=== PATIENT | female | born 1940 | race Caucasian/White ===

== ENCOUNTER 2017-02-24 17:28 | Inpatient (IN) | payer MEDICARE ==
[~2017-02-24] VITALS: Ht 157.5 cm; Wt 51.7 kg
[~2017-02-24 17:28] MED LIST: AMLODIPINE BESYL5 MG PO; ASPIRIN81 MG PO; ATENOLOL25 MG PO; AZITHROMYCIN250 MG PO; BUSPIRONE HCL10 MG; BUSPIRONE HCL5 MG PO; CENTRUM SILVER1 EAC4 PO; CINNAMON500 MG PO; FISH OIL500 MG PO; FLECAINIDE ACE100 MG PO; NEURONTIN300 MG PO; NIACOR500 MG PO; NITROFURANTOIN100 MG PO; PENTOXIFYLLINE400 MG PO; PRAVASTATIN SOD40 MG PO; PRILOSEC40 MG PO; PROVENTIL HFA6.7 GM INH; XARELTO20 MG PO
[2017-02-24] MEDS ORDERED: ALBUTEROL/IPRATROPIUM 3 ML NEB NEB ONE (18:00)
--- NOTE | 2017-02-24 18:34 | Diagnostic Imaging Report ---
PROCEDURE: A single AP view of the chest. COMPARISON: 12/15/15 INDICATIONS: SHORTNESS OF BREATH FINDINGS: Lines/tubes: None. Lungs: The lungs are well inflated. Apical scarring. Central peribronchovascular thickening/cuffing. Pleura: There is no pleural effusion or pneumothorax. Heart and mediastinum: The heart and the mediastinum are unremarkable. Bones: No acute bony abnormality. IMPRESSION: Central peribronchovascular thickening/cuffing. No definite focal consolidation. Dictated by: Kristopher Prieto M.D. on 02/24/2017 at 18:43 Electronically approved by: Kristopher Prieto M.D. on 02/24/2017 at 18:43
[2017-02-24 18:57] LABS: BASOPHILS % 0.3 % (0.0-1.0); HEMATOCRIT 39.5 % (34.2-44.1); HEMOGLOBIN 13.5 g/dL (12.0-16.0); LYMPHOCYTES # (AUTO) 1.2 (1.0-3.2); LYMPHOCYTES % 17.1 % (18.0-39.1); MEAN CORPUSCULAR HEMOGLOBIN 31.3 pg (28-32); MEAN CORPUSCULAR HGB CONC 34.2 g/dL (31-35); MEAN CORPUSCULAR VOLUME 91.4 fL (81-99); MONOCYTES % 14.6 % (4.4-11.3); NEUTROPHILS # (AUTO) 4.6 (2.1-6.9); NEUTROPHILS % 67.7 % (38.7-80.0); PLATELET COUNT 315 x10e3/uL (140-360); RED BLOOD COUNT 4.32 x10e6/uL (3.6-5.1); RED CELL DISTRIBUTION WIDTH 14.4 % (11.7-14.4)
[2017-02-24] MEDS ORDERED: METHYLPREDNISOLONE SOD SUCC 125 MG/2ML VIAL IV STA (19:11)
[2017-02-24] MEDS ORDERED: SODIUM CHLORIDE 0.9% 1000ML 1,000 ML IV STA (19:11)
[2017-02-24] MEDS ORDERED: PANTOPRAZOLE 40 MG 10ML VIAL IV STA (19:11)
[2017-02-24 19:14] LABS: INR 1.12
[2017-02-24 19:20] LABS: B-TYPE NATRIURETIC PEPTIDE2 90.3 pg/mL (0-100)
[2017-02-24 19:29] LABS: ALBUMIN 3.8 g/dL (3.5-5.0); CALCIUM 9.6 mg/dL (8.4-10.2); CREATININE, SERUM 1.02 mg/dL (0.57-1.11); MAGNESIUM 1.8 MG/DL (1.3-2.1)
[2017-02-24] MEDS ORDERED: ALBUTEROL SULF 0.083% NEB SOLN 3 ML NEB NEB ONE (19:30)
[2017-02-24] MEDS ORDERED: LEVOFLOXACIN 500MG/D5W 100ML 100 ML IV ONE (19:30)
[2017-02-24 19:38] LABS: CREATINE KINASE MB 4.7 ng/mL (0.00-5.00); TROPONIN I 0.011 ng/mL (0-0.300)
[2017-02-24] MEDS ORDERED: DEXAMETHASONE SOD PHOS 10 MG/1 ML VIAL IV ONE (19:45)
[2017-02-24 19:48] LABS: ABG HCO3 20 mmol/L (23-28); ABG PCO2 36 mmHg (41-51); ABG PH 7.36 (7.31-7.41); ABG PO2 101 mmHg (80-105)
[2017-02-24] MEDS ORDERED: MAGNESIUM SULFATE 2GM/50ML 50 ML IV ONE (20:00)
[2017-02-24] MEDS ORDERED: ONDANSETRON HCL INJ 2 MG/ML VIAL IV STA (20:06)
--- NOTE | 2017-02-24 21:18 | Diagnostic Imaging Report ---
EXAM: CT CHEST W DATE: 02/24/2017 7:22 PM Time stamp on exam: 2055 hours INDICATION: Shortness of breath, cough, congestion COMPARISON: None TECHNIQUE: Multidetector CT scanning of the chest was performed. Coronal and sagittal multiplanar reformations were obtained. PE protocol performed IV Contrast: 100 cc Isovue-370 CTDIvol has been reviewed. It is below the limits set by the Radiation Protocol Committee (RPC). FINDINGS: LUNGS AND AIRWAYS: The trachea and major bronchi are unremarkable. Advanced centrilobular and paraseptal emphysema. No consolidations. Biapical pleural parenchymal scarring. PLEURA: No effusions or pneumothorax. HEART, MEDIASTINUM, VESSELS: The heart is within normal size limits. No thoracic aortic aneurysm. No mediastinal mass or lymphadenopathy. The main pulmonary artery is within normal size limits. No evidence of a pulmonary embolism to the segmental level. UPPER ABDOMEN: No acute findings MUSCULOSKELETAL: No acute findings. IMPRESSION: Advanced emphysema. No consolidations. No pulmonary embolism. Signed by: Dr. Carmenza Friedman M.D. on 02/24/2017 9:15 PM
[2017-02-24] MEDS ORDERED: SODIUM CHLORIDE 0.9% 50ML 50 ML ONE (21:21)
[2017-02-24] MEDS ORDERED: IOPAMIDOL 370 MG/ML 200 ML INFUS..BTL INJ ONE (21:22)
[2017-02-24] MEDS ORDERED: LEVOFLOXACIN 500MG/D5W 100ML 100 ML IV SCH (22:00)
[2017-02-24] MEDS: METHYLPREDNISOLONE SOD SUCC 125 MG/2ML VIAL IV SCH (22:38)
[2017-02-24] MEDS ORDERED: MAGNESIUM SULF 1GRAM/DEXTROSE 100 ML IV ONE (23:15)
[2017-02-24 23:20] VITALS: BP 123/61
[2017-02-25 01:51] VITALS: BP 123/61
[2017-02-25] MEDS: METHYLPREDNISOLONE SOD SUCC 125 MG/2ML VIAL IV SCH ×3 (05:13→20:45)
[2017-02-25 07:13] LABS: HEMATOCRIT 34.6 % (34.2-44.1); LYMPHOCYTES # (AUTO) 0.7 (1.0-3.2); LYMPHOCYTES % 14.5 % (18.0-39.1); MEAN CORPUSCULAR HEMOGLOBIN 31.6 pg (28-32); MEAN CORPUSCULAR HGB CONC 34.7 g/dL (31-35); MEAN CORPUSCULAR VOLUME 91.1 fL (81-99); MONOCYTES # (AUTO) 0.2 (0.2-0.8); MONOCYTES % 3.8 % (4.4-11.3); NEUTROPHILS % 81.3 % (38.7-80.0); PLATELET COUNT 281 x10e3/uL (140-360); RED CELL DISTRIBUTION WIDTH 14.4 % (11.7-14.4)
[2017-02-25] MEDS: LEVALBUTEROL HCL SOLN NEBU 0.63 MG/3 ML NEB INH PRN ×2 (07:15→20:15)
[2017-02-25] MEDS: IPRATROPIUM BROMIDE 0.02% 2.5 ML NEB NEB PRN (07:15)
[2017-02-25 07:48] LABS: ANION GAP 14.4 mmol/L (8-16); BLOOD UREA NITROGEN 19 mg/dL (7-26); BUN/CREATININE RATIO 22 (6-25); CALCIUM 8.6 mg/dL (8.4-10.2); CARBON DIOXIDE 19 mmol/L (22-29); CHLORIDE 102 mmol/L (98-107); CREATININE, SERUM 0.88 mg/dL (0.57-1.11); EST GLOMERULAR FILTRATION RATE > 60 ML/MIN (60-); GLUCOSE 144 mg/dL (74-118); POTASSIUM 4.4 mmol/L (3.5-5.1); SODIUM 131 mmol/L (136-145)
[2017-02-25 08:00] VITALS: BP 121/58
[2017-02-25 08:11] LABS: TROPONIN I 0.014 ng/mL (0-0.300)
[2017-02-25 12:00] VITALS: BP 110/70
[2017-02-25 15:24] LABS: CREATINE KINASE MB 4.7 ng/mL (0.00-5.00); TROPONIN I 0.024 ng/mL (0-0.300)
[2017-02-25 16:00] VITALS: BP 120/59
[2017-02-25 20:00] VITALS: BP 107/58
[2017-02-25] MEDS ORDERED: LEVOFLOXACIN 500MG/D5W 100ML IV SCH (20:00)
[2017-02-25] MEDS ORDERED: SODIUM CHLORIDE 0.9% 250ML 250 ML ONE (20:40)
[2017-02-25] MEDS: LEVOFLOXACIN 500MG/D5W 100ML 100 ML IV SCH (20:45)
[2017-02-26] VITALS: BP 130/67
[2017-02-26] MEDS: LEVALBUTEROL HCL SOLN NEBU 0.63 MG/3 ML NEB INH PRN ×5 (04:00→23:45)
[2017-02-26] MEDS: METHYLPREDNISOLONE SOD SUCC 125 MG/2ML VIAL IV SCH ×2 (05:44→20:47)
[2017-02-26] MEDS: IPRATROPIUM BROMIDE 0.02% 2.5 ML NEB NEB PRN ×3 (07:15→15:25)
[2017-02-26 08:00] VITALS: BP 119/53
[2017-02-26 08:30] LABS: BASOPHILS % 0.1 % (0.0-1.0); HEMATOCRIT 37.8 % (34.2-44.1); HEMOGLOBIN 12.9 g/dL (12.0-16.0); LYMPHOCYTES % 8.5 % (18.0-39.1); MEAN CORPUSCULAR HEMOGLOBIN 31.3 pg (28-32); MEAN CORPUSCULAR HGB CONC 34.1 g/dL (31-35); MEAN CORPUSCULAR VOLUME 91.7 fL (81-99); MONOCYTES # (AUTO) 0.7 (0.2-0.8); MONOCYTES % 5.7 % (4.4-11.3); NEUTROPHILS # (AUTO) 9.8 (2.1-6.9); NEUTROPHILS % 85.1 % (38.7-80.0); PLATELET COUNT 330 x10e3/uL (140-360); RED BLOOD COUNT 4.12 x10e6/uL (3.6-5.1); RED CELL DISTRIBUTION WIDTH 14.5 % (11.7-14.4)
[2017-02-26 09:07] LABS: ANION GAP 12.2 mmol/L (8-16); BLOOD UREA NITROGEN 20 mg/dL (7-26); BUN/CREATININE RATIO 22 (6-25); CALCIUM 9.3 mg/dL (8.4-10.2); CARBON DIOXIDE 23 mmol/L (22-29); CHLORIDE 104 mmol/L (98-107); EST GLOMERULAR FILTRATION RATE > 60 ML/MIN (60-); GLUCOSE 130 mg/dL (74-118); POTASSIUM 4.2 mmol/L (3.5-5.1); SODIUM 135 mmol/L (136-145)
[2017-02-26] MEDS ORDERED: ALBUTEROL SULFATE HFA 8GM INHALATION AEROSOL INH PRN (09:15)
[2017-02-26] MEDS ORDERED: ZOLPIDEM TARTRATE 5 MG TAB PO PRN (09:45)
[2017-02-26 12:00] VITALS: BP 137/60
[2017-02-26] MEDS: BUSPIRONE HCL 5 MG TAB PO SCH ×2 (15:00→21:00)
[2017-02-26 16:00] VITALS: BP 124/58
[2017-02-26] MEDS: FLECAINIDE ACETATE 100 MG TAB PO SCH (17:00)
[2017-02-26] MEDS ORDERED: NITROFURANTOIN MACROCRYSTALS 100 MG CAP PO SCH (17:00)
[2017-02-26] MEDS: PENTOXIFYLLINE 400 MG TAB CR PO SCH (17:00)
[2017-02-26] MEDS: GABAPENTIN 300 MG CAP PO SCH (17:00)
[2017-02-26] MEDS: OSELTAMIVIR PHOSPHATE 75 MG CAP PO SCH (17:31)
[2017-02-26 20:00] VITALS: BP 151/73
[2017-02-26] MEDS: LEVOFLOXACIN 500MG/D5W 100ML 100 ML IV SCH (20:47)
[2017-02-26] MEDS: RIVAROXABAN 20 MG TABLET PO SCH (21:00)
[2017-02-26] MEDS: PRAVASTATIN 20 MG TAB PO SCH (21:00)
[2017-02-27 00:27] VITALS: BP 122/62
[2017-02-27] MEDS: TIOTROPIUM 18 MCG INH POWDER INH SCH (06:00)
[2017-02-27] MEDS: LEVALBUTEROL HCL SOLN NEBU 0.63 MG/3 ML NEB INH PRN (07:00)
[2017-02-27] MEDS: IPRATROPIUM BROMIDE 0.02% 2.5 ML NEB NEB PRN (07:25)
[2017-02-27 07:27] VITALS: BP 123/65
[2017-02-27] MEDS ORDERED: PANTOPRAZOLE SOD 40 MG TABEC PO SCH (07:30)
[2017-02-27] MEDS: AMLODIPINE BESYLATE 5 MG TAB PO SCH (09:00)
[2017-02-27] MEDS: GABAPENTIN 300 MG CAP PO SCH ×2 (09:00→16:25)
[2017-02-27] MEDS: OMEGA 3 POLYUNSAT FATTY ACIDS 1000 MG SOFTGEL PO SCH (09:00)
[2017-02-27] MEDS: BUSPIRONE HCL 5 MG TAB PO SCH ×3 (09:00→21:00)
[2017-02-27] MEDS: FLECAINIDE ACETATE 100 MG TAB PO SCH ×2 (09:00→16:33)
[2017-02-27] MEDS: PENTOXIFYLLINE 400 MG TAB CR PO SCH ×2 (09:00→16:25)
[2017-02-27] MEDS: OSELTAMIVIR PHOSPHATE 75 MG CAP PO SCH ×2 (09:21→17:17)
[2017-02-27] MEDS: METHYLPREDNISOLONE SOD SUCC 125 MG/2ML VIAL IV SCH (09:21)
[2017-02-27 11:37] VITALS: BP 144/81
[2017-02-27] MEDS: AZITHROMYCIN 500MG/NS 250 ML 250 ML IV SCH (12:13)
[2017-02-27 16:31] VITALS: BP 150/70
[2017-02-27 20:33] VITALS: BP 115/52
[2017-02-27] MEDS: PANTOPRAZOLE SOD 40 MG TABEC PO SCH (21:00)
[2017-02-27] MEDS: PRAVASTATIN 20 MG TAB PO SCH (21:00)
[2017-02-27] MEDS: RIVAROXABAN 20 MG TABLET PO SCH (21:00)
--- NOTE | 2017-02-27 21:58 | Consultation ---
DATE OF CONSULTATION: PULMONARY/CRITICAL CARE CONSULTATION REFERRING PHYSICIAN: Dr. Raheem Hauser PCP: Dr. Álvaro Haywood HISTORY OF PRESENT ILLNESS: The patient is a 76-year-old woman. She required hospitalization in December of last year for bronchitis and atrial fibrillation. Over the past several weeks, she has felt more malaise and dyspnea. She notes some cough that is not productive of phlegm. She denies any fever or chest pain. She went to Dr. Haywood's office. She received several different antibiotics with minimal benefit. She came to the emergency department last night. She had a CT scan that showed some emphysematous changes. She was started on Solu-Medrol along with antibiotics with some slight improvement. PAST MEDICAL HISTORY: 1. Atrial fibrillation. 2. Hypertension. PAST SURGICAL HISTORY: Noncontributory. SOCIAL HISTORY: The patient is still smoking. She lives . Dr. Haywood is her regular doctor. She is not a drinker. FAMILY HISTORY: Family history is noncontributory. ALLERGIES: THE PATIENT IS ALLERGIC TO AMOXICILLIN AND CEFUROXIME. REVIEW OF SYSTEMS: The patient does not have any fever. She does not have any headache or congestion. She is not complaining of sore throat. She has no neck pain. She does have dyspnea and some dry cough. She has no wheezing. She has no chest pain. The abdomen is soft and nontender. There is no rebound or guarding. Examination of the extremities showed no leg edema or calf tenderness. There is no cyanosis or clubbing. Skin examination showed no rashes. PHYSICAL EXAMINATION: VITAL SIGNS: The patient is afebrile. The blood pressure is 130/67 and the O2 saturation is 98%, is on 2 liters. HEENT: Showed no facial swelling or erythema. The nasal mucosa is normal. The oropharynx is normal. LYMPHATIC: Showed no submandibular, cervical, or supraclavicular adenopathy. NECK: Showed no JVD or thyromegaly. There is no nuchal rigidity. CARDIAC: Revealed a regular rate and rhythm with a normal S1 and S2. There are no murmurs or rubs. CHEST: Auscultation of lungs revealed clear breath sounds bilaterally. There is no wheezing. ABDOMEN: Soft and nontender. There is no rebound, no guarding. EXTREMITIES: Showed no leg edema or calf tenderness. There is no cyanosis or clubbing. SKIN: Showed no rashes. NEUROLOGICAL: Showed no focal abnormalities. LABORATORY DATA: Blood gas is 7.36, 36, 101, and 20. The BUN to creatinine ratio is 20 to 0.9. The other electrolytes are within normal limits. The white blood cell count is 11.5 with the hemoglobin of 12.9. The platelet count is 330,000. RADIOGRAPHIC DATA: CT scan showed emphysematous changes. IMPRESSIONS: 1. Chronic obstructive pulmonary disease with acute exacerbation. 2. Paroxysmal atrial fibrillation. 3. Hypertension. PLAN: 1. Patient has been started on Solu-Medrol at 1 mg per kg twice a day. She will also have antibiotics and aggressive bronchodilators. 2. She should begin a long-acting anticholinergic agent such as Spiriva once a day as an outpatient in addition to the rescue inhaler that she now has. 3. Nasal swab and evaluation for influenza. 4. Smoking cessation. 5. Once the patient has recovered from the acute exacerbation, she will require pulmonary function test to assess the severity of her illness. 6. Continue current cardiac regimen. Thank you. Job#: [id number]
[2017-02-27] MEDS: METHYLPREDNISOLONE SOD SUCC 40 MG/ML VIAL IV SCH (22:00)
[2017-02-28 01:12] VITALS: BP 114/55
[2017-02-28 06:19] VITALS: BP 137/87
[2017-02-28] MEDS: TIOTROPIUM 18 MCG INH POWDER INH SCH (06:25)
[2017-02-28] MEDS: PANTOPRAZOLE SOD 40 MG TABEC PO SCH ×2 (07:30→15:56)
[2017-02-28 08:00] VITALS: BP 133/71
[2017-02-28] MEDS: OSELTAMIVIR PHOSPHATE 75 MG CAP PO SCH ×2 (08:23→17:16)
[2017-02-28] MEDS: METHYLPREDNISOLONE SOD SUCC 40 MG/ML VIAL IV SCH ×2 (08:23→20:49)
[2017-02-28] MEDS: PENTOXIFYLLINE 400 MG TAB CR PO SCH ×2 (08:24→15:57)
[2017-02-28] MEDS: BUSPIRONE HCL 5 MG TAB PO SCH ×3 (08:24→20:49)
[2017-02-28] MEDS: OMEGA 3 POLYUNSAT FATTY ACIDS 1000 MG SOFTGEL PO SCH (08:24)
[2017-02-28] MEDS: AMLODIPINE BESYLATE 5 MG TAB PO SCH (08:24)
[2017-02-28] MEDS: FLECAINIDE ACETATE 100 MG TAB PO SCH ×2 (08:24→15:56)
[2017-02-28] MEDS: GABAPENTIN 300 MG CAP PO SCH ×2 (08:24→15:56)
[2017-02-28] MEDS: AZITHROMYCIN 500MG/NS 250 ML 250 ML IV SCH (12:25)
[2017-02-28 13:05] VITALS: BP 129/84
[2017-02-28] MEDS ORDERED: MAGNESIUM HYDROXIDE 30 ML UDC PO PRN (15:15)
--- NOTE | 2017-02-28 15:52 | Progress Note ---
DATE: February 28, 2017 PULMONARY MEDICINE PROGRESS NOTE SUBJECTIVE: Mrs. Arzola was seen and examined at the bedside. The patient remains with a lot of weakness. She has had no bowel movement in 3 days. She was on 2 liters per minute by nasal cannula. There is 98% oxygen saturation. She is voiding spontaneously. The patient claims that she is still quite weak and has cough still present. REVIEW OF SYSTEMS: No headaches, no bleeding. OBJECTIVE VITAL SIGNS: Afebrile, vital signs noted per electronic record. GENERAL: No acute distress with intermittent cough still present, slightly pale. HEENT: Normocephalic, atraumatic. NECK: Supple. Throat midline. LUNGS: Bilateral air entry, few rhonchi. CARDIOVASCULAR: S1 and S2 with no murmurs, rubs or gallops. ABDOMEN: Soft, nontender. EXTREMITIES: No clubbing and no cyanosis. There is no edema. INTEGUMENT: No rash, no purpura. LABORATORY DATA: BUN 20, creatinine 0.9, bicarbonate 23, potassium 4.2, white count 12, hematocrit 38, platelets 330,000. IMPRESSION 1. Influenza. 2. Active smoker. 3. Chronic obstructive pulmonary disease. 4. Acute hypoxemia. 5. Constipation. 6. Paroxysmal atrial fibrillation. 7. Hypertension. PLAN: The patient was recommended for smoking cessation if possible. Low-dose chest CT would be due in February 2018. The patient will have decrease of her steroids at this time. The patient will be continued on bronchodilators. She will continue Tamiflu as well as other supportive treatment. She is on antibiotics as well for the COPD. Due to her weakness, she needs to move around more. Will follow along closely. Job#: [id number]
[2017-02-28 16:09] VITALS: BP 125/61
[2017-02-28] MEDS: DOCUSATE SODIUM 100 MG CAP PO SCH (17:00)
[2017-02-28] MEDS: IPRATROPIUM BROMIDE 0.02% 2.5 ML NEB NEB PRN (20:15)
[2017-02-28] MEDS: LEVALBUTEROL HCL SOLN NEBU 0.63 MG/3 ML NEB INH PRN (20:15)
[2017-02-28] MEDS: PRAVASTATIN 20 MG TAB PO SCH (20:49)
[2017-02-28] MEDS: RIVAROXABAN 20 MG TABLET PO SCH (20:49)
[2017-02-28 21:27] VITALS: BP 126/55
[2017-03-01 00:44] VITALS: BP 119/59
[2017-03-01 06:08] VITALS: BP 132/61
[2017-03-01 06:59] LABS: HEMOGLOBIN 13.2 g/dL (12.0-16.0); LYMPHOCYTES # (AUTO) 1.2 (1.0-3.2); LYMPHOCYTES % 21.8 % (18.0-39.1); MEAN CORPUSCULAR HEMOGLOBIN 31.1 pg (28-32); MEAN CORPUSCULAR HGB CONC 33.8 g/dL (31-35); MEAN CORPUSCULAR VOLUME 91.8 fL (81-99); MONOCYTES # (AUTO) 0.5 (0.2-0.8); MONOCYTES % 8.5 % (4.4-11.3); NEUTROPHILS # (AUTO) 3.8 (2.1-6.9); NEUTROPHILS % 69.3 % (38.7-80.0); PLATELET COUNT 318 x10e3/uL (140-360); RED BLOOD COUNT 4.25 x10e6/uL (3.6-5.1); RED CELL DISTRIBUTION WIDTH 14.3 % (11.7-14.4)
--- NOTE | 2017-03-01 07:19 | Diagnostic Imaging Report ---
Two view chest, March 01, 2017 Clinical history: COPD exacerbation Technique: PA and lateral views chest. Comparison: CT chest February 24, 2017 DISCUSSION: Symmetric hyperinflation with a relative possibility of interstitial lung markings predominate in the upper lung zones. Lungs are otherwise clear. No pleural effusions. Cardiac size and mediastinal contour are normal. Pulmonary vasculature is normal. The skeleton is grossly intact. IMPRESSION: Air trapping consistent with emphysema/COPD. No evidence of pneumonia. This report was generated with voice-recognition technology. Errors in perl software engineer can occur. Please interpret accordingly and contact a radiologist if there are any questions regarding the report. Signed by: Dr. Donnell Godfrey M.D. on 03/01/2017 7:15 AM
[2017-03-01 07:29] LABS: ANION GAP 16.4 mmol/L (8-16); CALCIUM 9.5 mg/dL (8.4-10.2); CREATININE, SERUM 1.09 mg/dL (0.57-1.11); POTASSIUM 4.4 mmol/L (3.5-5.1)
[2017-03-01] MEDS: PANTOPRAZOLE SOD 40 MG TABEC PO SCH ×2 (07:30→16:30)
[2017-03-01 08:00] VITALS: BP 132/63
[2017-03-01] MEDS: PENTOXIFYLLINE 400 MG TAB CR PO SCH ×2 (09:00→17:00)
[2017-03-01] MEDS: GABAPENTIN 300 MG CAP PO SCH ×2 (09:00→17:00)
[2017-03-01] MEDS: FLECAINIDE ACETATE 100 MG TAB PO SCH ×2 (09:00→17:00)
[2017-03-01] MEDS: OSELTAMIVIR PHOSPHATE 75 MG CAP PO SCH ×2 (09:00→17:00)
[2017-03-01] MEDS: DOCUSATE SODIUM 100 MG CAP PO SCH ×2 (09:00→17:00)
[2017-03-01] MEDS: BUSPIRONE HCL 5 MG TAB PO SCH ×3 (09:00→21:00)
[2017-03-01] MEDS: METHYLPREDNISOLONE SOD SUCC 40 MG/ML VIAL IV SCH ×2 (09:00→21:02)
[2017-03-01] MEDS: OMEGA 3 POLYUNSAT FATTY ACIDS 1000 MG SOFTGEL PO SCH (09:00)
[2017-03-01] MEDS: AMLODIPINE BESYLATE 5 MG TAB PO SCH (09:00)
[2017-03-01] MEDS: AZITHROMYCIN 500MG/NS 250 ML 250 ML IV SCH (10:17)
[2017-03-01 12:00] VITALS: BP 114/59
[2017-03-01] MEDS: IPRATROPIUM BROMIDE 0.02% 2.5 ML NEB NEB PRN (13:00)
[2017-03-01] MEDS: LEVALBUTEROL HCL SOLN NEBU 0.63 MG/3 ML NEB INH PRN (13:00)
--- NOTE | 2017-03-01 15:01 | Progress Note ---
DATE: March 01, 2017 PULMONARY MEDICINE PROGRESS NOTE SUBJECTIVE: Mrs. Arzola was seen and examined at bedside. She continues to have steady progress. She still has intermittent cough. Intermittent secretions that she has trouble getting out. Patient still low on energy. However, she is eating better. She had multiple bowel movements. Two liters per minute with 98% oxygen saturation. REVIEW OF SYSTEMS: No headaches. No bleed. OBJECTIVE VITALS: Afebrile. Vital signs noted per electronic records. GENERAL: In no acute distress. Alert and calm. HEENT: Normocephalic and atraumatic. NECK: Supple. Throat midline. LUNGS: Bilateral air entry. Few rhonchi. CARDIOVASCULAR: S1 and S2. No murmurs, rubs or gallops. ABDOMEN: Soft and nontender. EXTREMITIES: No clubbing. No cyanosis. There is no edema. INTEGUMENT: No rash. No purpura. LABS: White count 6, hematocrit 39. Creatinine 1.41. IMPRESSION AND PLAN 1. Influenza. 2. Chronic obstructive pulmonary disease with exacerbation. 3. . 4. Weakness. 5. History of atrial fibrillation. Continue current treatment. Continue Tamiflu. Isolation for the patient. Continue antibiotics. Will think about coming down on steroids further. Will follow along closely. Job#: [id number] JOSEPH
[2017-03-01 16:00] VITALS: BP 122/56
[2017-03-01 20:00] VITALS: BP 117/55
[2017-03-01] MEDS ORDERED: SIMVASTATIN 20 MG TAB PO SCH (21:00)
[2017-03-01] MEDS: RIVAROXABAN 20 MG TABLET PO SCH (21:00)
[2017-03-02] VITALS: BP 133/62
[2017-03-02 04:52] VITALS: BP 134/88
[2017-03-02] MEDS: PANTOPRAZOLE SOD 40 MG TABEC PO SCH (07:30)
[2017-03-02 08:00] VITALS: BP 134/64
[2017-03-02] MEDS: OSELTAMIVIR PHOSPHATE 75 MG CAP PO SCH (08:09)
[2017-03-02] MEDS: AMLODIPINE BESYLATE 5 MG TAB PO SCH (08:09)
[2017-03-02] MEDS: METHYLPREDNISOLONE SOD SUCC 40 MG/ML VIAL IV SCH (08:09)
[2017-03-02] MEDS: BUSPIRONE HCL 5 MG TAB PO SCH ×2 (08:09→15:00)
[2017-03-02] MEDS: OMEGA 3 POLYUNSAT FATTY ACIDS 1000 MG SOFTGEL PO SCH (08:09)
[2017-03-02] MEDS: GABAPENTIN 300 MG CAP PO SCH (08:09)
[2017-03-02] MEDS: DOCUSATE SODIUM 100 MG CAP PO SCH (08:09)
[2017-03-02] MEDS: PENTOXIFYLLINE 400 MG TAB CR PO SCH (08:10)
[2017-03-02] MEDS: FLECAINIDE ACETATE 100 MG TAB PO SCH (08:10)
[2017-03-02] MEDS: AZITHROMYCIN 500MG/NS 250 ML 250 ML IV SCH (10:51)
[2017-03-02 12:00] VITALS: BP 150/67
--- NOTE | 2017-03-02 15:30 | Progress Note ---
DATE: March 02, 2017 PULMONARY MEDICINE PROGRESS NOTE SUBJECTIVE: Ms. Arzola was seen and examined at bedside. She continues to have steady progress. There is less dyspnea although she still is not at her baseline. She did qualify for home oxygen. Home oxygen cannister is now delivered at this time. REVIEW OF SYSTEMS: No chest pain, no nosebleeds. OBJECTIVE VITAL SIGNS: Afebrile. Vital signs noted per electronic record. GENERALLY: No acute distress. HEENT: Normocephalic. NECK: Supple. LUNGS: Bilateral air entry. CARDIOVASCULAR: S1 and S2. ABDOMINAL: Soft. EXTREMITIES: No edema. INTEGUMENT: No rash. IMPRESSION AND PLAN 1. Influenza, acute. 2. Chronic obstructive pulmonary disease with exacerbation. 3. Hypoxemia, acute on chronic. 4. Weakness. Patient will be recommended for outpatient pulmonary rehab. Home oxygen is also recommended, and this is ordered for the patient. Patient will continue with antibiotics at this time. Blood thinners. She will be considered for discharge planning if she can walk around well without difficulty. Job#: [id number] EV
== END 2017-03-02 16:38 | disposition home health service (06) | DRG 192 ==
LOC: ER 17:28 → MED/SURG2 23:01
DX: J44.0 Chronic obstructive pulmonary disease with (acute) lower respiratory infection (principal); I48.0 Paroxysmal atrial fibrillation; J44.1 Chronic obstructive pulmonary disease with (acute) exacerbation; J11.1 Influenza due to unidentified influenza virus with other respiratory manifestations; J20.9 Acute bronchitis, unspecified; Z79.01 Long term (current) use of anticoagulants; I10 Essential (primary) hypertension; R09.02 Hypoxemia; R53.1 Weakness; I25.10 Atherosclerotic heart disease of native coronary artery without angina pectoris; F17.210 Nicotine dependence, cigarettes, uncomplicated
CPT/HCPCS: 36415; 36600; 71010; 71020; 71260; 80048; 80053; 82550; 82553; 82805; 82948; 83605; 83735; 83880; 84443; 84484; 85025; 85379; 85610; 85730; 87400; 87491; 93005; 94640; 99284; J0456; J1100; J1956; J2405; J2920; J2930; J7030; J7050; Q9967

== ENCOUNTER → 2017-09-27 | Outpatient (CLI) | payer MEDICARE ==
--- NOTE | 2017-09-27 12:58 | Diagnostic Imaging Report ---
Exam: Head CT without contrast History: Headaches Comparison studies: None Technique: Axial images were obtained from the skull base to the vertex. Coronal and sagittal images reconstructed from the axial data. Intravenous contrast: None Findings: Scalp: No abnormalities. Bones: No fractures, blastic or lytic lesions. Brain sulci: Mildly prominent. Ventricles: Mild compensatory dilatation. No hydrocephalus. Extra-axial spaces: No masses, no fluid collection. Parenchyma: No mass, acute hemorrhage or acute or chronic cortical vascular insults. Sellar/suprasellar region: No abnormalities. Craniocervical junction: Patent foramen magnum. No Chiari one malformation. Incidental findings: Atherosclerotic calcifications in the carotid siphons.. IMPRESSION: 1. No acute abnormalities. 2. Mild generalized volume loss. Signed by: Dr. Mohamud Menon M.D. on 09/27/2017 12:54 PM
== END ==
LOC: CT 12:04
PROVIDERS: ATTEND Internal Medicine Interventional Cardiology
DX: R51 Headache (principal)
CPT/HCPCS: 70450

== ENCOUNTER → 2017-12-20 | Outpatient (CLI) | payer MEDICARE ==
[~2017-12-20] MED LIST changes: +CENTRUM SILVER1 EAC3; +FUROSEMIDE40 MG PO; +LOSARTAN POTASS50 MG PO; +PANTOPRAZOLE SO40 MG PO; +PRAVASTATIN SOD20 MG PO; +PREMARIN VG; +PROBIOTIC & AC1 EACH PO; +THERACRAN650 MG PO
--- NOTE | 2018-01-10 08:52 | Diagnostic Imaging Report ---
#[id number] - MGSCRBIL #BILATERAL DIGITAL SCREENING MAMMOGRAM WITH CAD: 12/20/2017 CLINICAL: Routine screening. Comparison is made to exams dated: 09/08/2015 mammogram and 09/01/2014 mammogram - [facility]. Current study contains 4 films. The tissue of both breasts is heterogeneously dense. This may lower the sensitivity of mammography. Current study was also evaluated with a Computer Aided Detection (CAD) system. There are benign calcifications in both breasts. There is a mole marker on the left breast. No significant masses, calcifications, or other findings are seen in either breast. There has been no significant interval change. IMPRESSION: BENIGN There is no mammographic evidence of malignancy. A 1 year screening mammogram is recommended. The patient will be notified by letter of the results. Ld conner/parish:01/09/2018 08:50:34 Director Of Retail Merchandising: Sahra VASQUEZ(Kip)(M), [facility] letter sent: Compared to Prior B9 Mammogram BI-RADS: 2 Benign
== END ==
LOC: MAMMO 08:51
PROVIDERS: ATTEND Family Medicine
DX: Z12.31 Encounter for screening mammogram for malignant neoplasm of breast (principal)
CPT/HCPCS: 77067

== ENCOUNTER 2018-01-27 08:37 | Emergency (ER) | payer MEDICARE ==
[~2018-01-27] VITALS: Ht 157.5 cm; Wt 53.5 kg
[~2018-01-27 08:37] MED LIST changes: -CENTRUM SILVER1 EAC3; -FUROSEMIDE40 MG PO; -LOSARTAN POTASS50 MG PO; -PANTOPRAZOLE SO40 MG PO; -PRAVASTATIN SOD20 MG PO; -PREMARIN VG; -PROBIOTIC & AC1 EACH PO; -THERACRAN650 MG PO
--- OUTSIDE RECORDS SUMMARY | 2018-01-27 08:41 | XMS REPORT ---
Author Author [facility] Address Unknown Phone Unavailable Care Team Providers Care Hydrological Technical Officer Name Role Phone GENARO HESS Unavailable Unavailable KULDEEP DOCKERY Unavailable Unavailable ZAMUDIOTIFFANY Varela Unavailable Unavailable Problems This patient has no known problems. Allergies, Adverse Reactions, Alerts This patient has no known allergies or adverse reactions. Medications This patient has no known medications. Results Test Description Test Time Test Comments Text Results Atomic Results Result Comments MAMMOGRAPHY DIGITAL SCR BILAT 2017-12-20 09:36:00 [place] [address] Patient Name: EDGAR AGUIRRE MR #: [id number] : 1940 Age/Sex: 77/F Req #: [id number] [facility] Physician: Ordered by: GENARO HESS DO Report #: [id number] Location: MAMMO Room/Bed: Procedure: [id number] MG/MAMMOGRAPHY DIGITAL SCR BILAT Exam Date: 12/20/17 Exam Time: 0900 REPORT STATUS: Signed #[id number] - MGSCRBIL #BILATERAL DIGITAL SCREENING MAMMOGRAM WITH CAD: 12/20/2017 CLINICAL: Routine screening. Comparison is made to exams dated: 09/08/2015 mammogram and 09/01/2014 mammogram - [facility]. Current study contains 4 films. The tissue of both breasts is heterogeneously dense. This may lower the sensitivity of mammography. Current study was also evaluated with a Computer Aided Detection (CAD) system. There are benign calcifications in both breasts. There is a mole marker on the left breast. No significant masses, calcifications, or other findings are seen in either breast. There has been no significant interval change. IMPRESSION: BENIGN There is no mammographic evidence of malignancy. A 1 year screening mammogram is recommended. The patient will be notified by letter of the results. Ld conner/parish:01/09/2018 08:50:34 Production Line Mechanic: Sahra VASQUEZ(R)(M), [facility] jessi sent: Compared to Prior B9 Mammogram BI-RADS: 2 Benign Dictated By: LD GUTIÉRREZ DO 0850 Transcribed By: PARISH on 01/09/18 0850 COPY TO: GENARO HESS DO CT BRAIN WO 2017-09-27 12:51:00 [facility] [address] [place] [address] Patient Name: EDGAR AGUIRRE MR #: [id number] : 1940 Age/Sex: 77/F Req #: [id number] Adm Physician: Ordered by: KULDEEP DOCKERY MD Report #: [id number] Location: CT Room/Bed: Procedure: [id number] CT/CT BRAIN WO Exam Date: 09/27/17 Exam Time: 1220 REPORT STATUS: Signed ADDENDUM #1 Dose modulation, iterative reconstruction, and/or weight based adjustment of the mA/kV was utilized to reduce the radiation dose to as low as reasonably achievable. Signed by: Dr. Osvaldo Menon M.D. on 10/24/2017 4:36 PM ORIGINAL REPORT Exam: Head CT without contrast History: Headaches Comparison studies: None Technique: Axial images were obtained from the skull base to the vertex. Coronal and sagittal images reconstructed from the axial data. Intravenous contrast: None Findings: Scalp: No abnormalities. Bones: No fractures, blastic or lytic lesions. Brain sulci: Mildly prominent. Ventricles: Mild compensatory dilatation. No hydrocephalus. Extra-axial spaces: No masses, no fluid collection. Parenchyma: No mass, acute hemo rrhage or acute or chronic cortical vascular insults. Sellar/suprasellar region: No abnormalities. Craniocervical junction: Patent foramen magnum. No Chiari one malformation. Incidental findings: Atherosclerotic calcifications in the carotid siphons.. IMPRESSION: 1. No acute abnormalities. 2. Mild generalized volume loss. Signed by: Dr. Osvaldo Menon M.D. on 09/27/2017 12:54 PM Dictated By: OSVALDO MENON MD 1636 Transcribed By: DG on 09/27/17 1254 COPY TO: KULDEEP DOCKERY MD CHEST 2 VIEWS [place] [address] Patient Name: EDGAR AGUIRRE MR #: [id number] : 1940 Age/Sex: 76/F Req #: [id number] Adm Physician: TIFFANY ZAMUDIO MD Ordered by: TIFFANY ZAMUDIO MD Report #: [id number] Location: MED[facility] Room/Bed: [facility] Procedure: [id number] DX/CHEST 2 VIEWS Exam Date: 03/01/17 Exam Time: 0640 REPORT STATUS: Signed Two view chest, March 01, 2017 Clinical history: COPD exacerbation Technique: PA and lateral views chest. Comparison: CT chest February 24, 2017 DISCUSSION: Symmetric hyperinflation with a relative possibility of interstitial lung markings predominate in the upper lung zones. Lungs are otherwise clear. No pleural effusions. Cardiac size and mediastinal contour are normal. Pulmonary vas culature is normal. The skeleton is grossly intact. IMPRESSION: Air trapping consistent with emphysema/COPD. No evidence of pneumonia. This report was generated with voice-recognition technology. Errors in grocery carrier can occur. Please interpret accordingly and contact a radiologist if there are any questions regarding the report. Signed by: Dr. Yarelis Godfrey M.D. on 03/01/2017 7:15 AM Dictated By: YARELIS GODFREY MD 4 Transcribed By: DG on 03/01/17714 COPY TO: TIFFANY ZAMUDIO MD CT CHEST W [place] [address] Patient Name: EDGAR AGUIRRE MR #: [id number] : 1940 Age/Sex: 76/F Req #: [id number] Adm Physician: Ordered by: ORION CHIN Report #: [id number] Location: ER Room/Bed: Procedure: [id number] CT/CT CHEST W Exam Date: 02/24/17 Exam Time: 2100 REPORT STATUS: Signed EXAM: CT CHEST W DATE: 02/24/2017 7:22 PM Time stamp on exam: 2055 hours INDICATION: Shortness of breath, cough, congestion COMPARISON: None TECHNIQUE: Multidetector CT scanning of the chest was performed. Coronal and sagittal multiplanar reformations were obtained. PE protocol performed IV Contrast: 100 cc Isovue-370 CTDIvol has been reviewed. It is below the limits set by the Radiation Protocol Committee (RPC). FINDINGS: LUNGS AND AIRWAYS: The trachea and major bronchi are unremarkable. Advanced centrilobular and paraseptal emphysema. No consolidations. Biapical pleural parenchymal scarring. PLEURA: No effusions or pneumothorax. HEART, MEDIASTINUM, VESSELS: The heart is within normal size limits. No thoracic aortic aneurysm. No mediastinal mass or lymphadenopathy. The main pulmonary artery is within normal size limits. No evidence of a pulmonary embolism to the segmental level. UPPER ABDOMEN: No acute findings MUSCULOSKELETAL: No acute findings. IMPRESSION: Advanced emphysema. No consolidations. No pulmonary embolism. Signed by: Dr. Shellie Friedman M.D. on 02/24/2017 9:15 PM Dictated By: SHELLIE FRIEDMAN MD 14 Transcribed By: DG on 02/24/172114 COPY TO: ORION CHIN CHEST SINGLE (PORTABLE) [place] [address] Patient Name: EDGAR AGUIRRE MR #: [id number] : 1940 Age/Sex: 76/F Req #: [id number] Adm Physician: Ordered by: ORION CHIN Report #: [id number] Location: ER Room/Bed: Procedure: [id number] DX/CHEST SINGLE (PORTABLE) Exam Date: 02/24/17 Exam Time: 1820 REPORT STATUS: Signed PROCEDURE: A single AP view of the chest. COMPARISON: 12/15/15 INDICATIONS: SHORTNESS OF BREATH FINDINGS: Lines/tubes: None. Lungs: The lungs are well inflated. Apical scarring. Central peribronchovascular thickening/cuffing. Pleura: There is no pleural effusion or pneumothorax. Heart and mediastinum: The heart and the mediastinum are unremarkable. Bones: No acute bony abnormality. IMPRESSION: Central peribronchovascular thickening/cuffing. No definite focal consolidation. Dictated by: Kristopher Hodgson M.D. on 02/24/2017 at 18:43 Electronically approved by: Kristopher Hodgson M.D. on 02/24/2017 at 18:43 Dictated By: KRISTOPHER HODGSON MD 42 Transcribed By: EDGAR on 02/24/171842 COPY TO: ORION CHIN
[2018-01-27] MEDS ORDERED: SODIUM CHLORIDE 0.9% 500ML 500 ML IV STA (09:03)
[2018-01-27] MEDS ORDERED: FAMOTIDINE 20 MG/2 ML VIAL IV ONE (09:30)
[2018-01-27] MEDS ORDERED: PANTOPRAZOLE SO40 MG PO (09:32)
[2018-01-27 09:34] LABS: BASOPHILS % 0.5 % (0.0-1.0); EOSINOPHILS # (AUTO) 0.1 (0.0-0.4); EOSINOPHILS % 0.9 % (0.0-6.0); HEMATOCRIT 37.1 % (34.2-44.1); HEMOGLOBIN 12.5 g/dL (12.0-16.0); LYMPHOCYTES # (AUTO) 1.8 (1.0-3.2); LYMPHOCYTES % 22.9 % (18.0-39.1); MEAN CORPUSCULAR HEMOGLOBIN 31.2 pg (28-32); MEAN CORPUSCULAR HGB CONC 33.7 g/dL (31-35); MEAN CORPUSCULAR VOLUME 92.5 fL (81-99); MONOCYTES # (AUTO) 0.6 (0.2-0.8); MONOCYTES % 7.3 % (4.4-11.3); NEUTROPHILS # (AUTO) 5.3 (2.1-6.9); PLATELET COUNT 423 x10e3/uL (140-360); RED BLOOD COUNT 4.01 x10e6/uL (3.6-5.1); RED CELL DISTRIBUTION WIDTH 14.6 % (11.7-14.4)
[2018-01-27] MEDS ORDERED: PRAVASTATIN SOD20 MG PO (09:34)
[2018-01-27] MEDS ORDERED: LOSARTAN POTASS50 MG PO (09:36)
[2018-01-27] MEDS ORDERED: PROBIOTIC & AC1 EACH PO (09:38)
[2018-01-27] MEDS ORDERED: THERACRAN650 MG PO (09:38)
[2018-01-27] MEDS ORDERED: PREMARIN VG (09:42)
[2018-01-27 09:50] LABS: ALBUMIN/GLOBULIN RATIO 1.3 (0.8-2.0); ANION GAP 16.7 mmol/L (8-16); CALCIUM 10.3 mg/dL (8.4-10.2); CREATININE, SERUM 1.49 mg/dL (0.57-1.11); MAGNESIUM 2.1 MG/DL (1.3-2.1); POTASSIUM 3.7 mmol/L (3.5-5.1)
[2018-01-27 09:57] LABS: CREATINE KINASE MB 2.2 ng/mL (0-5.0)
[2018-01-27] MEDS ORDERED: ONDANSETRON HCL INJ 2 MG/ML VIAL IV ONE (10:00)
--- NOTE | 2018-01-27 10:16 | Diagnostic Imaging Report ---
EXAMINATION: PA and lateral views of the chest. COMPARISON: Chest PA and lateral 03/01/2017 CLINICAL HISTORY: Nausea, cough, shortness of breath DISCUSSION: Lines/tubes: None. Lungs: Lungs are hyperinflated, with increased lucency in the upper lungs, consistent with COPD changes. Mild bronchial wall thickening in the lower lobes. No consolidation or pulmonary edema. Pleura: There is no pleural effusion or pneumothorax. Heart and mediastinum: Cardiomediastinal silhouette is unremarkable. Pulmonary vasculature is normal. Atherosclerotic calcification of the aortic arch. Bones and soft tissues: No acute bony abnormalities. Degenerative changes in the thoracic spine IMPRESSION: COPD changes, without acute cardiopulmonary abnormalities. Signed by: Dr. Jean Marie Garcia M.D. on 01/27/2018 10:13 AM
[2018-01-27] MEDS ORDERED: DIATRIZOATE MEGL/DIATRIZOA SOD 30 ML BTL PO ONE (10:24)
[2018-01-27 10:54] LABS: BILIRUBIN,URINE NEGATIVE (NEGATIVE); CLARITY,URINE HAZY (CLEAR); COLOR,URINE YELLOW (YELLOW); KETONES,URINE NEGATIVE (NEGATIVE); LEUKOCYTE ESTERASE ,URINE NEGATIVE (NEGATIVE); NITRITE,URINE NEGATIVE (NEGATIVE); PROTEIN,URINE DIPSTICK NEGATIVE (NEGATIVE); URINE UROBILINOGEN 0.2 mg/dL (0.2 - 1)
[2018-01-27 11:00] LABS: BACTERIA,URINE FEW /HPF; EPITHELIAL CELLS,URINE MODERATE /LPF; RBC,URINE 0-5 /HPF (0-5); WBC,URINE (MAN) 0-5 /HPF (0-5)
--- NOTE | 2018-01-27 12:33 | Diagnostic Imaging Report ---
EXAMINATION: CT of the abdomen and pelvis without contrast. TECHNIQUE: Spiral CT images of the abdomen and pelvis were performed from the lung bases to the lesser trochanters. No intravenous contrast was given due to low GFR. Oral dilute Gastrografin was given.. Coronal and sagittal reformatted images were obtained. COMPARISON: None. CLINICAL HISTORY:Nausea for one week, history of diverticulitis DISCUSSION: ABSENCE OF INTRAVENOUS CONTRAST DECREASES SENSITIVITY FOR DETECTION OF FOCAL LESIONS AND VASCULAR PATHOLOGY. ABDOMEN/PELVIS: LOWER THORAX: Bilateral centrilobular emphysematous changes. No consolidation or effusion HEPATOBILIARY: No focal hepatic lesions. No intra or extrahepatic biliary ductal dilation. GALLBLADDER: No radio-opaque stones or sludge. No wall thickening. SPLEEN: No splenomegaly. PANCREAS: No focal masses or ductal dilatation. ADRENALS: No adrenal nodules. KIDNEYS/URETERS: No hydronephrosis, stones, or contour abnormalities. PELVIC ORGANS/BLADDER: Bladder is mostly decompressed but grossly unremarkable. Uterus is atrophic. No adnexal masses. PERITONEUM/RETROPERITONEUM: No free air or fluid. LYMPH NODES: No intra-abdominal,retroperitoneal, pelvic or inguinal lymphadenopathy. VESSELS: Moderate atherosclerotic calcification of the abdominal aorta, aortic branches and iliac vessels. GI TRACT: No bowel dilation or evidence of obstruction. Mild wall thickening in the mid and distal sigmoid, with moderate diverticulosis. No surrounding inflammatory changes to suggest diverticulitis. Moderate retained stool in the colon. Prominent mucosal folds in the fundus, which is greater than expected for underdistention. BONES AND SOFT TISSUES: No aggressive lytic lesions. Degenerative disc changes in the lumbosacral spine. Generalized osteopenia. IMPRESSION: 1. Prominent mucosal fold in the fundus, greater than expected for underdistention. This may reflect gastritis in this patient with history of nausea. Direct visualization with endoscopy is recommended for further evaluation. 2. Sigmoid diverticulosis, without diverticulitis. Mild wall thickening in the mid and distal sigmoid likely reflects muscular hypertrophy, however, recommend direct visualization with endoscopy for evaluation. 3. No bowel dilation or evidence of obstruction. Moderate amount of retained stool in the colon suggesting constipation. Signed by: Dr. Jean Marie Garcia M.D. on 01/27/2018 12:30 PM
[2018-01-27 13:34] VITALS: BP 117/89
== END 2018-01-27 13:43 | disposition home or self-care (01) ==
LOC: ER 08:37
DX: R10.84 Generalized abdominal pain (principal); E86.0 Dehydration; I10 Essential (primary) hypertension; R73.03 Prediabetes; J44.9 Chronic obstructive pulmonary disease, unspecified; F17.210 Nicotine dependence, cigarettes, uncomplicated; N28.9 Disorder of kidney and ureter, unspecified; Z88.1 Allergy status to other antibiotic agents; Z88.0 Allergy status to penicillin; Z88.8 Allergy status to other drugs, medicaments and biological substances
CPT/HCPCS: 36415; 71046; 74176; 80053; 81001; 82150; 82550; 82553; 83735; 83880; 84484; 85025; 87086; 87400; 93005; 99284; J2405; J7040; Q9663

== ENCOUNTER 2018-03-01 09:20 | Inpatient (IN) | payer MEDICARE ==
[2018-03-01] VITALS (10 sets, daily range): BP systolic 84–124; BP diastolic 36–76
[~2018-03-01] VITALS: Ht 157.5 cm; Wt 61.2 kg
[~2018-03-01 09:20] MED LIST changes: +LOSARTAN POTASS50 MG PO; +PANTOPRAZOLE SO40 MG PO; +PRAVASTATIN SOD20 MG PO; +PREMARIN VG; +PROBIOTIC & AC1 EACH PO; +THERACRAN650 MG PO
--- NOTE | 2018-03-01 09:46 | NUR ---
Rt notified of ordered breathing treatment and ABG.
[2018-03-01] MEDS ORDERED: ALBUTEROL SULF 0.083% NEB SOLN 3 ML NEB ONE (09:48)
[2018-03-01] MEDS ORDERED: IPRATROPIUM BROMIDE 0.02% 2.5 ML NEB NEB ONE ×2 (10:00→12:15)
[2018-03-01] MEDS ORDERED: SODIUM CHLORIDE 0.9% 500ML 500 ML IV ONE (10:00)
[2018-03-01 10:04] LABS: BASOPHILS % 0.1 % (0.0-1.0); EOSINOPHILS # (AUTO) 0.1 (0.0-0.4); EOSINOPHILS % 0.3 % (0.0-6.0); HEMATOCRIT 36.6 % (34.2-44.1); HEMOGLOBIN 12.3 g/dL (12.0-16.0); LYMPHOCYTES # (AUTO) 1.1 (1.0-3.2); LYMPHOCYTES % 3.8 % (18.0-39.1); MEAN CORPUSCULAR HEMOGLOBIN 31.5 pg (28-32); MEAN CORPUSCULAR HGB CONC 33.6 g/dL (31-35); MEAN CORPUSCULAR VOLUME 93.6 fL (81-99); MONOCYTES # (AUTO) 0.6 (0.2-0.8); MONOCYTES % 2.1 % (4.4-11.3); NEUTROPHILS # (AUTO) 25.3 (2.1-6.9); NEUTROPHILS % 89.2 % (38.7-80.0); PLATELET COUNT 313 x10e3/uL (140-360); RED BLOOD COUNT 3.91 x10e6/uL (3.6-5.1); RED CELL DISTRIBUTION WIDTH 15.7 % (11.7-14.4)
[2018-03-01 10:16] LABS: ALBUMIN 3.3 g/dL (3.5-5.0); ALBUMIN/GLOBULIN RATIO 0.9 (0.8-2.0); ANION GAP 17.8 mmol/L (8-16); CREATININE, SERUM 2.22 mg/dL (0.57-1.11); MAGNESIUM 1.9 MG/DL (1.3-2.1); POTASSIUM 3.8 mmol/L (3.5-5.1)
[2018-03-01 10:25] LABS: INR 2.63
[2018-03-01 10:26] LABS: PARTIAL THROMBOPLASTIN TIME 60.9 seconds (23.8-35.5)
[2018-03-01 10:30] LABS: B-TYPE NATRIURETIC PEPTIDE2 210.4 pg/mL (0-100)
[2018-03-01 10:34] LABS: ABG HCO3 26 mmol/L (23-28); ABG PCO2 41 mmHg (41-51); ABG PO2 258 mmHg (80-105)
[2018-03-01] MEDS: MEROPENEM 500MG/ NS 50ML 50 ML IV SCH ×2 (11:10→20:38)
[2018-03-01 11:18] LABS: BILIRUBIN,URINE NEGATIVE (NEGATIVE); CLARITY,URINE CLEAR (CLEAR); COLOR,URINE YELLOW (YELLOW); KETONES,URINE NEGATIVE (NEGATIVE); LEUKOCYTE ESTERASE ,URINE NEGATIVE (NEGATIVE); NITRITE,URINE NEGATIVE (NEGATIVE); PROTEIN,URINE DIPSTICK NEGATIVE (NEGATIVE); URINE UROBILINOGEN 0.2 mg/dL (0.2 - 1)
[2018-03-01 11:24] LABS: BACTERIA,URINE FEW /HPF; EPITHELIAL CELLS,URINE FEW /LPF; MUCUS,URINE FEW (RARE); RBC,URINE 0-5 /HPF (0-5); WBC,URINE (MAN) 0-5 /HPF (0-5)
[2018-03-01] MEDS ORDERED: AZTREONAM 2GM/NS 100ML 100 ML IV ONE (11:30)
--- NOTE | 2018-03-01 11:43 | Diagnostic Imaging Report ---
EXAM: XR CHEST 1 VIEW DATE: 03/01/2018 9:46 AM INDICATION: Cough COMPARISON: 01/27/2018 radiograph, no report available FINDINGS: Lines and Tubes: None Heart and Mediastinum: Upper limits of normal. Aortic vascular calcifications. Lungs and Pleura: Perihilar and infrahilar opacities, new. Bones and Soft Tissues: No acute findings. IMPRESSION: 1. Perihilar and hilar opacities suggest pneumonia. Radiographic follow-up recommended. Signed by: Dr. Marcos House MD on 03/01/2018 11:40 AM
[2018-03-01] MEDS ORDERED: ALBUTEROL/IPRATROPIUM 3 ML NEB NEB ONE (12:15)
[2018-03-01] MEDS ORDERED: SODIUM CHLORIDE 0.9% 1000ML 1,000 ML IV SCH (12:36)
[2018-03-01] MEDS: AZITHROMYCIN 500MG/NS 250 ML 250 ML IV SCH (13:08)
[2018-03-01] MEDS ORDERED: FUROSEMIDE40 MG PO (14:05)
[2018-03-01] MEDS ORDERED: CENTRUM SILVER1 EAC3 (14:05)
[2018-03-01] MEDS: IPRATROPIUM BROMIDE 0.02% 2.5 ML NEB NEB SCH ×2 (15:28→19:02)
[2018-03-01] MEDS: ALBUTEROL SULF 0.083% NEB SOLN 3 ML NEB NEB SCH ×3 (15:28→23:04)
[2018-03-01] MEDS: LORAZEPAM INJ 2 MG/ML VIAL IV PRN (15:35)
[2018-03-01] MEDS: FLECAINIDE ACETATE 100 MG TAB PO SCH (17:00)
[2018-03-01] MEDS: ATENOLOL 50 MG TAB PO SCH (17:00)
[2018-03-01] MEDS: NIACIN 500 MG TABSR PO SCH (17:15)
[2018-03-01] MEDS: GABAPENTIN 300 MG CAP PO SCH ×2 (17:34→20:38)
[2018-03-01] MEDS: PENTOXIFYLLINE 400 MG TAB CR PO SCH ×2 (17:34→20:38)
[2018-03-01] MEDS: THERACRAN PO SCH (18:30)
[2018-03-01] MEDS ORDERED: SODIUM CHLORIDE 0.9% 500ML 500 ML ONE (20:30)
[2018-03-01] MEDS: BUSPIRONE HCL 5 MG TAB PO SCH (20:38)
[2018-03-01] MEDS: RIVAROXABAN 15 MG TABLET PO SCH (20:38)
[2018-03-01] MEDS: PRAVASTATIN 20 MG TAB PO SCH (20:38)
[2018-03-01] MEDS: ACETAMINOPHEN 325 MG TAB PO PRN (21:00)
[2018-03-01] MEDS: AZTREONAM 1 GM/NS 50 ML 50 ML IV SCH (22:37)
[2018-03-01] MEDS ORDERED: SODIUM CHLORIDE 0.9% 500ML 400 ML IV PRN ×2 (22:45)
[2018-03-02] VITALS (23 sets, daily range): BP systolic 80–124; BP diastolic 41–67
[2018-03-02] MEDS: IPRATROPIUM BROMIDE 0.02% 2.5 ML NEB NEB SCH ×4 (01:00→19:20)
--- NOTE | 2018-03-02 02:05 | Consultation ---
DATE OF CONSULTATION: March 01, 2018 PULMONARY MEDICINE CONSULT REFERRING PHYSICIAN: Dr. Hauser REASON FOR REFERRAL: Acute respiratory failure. HISTORY: Ms. Arzola is a pleasant 77-year-old female with acute respiratory failure. Patient was recently in a reasonable pulmonary state of function. Patient reportedly on a good day could walk for a good distance, although it is hard for her to describe and she can routinely walk 30 yards distance, although sometimes she will have limitation at that distance. She does not use assist devices for ambulation. She has COPD, on 2 liters per minute of home oxygen. Nebulized treatments of albuterol and ProAir MDI use. She denies asthma and she denies allergies. Patient with a chronic cough and phlegm production as well. Patient reportedly for the last couple of days has been having some airways congestion. She had some nausea and emesis. She had worsening intensity of shortness of breath. Therefore, she came to the emergency room. Chest x-ray shows bilateral moderate-size pneumonitis. She was given BiPAP for rescue given the extensive shortness of breath that she had. 28,000 white count. Flu assay was unremarkable. PAST MEDICAL HISTORY: Atrial fibrillation, hypertension, hyperlipidemia, COPD. MEDICATIONS: Medication list reviewed per electronic record. Includes estrogen, Merrem, azithromycin, aztreonam, furosemide, gabapentin, rivaroxaban, and other medicines. ALLERGIES: RISEDRONATE, LEVOFLOXACIN, AMOXICILLIN, CEFUROXIME, CLAVULANIC ACIDS. SOCIAL HISTORY: No alcohol, no drugs. She smokes one-half pack per day, from age 16 to active. FAMILY HISTORY: Noncontributory. REVIEW OF SYSTEMS: Cannot get reliably as she is on respiratory support device. OBJECTIVE: VITAL SIGNS: Afebrile, vital signs noted per electronic record. GENERAL: No acute distress, but she is exhausted, receiving BiPAP. HEENT: Normocephalic, atraumatic. NECK: Supple. Throat midline. LUNGS: Bilateral air entry is moderate to good, moderate to large amount of rhonchi, rare wheeze. CARDIOVASCULAR: S1, S2. No murmurs, rubs, or gallops. ABDOMEN: Soft, nontender. EXTREMITIES: No clubbing, no cyanosis, there is no edema. INTEGUMENT: No rash, no purpura. LABS: 2.8 potassium, 42 BUN, 2.2 creatinine. 28 white count, 36 hematocrit, 313,000 platelets. 2.6 INR. Chest x-ray as stated bilateral moderate pneumonitis. January [address] showed mild centrilobular emphysematous changes at the bases, but no atelectasis and no nodules and no pneumonia at that time. IMPRESSION AND PLAN: 1. Acute respiratory failure, bilevel positive airway pressure salvage. 2. Bilateral pneumonia, treat for community acquired versus aspiration. 3. Chronic COPD, emphysema plus bronchitis chronically. 4. Wajdc-kb-pzotmop kidney injury. 5. History of atrial fibrillation. 6. Hyperlipidemia. 7. Hypertension. 8. Chronic smoker. 9. Limited functional endurance at baseline. 10. Coagulopathy of anticoagulants most likely. Rule out other. 11. Chronic hypoxemia, on home oxygen, although noncompliance mostly. 12. No history of asthma, no allergies per report. Continue bilevel positive airway pressure and wean as tolerated. Okay for some fluid and will intubate if needed. Continue to encourage expectoration including with Acapella or other chest physiotherapy as deemed optimal per respiratory therapy. Continue steroids, but wean quickly. She has a high infection risk. Bronchodilators should be continued. Once she is fluid loaded, it is reasonable for trial of diuresis. Follow up urine output and I notified nurse that we have to know soon if she is not urinating, we have to consider Arredondo placement. Patient was transferred to intensive care unit and she should remain there for short-term followup at least. Greater than 30 minutes in direct care. Thank you very much, Dr. Álvaro Haywood for allowing me chance to participate in the care of Ms. Arzola. Do not hesitate to contact me if I could help in any way. Job#: [id number]
[2018-03-02] MEDS: ALBUTEROL SULF 0.083% NEB SOLN 3 ML NEB NEB SCH ×6 (02:45→22:30)
[2018-03-02 05:30] LABS: BASOPHILS # (AUTO) 0.1 (0.0-0.1); BASOPHILS % 0.3 % (0.0-1.0); EOSINOPHILS # (AUTO) 0.1 (0.0-0.4); EOSINOPHILS % 0.5 % (0.0-6.0); HEMOGLOBIN 9.4 g/dL (12.0-16.0); LYMPHOCYTES # (AUTO) 0.9 (1.0-3.2); MEAN CORPUSCULAR HEMOGLOBIN 31.1 pg (28-32); MEAN CORPUSCULAR HGB CONC 33.6 g/dL (31-35); MEAN CORPUSCULAR VOLUME 92.7 fL (81-99); MONOCYTES # (AUTO) 0.4 (0.2-0.8); MONOCYTES % 2.2 % (4.4-11.3); NEUTROPHILS # (AUTO) 15.5 (2.1-6.9); NEUTROPHILS % 90.8 % (38.7-80.0); PLATELET COUNT 238 x10e3/uL (140-360); RED BLOOD COUNT 3.02 x10e6/uL (3.6-5.1); RED CELL DISTRIBUTION WIDTH 15.6 % (11.7-14.4)
--- NOTE | 2018-03-02 05:32 | Diagnostic Imaging Report ---
EXAM: CHEST SINGLE (PORTABLE), AP 1 view INDICATION: Pneumonia COMPARISON: AP view of the chest March 01, 2018 FINDINGS: LINES/TUBES: None LUNGS: Persistent bibasilar predominant airspace opacities. PLEURA: No effusions or pneumothorax. HEART AND MEDIASTINUM: Normal size and contour. BONES AND SOFT TISSUES: No acute findings. IMPRESSION: Stable findings of multifocal pneumonia. Signed by: Dr. Carmenza Friedman M.D. on 03/02/2018 5:28 AM
[2018-03-02 05:56] LABS: CREATINE KINASE MB 1.2 ng/mL (0-5.0)
[2018-03-02 06:19] LABS: ALBUMIN 2.3 g/dL (3.5-5.0); ALBUMIN/GLOBULIN RATIO 0.8 (0.8-2.0); ANION GAP 16.1 mmol/L (8-16); CALCIUM 8.4 mg/dL (8.4-10.2); CREATININE, SERUM 1.58 mg/dL (0.57-1.11); POTASSIUM 3.1 mmol/L (3.5-5.1)
[2018-03-02] MEDS: PANTOPRAZOLE SOD 40 MG TABEC PO SCH (07:30)
[2018-03-02 07:32] LABS: BAND NEUTROPHILS % (MANUAL) 6 %; LYMPHOCYTES % (MANUAL) 6 % (19-48); MONOCYTES % (MANUAL) 2 % (3.4-9.0); NEUTROPHILS % (MANUAL) 85 % (40-74)
[2018-03-02 07:33] LABS: PLATELET ESTIMATE ADEQUATE; PLATELET MORPHOLOGY COMMENT FEW LARGE; RBC MORPHOLOGY COMMENT NORMAL
[2018-03-02 07:34] LABS: ANISOCYTOSIS SLIGHT; HYPOCHROMASIA SLIGHT
[2018-03-02] MEDS ORDERED: OMEGA PO SCH (09:00)
[2018-03-02] MEDS ORDERED: FATTY ACIDS PO SCH (09:00)
[2018-03-02] MEDS: CINNAMON BARK 1000 MG PO SCH (09:00)
[2018-03-02] MEDS: ATENOLOL 50 MG TAB PO SCH ×2 (09:00→17:00)
[2018-03-02] MEDS ORDERED: PRAVASTATIN 20 MG TAB PO SCH (09:00)
[2018-03-02] MEDS: AMLODIPINE BESYLATE 5 MG TAB PO SCH (09:00)
[2018-03-02] MEDS: AZITHROMYCIN 500MG/NS 250 ML 250 ML IV SCH (09:00)
[2018-03-02] MEDS: THERACRAN PO SCH (09:00)
[2018-03-02] MEDS: LOSARTAN POTASSIUM 100 MG TAB PO SCH (09:00)
[2018-03-02] MEDS: MEROPENEM 500MG/ NS 50ML 50 ML IV SCH ×2 (09:13→21:00)
[2018-03-02] MEDS: OMEGA 3 POLYUNSAT FATTY ACIDS 1000 MG SOFTGEL PO SCH (09:14)
[2018-03-02] MEDS: FUROSEMIDE 40 MG TAB PO SCH (09:14)
[2018-03-02] MEDS: BUSPIRONE HCL 5 MG TAB PO SCH ×3 (09:14→21:00)
[2018-03-02] MEDS: NIACIN 500 MG TABSR PO SCH ×2 (09:14→17:00)
[2018-03-02] MEDS: GABAPENTIN 300 MG CAP PO SCH ×4 (09:14→21:00)
[2018-03-02] MEDS: PENTOXIFYLLINE 400 MG TAB CR PO SCH ×4 (09:15→21:00)
[2018-03-02] MEDS: FLECAINIDE ACETATE 100 MG TAB PO SCH ×2 (09:15→17:00)
[2018-03-02] MEDS: LACTOBACILLUS ACIDOPHILUS CAPSULE PO SCH (09:15)
[2018-03-02] MEDS: AZTREONAM 1 GM/NS 50 ML 50 ML IV SCH ×2 (10:00→22:00)
[2018-03-02] MEDS ORDERED: POTASSIUM CHLORIDE 20 MEQ TAB CR PO NR ×2 (13:15→15:15)
[2018-03-02 13:58] LABS: CREATINE KINASE MB 1.1 ng/mL (0-5.0)
--- NOTE | 2018-03-02 14:50 | NUR ---
Nutrition Intervention Note RD Recommendation(s) for Physician: -Continue cardiac diet as ordered -Rec Ensure Compact BID to promote PO intake -Encourage PO and hydration Plan of Care: RD following, monitoring for tolerance and adequacy Nutrition reason for involvement: Diagnosis CHF RD Assessment 03/02 - Chart reviewed. 77yo F, who is admitted for acute respiratory failure. Visited pt in the room. Pt is awake, alert and in no acute distress. 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 Pt ate ~50% of breakfast this AM. Encouraged family to bring foods if pt doesnt like what we served. No GI complains noted. LBM 03/02. Pt denies any chewing or swallowing difficulty. No recent weight loss reported. Notified RN to order Ensure compact BID. Will continue to monitor and follow. Principal Problems/Diagnoses: 1. Acute respiratory failure, bilevel positive airway pressure salvage. 2. Bilateral pneumonia, treat for community acquired versus aspiration. 3. Chronic COPD, emphysema plus bronchitis chronically. 4. Abiyp-sb-lmwfdzv kidney injury. PMH: Atrial fibrillation, hypertension, hyperlipidemia, COPD GI: LBM 03/02 Skin: intact Labs: (03/02) Na 135 L, K 3.1 L, BUN 44H, Creatinine 1.58 H Meds: probiotics, fish oil, niacin, lasix, protonix Ht: 62in Wt: 132.12lb BMI: 24.2kg/m2 IBW: 110lb Malnutrition Evaluation (03/02/18) The patient does not meet criteria for a specified degree of malnutrition at this time. Will re-evaluate at follow-up as appropriate. Nutrition Prescription (Diet Order): cardiac diet Diet Adequacy: Not meeting calorie needs, Not meeting protein needs Diet Education Needs Assessment: Diet education not indicated. Nutrition Care Level: low Nutrition Diagnosis: Inadequate oral intake related to current medical status as evidenced by poor appetite x3 days and poor PO intake. Goal: Patient will meet 75-100% of estimated needs by follow up Progress: N/A Interventions: Mineral-modified diet, Commercial beverage Monitoring/Evaluation: Total energy intake, Total protein intake, Modified diet, Liquid supplement, Weight change Signed: Laverne Hassan MS, RD, LD
--- NOTE | 2018-03-02 15:13 | Diagnostic Imaging Report ---
EXAM: Renal Ultrasound INDICATION: Acute kidney injury. COMPARISON: None TECHNIQUE: Transverse and longitudinal images of the kidneys and bladder were obtained. FINDINGS: Right Kidney: Length: Measures 9.5 x 4.5 x 5.4 cm Appearance: Normal echogenicity. Collecting system: No hydronephrosis Stones: None Cyst/Mass: No evidence of solid mass. Multiple small predominately simple appearing cysts measuring up to 1.5 cm. Left Kidney: Length: Measures 10.9 x 4.9 x 4.5 cm Appearance: Normal echogenicity. Collecting system: No hydronephrosis Stones: None Cyst/Mass: No evidence of solid mass. Bladder: Unremarkable in appearance. IMPRESSION: No evidence of hydronephrosis. Simple appearing right sided renal cysts. Signed by: Dr. Zaida Coker MD on 03/02/2018 3:10 PM
--- NOTE | 2018-03-02 15:28 | NUR ---
Tactical/Mobile Watch Officer to bedside to discuss plan of care with patient/family. CM/SW role and care transitions discussed. Anticipated discharge plan discussed along with duration of care. CM/SW discussed patients right to make decisions in care. CM/SW work hours given. Patient lives: PATIENT LIVES IN [place] Admit/Transfer: ED POA/Emergency contact: DAUGHTER ROGELIO LANCE: [phone] & [phone]; SON IN LAW (ROGELIO ): [phone] Current/Previous Home Health: PATIENT REQUESTING TO POSTPONE INTERVIEW UNTIL LATER DATE PCP/Follow-up Care: GENARO HESS MD Current/Previous DME: NONE Other Services: PENDING INTERVIEW ON LATER DATE Employment Status: N/A Areas of Concerns: COPD, CHF EDUCATION Referral Needs: HOME HEALTH WITH CHF/ COPD PROGRAMS Education Needs: CHF/ COPD IMM/GAITAN given and signed (if applicable): NO Goal for discharge: PATIENT TO DISCHARGE HOME INDEPENDENT WITH NO NEEDS CM left business card at the bedside with contact information. Name and number was also written on the patients whiteboard. Patient verbalized understanding of discussion. CM will follow-up with ongoing discharge and transition of care needs.
--- NOTE | 2018-03-02 17:21 | Consultation ---
DATE OF CONSULTATION: INFECTIOUS DISEASE CONSULTATION REASON FOR CONSULTATION: Pneumonia, community-acquired. HISTORY OF PRESENT ILLNESS: This is a patient who has history of coronary artery disease, arrhythmia, dizziness, bronchitis, UTI, COPD, history of angina before, congestive heart failure, renal failure, respiratory failure. Comes in with 3 to 4 days' history of shortness of breath and cough. The patient had a chilly sensation the first day. No specific fever. The patient started to have nausea and vomited a couple of times. The family decided to bring her here. She was a little bit confused apparently. She was brought here, started on antibiotic and started on oxygen. She is feeling much better. She is currently in the intensive care unit. Has no complaints. PAST MEDICAL HISTORY: As above. PAST SURGICAL HISTORY: As above. ALLERGIES: NKA. SOCIAL HISTORY: There is no smoking, drug abuse, alcohol abuse. FAMILY HISTORY: Unremarkable. ALLERGIES: AMOXICILLIN, CEFUROXIME, LEVAQUIN. MEDICATIONS: She is currently on Tylenol, albuterol, amlodipine, aztreonam, azithromycin. She also is on meropenem. LABORATORY DATA: Blood cultures no growth in 24 hours. White count on admission was 28.37, hemoglobin 12.3, hematocrit 36. Sodium 135, potassium 3.1, creatinine 1.58. Her chest x-ray showed bilateral perihilar opacities. PHYSICAL EXAMINATION: GENERAL: She is currently alert, oriented, does not seem to be in acute distress. VITALS: Stable. Currently afebrile. HEENT: She is normocephalic. NECK: Supple. CHEST: A few crackles at the bases. HEART: S1, S2. No S3, no S4. No murmur. ABDOMEN: Soft. Bowel sounds present. No tenderness. EXTREMITIES: No edema. SKIN: No rash. IMPRESSION: 1. Sepsis on admission. 2. Pneumonia, community-acquired. 3. Patient with chronic obstructive pulmonary disease. 4. Chronic kidney disease. 5. Coronary artery disease. Agree with aztreonam and azithromycin for the time-being. Recheck CBC. Recheck chem panel. Await the blood cultures. Continue supportive care. Patient would like the Arredondo out. Will try to ambulate a little bit, and if she can be sitting in a chair with the cardiac rate controlled, we can take the Arredondo catheter out. Will follow with you. Job#: [id number] EV
--- NOTE | 2018-03-02 17:29 | Consultation ---
DATE OF CONSULTATION: CARDIOLOGY CONSULTATION REASON FOR CONSULTATION: Heart failure. HISTORY OF PRESENT ILLNESS: This is a 77-year-old woman with the history of hypertension, hyperlipidemia, atrial fibrillation, on anticoagulation, and chronic atrial fibrillation, who presented to the emergency department with progressive worsening shortness of breath and cough. Patient has had worsening shortness of breath and cough with sputum production over the last few days. She has some atypical chest pressure associated with these symptoms. Patient's sputum is thick and yellow. Upon arrival here to the emergency department, she was noted to have an elevated white blood cell count at 28 and a chest x-ray showing multifocal pneumonia. She was started on antibiotics. She, otherwise, feels well from cardiovascular standpoint with no typical angina, palpitations or near-syncopal symptoms. REVIEW OF SYSTEMS: A 12-point review of systems was conducted, is negative otherwise as above in the HPI. PAST MEDICAL HISTORY: Hypertension, hyperlipidemia, COPD, atrial fibrillation. PAST SOCIAL HISTORY: Current smoker. Denies any current illicit drug use, alcohol use. FAMILY HISTORY: No premature coronary artery disease or sudden cardiac . ALLERGIES: SEE CHART. MEDICATIONS: See medication reconciliation form. PAST SURGICAL HISTORY: None recent. OBJECTIVE VITAL SIGNS: Temperature is 99.4, heart rate is 112, respiratory rate is 18, blood pressure is 94/60, oxygen saturation 99% on 3 L nasal cannula. GENERAL: She is an elderly woman, lying comfortably in bed. In no apparent distress. HEENT: Head is normocephalic and atraumatic. Eyes, extraocular muscles are intact. Conjunctivae clear. NECK: No JVD, no bruits. CARDIOVASCULAR: Irregularly irregular, tachycardic. Mild systolic murmur heard best at the left sternal border. LUNGS: Scattered wheezes and rhonchi in bilateral lung garcia. ABDOMEN: Soft, nontender, nondistended. Normoactive bowel sounds. EXTREMITIES: No clubbing, cyanosis or edema. VASCULAR: 2+ pulses. SKIN: Warm, dry, intact. NEUROLOGIC: No focal deficits noted. LABORATORY DATA: White blood cell count 28, 17, hemoglobin 9.4, platelets 238,000. Creatinine is 1.5. Troponins are negative x3. Potassium 3.1. Chest x-ray shows stable findings with multifocal pneumonia. 12-LEAD ELECTROCARDIOGRAM: Atrial fibrillation with rapid ventricular response. 2-D ECHOCARDIOGRAM: Left ventricular ejection fraction at 60%-65%. IMPRESSIONS 1. Multifocal pneumonia. 2. Shortness of breath. 3. Chronic obstructive pulmonary disease with exacerbation. 4. Chronic atrial fibrillation with rapid ventricular response. 5. Ipxyf-dd-ebfyfoq kidney disease. 6. Tobacco use. 7. Hypertension. RECOMMENDATIONS: Patient's heart rate is uncontrolled. Will discontinue atenolol and amlodipine in exchange for a calcium channel oli with diltiazem for better rate control. Will avoid beta-blockers at this point in time given history of COPD and active wheezing. Continue Xarelto for anticoagulation. Otherwise, continue all current cardiovascular medications. Job#: [id number] CQ
[2018-03-02] MEDS ORDERED: POTASSIUM CHLORIDE 20 MEQ TAB CR PO ONE (17:30)
--- NOTE | 2018-03-02 19:30 | NUR ---
Received patient stable on oxygen via nasal cannula at 3 liters, saturating well above 90%. No complaints raised
[2018-03-02] MEDS: RIVAROXABAN 15 MG TABLET PO SCH (21:00)
[2018-03-02] MEDS: PRAVASTATIN 20 MG TAB PO SCH (21:00)
[2018-03-02] MEDS ORDERED: SODIUM CHLORIDE 0.9% 500ML 400 ML IV PRN (22:45)
--- NOTE | 2018-03-02 23:30 | NUR ---
Patient cleaned, had a smear, dirty linens changed, settled calmly in bed, due medications administered as prescribed. remains on oxygen at 3 liters
[2018-03-03] VITALS (25 sets, daily range): BP systolic 84–130; BP diastolic 44–108
--- NOTE | 2018-03-03 01:56 | Progress Note ---
DATE: March 02, 2018 PULMONARY MEDICINE PROGRESS NOTE DISTORTED VOICE IN MULTIPLE PLACES SUBJECTIVE: Ms. Arzola was seen and examined at bedside. She continues to have some improvement. She feels about 70% better. She is still very weak and short of breath. She does lot of secretions. Chest x-ray continues to show persistent zhrpdylc-av-nkknz infiltrates bilaterally. Three liters per minute by oxygen nasal cannula. REVIEW OF SYSTEMS: No headaches, no rash. OBJECTIVE VITAL SIGNS: Afebrile. Vital signs noted per electronic record. GENERAL: No acute distress, mild increased work of breathing, mild breathing. HEENT: Normocephalic and atraumatic. NECK: Supple. Throat is midline. LUNGS: Bilateral air entry, few rhonchi, . ABDOMINAL: Soft and nontender. EXTREMITIES: No clubbing, no cyanosis, there is no edema. INTEGUMENT: No rash or purpura. LABS: Potassium . White count 17, hematocrit 20. IMPRESSION 1. Acute respiratory failure, improving, off BiPAP. 2. Bilateral pneumonia. 3. Chronic obstructive pulmonary disease with exacerbation. 4. Additional bronchitis versus bronchiectasis evidenced by fairly phlegm production. 5. Weakness. 6. Chronic respiratory failure, hypoxemia. PLAN: PT has been ordered. Mobilize the patient. Continue antibiotics. Continue steroids; we will wean these. Continue bronchodilators. We will follow along closely. Job#: [id number] RTTabatha
[2018-03-03] MEDS: IPRATROPIUM BROMIDE 0.02% 2.5 ML NEB NEB SCH ×4 (02:15→19:05)
[2018-03-03] MEDS: ALBUTEROL SULF 0.083% NEB SOLN 3 ML NEB NEB SCH ×3 (02:15→11:30)
[2018-03-03] MEDS: PANTOPRAZOLE SOD 40 MG TABEC PO SCH (07:30)
[2018-03-03] MEDS: LOSARTAN POTASSIUM 100 MG TAB PO SCH (09:00)
[2018-03-03] MEDS: ATENOLOL 50 MG TAB PO SCH (09:00)
[2018-03-03] MEDS: CINNAMON BARK 1000 MG PO SCH (09:00)
[2018-03-03] MEDS: AMLODIPINE BESYLATE 5 MG TAB PO SCH (09:00)
[2018-03-03] MEDS: THERACRAN PO SCH (09:00)
[2018-03-03] MEDS: BUSPIRONE HCL 5 MG TAB PO SCH ×3 (09:07→20:51)
[2018-03-03] MEDS: MEROPENEM 500MG/ NS 50ML 50 ML IV SCH ×2 (09:07→20:51)
[2018-03-03] MEDS: FUROSEMIDE 40 MG TAB PO SCH (09:07)
[2018-03-03] MEDS: FLECAINIDE ACETATE 100 MG TAB PO SCH ×2 (09:08→17:00)
[2018-03-03] MEDS: GABAPENTIN 300 MG CAP PO SCH ×4 (09:08→20:51)
[2018-03-03] MEDS: OMEGA 3 POLYUNSAT FATTY ACIDS 1000 MG SOFTGEL PO SCH (09:08)
[2018-03-03] MEDS: NIACIN 500 MG TABSR PO SCH ×2 (09:08→17:00)
[2018-03-03] MEDS: LACTOBACILLUS ACIDOPHILUS CAPSULE PO SCH (09:08)
[2018-03-03] MEDS: PENTOXIFYLLINE 400 MG TAB CR PO SCH ×4 (09:09→21:00)
[2018-03-03] MEDS: AZITHROMYCIN 500MG/NS 250 ML 250 ML IV SCH (09:42)
[2018-03-03] MEDS: AZTREONAM 1 GM/NS 50 ML 50 ML IV SCH ×2 (10:30→23:32)
--- NOTE | 2018-03-03 11:34 | NUR ---
Nutrition Intervention Note RD Recommendation(s) for Physician: -Continue cardiac diet as ordered -Rec Ensure Compact BID to promote PO intake -Encourage PO and hydration Plan of Care: RD following, monitoring for tolerance and adequacy Nutrition reason for involvement: Diagnosis CHF RD Assessment 03/03 - Chart reviewed. Spoke to Nurse on duty. Per Nurse Dr. Hauser agreed with RD recommendation to start Ensure Compact BID. Ensure Compact ordered and will be sent BID to patient. 03/02 - Chart reviewed. 77yo F, who is admitted for acute respiratory failure. Visited pt in the room. Pt is awake, alert and in no acute distress. 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 Pt ate ~50% of breakfast this AM. Encouraged family to bring foods if pt doesnt like what we served. No GI complains noted. LBM 03/02. Pt denies any chewing or swallowing difficulty. No recent weight loss reported. Notified RN to order Ensure compact BID. Will continue to monitor and follow. Principal Problems/Diagnoses: 1. Acute respiratory failure, bilevel positive airway pressure salvage. 2. Bilateral pneumonia, treat for community acquired versus aspiration. 3. Chronic COPD, emphysema plus bronchitis chronically. 4. Ulfje-gf-cfqaxho kidney injury. PMH: Atrial fibrillation, hypertension, hyperlipidemia, COPD GI: LBM 03/02 Skin: intact Labs: (03/02) Na 135 L, K 3.1 L, BUN 44H, Creatinine 1.58 H Meds: probiotics, fish oil, niacin, lasix, protonix Ht: 62in Wt: 132.12lb BMI: 24.2kg/m2 IBW: 110lb Malnutrition Evaluation (03/02/18) The patient does not meet criteria for a specified degree of malnutrition at this time. Will re-evaluate at follow-up as appropriate. Nutrition Prescription (Diet Order): cardiac diet Diet Adequacy: Not meeting calorie needs, Not meeting protein needs Diet Education Needs Assessment: Diet education not indicated. Nutrition Care Level: low Nutrition Diagnosis: Inadequate oral intake related to current medical status as evidenced by poor appetite x3 days and poor PO intake. Goal: Patient will meet 75-100% of estimated needs by follow up Progress: N/A Interventions: Mineral-modified diet, Commercial beverage Monitoring/Evaluation: Total energy intake, Total protein intake, Modified diet, Liquid supplement, Weight change Sandoval Coffman RD, LD, [facility]
[2018-03-03 12:51] LABS: BASOPHILS % 0.2 % (0.0-1.0); EOSINOPHILS # (AUTO) 0.1 (0.0-0.4); EOSINOPHILS % 0.5 % (0.0-6.0); HEMOGLOBIN 11.5 g/dL (12.0-16.0); LYMPHOCYTES % 6.7 % (18.0-39.1); MEAN CORPUSCULAR HEMOGLOBIN 31.4 pg (28-32); MEAN CORPUSCULAR HGB CONC 32.9 g/dL (31-35); MEAN CORPUSCULAR VOLUME 95.6 fL (81-99); MONOCYTES % 6.7 % (4.4-11.3); NEUTROPHILS # (AUTO) 12.3 (2.1-6.9); NEUTROPHILS % 85.3 % (38.7-80.0); PLATELET COUNT 283 x10e3/uL (140-360); RED BLOOD COUNT 3.66 x10e6/uL (3.6-5.1); RED CELL DISTRIBUTION WIDTH 15.9 % (11.7-14.4)
[2018-03-03] MEDS: DILTIAZEM HCL 60 MG TAB PO SCH ×2 (13:00→18:27)
--- NOTE | 2018-03-03 13:06 | Progress Note ---
DATE: CARDIOLOGY PROGRESS NOTE SUBJECTIVE: Patient reports cough, fatigue. Denies any chest pain. OBJECTIVE VITAL SIGNS: Current heart rate is 98. Telemetry monitoring revealed atrial fibrillation with rapid ventricular response. Respiratory rate is 22, blood pressure is 106/57, ox saturation is 94% on 4 liters nasal cannula. GENERAL: She is an elderly woman, lying comfortably in bed, in no apparent distress. CARDIOVASCULAR: She is irregularly irregular. Normal rate. LUNGS: Scattered rhonchi and wheezing. ABDOMEN: Soft and nontender. NEUROLOGICAL: No focal deficits noted. CARDIOVASCULAR MEDICATIONS: Reviewed. LABORATORY DATA: Reviewed. IMPRESSION 1. Chronic atrial fibrillation with episodes of rapid ventricular response. 2. Multifocal pneumonia. 3. Chronic obstructive pulmonary disease with exacerbation. 4. Mgjtz-mp-fckuybb kidney disease. 5. Tobacco use. 6. Hypotension. PLAN: I will stop all current antihypertensives. Will avoid beta blockers given COPD exacerbation and wheezing. Will start low-dose diltiazem for adequate heart rate control. Continue Xarelto for anticoagulation. She is on antibiotics and bronchodilators per primary team. Job#: [id number] KIMBERLY
[2018-03-03 13:07] LABS: ANION GAP 17.4 mmol/L (8-16); CALCIUM 9.4 mg/dL (8.4-10.2); CREATININE, SERUM 1.24 mg/dL (0.57-1.11); POTASSIUM 3.4 mmol/L (3.5-5.1)
[2018-03-03] MEDS ORDERED: POTASSIUM CHLORIDE 20 MEQ TAB CR PO NR ×2 (13:21→15:00)
[2018-03-03] MEDS: LEVALBUTEROL HCL SOLN NEBU 0.63 MG/3 ML NEB INH PRN ×2 (14:40→19:05)
--- NOTE | 2018-03-03 15:15 | Progress Note ---
DATE INTERNAL MEDICINE PROGRESS NOTE SUBJECTIVE: The patient is doing much better now. She has some palpitations after the albuterol, so, I want to switched to Xopenex. PHYSICAL EXAM VITAL SIGNS: Blood pressure 106/57, temperature 98.9 degrees, heart rate 118 per minute, respiratory 22 per minute, oxygen saturation 94%. HEART: Irregularly irregular heart rate. Normal S1 S2 sounds. LUNGS: Clear bilaterally. ABDOMEN: Soft. EXTREMITIES: Show no evidence of cyanosis, edema or trauma. LABORATORY DATA: On the BMP, sodium 135, potassium 3.1, chloride 104, CO2 of 18, BUN 44, creatinine 1.58. Glucose 83. [place] [address], hemoglobin 9.4, hematocrit 28.0, platelet count 258,000. PT 30.0, PTT 60.9, INR 2.63. AST 16, ALT 12, total bilirubin 0.5, alkaline phosphatase 99. IMPRESSION 1. Acute hypoxemic respiratory failure. 2. Chronic obstructive pulmonary disease exacerbation. 3. Hypokalemia. 4. Multifocal pneumonia. 5. Chronic atrial fibrillation with tachycardia. 6. Bnchf-wq-igmyycz renal failure, stage 3. PLAN OF TREATMENT: Continue Xopenex q.4 hours, Atrovent q.6 hours, aztreonam q.12 hours. Meropenem IV twice a day, BuSpar 15 mg 3 times a day, flecainide acetate 100 mg twice a day, Daggett-3 polyunsaturated fatty acid 1000 mg twice a day, pravastatin 20 mg daily, Cardizem 180 mg twice a day, Zithromax 250 mg IV daily, furosemide 40 mg daily, losartan 50 mg daily, gabapentin 300 mg q.6 hours, Trental 400 mg q.6 hours, Xarelto 15 mg daily, lorazepam 0.5 mg q.6 hours, 1 tablet daily, Protonix 40 mg daily, Estrogen conjugated weekly, acetaminophen 650 mg q.4 hours. Patient is going to be transferred to the regular medical floor and telemetry. She is doing much better right now. Job#: [id number] KIMBERLY
--- NOTE | 2018-03-03 17:13 | Progress Note ---
DATE: March 03, 2018 PULMONARY MEDICINE PROGRESS NOTE SUBJECTIVE: Ms. Arzola was seen and examined at bedside. She is having some atrial fibrillation and she is with heart rate in 120s to 130s. She is feeling steadily better. She got to end sitting up. Four liters per minute by nasal cannula. She had [employer] yesterday and she had eaten about 60%. REVIEW OF SYSTEMS: No headaches, no rash. OBJECTIVE VITAL SIGNS: Afebrile. Vital signs noted per electronic record. GENERAL: No acute distress, alert and calm. HEENT: Normocephalic and atraumatic. NECK: Supple. Throat is midline. LUNGS: Bilateral air entry, moderate rhonchi. CARDIOVASCULAR: S1 and S2. No murmurs, rubs, or gallops. ABDOMINAL: Soft and nontender. EXTREMITIES: No clubbing, no cyanosis, there is no edema. INTEGUMENT: No rash or purpura. LABS: Potassium 3.4, and creatinine 1.2. White count 14, hematocrit 35. INR 2.6, PTT 61. IMPRESSION 1. Bilateral pneumonia. 2. Chronic obstructive pulmonary disease with exacerbation. 3. Chronic bronchitis versus bronchiectasis. 4. Hyperkalemia. 5. Complicating atrial fibrillation rapid rate. 6. Xpiux-ef-wcdiznj kidney injury, improving. 7. Hypertension. 8. Hyperlipidemia. 9. Chronic smoker. PLAN: Continue and encouraged expectoration. Discontinue Arredondo. Mobilize her. Atrial fibrillation controlled per cardiology. Continue oxygen. Replace potassium. Check another chest x-ray in morning to see how the pneumonia is evolving. Job#: [id number] LATOYA
[2018-03-03] MEDS: LORAZEPAM INJ 2 MG/ML VIAL IV PRN (18:00)
[2018-03-03] MEDS: PRAVASTATIN 20 MG TAB PO SCH (20:51)
[2018-03-03] MEDS: RIVAROXABAN 15 MG TABLET PO SCH (20:51)
[2018-03-03] MEDS: ACETAMINOPHEN 325 MG TAB PO PRN (21:43)
[2018-03-04] VITALS (19 sets, daily range): BP systolic 86–146; BP diastolic 42–95
[2018-03-04] MEDS: IPRATROPIUM BROMIDE 0.02% 2.5 ML NEB NEB SCH ×4 (01:55→19:10)
[2018-03-04] MEDS: LEVALBUTEROL HCL SOLN NEBU 0.63 MG/3 ML NEB INH PRN ×3 (01:55→14:10)
[2018-03-04 04:55] LABS: ANION GAP 14.9 mmol/L (8-16); CALCIUM 9.2 mg/dL (8.4-10.2); CREATININE, SERUM 1.3 mg/dL (0.57-1.11); POTASSIUM 3.9 mmol/L (3.5-5.1)
--- NOTE | 2018-03-04 06:39 | Diagnostic Imaging Report ---
EXAM: CHEST SINGLE (PORTABLE), AP 1 view INDICATION: CHF, COPD COMPARISON: AP view the chest February 22, 2018 FINDINGS: LINES/TUBES: None LUNGS: Persistent bilateral interstitial and alveolar airspace opacities PLEURA: No effusions or pneumothorax. HEART AND MEDIASTINUM: Normal size and contour. BONES AND SOFT TISSUES: No acute findings. IMPRESSION: Stable findings suggesting multifocal pneumonia. Signed by: Dr. Carmenza Friedman M.D. on 03/04/2018 6:36 AM
[2018-03-04] MEDS: MEROPENEM 500MG/ NS 50ML 50 ML IV SCH ×2 (08:43→20:47)
[2018-03-04] MEDS: PANTOPRAZOLE SOD 40 MG TABEC PO SCH (08:43)
[2018-03-04] MEDS: DILTIAZEM HCL 60 MG TAB PO SCH ×2 (08:44→16:13)
[2018-03-04] MEDS: FUROSEMIDE 40 MG TAB PO SCH (08:44)
[2018-03-04] MEDS: GABAPENTIN 300 MG CAP PO SCH ×4 (08:44→20:47)
[2018-03-04] MEDS: BUSPIRONE HCL 5 MG TAB PO SCH ×3 (08:44→20:47)
[2018-03-04] MEDS: FLECAINIDE ACETATE 100 MG TAB PO SCH ×2 (08:45→16:13)
[2018-03-04] MEDS: NIACIN 500 MG TABSR PO SCH ×2 (08:45→16:13)
[2018-03-04] MEDS: LACTOBACILLUS ACIDOPHILUS CAPSULE PO SCH (08:45)
[2018-03-04] MEDS: OMEGA 3 POLYUNSAT FATTY ACIDS 1000 MG SOFTGEL PO SCH (08:45)
[2018-03-04] MEDS: LORAZEPAM INJ 2 MG/ML VIAL IV PRN (08:46)
[2018-03-04] MEDS: PENTOXIFYLLINE 400 MG TAB CR PO SCH ×4 (08:46→20:47)
[2018-03-04] MEDS: THERACRAN PO SCH (09:00)
[2018-03-04] MEDS: CINNAMON BARK 1000 MG PO SCH (09:00)
[2018-03-04] MEDS ORDERED: DILTIAZEM HCL 180 MG CAP ER PO SCH (11:45)
[2018-03-04] MEDS ORDERED: DIGOXIN INJ 0.25 MG/ML 2 ML AMP IV ONE (12:00)
--- NOTE | 2018-03-04 12:07 | Progress Note ---
DATE: CARDIOLOGY PROGRESS NOTE SUBJECTIVE: Patient reports cough and fatigue. OBJECTIVE VITAL SIGNS: Temperature 97 9, heart rate is 128 with heart rate ranges from 95 to 130s, respiratory rate is 31, blood pressure is 127/64, ox saturation 90% on 6 liters nasal cannula. GENERAL: She is an elderly woman, in mild respiratory distress. HEENT: Head is normocephalic, atraumatic. CARDIOVASCULAR: She is irregularly irregular, tachycardiac. LUNGS: Scattered rhonchi. ABDOMEN: Soft, nontender. LABORATORY DATA: Reviewed. White blood cell count is 14.4 yesterday. Negative cardiac enzymes. Potassium is 3.9. TELEMETRY MONITORING: Revealed atrial fibrillation with rapid ventricular response. IMPRESSION 1. Atrial fibrillation. 2. Multifocal pneumonia. 3. Chronic obstructive pulmonary disease with exacerbation. 4. Ogwsl-sr-uwrzzem kidney disease. 5. Hypertension. 6. Tobacco use. RECOMMENDATIONS: Continue to titrate diltiazem. We limited for up titration due to blood pressure issues. Continue Xarelto for anticoagulation. We will add digoxin for better rate control. Job#: [id number] PAUL
--- NOTE | 2018-03-04 14:31 | Progress Note ---
DATE: INTERNAL MEDICINE PROGRESS NOTE SUBJECTIVE: A 77-year-old female who came here with COPD exacerbation, respiratory failure, pneumonia, CHF. Patient is feeling better. PHYSICAL EXAM VITAL SIGNS: Blood pressure 137/64, temperature 97.9, heart rate 128 per minute and now is 101 per minute, respiratory rate 31 per minute. Oxygen saturation 92%. HEART: Showed irregularly irregular heart rate. Normal S1, S2 sounds. LUNGS: Clear bilaterally but significantly decreased. ABDOMEN: Soft. EXTREMITIES: Show no evidence of cyanosis, edema, or trauma. FINAL IMPRESSION 1. Acute hypoxemic respiratory failure secondary to chronic obstructive pulmonary disease exacerbation. 2. Chronic obstructive pulmonary disease exacerbation. 3. Pneumonia. 4. Polyneuropathy. 5. Anxiety disorder. 6. Hypercholesterolemia. 7. Hyperlipidemia. 8. Atrial fibrillation with rapid ventricular response which is a chronic atrial fibrillation. 9. Peripheral vascular disease. PLAN OF TREATMENT: Continue oxygen. Continue Atrovent q.6 hours, Xopenex q.4 hours due to the tachycardia, meropenem 500 mg IV twice a day, gabapentin 300 mg q.6 hours, Protonix 40 mg daily, Estrogen conjugated once a week, Tylenol 650 mg q.4 hours as needed, lorazepam 0.5 mg q.6 hours as needed for anxiety, Lactobacillus acidophilus 1 tablet daily, [place]-3 fatty acid 1000 mg twice a day, pravastatin 20 mg daily, Cardizem 90 mg twice a day, BuSpar 15 mg 3 times a day as needed for anxiety, flecainide acetate 100 mg twice a day. Continue with digoxin 0.25 mg daily, furosemide 40 mg daily, pentoxifylline which is Trental 400 mg q.6 hours, Xarelto 15 mg at bedtime. Patient got a dose of digoxin 0.25 mg IV daily by Dr. Haywood. So, patient remains in the intensive care unit. I discussed the care with the nurse and the family at the bedside. Patient still needs the oxygen obviously. We cannot get the oxygen saturation at this point. Blood gas will be done also to make sure the oxygen saturation is more than 90%. Labs have been reviewed. Medication list has been reviewed. Time spent around 55 minutes. Job#: [id number] CANDACE
[2018-03-04 15:00] LABS: ABG HCO3 19 mmol/L (23-28); ABG PCO2 29 mmHg (41-51); ABG PH 7.44 (7.31-7.41); ABG PO2 47 mmHg (80-105)
[2018-03-04] MEDS ORDERED: FUROSEMIDE INJ 10 MG/ML 2 ML VIAL IV NR (15:00)
[2018-03-04] MEDS ORDERED: SALINE 0.65% NAS SOLN 1 SPRAY BTL PRN (15:00)
[2018-03-04] MEDS ORDERED: POTASSIUM CHLORIDE 20 MEQ TAB CR PO NR (16:00)
[2018-03-04] MEDS ORDERED: DIGOXIN INJ 0.25 MG/ML 2 ML AMP IV NR (16:00)
--- NOTE | 2018-03-04 17:00 | Progress Note ---
DATE: March 04, 2018 PULMONARY MEDICINE PROGRESS NOTE SUBJECTIVE: Ms. Arzola was seen and examined at bedside. She continues to have trouble progressing, back in atrial fibrillation with rates in 120s to 130s. She sat 30 minutes at end of bed. She has low functional endurance and got tired at the end of sitting for 30 minutes. She is eating well. Chest x-ray showed stable pneumonia. Due to low oxygen, her needs went from 6 liters to 10 liters per minute by nasal cannula. REVIEW OF SYSTEMS: No headaches. No diarrhea. OBJECTIVE VITAL SIGNS: Afebrile. Vital signs noted per electronic record. GENERAL: In no acute distress, alert and calm. HEENT: Normocephalic, atraumatic. NECK: Supple. Throat midline. LUNGS: Bilateral air entry, decreased breath sounds. Rare rhonchi. CARDIOVASCULAR: S1, S2. No murmurs, rubs, or gallops. ABDOMEN: Soft, nontender. EXTREMITIES: No clubbing. No cyanosis. There is no edema. INTEGUMENT: No rash. No purpura. LABS: Potassium 3.9, BUN 28, creatinine 1.3, white count 14, hematocrit 35, platelets 283, INR 2.6. ABG 10.44/29/47/85%, 6 liters per minute by nasal cannula. IMPRESSION 1. Acute respiratory failure, status post bilevel positive airway pressure salvage. 2. Hypoxemia, still on high doses of oxygen. 3. Bilateral pneumonia. 4. Chronic obstructive pulmonary disease exacerbation. 5. Incompetent atrial fibrillation, not controlled. 6. Acute kidney injury on chronic kidney disease. PLAN: We would give 1 more dose of Lasix today. Follow up and control heart arrhythmia as per cardiology. Patient on blood thinners for DVT prophylaxis. Patient will continue on bronchodilators if needed but we will consider going down further; and of note, the patient had got changed yesterday, and we started giving Xopenex to the patient. Aggressive PT is recommended the patient is better. Job#: [id number] LPA
--- NOTE | 2018-03-04 17:38 | NUR ---
1400 unable to obtain a readable pulse ox. Dr. Gonzalez at bedside and okay with ABG. rr >25, hr 120's with afib. nbp stable. pt lethargic after sitting at side of bed at lunch time today. pt sat at side of bed for 30 minutes independently. pt was able to move independently in bed. ABG results given to Dr. Gonzalez and Dr. Chavez. O2 increased to 10L from 6L with good effect. rr 23, pt less sob at rest. pt and family encouraged for her to sit at side of bed daily for short periods of time to help expand lungs. also administered lasix iv per Dr. Chavez order with good results. urine output good.
[2018-03-04] MEDS: RIVAROXABAN 15 MG TABLET PO SCH (20:47)
[2018-03-04] MEDS: PRAVASTATIN 20 MG TAB PO SCH (20:47)
[2018-03-05] VITALS (9 sets, daily range): BP systolic 115–155; BP diastolic 53–77
[2018-03-05] MEDS: IPRATROPIUM BROMIDE 0.02% 2.5 ML NEB NEB SCH ×3 (01:20→19:30)
[2018-03-05 04:43] LABS: BASOPHILS % 0.2 % (0.0-1.0); EOSINOPHILS # (AUTO) 0.1 (0.0-0.4); EOSINOPHILS % 0.6 % (0.0-6.0); HEMATOCRIT 30.2 % (34.2-44.1); HEMOGLOBIN 10.1 g/dL (12.0-16.0); LYMPHOCYTES # (AUTO) 1.4 (1.0-3.2); LYMPHOCYTES % 9.8 % (18.0-39.1); MEAN CORPUSCULAR HGB CONC 33.4 g/dL (31-35); MEAN CORPUSCULAR VOLUME 92.6 fL (81-99); MONOCYTES # (AUTO) 1.6 (0.2-0.8); NEUTROPHILS # (AUTO) 10.8 (2.1-6.9); NEUTROPHILS % 76.9 % (38.7-80.0); PLATELET COUNT 363 x10e3/uL (140-360); RED BLOOD COUNT 3.26 x10e6/uL (3.6-5.1); RED CELL DISTRIBUTION WIDTH 15.6 % (11.7-14.4)
--- NOTE | 2018-03-05 05:00 | NUR ---
Patients sats through out night were at 94 to 98 % on 10 liter High flow, pt refused bipap, attempted to draw an ABG three times and could only get small venous amount, pt is resting comfortably, unable to obtain ABG at this time, RN notified, Pat SANTAMARIA
[2018-03-05] MEDS: LEVALBUTEROL HCL SOLN NEBU 0.63 MG/3 ML NEB INH PRN (07:33)
[2018-03-05] MEDS: BUSPIRONE HCL 5 MG TAB PO SCH ×3 (08:16→21:22)
[2018-03-05] MEDS: PANTOPRAZOLE SOD 40 MG TABEC PO SCH (08:16)
[2018-03-05] MEDS: MEROPENEM 500MG/ NS 50ML 50 ML IV SCH ×2 (08:16→21:22)
[2018-03-05] MEDS: LACTOBACILLUS ACIDOPHILUS CAPSULE PO SCH (08:17)
[2018-03-05] MEDS: DIGOXIN 0.25 MG TAB PO SCH (08:17)
[2018-03-05] MEDS: OMEGA 3 POLYUNSAT FATTY ACIDS 1000 MG SOFTGEL PO SCH (08:17)
[2018-03-05] MEDS: DILTIAZEM HCL 60 MG TAB PO SCH ×2 (08:17→17:38)
[2018-03-05] MEDS: FUROSEMIDE 40 MG TAB PO SCH (08:17)
[2018-03-05] MEDS: NIACIN 500 MG TABSR PO SCH ×2 (08:17→17:38)
[2018-03-05] MEDS: GABAPENTIN 300 MG CAP PO SCH ×4 (08:17→21:22)
[2018-03-05] MEDS: PENTOXIFYLLINE 400 MG TAB CR PO SCH ×4 (08:19→21:22)
[2018-03-05] MEDS: FLECAINIDE ACETATE 100 MG TAB PO SCH ×2 (08:19→17:38)
[2018-03-05] MEDS: CINNAMON BARK 1000 MG PO SCH (08:30)
[2018-03-05] MEDS: THERACRAN PO SCH (08:30)
--- NOTE | 2018-03-05 11:45 | NUR ---
Spoke with Dr Clay, no Bipap needed when moves to Med Surg with telemetry.
--- NOTE | 2018-03-05 12:06 | NUR ---
Report called to [facility] for Room 207. Arredondo catheter d/c and due to void.
--- NOTE | 2018-03-05 13:59 | Progress Note ---
DATE: March 05, 2018 CARDIOLOGY PROGRESS NOTE SUBJECTIVE: No major events overnight. Patient is now moved to the floor. Denies any chest pain. Reports some shortness of breath. Overall, improving since admission. OBJECTIVE VITAL SIGNS: Temperature 98.2, pulse 109, respiratory rate 23, blood pressure 128/54, satting 94% on 10 L. GENERAL: Elderly white woman in mild respiratory distress. CARDIOVASCULAR: Tachycardic. Irregular rate and rhythm. No murmurs, rubs or gallops. Palpable carotid pulses. Palpable radial pulses. LUNGS: Scattered rhonchi bilaterally. ABDOMEN: Soft and nontender. NEURO: Alert and oriented to person, place and time. Normal affect. LABORATORY DATA: Reviewed. Telemetry data reviewed. Shows atrial fibrillation with RVR. Heart rate in the 100s. ASSESSMENT AND PLAN 1. Atrial fibrillation with rapid ventricular response. 2. Multifocal pneumonia. 3. Chronic obstructive pulmonary disease with exacerbation. 4. Auldy-qf-ognevfv kidney disease. 5. Hypertension. 6. Tobacco use. PLAN: Will up-titrate diltiazem a little bit more. Limited due to blood pressure wrist restraints. Continue Xarelto for anticoagulation. Continue digoxin. Thank you for this consult. Will continue to follow. Job#: [id number] JOSEPH
--- NOTE | 2018-03-05 20:05 | NUR ---
PATIENT DENIES SHORTNESS OF BREATH, HEAD OF BED ELEVATED. ASSISTED WITH ADLS, PATIENT'S DAUGHTER IS AT THE BEDSIDE.
--- NOTE | 2018-03-05 20:05 | Progress Note ---
DATE: March 05, 2018 PULMONARY MEDICINE PROGRESS NOTE SUBJECTIVE: Ms. Arzola was seen and examined at bedside. She continued to be very weak at this time. She has very limited energy reserves and hardly speaks because of this. Patient finds herself with heart rate in 110 to 120s range as per nursing. She remains on supplemental oxygen at this time. She is able to eat small amounts. REVIEW OF SYSTEMS: No GI bleeding, no chest pain. OBJECTIVE VITAL SIGNS: Afebrile. Vital signs noted per electronic record. GENERAL: No acute distress, alert and calm, but looks very weak and pale. HEENT: Normocephalic, atraumatic. NECK: Supple. Throat midline. LUNGS: Bilateral air entry, few rhonchi, overall decreased breath sounds throughout. CARDIOVASCULAR: S1 and S2. No murmurs, rubs, or gallops. ABDOMEN: Soft, nontender. EXTREMITIES: No clubbing, no cyanosis, there is no edema. INTEGUMENT: No rash or purpura. LABS: Potassium 3.9, creatinine 1.3. White count 14, hematocrit 30. IMPRESSION AND PLAN 1. Chronic obstructive pulmonary disease with exacerbation. 2. Significant pneumonia bilateral, khhlmxyl-po-jtjrt size. 3. Chronic respiratory failure, suspected. 4. Acute respiratory failure, improving. 5. Persistent hypoxemia. 6. Atrial fibrillation with rapid rate, which is better. At this time, continue DVT prophylaxis and patient is on anticoagulation at this time. Continue antibiotics. Continue to remote mobilization of the patient. Patient needs to have diuretics to keep her in a slightly negative fluid balance as long as her kidneys tolerate. Continue comfort medicines as much as possible. Patient with very guarded course and expected to have prolonged time for recovery if she does recover. Job#: [id number] SLAVA
[2018-03-05] MEDS: RIVAROXABAN 15 MG TABLET PO SCH (21:22)
[2018-03-05] MEDS: PRAVASTATIN 20 MG TAB PO SCH (21:22)
[2018-03-05] MEDS ORDERED: SODIUM CHLORIDE 0.9% 50ML 50 ML ONE (21:22)
--- NOTE | 2018-03-05 23:20 | NUR ---
ASSISTED PATIENT WITH ADLS, SHE DENIES PAIN. HEAD OF BED ELEVATED, OXYGEN SATURATION 93% ON 10L/NC. BED ALARM ON, CALL LIGHT WITHIN EASY REACH.
[2018-03-06] MEDS: IPRATROPIUM BROMIDE 0.02% 2.5 ML NEB NEB SCH ×5 (01:17→19:15)
--- NOTE | 2018-03-06 04:52 | NUR ---
PATIENT IS SOUNDLY ASLEEP, SHE'S EASY TO AROUSE. NO RESPIRATORY DISTRESS OBSERVED, SHE DENIES PAIN. ASSISTED WITH ADLS, CALL LIGHT IN EASY REACH, BED ALARM ON.
[2018-03-06 05:55] VITALS: BP 136/60
[2018-03-06 08:05] VITALS: BP 128/58
[2018-03-06 08:18] VITALS: BP 128/58
[2018-03-06] MEDS: LACTOBACILLUS ACIDOPHILUS CAPSULE PO SCH (08:58)
[2018-03-06] MEDS: MEROPENEM 500MG/ NS 50ML 50 ML IV SCH ×2 (08:58→20:37)
[2018-03-06] MEDS: DILTIAZEM HCL 60 MG TAB PO SCH ×2 (08:58→18:40)
[2018-03-06] MEDS: PANTOPRAZOLE SOD 40 MG TABEC PO SCH (08:58)
[2018-03-06] MEDS: NIACIN 500 MG TABSR PO SCH ×2 (08:58→18:40)
[2018-03-06] MEDS: FLECAINIDE ACETATE 100 MG TAB PO SCH ×2 (08:58→18:40)
[2018-03-06] MEDS: OMEGA 3 POLYUNSAT FATTY ACIDS 1000 MG SOFTGEL PO SCH (08:58)
[2018-03-06] MEDS: THERACRAN PO SCH (08:58)
[2018-03-06] MEDS: FUROSEMIDE 40 MG TAB PO SCH (08:58)
[2018-03-06] MEDS: GABAPENTIN 300 MG CAP PO SCH ×4 (08:58→20:47)
[2018-03-06] MEDS: PENTOXIFYLLINE 400 MG TAB CR PO SCH ×4 (08:58→20:47)
[2018-03-06] MEDS: DIGOXIN 0.25 MG TAB PO SCH (08:58)
[2018-03-06] MEDS: CINNAMON BARK 1000 MG PO SCH (08:58)
[2018-03-06] MEDS: BUSPIRONE HCL 5 MG TAB PO SCH ×3 (10:10→20:37)
[2018-03-06 11:55] VITALS: BP 124/59
[2018-03-06] MEDS ORDERED: VANCOMYCIN HCL 1 GM in SODIUM CHLORIDE 0.9% 250ML 250 ML IV SCH (13:45)
[2018-03-06] MEDS ORDERED: VANCOMYCIN 1GM/NS 250 ML 250 ML IV SCH (13:45)
--- NOTE | 2018-03-06 14:08 | NUR ---
GOT CHOICE LETTER FOR [facility], FILED IN CHART. FAMILY IS UNDERSTANDING THAT WAITING ON AUTH.
--- NOTE | 2018-03-06 14:23 | NUR ---
FAXED CLINICALS TO [phone] PER SYLVIE. WAITING ON AUTH.
--- NOTE | 2018-03-06 14:44 | Progress Note ---
DATE: CARDIOLOGY PROGRESS NOTE SUBJECTIVE: Patient reports cough and shortness of breath and tremors. OBJECTIVE VITAL SIGNS: Temperature is 96.6, heart rate is 100, respirations are 20, oxygen saturation 96% on 2 liters nasal cannula, blood pressure is 124/59. GENERAL: She is an elderly appearing woman, in no apparent distress. CARDIOVASCULAR: Irregularly irregular. Tachycardiac. LUNGS: Rhonchi. ABDOMEN: Soft, nontender. EXTREMITIES: Trace edema. CARDIOVASCULAR MEDICATIONS: Reviewed. LABORATORY DATA: Reviewed. TELEMETRY MONITORING: Revealed atrial fibrillation with rapid ventricular response. IMPRESSION 1. Atrial fibrillation with rapid ventricular response. 2. Multifocal pneumonia. 3. Chronic obstructive pulmonary disease with exacerbation. 4. Hypertension. 5. Tobacco use. RECOMMENDATIONS: If blood pressure is able to tolerate increase diltiazem to 120 mg b.i.d. Continue Xarelto and digoxin. Continue treatment of her pneumonia per primary team. We will follow along with you. Job#: [id number] RANDY
--- NOTE | 2018-03-06 15:41 | Progress Note ---
DATE: March 06, 2018 PULMONARY MEDICINE PROGRESS NOTE SUBJECTIVE: Ms. Arzola was seen and examined at bedside. She continued to slow progress. She has a little bit more anergy to talk. She is able to sit on bed of bed for 20 minutes, but it took a lot of functional endurance. Patient continues to void. Bowel movements are present. 95% oxygen saturation on oxygen by nasal canula. REVIEW OF SYSTEMS: No headaches, no rash. OBJECTIVE VITAL SIGNS: Afebrile. Vital signs noted per electronic record. GENERAL: No acute distress, alert and calm. HEENT: Normocephalic, atraumatic. NECK: Supple. Throat midline. LUNGS: Bilateral air entry, decreased breath sounds, few rhonchi, mild wheezes. CARDIOVASCULAR: S1 and S2. No murmurs, rubs, or gallops. ABDOMEN: Soft, nontender. EXTREMITIES: No clubbing, no cyanosis. There is no edema. INTEGUMENT: No rash or purpura. LABS: No new updates. IMPRESSION AND PLAN 1. Acute respiratory failure, status post BiPAP salvage. 2. Bilateral pneumonia. 3. Underlying chronic obstructive pulmonary disease with exacerbation. 4. Weakness and low functional endurance. 5. Atrial fibrillation with rapid rate, intermittently still out of control. We will decrease the nebulized treatment if tolerated due to refractory atrial fibrillation. Continue blood thinners. Antibiotics have been adjusted and will continue to follow on these antibiotics. Adjustment of vancomycin performed. Continue with PT and OT and aggressive therapy as much as possible. Job#: [id number] SUNNY
[2018-03-06] MEDS: LORAZEPAM 0.5 MG TAB PO SCH ×2 (15:47→20:37)
[2018-03-06 16:18] VITALS: BP 135/61
--- NOTE | 2018-03-06 16:30 | NUR ---
Patient expressed to tech at this time, "I don't feel like I have peed at all today." Upon inspection, patient's bladder is mildly distended. Patient complains of no pain. Will bladder scan the patient.
--- NOTE | 2018-03-06 16:42 | NUR ---
Bladder scan performed at this time. Reading of >200 according to scan. Will notify Dr. Melonie Hauser for orders.
--- NOTE | 2018-03-06 18:00 | NUR ---
New orders received at this time from Dr. Melonie Hauser to straight cath patient; if less than 300 mL, remove catheter, if greater than 300 mL, leave mercado catheter in. Will implement orders received.
--- NOTE | 2018-03-06 18:20 | NUR ---
Arredondo catheter inserted at this time. Total of 350 mL drained from bladder. Arredondo catheter left in place. Patient tolerated well. 10 CC filled balloon. Patient expressed immediate relief. Urine is clear and yellow.
[2018-03-06] MEDS: LEVALBUTEROL HCL SOLN NEBU 0.63 MG/3 ML NEB INH PRN ×2 (19:15→23:20)
[2018-03-06 20:00] VITALS: BP 129/61
[2018-03-06] MEDS: PRAVASTATIN 20 MG TAB PO SCH (20:38)
[2018-03-06] MEDS: RIVAROXABAN 15 MG TABLET PO SCH (20:38)
[2018-03-07] VITALS (7 sets, daily range): BP systolic 116–156; BP diastolic 56–67
[2018-03-07 04:51] LABS: BASOPHILS % 0.2 % (0.0-1.0); EOSINOPHILS # (AUTO) 0.2 (0.0-0.4); HEMATOCRIT 30.7 % (34.2-44.1); HEMOGLOBIN 10.2 g/dL (12.0-16.0); LYMPHOCYTES # (AUTO) 1.6 (1.0-3.2); LYMPHOCYTES % 8.8 % (18.0-39.1); MEAN CORPUSCULAR HEMOGLOBIN 30.6 pg (28-32); MEAN CORPUSCULAR HGB CONC 33.2 g/dL (31-35); MEAN CORPUSCULAR VOLUME 92.2 fL (81-99); MONOCYTES # (AUTO) 1.2 (0.2-0.8); MONOCYTES % 6.5 % (4.4-11.3); NEUTROPHILS # (AUTO) 15.2 (2.1-6.9); NEUTROPHILS % 82.3 % (38.7-80.0); PLATELET COUNT 544 x10e3/uL (140-360); RED BLOOD COUNT 3.33 x10e6/uL (3.6-5.1); RED CELL DISTRIBUTION WIDTH 15.2 % (11.7-14.4)
[2018-03-07 05:13] LABS: ALBUMIN 1.9 g/dL (3.5-5.0); ALBUMIN/GLOBULIN RATIO 0.5 (0.8-2.0); ANION GAP 15.2 mmol/L (8-16); CALCIUM 9.7 mg/dL (8.4-10.2); CREATININE, SERUM 1.15 mg/dL (0.57-1.11); MAGNESIUM 1.7 MG/DL (1.3-2.1); POTASSIUM 4.2 mmol/L (3.5-5.1)
--- NOTE | 2018-03-07 06:58 | Diagnostic Imaging Report ---
EXAMINATION: CHEST SINGLE (PORTABLE) INDICATION: pneumonia COMPARISON: 03/04/2018 and 03/01/2018 FINDINGS: AP view TUBES and LINES: None. LUNGS: Stable diffuse multifocal interstitial and airspace opacities. PLEURA: Small right pleural effusion, stable. No pneumothorax. HEART AND MEDIASTINUM: The cardiomediastinal silhouette is unremarkable. Aortic calcifications. BONES AND SOFT TISSUES: No acute osseous lesion. Soft tissues are unremarkable. UPPER ABDOMEN: No free air under the diaphragm. IMPRESSION: Multifocal airspace opacities suggestive of pneumonia with superimposed edema, grossly unchanged from 03/04/2018, worsened from 03/01/2018. Signed by: DR. Emiliano Powell MD on 03/07/2018 6:54 AM
[2018-03-07] MEDS: IPRATROPIUM BROMIDE 0.02% 2.5 ML NEB NEB SCH ×3 (07:00→19:35)
--- NOTE | 2018-03-07 07:20 | NUR ---
RECEIVED PATIENT RESTING IN BED. NO ACUTE DISTRESS NOTED. PATIENT ON NON-REBREATHER MASK PLACED BY NIGHT NURSE DUE TO PATIENT NOT SATING OK. CALL LIGHT WITHIN REACH. BED IN THE LOWEST POSITION.
[2018-03-07 07:41] LABS: LYMPHOCYTES % (MANUAL) 6 % (19-48); MONOCYTES % (MANUAL) 9 % (3.4-9.0); NEUTROPHILS % (MANUAL) 85 % (40-74)
[2018-03-07 07:42] LABS: ANISOCYTOSIS SLIGHT; HYPOCHROMASIA SLIGHT; PLATELET ESTIMATE SLIGHTLY INCREASED; PLATELET MORPHOLOGY COMMENT FEW LARGE; RBC MORPHOLOGY COMMENT NORMAL
--- NOTE | 2018-03-07 08:04 | NUR ---
PAGED DR. ZAMUDIO NO NOTIFY THAT PATIENT IS SATING AT 88-89% ON HIGH FLOW NC AT 10L. PER CHARTER REPRESENTATIVE PATIENT WOULD BENEFIT BETTER FROM BIPAP THAN A NON-REBREATHER MASK DUE TO HIGH FLOW OXYGEN NOT GOOD FOR COPD.
[2018-03-07] MEDS: PANTOPRAZOLE SOD 40 MG TABEC PO SCH (08:48)
[2018-03-07] MEDS: MEROPENEM 500MG/ NS 50ML 50 ML IV SCH ×2 (08:50→20:07)
--- NOTE | 2018-03-07 08:50 | NUR ---
PAGED DR. JAVIER TO NOTIFY THAT PATIENT IS SATING AT 88-89% ON HIGH FLOW NC AT 10L. PER RT PATIENT WOULD BENEFIT BETTER FROM BIPAP THAN A NON-REBREATHER MASK DUE TO HIGH FLOW OXYGEN NOT GOOD FOR COPD.
[2018-03-07] MEDS: BUSPIRONE HCL 5 MG TAB PO SCH ×3 (08:51→20:07)
[2018-03-07] MEDS: LORAZEPAM 0.5 MG TAB PO SCH ×3 (08:51→20:07)
[2018-03-07] MEDS: GABAPENTIN 300 MG CAP PO SCH ×4 (08:52→20:07)
[2018-03-07] MEDS: DIGOXIN 0.25 MG TAB PO SCH (08:52)
[2018-03-07] MEDS: NIACIN 500 MG TABSR PO SCH ×2 (08:52→17:03)
[2018-03-07] MEDS: LACTOBACILLUS ACIDOPHILUS CAPSULE PO SCH (08:52)
[2018-03-07] MEDS: FLECAINIDE ACETATE 100 MG TAB PO SCH ×2 (08:52→17:03)
[2018-03-07] MEDS: DILTIAZEM HCL 60 MG TAB PO SCH ×2 (08:52→17:03)
[2018-03-07] MEDS: CINNAMON BARK 1000 MG PO SCH (08:52)
[2018-03-07] MEDS: THERACRAN PO SCH (08:52)
[2018-03-07] MEDS: PENTOXIFYLLINE 400 MG TAB CR PO SCH ×4 (08:52→20:07)
[2018-03-07] MEDS: FUROSEMIDE 40 MG TAB PO SCH (08:52)
[2018-03-07] MEDS: OMEGA 3 POLYUNSAT FATTY ACIDS 1000 MG SOFTGEL PO SCH (08:52)
[2018-03-07] MEDS ORDERED: ESTROGENS CONJUGATED VAGINAL CR 45 GM TUBE PV SCH (09:00)
--- NOTE | 2018-03-07 09:52 | NUR ---
DR. JAVIER CALLED IN REGARDS TO THE PAGE. NOTIFIED THAT PATIENT WAS HAVING SOB ON HIGH FLOW NC. PER DR. JAVIER HAVE RESPIRATORY COME SEE PATIENT AND FIT HER FOR HIGHER FLOW ON NC OR BIPAP. WHATEVER RT RECOMMENDS IS FINE.
[2018-03-07] MEDS ORDERED: FUROSEMIDE INJ 10 MG/ML 2 ML VIAL IV NR (10:00)
--- NOTE | 2018-03-07 10:20 | NUR ---
ASSESSMENT: Spiritual distress Pt's daughter worried about mother's health. Pt's daughter expressing emotions thru words and tears. Pt's daughter states she has a brother but due to his circumstances he isn't able to provided much support. Intervention: Provided hospitality and empathic listening. Provided prayer and information on how to contact jalousie installer, if needed. Outcome: Pt and daughter expressed appreciation for support. Will follow as able. BEATRICE THOMAS [employer] Spiritual Care Department O: [phone] Pager: [phone] ([phone] number calling from)
--- NOTE | 2018-03-07 11:53 | NUR ---
Per Nancy from [facility], they are still pending insurance approval.
[2018-03-07] MEDS ORDERED: FUROSEMIDE INJ 10 MG/ML 4 ML VIAL IV NR (12:00)
[2018-03-07] MEDS ORDERED: METHYLPREDNISOLONE SOD SUCC 40 MG/ML VIAL IV NR (12:30)
--- NOTE | 2018-03-07 13:03 | Progress Note ---
DATE: March 07, 2018 PULMONARY MEDICINE PROGRESS NOTE SUBJECTIVE: Ms. Arzola was seen and examined at bedside. She did have worsening today. More shortness of breath noted. Chest x-ray with stable bilateral pneumonitis but possibly encroaching right-sided pleural effusion. Has 91% oxygen saturation on Ventimask 50%. She ate small to moderate amounts and did have a bowel movement. REVIEW OF SYSTEMS: No GI bleeding, no headaches. OBJECTIVE VITAL SIGNS: Afebrile. Vital signs noted per electronic record. GENERAL: No acute distress, alert and calm. HEENT: Normocephalic, atraumatic. NECK: Supple. Throat midline. LUNGS: Bilateral air entry is moderate, a few rhonchi. Mild increased accessory muscle use. CARDIOVASCULAR: S1 and S2. No murmurs, rubs, or gallops. ABDOMEN: Soft, nontender. EXTREMITIES: No clubbing, no cyanosis. There is no edema. INTEGUMENT: No rash or purpura. LABS: 27 BUN, 1.2 creatinine, 4.2 potassium, 19 white count, 30 hematocrit, 544 platelets, 1.9 albumin. IMPRESSION AND PLAN 1. Acute respiratory failure, status post BiPAP salvage. Still at high risk. 2. Bilateral pneumonia. 3. Probable increasing right-sided pleural effusion. 4. Uncontrolled atrial fibrillation. 5. Persistent hypoxemia. 6. Severe protein-calorie malnutrition. 7. Chronic obstructive pulmonary disease with exacerbation. Additional dose of Lasix was given today. We agree with measures to try to control the atrial fibrillation rate. Continue antibiotics. The patient will need eventual vancomycin trough in the next few days. Continue bronchodilators. Will give 1 dose of prednisone additional today due to the lag in progress. However, the patient is also a significant infection risk. Therefore, we wish to limit steroids. I have discussed in detail with the daughter and granddaughter. The patient is in very guarded condition. Continue oxygen per protocol. Job#: [id number]
[2018-03-07] MEDS: VANCOMYCIN 750MG/NS 150ML IVPB 150 ML IV SCH (13:07)
--- NOTE | 2018-03-07 15:01 | Diagnostic Imaging Report ---
Bilateral chest ultrasound History: Evaluate for pleural effusion. Comparison: Chest radiograph: 03/07/2018. Technique/findings: Limited bilateral chest ultrasound was performed to evaluate for pleural effusion. This demonstrated a moderate right and small left pleural effusion. IMPRESSION: Moderate right pleural effusion. Small left pleural effusion. Signed by: Dr. Zaida Coker MD on 03/07/2018 2:58 PM
[2018-03-07] MEDS ORDERED: SODIUM CHLORIDE 0.9% 250ML 250 ML ONE (15:28)
--- NOTE | 2018-03-07 19:03 | NUR ---
NOTIFIED DR. JAVIER OF CHEST US RESULT, ORDER TO HOLD XARELTO.
--- NOTE | 2018-03-07 19:14 | NUR ---
REPORT GIVEN TO ONCOMING NURSE. PATIENT IS RESTING IN BED. NO ACUTE DISTRESS NOTED. FAMILY AT BEDSIDE. CALL LIGHT WITHIN REACH. BED IN THE LOWEST POSITION.
[2018-03-07] MEDS: PRAVASTATIN 20 MG TAB PO SCH (20:07)
[2018-03-08] VITALS (8 sets, daily range): BP systolic 123–145; BP diastolic 58–74
[2018-03-08 05:10] LABS: BASOPHILS % 0.2 % (0.0-1.0); HEMATOCRIT 34.3 % (34.2-44.1); HEMOGLOBIN 11.5 g/dL (12.0-16.0); LYMPHOCYTES # (AUTO) 1.2 (1.0-3.2); LYMPHOCYTES % 6.1 % (18.0-39.1); MEAN CORPUSCULAR HEMOGLOBIN 31.1 pg (28-32); MEAN CORPUSCULAR HGB CONC 33.5 g/dL (31-35); MEAN CORPUSCULAR VOLUME 92.7 fL (81-99); MONOCYTES # (AUTO) 0.3 (0.2-0.8); MONOCYTES % 1.5 % (4.4-11.3); NEUTROPHILS % 90.8 % (38.7-80.0); PLATELET COUNT 656 x10e3/uL (140-360); RED CELL DISTRIBUTION WIDTH 15.2 % (11.7-14.4)
[2018-03-08 05:27] LABS: ANION GAP 14.4 mmol/L (8-16); CALCIUM 10.1 mg/dL (8.4-10.2); CREATININE, SERUM 1.29 mg/dL (0.57-1.11); POTASSIUM 4.4 mmol/L (3.5-5.1)
[2018-03-08 06:34] LABS: BAND NEUTROPHILS % (MANUAL) 6 %; LYMPHOCYTES % (MANUAL) 3 % (19-48); MONOCYTES % (MANUAL) 3 % (3.4-9.0); NEUTROPHILS % (MANUAL) 88 % (40-74)
[2018-03-08 06:35] LABS: ANISOCYTOSIS S; PLATELET ESTIMATE MODERATELY INCREASED; PLATELET MORPHOLOGY COMMENT FEW LARGE; POIKILOCYTOSIS S; POLYCHROMASIA S; RBC MORPHOLOGY COMMENT NORMAL
--- NOTE | 2018-03-08 07:10 | NUR ---
RECEIVED PATIENT RESTING IN BED. NO S/S OF DISTRESS NOTED. FAMILY AT BEDSIDE. CALL LIGHT WITHIN REACH. BED IN THE LOWEST POSITION.
--- NOTE | 2018-03-08 07:23 | Diagnostic Imaging Report ---
EXAMINATION: CHEST SINGLE (PORTABLE) INDICATION: CHF. COMPARISON: Chest radiograph 03/07/2018. FINDINGS: AP view TUBES and LINES: None. LUNGS: Stable diffuse multifocal interstitial and airspace opacities, most confluent in the right lower lung. PLEURA: Small right pleural effusion, stable. No pneumothorax. HEART AND MEDIASTINUM: The cardiomediastinal silhouette is unremarkable. Aortic calcifications. BONES AND SOFT TISSUES: No acute osseous lesion. Soft tissues are unremarkable. UPPER ABDOMEN: No free air under the diaphragm. IMPRESSION: Similar appearance of multifocal airspace opacities suggestive of pneumonia with superimposed edema. Small right pleural effusion. Signed by: Dr. Zaida Coker MD on 03/08/2018 7:20 AM
[2018-03-08] MEDS: PANTOPRAZOLE SOD 40 MG TABEC PO SCH (08:07)
[2018-03-08] MEDS: MEROPENEM 500MG/ NS 50ML 50 ML IV SCH (08:07)
[2018-03-08] MEDS: BUSPIRONE HCL 5 MG TAB PO SCH ×3 (08:07→20:37)
[2018-03-08] MEDS: LORAZEPAM 0.5 MG TAB PO SCH (08:08)
[2018-03-08] MEDS: THERACRAN PO SCH (08:08)
[2018-03-08] MEDS: FLECAINIDE ACETATE 100 MG TAB PO SCH ×2 (08:08→16:47)
[2018-03-08] MEDS: LACTOBACILLUS ACIDOPHILUS CAPSULE PO SCH (08:08)
[2018-03-08] MEDS: CINNAMON BARK 1000 MG PO SCH (08:08)
[2018-03-08] MEDS: NIACIN 500 MG TABSR PO SCH ×2 (08:08→16:47)
[2018-03-08] MEDS: DIGOXIN 0.25 MG TAB PO SCH (08:08)
[2018-03-08] MEDS: FUROSEMIDE 40 MG TAB PO SCH (08:08)
[2018-03-08] MEDS: PENTOXIFYLLINE 400 MG TAB CR PO SCH ×4 (08:08→20:37)
[2018-03-08] MEDS: GABAPENTIN 300 MG CAP PO SCH ×4 (08:08→20:37)
[2018-03-08] MEDS: OMEGA 3 POLYUNSAT FATTY ACIDS 1000 MG SOFTGEL PO SCH (08:08)
[2018-03-08] MEDS: DILTIAZEM HCL 60 MG TAB PO SCH (08:08)
[2018-03-08] MEDS: IPRATROPIUM BROMIDE 0.02% 2.5 ML NEB NEB SCH ×3 (08:15→19:45)
--- NOTE | 2018-03-08 08:51 | NUR ---
Nancy with [facility] informed CM that LTAC was denied by insurance. P2P available and Dr. Clay will do P2P.
--- NOTE | 2018-03-08 11:05 | NUR ---
PER DR. JAVIER GET INFORMED CONSENT FOR THORACENTESIS, HE WILL PUT ORDER FOR PROCEDURE.
[2018-03-08] MEDS: VANCOMYCIN 750MG/NS 150ML IVPB 150 ML IV SCH (12:52)
--- NOTE | 2018-03-08 13:21 | Progress Note ---
DATE: March 08, 2018 PULMONARY MEDICINE PROGRESS NOTE SUBJECTIVE: Ms. Arzola was seen and examined at bedside. She continues to have slow progress. She was able to walk 15 feet today with physical therapy. She did have low functional endurance and got dyspneic. She had a bowel movement. She is eating small amounts. Chest x-ray is about stable. Ultrasound did confirm moderate right-sided pleural effusion. REVIEW OF SYSTEMS: No headache. No bleeding. OBJECTIVE VITAL SIGNS: Afebrile. Vital signs noted per electronic record. GENERAL: No acute distress, alert and calm. Weak in bed. HEENT: Normocephalic, atraumatic. NECK: Supple. Throat midline. LUNGS: Bilateral air entry is decreased, a few rhonchi. CARDIOVASCULAR: S1 and S2. No murmurs, rubs, or gallops. ABDOMEN: Soft, nontender. EXTREMITIES: No clubbing, no cyanosis. There is no edema. INTEGUMENT: No rash. No purpura. LABS: 33 BUN, 1.3 creatinine, 4.4 potassium, 20 white count, 34 hematocrit, 656 platelets, 2.6 INR. IMPRESSION AND PLAN 1. Chronic obstructive pulmonary disease with exacerbation. 2. Acute respiratory failure, status post BiPAP, now off BiPAP. 3. Encroaching mostly right-sided moderate pleural effusion. 4. Atrial fibrillation, persistent 100 to 120 heart rate. 5. Weakness, poor functional endurance. 6. Large bilateral pneumonia. At this time, continue to hold off on her blood thinners. Thoracentesis hopefully can be added on for tomorrow given the blood thinners have been held. Continue diuresis for the fluid component. Antibiotics. She got additional steroids 1 dose yesterday, but we are giving steroids very sparingly due to high infection risk. Continue bronchodilators. Job#: [id number]
[2018-03-08] MEDS ORDERED: LORAZEPAM 0.5 MG TAB PO PRN (14:00)
--- NOTE | 2018-03-08 14:00 | NUR ---
Nutrition Intervention Note RD Recommendation(s) for Physician: - Continue cardiac diet as ordered - Rec Ensure Compact with each meal - Encourage PO and hydration Plan of Care: RD following, monitoring for tolerance and adequacy, ONS rec Nutrition reason for involvement: Follow up RD Assessment 03/08 Chart reviewed. Chest x-ray is about stable. Ultrasound did confirm moderate right-sided pleural effusion. Possible thoracentesis tomorrow. Pt is also on steroid with BG running ~120-170. Visited pt in the room. Pt reports fair appetite with 75% observed lunch intake today. RN has been recording 25% meal intake for the last couple days. No supplement order entered. No GI complains noted. LBM 03/08, normal per pt. No chewing or swallowing difficulty. Will continue to monitor and follow. 03/03 - Chart reviewed. Spoke to Nurse on duty. Per Nurse Dr. Hauser agreed with RD recommendation to start Ensure Compact BID. Ensure Compact ordered and will be sent BID to patient. 03/02 - Chart reviewed. 77yo F, who is admitted for acute respiratory failure. Visited pt in the room. Pt is awake, alert and in no acute distress. Pt reports poor appetite x2 days [employer]. Pt ate ~50% of breakfast this AM. Encouraged family to bring foods if pt doesnt like what we served. No GI complains noted. LBM 03/02. Pt denies any chewing or swallowing difficulty. No recent weight loss reported. Notified RN to order Ensure compact BID. Will continue to monitor and follow. Principal Problems/Diagnoses: 1. Acute respiratory failure, bilevel positive airway pressure salvage. 2. Bilateral pneumonia, treat for community acquired versus aspiration. 3. Chronic COPD, emphysema plus bronchitis chronically. 4. Ovjrk-el-lvwzfxv kidney injury. PMH: Atrial fibrillation, hypertension, hyperlipidemia, COPD GI: LBM 03/08 Skin: intact Labs: (03/08) Na 133 L, BUN 33 H, Creatinine 1.29 H, glucose 174 H (03/02) Na 135 L, K 3.1 L, BUN 44H, Creatinine 1.58 H Meds: abx, omega 3 fish oil, niacin, probiotics, lasix, protonix Ht: 62in Wt: 132.12lb -03/02, 126.06 - 03/08 BMI: 24.2kg/m2 IBW: 110lb Malnutrition Evaluation (12/28/18) The patient does not meet criteria for a specified degree of malnutrition at this time. Will re-evaluate at follow-up as appropriate. Nutrition Prescription (Diet Order): cardiac diet Diet Adequacy: Not meeting calorie needs, Not meeting protein needs Diet Education Needs Assessment: Diet education not indicated. Nutrition Care Level: low Nutrition Diagnosis: Inadequate oral intake related to current medical status as evidenced by poor PO intake. Goal: Patient will meet 75-100% of estimated needs by follow up Progress: N/A Interventions: Mineral-modified diet, Commercial beverage Monitoring/Evaluation: Total energy intake, Total protein intake, Modified diet, Liquid supplement, Weight change Laverne Hassan, MS, RD, LD
[2018-03-08] MEDS: LEVALBUTEROL HCL SOLN NEBU 0.63 MG/3 ML NEB INH PRN ×2 (15:00→19:45)
[2018-03-08] MEDS: DILTIAZEM HCL ER 120 MG CAPCR PO SCH (16:46)
--- NOTE | 2018-03-08 19:27 | NUR ---
REPORT GIVEN TO ONCOMING NURSE, PATIENT IS RESTING IN BED. DAUGHTER AT BEDSIDE. NO ACUTE DISTRESS NOTED. CALL LIGHT WITHIN REACH. BED IN THE LOWEST POSITION.
[2018-03-08] MEDS: PRAVASTATIN 20 MG TAB PO SCH (20:37)
--- NOTE | 2018-03-08 22:04 | Progress Note ---
DATE: March 08, 2018 CARDIOLOGY PROGRESS NOTE SUBJECTIVE: No major events overnight, remains short of breath. Only able to walk about 10 to 15 feet before getting too short of breath. OBJECTIVE: VITAL SIGNS: Afebrile, reviewed in the electronic medical record, remains tachycardic. GENERAL: No acute distress at rest, elderly female. CARDIOVASCULAR: Tachycardic. S1, S2. No murmurs, rubs, or gallops. LUNGS: Breath sounds decreased bilaterally, wheezing. ABDOMEN: Soft, nontender. NEURO AND PSYCH: Alert and oriented to person, place, and time. LABORATORY DATA: Reviewed. ASSESSMENT AND PLAN: 1. Atrial fibrillation with rapid ventricular response. 2. Multifocal pneumonia. 3. Chronic obstructive pulmonary disease exacerbation. 4. Hypertension. 5. Tobacco use. RECOMMENDATION: Increase diltiazem today to 120 mg twice a day. Continue digoxin. Will continue to follow closely. Thank you for this consult. Job#: [id number]
[2018-03-09 01:08] VITALS: BP 117/56
[2018-03-09 05:07] LABS: BASOPHILS % 0.2 % (0.0-1.0); HEMATOCRIT 33.5 % (34.2-44.1); HEMOGLOBIN 11.2 g/dL (12.0-16.0); LYMPHOCYTES # (AUTO) 1.6 (1.0-3.2); LYMPHOCYTES % 6.2 % (18.0-39.1); MEAN CORPUSCULAR HEMOGLOBIN 30.7 pg (28-32); MEAN CORPUSCULAR HGB CONC 33.4 g/dL (31-35); MEAN CORPUSCULAR VOLUME 91.8 fL (81-99); MONOCYTES # (AUTO) 1.1 (0.2-0.8); MONOCYTES % 4.2 % (4.4-11.3); NEUTROPHILS # (AUTO) 22.9 (2.1-6.9); NEUTROPHILS % 88.2 % (38.7-80.0); PLATELET COUNT 762 x10e3/uL (140-360); RED BLOOD COUNT 3.65 x10e6/uL (3.6-5.1); RED CELL DISTRIBUTION WIDTH 14.9 % (11.7-14.4)
[2018-03-09 05:21] LABS: INR 1.36; PROTHROMBIN TIME 17.9 seconds (11.9-14.5)
[2018-03-09 05:22] LABS: PARTIAL THROMBOPLASTIN TIME 33.9 seconds (23.8-35.5)
[2018-03-09 05:41] LABS: ALBUMIN/GLOBULIN RATIO 0.6 (0.8-2.0); ANION GAP 15.6 mmol/L (8-16); CALCIUM 9.9 mg/dL (8.4-10.2); CREATININE, SERUM 1.26 mg/dL (0.57-1.11); MAGNESIUM 2.2 MG/DL (1.3-2.1); PHOSPHORUS 3.8 MG/DL (2.3-4.7); POTASSIUM 4.6 mmol/L (3.5-5.1)
[2018-03-09 06:26] LABS: BAND NEUTROPHILS % (MANUAL) 6 %; LYMPHOCYTES % (MANUAL) 13 % (19-48); MONOCYTES % (MANUAL) 7 % (3.4-9.0); NEUTROPHILS % (MANUAL) 74 % (40-74)
[2018-03-09 06:27] VITALS: BP 150/65
[2018-03-09 06:27] LABS: PLATELET ESTIMATE MARKEDLY DECREASED; PLATELET MORPHOLOGY COMMENT NORMAL; RBC MORPHOLOGY COMMENT ABNORMAL
[2018-03-09 06:28] LABS: ANISOCYTOSIS S; POIKILOCYTOSIS S; POLYCHROMASIA FEW
--- NOTE | 2018-03-09 07:00 | NUR ---
PT ALERT RESP EVEN AND UNLABORED AND RECEIVING A BREATHING TREATMENT, NO DISTRESS NOTED AT THIS TIME, PT HAS CHILEL TO GRAVITY, PT FAMILY MEMBER AT BEDSIDE, CALL LIGHT IN REACH, WILL CONT TO MONITOR.
[2018-03-09] MEDS: IPRATROPIUM BROMIDE 0.02% 2.5 ML NEB NEB SCH ×3 (07:20→22:52)
[2018-03-09] MEDS: LEVALBUTEROL HCL SOLN NEBU 0.63 MG/3 ML NEB INH PRN ×4 (07:20→22:55)
[2018-03-09 07:58] VITALS: BP 147/98
[2018-03-09] MEDS: CINNAMON BARK 1000 MG PO SCH (09:00)
[2018-03-09] MEDS: THERACRAN PO SCH (09:00)
[2018-03-09] MEDS ORDERED: DIGOXIN 0.25 MG TAB PO SCH (09:00)
--- NOTE | 2018-03-09 09:13 | NUR ---
Brook was informed by Nancy Duran with [facility] that P2P was done and denial was upheld. BROOK spoke to Dr. Hauser and he would like to appeal the denial. BROOK informed Nancy.
[2018-03-09] MEDS: BUSPIRONE HCL 5 MG TAB PO SCH ×3 (10:00→20:44)
[2018-03-09] MEDS: DIGOXIN 0.125 MG TAB PO SCH (10:00)
[2018-03-09] MEDS: OMEGA 3 POLYUNSAT FATTY ACIDS 1000 MG SOFTGEL PO SCH (10:00)
[2018-03-09] MEDS: DILTIAZEM HCL ER 120 MG CAPCR PO SCH (10:00)
[2018-03-09] MEDS: PENTOXIFYLLINE 400 MG TAB CR PO SCH ×4 (10:00→20:44)
[2018-03-09] MEDS: FUROSEMIDE 40 MG TAB PO SCH (10:00)
[2018-03-09] MEDS: FLECAINIDE ACETATE 100 MG TAB PO SCH (10:00)
[2018-03-09] MEDS: NIACIN 500 MG TABSR PO SCH ×2 (10:00→18:24)
[2018-03-09] MEDS: LACTOBACILLUS ACIDOPHILUS CAPSULE PO SCH (10:00)
[2018-03-09] MEDS: PANTOPRAZOLE SOD 40 MG TABEC PO SCH (10:00)
[2018-03-09] MEDS: GABAPENTIN 300 MG CAP PO SCH ×4 (10:00→20:44)
[2018-03-09] MEDS: MEROPENEM 500MG/ NS 50ML 50 ML IV SCH ×2 (11:55→20:37)
[2018-03-09 12:09] VITALS: BP 134/61
--- NOTE | 2018-03-09 12:26 | NUR ---
CM informed pt and family at bedside of denial for LTAC and appeal process started. Pt's daughter said Dr. Hauser had spoken to them about SNF if LTAC did not work out. CM provided her with list of in-network SNF and asked her to start looking about those facilities in case the appeal gets denied.
--- NOTE | 2018-03-09 16:19 | Progress Note ---
DATE: March 09, 2018 CARDIOLOGY PROGRESS NOTE SUBJECTIVE: No major events overnight. Patient is a little frustrated with slow progress and continued shortness of breath. OBJECTIVE VITAL SIGNS: Temperature 97.8, pulse 109, respiratory rate 18, blood pressure 134/61, satting 98% on 8 L mask. GENERAL: Elderly female, thin and mild respiratory distress. CARDIOVASCULAR: Tachycardic, irregular. No murmurs, rubs or gallops. Palpable carotid pulses. Palpable radial pulses. LUNGS: Diffuse bilateral rhonchi and mild wheezing. ABDOMEN: Soft, nontender and nondistended. NEURO AND PSYCH: Alert and oriented to person, place and time. Normal affect. INPATIENT MEDICATIONS: Reviewed. LABORATORY DATA: Reviewed. Notable for a white count of 25.9. IMAGING DATA: Reviewed. Telemetry data reviewed. Shows atrial fibrillation with RVR. ASSESSMENT AND PLAN 1. Atrial fibrillation with rapid ventricular response. 2. Multifocal pneumonia. 3. Chronic obstructive pulmonary disease exacerbation. 4. Hypertension. 5. History of tobacco use. RECOMMENDATIONS: Will increase diltiazem further today. Continue digoxin at 0.125. Still remains in rapid ventricular response. However, gradually improving. Xarelto is on hold pending thoracentesis. Resume once acceptable from postprocedure standpoint. Thank you for this consult. Will continue to follow. Job#: [id number] JOSEPH
--- NOTE | 2018-03-09 16:39 | NUR ---
pt off unit for procedure.
[2018-03-09 16:48] VITALS: BP 128/57
[2018-03-09] MEDS ORDERED: DILTIAZEM HCL ER 120 MG CAPCR PO SCH (17:00)
--- NOTE | 2018-03-09 17:54 | NUR ---
pt returned to unit.
--- NOTE | 2018-03-09 17:58 | Diagnostic Imaging Report ---
PROCEDURE: ULTRASOUND GUIDED THORACENTESIS COMPARISON: None. INDICATIONS: Pleural effusion FINDINGS: After informed consent was obtained, the patient was placed in the left side down position and preliminary ultrasound of the posterior chest identified a safe route into the small right pleural effusion. The overlying skin was prepped and draped in usual sterile fashion. Lidocaine 1% was used for local anesthesia. Under ultrasound guidance, a 5 Ecuadorean centesis needle was advanced into the pleural fluid and 500 cc were aspirated. The patient tolerated the procedure well and there were no immediate post-procedural complications. A post-thoracentesis chest radiograph will be obtained. CONCLUSION: Uncomplicated ultrasound-guided right thoracentesis with removal of 500 cc. Ld Hdz D.O. Dictated by: Ld Hdz D.O. on 03/09/2018 at 18:08 Electronically approved by: Ld Hdz D.O. on 03/09/2018 at 18:08
--- NOTE | 2018-03-09 17:59 | NUR ---
pt return to unit resp even and unlabored at this time, family members at bedside. call light in reach
--- NOTE | 2018-03-09 18:06 | Diagnostic Imaging Report ---
PROCEDURE: CHEST XRAY POST PROCEDURE COMPARISON: Patients [facility], DX, CHEST SINGLE (PORTABLE), 03/08/2018, 6:03. INDICATIONS: Post thoracentesis today FINDINGS: LUNGS: Mild pulmonary vascular congestion. PLEURA: There is a tiny right apical pneumothorax. Significant decrease in the size of the right pleural effusion. Small left pleural effusion. HEART & MEDIASTINUM: The heart is within normal size-limits. BONES & SOFT TISSUES: No acute findings. The patient's nurse Cathryn Park was informed of these findings at the time of interpretation. CONCLUSION: 1. Tiny right apical pneumothorax. 2. Mild pulmonary vascular congestion. 3. Followup chest x-ray in 4 hours recommended. Ld Hdz D.O. Dictated by: Ld Hdz D.O. on 03/09/2018 at 18:16 Electronically approved by: Ld Hdz D.O. on 03/09/2018 at 18:16
--- NOTE | 2018-03-09 18:09 | NUR ---
dr. radha saavedra called to noitfy of pt results form thoracentsis
--- NOTE | 2018-03-09 18:14 | NUR ---
dr. gonzalez brandt, called to notify of pt results form thoracentesis.
[2018-03-09] MEDS: VANCOMYCIN 750MG/NS 150ML IVPB 150 ML IV SCH (18:24)
[2018-03-09] MEDS: DILTIAZEM HCL 180 MG CAP ER PO SCH (18:24)
[2018-03-09 18:37] LABS: BODY FLUID APPEARANCE CLOUDY; BODY FLUID COLOR STRAW; RBC,BODY FLUID 481 cells/uL; WBC,BODY FLUID 42 cells/uL
--- NOTE | 2018-03-09 19:03 | NUR ---
Patient visited in room during nursing rounds. Patient alert and oriented x3. Daughter (Tammie Mathews) and son-in-law at bedside visiting. Patient on 8L humidified NC. Arredondo in place. Patient diapered as well. S/P right chest thoracentesis. Band aid on right upper back in place (clean and dry). CXR scheduled tonight around 2144. Call deal within reach. Will monitor closely.
[2018-03-09 19:18] LABS: LYMPHOCYTES,BODY FLUID 49 %; MONO/MACROPHG,BODY FLUID 7 %; NEUTROPHILS,BODY FLUID 25 %; OTHER CELLS,BODY FLUID 19 %
[2018-03-09 19:19] LABS: BODY FLUID TYPE PLEURAL
--- NOTE | 2018-03-09 19:19 | NUR ---
report given to oncoming nurse for continued care.
[2018-03-09 20:00] VITALS: BP 112/55
--- NOTE | 2018-03-09 20:00 | NUR ---
Assessed current IV on right antecubital and found out to be placed since last (03/01/18). Informed patient that IV normally needs to be changed every 3-4 days. Current IV still patent and appear clean and dry. Patient refuses new IV and decided she wants to keep current IV.
--- NOTE | 2018-03-09 20:22 | Progress Note ---
DATE: March 09, 2018 PULMONARY MEDICINE PROGRESS NOTE SUBJECTIVE: Ms. Arzola was seen and examined at bedside. Currently on 10 liters per minute by nasal cannula. Patient had PT deferred as she did not have much energy today. She is eating some amount. Patient had thoracentesis with 500 mL removed and this was noted that patient had some level of small pneumothorax . Radiology already ordered a repeat chest x-ray for later to follow. REVIEW OF SYSTEMS: No headaches. No bleeding. OBJECTIVE VITALS: Afebrile. Vital signs noted per electronic record. GENERAL: In no acute distress, alert and calm. HEENT: Normocephalic, atraumatic. Throat in midline. NECK: Supple. LUNGS: Bilateral air entry is decreased, rare rhonchi, no rales. CARDIOVASCULAR: S1 and S2. No murmurs, rubs, or gallops. ABDOMEN: Soft, nontender. EXTREMITIES: No clubbing. No cyanosis. No edema. INTEGUMENT: No rash or purpura. LABS: Potassium 4.6, BUN 39, creatinine 1.3. White count 26, hematocrit 34, platelets 762. IMPRESSION 1. Acute respiratory failure, off BiPAP now. 2. Chronic obstructive pulmonary disease with exacerbation. 3. Fluid overload, third spacing of fluid, mild. 4. Bilateral moderate to large pneumonia. 5. Debility/decreased functional endurance. 6. Recent atrial fibrillation, heart rate, finally better controlled. Continue heart rate and cardiac control. Continue intermittent dose of diuretics as needed. Currently on Lasix 40 mg each day. Follow up on bronchodilators. Intermittent steroids were given, but on hold due to the high infection risk that is presumed. Patient will have evaluation to restart the rivaroxaban if she does good after this thoracentesis and followup chest x-ray as ordered by radiologist. Followup pleural fluid analysis as well of this fluid. Patient needs to engage in aggressive therapy as much she tolerates as well as try to maintain her weight and have good nutrition. Job#: [id number] RTY
[2018-03-09] MEDS: PRAVASTATIN 20 MG TAB PO SCH (20:44)
--- NOTE | 2018-03-09 21:45 | NUR ---
Portable CXR in progress.
--- NOTE | 2018-03-09 22:08 | Diagnostic Imaging Report ---
EXAMINATION: CHEST SINGLE (PORTABLE) INDICATION: small pneumothorax COMPARISON: Chest x-ray 03/09/2018 at 1732 hours and 03/08/2018 FINDINGS: AP view TUBES and LINES: None. LUNGS: Persistent interstitial opacities and multifocal airspace opacities, grossly unchanged. PLEURA: Decreased size of the right pleural effusion when compared to 03/08/2017, currently trace in size. Trace right pneumothorax with approximately 6 mm airgap, previously 7 mm on same-day chest x-ray at 1732 hours. Trace left pleural effusion. No left pneumothorax. HEART AND MEDIASTINUM: The cardiomediastinal silhouette is unremarkable. BONES AND SOFT TISSUES: No acute osseous lesion. Soft tissues are unremarkable. UPPER ABDOMEN: No free air under the diaphragm. IMPRESSION: Decreased size of right pleural effusion compared to 03/08/2018 status post thoracentesis, currently trace. Trace right pneumothorax, stable. Similar appearance of multifocal airspace opacities suggestive of pneumonia with superimposed edema. Signed by: DR. Emiliano Powell MD on 03/09/2018 10:05 PM
[2018-03-10] VITALS: BP 103/53
[2018-03-10 04:00] VITALS: BP 122/59
[2018-03-10] MEDS: MEROPENEM 500MG/ NS 50ML 50 ML IV SCH ×3 (04:25→21:00)
[2018-03-10 05:28] LABS: BASOPHILS % 0.2 % (0.0-1.0); EOSINOPHILS # (AUTO) 0.3 (0.0-0.4); EOSINOPHILS % 1.5 % (0.0-6.0); HEMATOCRIT 35.9 % (34.2-44.1); HEMOGLOBIN 11.6 g/dL (12.0-16.0); LYMPHOCYTES # (AUTO) 1.1 (1.0-3.2); LYMPHOCYTES % 6.3 % (18.0-39.1); MEAN CORPUSCULAR HEMOGLOBIN 30.6 pg (28-32); MEAN CORPUSCULAR HGB CONC 32.3 g/dL (31-35); MEAN CORPUSCULAR VOLUME 94.7 fL (81-99); MONOCYTES # (AUTO) 0.9 (0.2-0.8); NEUTROPHILS # (AUTO) 15.3 (2.1-6.9); NEUTROPHILS % 86.3 % (38.7-80.0); PLATELET COUNT 500 x10e3/uL (140-360); RED BLOOD COUNT 3.79 x10e6/uL (3.6-5.1); RED CELL DISTRIBUTION WIDTH 15.4 % (11.7-14.4)
[2018-03-10] MEDS: IPRATROPIUM BROMIDE 0.02% 2.5 ML NEB NEB SCH ×3 (07:00→23:25)
[2018-03-10] MEDS: PANTOPRAZOLE SOD 40 MG TABEC PO SCH (07:30)
[2018-03-10 07:54] VITALS: BP 119/56
[2018-03-10] MEDS: GABAPENTIN 300 MG CAP PO SCH ×4 (09:00→21:35)
[2018-03-10] MEDS: DIGOXIN 0.125 MG TAB PO SCH (09:00)
[2018-03-10] MEDS: PENTOXIFYLLINE 400 MG TAB CR PO SCH ×4 (09:00→21:35)
[2018-03-10] MEDS: FUROSEMIDE 40 MG TAB PO SCH (09:00)
[2018-03-10] MEDS: THERACRAN PO SCH (09:00)
[2018-03-10] MEDS: CINNAMON BARK 1000 MG PO SCH (09:00)
[2018-03-10] MEDS: OMEGA 3 POLYUNSAT FATTY ACIDS 1000 MG SOFTGEL PO SCH (09:00)
[2018-03-10] MEDS: BUSPIRONE HCL 5 MG TAB PO SCH ×3 (09:00→21:35)
[2018-03-10] MEDS: LACTOBACILLUS ACIDOPHILUS CAPSULE PO SCH (09:00)
[2018-03-10] MEDS: NIACIN 500 MG TABSR PO SCH ×2 (09:00→17:00)
[2018-03-10] MEDS: DILTIAZEM HCL 180 MG CAP ER PO SCH ×2 (09:02→17:00)
--- NOTE | 2018-03-10 10:04 | Progress Note ---
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 She had a thoracentesis yesterday with residual pneumothorax. It was improving on x-ray last night. This morning, she still complains of some fatigue and dyspnea, although she feels slightly better than yesterday. She has a nonproductive cough. She is sitting on the edge of the bed. PHYSICAL EXAMINATION VITAL SIGNS: The blood pressure is 119/56 and the pulse ox is 97% on 10 liters high-flow nasal option. The pulse is 82 and the respiratory rate is 20. HEENT: Shows no facial swelling or erythema. The nasal mucosa is normal. The oropharynx is normal. LYMPHATIC: Shows no submandibular, cervical, or supraclavicular adenopathy. NECK: Shows no JVD or thyromegaly. There is no nuchal rigidity. CARDIAC: Reveals regular rate and rhythm with normal S1 and S2. There are no murmurs or rubs. LUNGS: Auscultation of the lungs shows decreased breath sounds at the bases. There is no wheezing. ABDOMEN: Soft, nontender. There is no rebound or guarding. EXTREMITIES: Shows no leg edema or calf tenderness. There is no cyanosis or clubbing. SKIN: Shows no rashes. LABORATORY DATA: The BUN to creatinine ratio is 39 to 1.26. The glucose is 150. The albumin is 2.0. The white blood cell count is 17.7 and the hemoglobin is 11.6. The platelet count is 500. MICROBIOLOGY DATA: Shows a negative influenza swab and negative blood cultures. Sputum culture showed rare white blood cells with few gram-positive cocci in pairs. Pleural fluid shows a total protein of 2.3 with a serum protein of 5.6. The ratio is 0.401. The pleural fluid LDH is 395. The serum LDH is not available. The pleural glucose is 134. The white blood cell count is 42 with 25 neutrophils and 49 lymphocytes. There are 481 red blood cells. IMAGING: Chest x-ray shows decreased right pleural effusion and a trace right pneumothorax. There are multiple air space opacities consistent with multifocal pneumonia. IMPRESSION 1. Acute respiratory failure. 2. Community-acquired pneumonia with severe sepsis, present on admission. 3. Chronic obstructive pulmonary disease. 4. Atrial fibrillation. 5. Acute kidney injury. PLAN 1. Patient will have a repeat PA and lateral chest x-ray today. 2. Continue antibiotics. 3. Continue physical therapy. 4. Wean oxygen as tolerated. 5. Nutritional evaluation. 6. Physical therapy. Job#: [id number] PKU MTDD
--- NOTE | 2018-03-10 10:18 | Diagnostic Imaging Report ---
EXAMINATION: CHEST 2 VIEWS INDICATION: ^Follow up pneumothorax ^[id number] ^0950 COMPARISON: Chest x-ray 03/09/2018 FINDINGS: PA and lateral views TUBES and LINES: Fabric or medical biller overlies the right lung apex. LUNGS: Diffuse hyperinflation with coarse interstitial markings and bibasilar atelectasis. PLEURA: Right pleural effusion is increasing in size. Left pleural effusion is stable. Right apical pneumothorax measures 13 mm (previously, 6 mm) HEART AND MEDIASTINUM: The cardiomediastinal silhouette is unremarkable.. BONES AND SOFT TISSUES: No focal osseous lesions. Soft tissues are unremarkable. UPPER ABDOMEN: No free air under the diaphragm. IMPRESSION: 1. Right apical pneumothorax appears larger but this may be due to a superimposed object or fabric. 2. Increasing pleural effusions. 3. Stable coarse interstitial markings consistent with emphysema. Signed by: Dr. Hamilton Franklin MD on 03/10/2018 10:15 AM
[2018-03-10 12:53] VITALS: BP 136/63
[2018-03-10 17:27] VITALS: BP 120/56
[2018-03-10] MEDS: VANCOMYCIN 750MG/NS 150ML IVPB 150 ML IV SCH (17:38)
--- NOTE | 2018-03-10 19:08 | NUR ---
Patient visited in room during nursing rounds. Patient alert and oriented x3. Daughter (Tammie Mathews) and son-in-law at bedside visiting. Patient on 8L humidified NC. Arredondo in place. Patient diapered as well. S/P right chest thoracentesis. Band aid on right upper back in place (clean and dry). CXR scheduled tomorrow at 0600 (03/11/18). Patient states she feels better. Call deal within reach. Will monitor closely.
--- NOTE | 2018-03-10 19:22 | NUR ---
report given to oncoming nurse, for continued care.
--- NOTE | 2018-03-10 19:36 | Progress Note ---
DATE: March 10, 2018 CARDIOLOGY PROGRESS NOTE SUBJECTIVE: Patient denies chest pain or shortness of breath. OBJECTIVE VITAL SIGNS: Temperature 97.1 degrees, pulse 71, respiratory rate 18, blood pressure 136/63, oxygen saturation 100% on 10 liters nasal cannula. GENERAL: Elderly woman, no acute distress. Awake and alert. LUNGS: Diminished breath sounds. No wheezes or crackles. CARDIOVASCULAR: Normal rate. Regular rhythm. No murmur. Normal S1, S2. ABDOMEN: Soft, nontender. EXTREMITIES: No edema. CARDIAC MEDICATIONS 1. Fish oil 1000 mg p.o. daily. 2. Digoxin 0.125 mg p.o. daily. 3. Furosemide 40 mg p.o. daily. LABS: WBC 17.73, hemoglobin 11.6, hematocrit 35.9, platelets 500. Sodium 138, potassium 4.6, chloride 103, CO2 of 24, BUN 39, creatinine 1.26. Chest x-ray, right apical pneumothorax appears larger, but this may be due to a superimposed object or fabric, increasing pleural effusion, diffuse coarse interstitial markings consistent with emphysema. TELEMETRY: Normal sinus rhythm. IMPRESSION 1. Atrial fibrillation with rapid ventricular response, currently sinus rhythm. 2. Multifocal pneumonia. 3. Chronic obstructive pulmonary disease exacerbation. 4. Acute respiratory failure. 5. Acute kidney injury, improving. 6. Hypertension. 7. History of tobacco use. RECOMMENDATIONS: Patient's heart rate is controlled and patient has returned to normal sinus rhythm. Continue current cardiac medications. Xarelto is on hold given recent thoracentesis with apical pneumothorax. We will resume once this has resolved. Repeat BNP. Patient may benefit from slightly higher dose of diuretics. Antibiotics per primary service. Thank you for this consult. We will continue to follow. Job#: [id number] RANDY
[2018-03-10 20:00] VITALS: BP 114/52
[2018-03-10] MEDS ORDERED: SODIUM CHLORIDE 0.9% 250ML 250 ML ONE (21:22)
[2018-03-10] MEDS: PRAVASTATIN 20 MG TAB PO SCH (21:35)
[2018-03-11] VITALS (7 sets, daily range): BP systolic 119–138; BP diastolic 55–64
[2018-03-11] MEDS: MEROPENEM 500MG/ NS 50ML 50 ML IV SCH ×3 (04:28→20:00)
[2018-03-11] MEDS: PANTOPRAZOLE SOD 40 MG TABEC PO SCH (06:30)
[2018-03-11] MEDS: IPRATROPIUM BROMIDE 0.02% 2.5 ML NEB NEB SCH ×3 (06:52→23:02)
--- NOTE | 2018-03-11 07:41 | Diagnostic Imaging Report ---
EXAMINATION: CHEST 2 VIEWS INDICATION: ^Pneumothorax ^[id number] ^0644 COMPARISON: Chest x-ray 03/10/2018, chest x-ray 03/09/2018 FINDINGS: PA and lateral views TUBES and LINES: None. LUNGS: Diffuse hyperinflation is redemonstrated with coarse interstitial markings consistent with emphysema. Stable bibasilar atelectasis. PLEURA: Right apical pneumothorax measures 6 mm, similar to the 03/09/2018 exam. Small right pleural effusion is stable. HEART AND MEDIASTINUM: The cardiomediastinal silhouette is unremarkable. BONES AND SOFT TISSUES: No focal osseous lesions. Soft tissues are unremarkable. UPPER ABDOMEN: No free air under the diaphragm. IMPRESSION: Stable right apical pneumothorax. Stable bibasilar atelectasis and small right pleural effusion. Signed by: Dr. Hamilton Franklin MD on 03/11/2018 7:38 AM
[2018-03-11] MEDS: THERACRAN PO SCH (09:00)
[2018-03-11] MEDS: CINNAMON BARK 1000 MG PO SCH (09:00)
[2018-03-11] MEDS: BUSPIRONE HCL 5 MG TAB PO SCH ×3 (09:49→21:08)
[2018-03-11] MEDS: LACTOBACILLUS ACIDOPHILUS CAPSULE PO SCH (09:50)
[2018-03-11] MEDS: OMEGA 3 POLYUNSAT FATTY ACIDS 1000 MG SOFTGEL PO SCH (09:50)
[2018-03-11] MEDS: DILTIAZEM HCL 180 MG CAP ER PO SCH ×2 (09:50→17:23)
[2018-03-11] MEDS: DIGOXIN 0.125 MG TAB PO SCH (09:50)
[2018-03-11] MEDS: PENTOXIFYLLINE 400 MG TAB CR PO SCH ×4 (09:50→21:09)
[2018-03-11] MEDS: FUROSEMIDE 40 MG TAB PO SCH (09:50)
[2018-03-11] MEDS: GABAPENTIN 300 MG CAP PO SCH ×4 (09:50→21:08)
[2018-03-11] MEDS: NIACIN 500 MG TABSR PO SCH ×2 (09:50→16:27)
[2018-03-11 10:27] LABS: BASOPHILS % 0.1 % (0.0-1.0); EOSINOPHILS # (AUTO) 0.4 (0.0-0.4); EOSINOPHILS % 2.5 % (0.0-6.0); HEMATOCRIT 29.8 % (34.2-44.1); HEMOGLOBIN 9.8 g/dL (12.0-16.0); LYMPHOCYTES # (AUTO) 0.8 (1.0-3.2); LYMPHOCYTES % 5.6 % (18.0-39.1); MEAN CORPUSCULAR HGB CONC 32.9 g/dL (31-35); MEAN CORPUSCULAR VOLUME 94.3 fL (81-99); MONOCYTES # (AUTO) 0.9 (0.2-0.8); MONOCYTES % 5.7 % (4.4-11.3); NEUTROPHILS # (AUTO) 12.7 (2.1-6.9); NEUTROPHILS % 85.4 % (38.7-80.0); PLATELET COUNT 694 x10e3/uL (140-360); RED BLOOD COUNT 3.16 x10e6/uL (3.6-5.1); RED CELL DISTRIBUTION WIDTH 15.2 % (11.7-14.4)
--- NOTE | 2018-03-11 10:37 | Progress Note ---
DATE: PULMONARY PROGRESS NOTE SUBJECTIVE: The patient had an x-ray this morning which showed a slight decrease in the right apical pneumothorax and a small right pleural effusion. She has no fevers. She has less cough. She is on high flow oxygen and was saturating 100%. She has not had the atrial fibrillation. OBJECTIVE VITAL SIGNS: The patient is afebrile. Blood pressure is 138/64 and the saturation is 100%. Pulse is 90-100, respiratory rate is 19. HEENT: Shows no facial swelling or erythema. The nasal mucosa is normal. The oropharynx is normal. LYMPHATIC: Shows no submandibular, cervical or supraclavicular adenopathy. CARDIAC: Reveals regular rate and rhythm with normal S1 and S2. There are no murmurs or rubs. LUNGS: On auscultation, lungs reveals decreased breath sounds at the bases. There is no wheezing. ABDOMEN: Soft. Nontender. There is no rebound or guarding. EXTREMITIES: There is no leg edema or calf tenderness. IMPRESSION 1. Acute respiratory failure. 2. Community-acquired pneumonia with severe sepsis, present on admission. 3. Chronic obstructive pulmonary disease. 4. Atrial fibrillation. 5. Acute kidney injury. PLAN Repeat CBC and CMP today. Continue current antibiotics as per Infectious Disease. Continue rate control and Xarelto. Wean oxygen. Hold off on Pigtail chest tube for now, because the apical pneumothorax is improving. The patient is also on Xarelto, which would make the procedure more risky. Repeat PA and lateral chest x-ray tomorrow. Job#: [id number] KIMBERLY
[2018-03-11 10:48] LABS: ALBUMIN 2.1 g/dL (3.5-5.0); ALBUMIN/GLOBULIN RATIO 0.7 (0.8-2.0); ANION GAP 12.4 mmol/L (8-16); CALCIUM 9.4 mg/dL (8.4-10.2); CREATININE, SERUM 1.14 mg/dL (0.57-1.11); POTASSIUM 4.4 mmol/L (3.5-5.1)
[2018-03-11] MEDS: VANCOMYCIN 750MG/NS 150ML IVPB 150 ML IV SCH (18:08)
--- NOTE | 2018-03-11 18:28 | NUR ---
PT IN BED WITH FAMILY IN ROOM, ASSISTED WITH TOILETING NEEDED, DENIES PAIN CONTINUE ON IV ANTIBIOTICS.
--- NOTE | 2018-03-11 19:30 | NUR ---
Patient visited in room during nursing rounds. Patient alert and oriented x3. Patient on 8L humidified NC. Arredondo in place. Patient diapered as well. S/P right chest thoracentesis. Band aid on right upper back in place (clean and dry). CXR scheduled tomorrow at 0700 (03/12/18). Patient requesting for Tylenol for some pinching pain on right upper back (site of insertion s/p thoracentesis). Nurse (Bijan) will medicate patient. Call deal within reach. Will monitor closely.
[2018-03-11] MEDS: ACETAMINOPHEN 325 MG TAB PO PRN (20:17)
[2018-03-11] MEDS: PRAVASTATIN 20 MG TAB PO SCH (21:09)
--- NOTE | 2018-03-11 22:31 | Progress Note ---
DATE: March 11, 2018 CARDIOLOGY PROGRESS NOTE SUBJECTIVE: Patient denies chest pain or shortness of breath. OBJECTIVE VITAL SIGNS: Temperature 97.3 degrees, pulse 72, respiratory rate 20, blood pressure 146/70, and oxygen saturation 96% on 8 L of nasal cannula. GENERAL: Elderly woman, no acute distress. Awake and alert. LUNGS: Diminished breath sounds. No wheezes or crackles. CARDIOVASCULAR: Normal rate. Regular rhythm. No murmur. Normal S1, S2. ABDOMEN: Soft, nontender. EXTREMITIES: No edema. CARDIAC MEDICATIONS 1. Diltiazem 180 mg p.o. b.i.d. 2. Digoxin 0.125 mg p.o. daily. 3. Fish oil 1000 mg p.o. daily. 4. Furosemide 40 mg p.o. daily. LABS: WBC 14.9, hemoglobin 9.8, hematocrit 29.8, and platelets 694,000. Sodium 135, potassium 4.4, chloride 99, CO2 of 28, BUN 39, and creatinine 1.14. BNP 235. TELEMETRY: Normal sinus rhythm. IMPRESSIONS 1. Atrial fibrillation with rapid ventricular response, currently sinus rhythm. 2. Multifocal pneumonia. 3. Chronic obstructive pulmonary disease exacerbation. 4. Acute respiratory failure. 5. Acute kidney injury, improving. 6. Hypertension. 7. History of tobacco use. 8. Apical pneumothorax. RECOMMENDATIONS: Patient is back in normal sinus rhythm. Continue current cardiac medications. Xarelto is currently on hold given recent thoracentesis with apical pneumothorax. Once this has resolved, we will resume anticoagulation. If BNP remains elevated, we will titrate up her diuretics. Antibiotics per primary service. Thank you for this consult. We will continue to follow. Job#: [id number]
[2018-03-12] VITALS (8 sets, daily range): BP systolic 112–139; BP diastolic 52–62
[2018-03-12] MEDS: MEROPENEM 500MG/ NS 50ML 50 ML IV SCH ×2 (03:47→12:45)
[2018-03-12 04:40] LABS: BASOPHILS % 0.4 % (0.0-1.0); EOSINOPHILS # (AUTO) 0.4 (0.0-0.4); EOSINOPHILS % 3.7 % (0.0-6.0); HEMATOCRIT 30.3 % (34.2-44.1); HEMOGLOBIN 10.1 g/dL (12.0-16.0); LYMPHOCYTES % 9.3 % (18.0-39.1); MEAN CORPUSCULAR HGB CONC 33.3 g/dL (31-35); MEAN CORPUSCULAR VOLUME 92.9 fL (81-99); MONOCYTES # (AUTO) 0.8 (0.2-0.8); MONOCYTES % 7.4 % (4.4-11.3); NEUTROPHILS # (AUTO) 8.4 (2.1-6.9); NEUTROPHILS % 78.5 % (38.7-80.0); PLATELET COUNT 670 x10e3/uL (140-360); RED BLOOD COUNT 3.26 x10e6/uL (3.6-5.1); RED CELL DISTRIBUTION WIDTH 15.2 % (11.7-14.4)
[2018-03-12 05:02] LABS: ALBUMIN 1.9 g/dL (3.5-5.0); ALBUMIN/GLOBULIN RATIO 0.7 (0.8-2.0); ANION GAP 12.2 mmol/L (8-16); CREATININE, SERUM 1.2 mg/dL (0.57-1.11); POTASSIUM 4.2 mmol/L (3.5-5.1)
[2018-03-12] MEDS: PANTOPRAZOLE SOD 40 MG TABEC PO SCH (06:41)
--- NOTE | 2018-03-12 06:59 | Diagnostic Imaging Report ---
EXAMINATION: CHEST 2 VIEWS INDICATION: R apical pneumothorax COMPARISON: Chest x-ray 03/11/2018 FINDINGS: AP and lateral view TUBES and LINES: None. LUNGS: Persistent interstitial opacities and multifocal airspace opacities, grossly unchanged. PLEURA: Stable small right pleural effusion. Previous right apical pneumothorax is not well visualized. No left pneumothorax. HEART AND MEDIASTINUM: The cardiomediastinal silhouette is unremarkable. BONES AND SOFT TISSUES: No acute osseous lesion. Soft tissues are unremarkable. UPPER ABDOMEN: No free air under the diaphragm. IMPRESSION: Previous right apical pneumothorax is currently not visible. Similar appearance of multifocal airspace opacities suggestive of emphysema with superimposed edema. Signed by: DR. Emiliano Powell MD on 03/12/2018 6:56 AM
[2018-03-12] MEDS: IPRATROPIUM BROMIDE 0.02% 2.5 ML NEB NEB SCH ×2 (07:15→13:07)
[2018-03-12] MEDS: LEVALBUTEROL HCL SOLN NEBU 0.63 MG/3 ML NEB INH PRN ×2 (07:15→13:07)
[2018-03-12] MEDS: THERACRAN PO SCH (09:00)
[2018-03-12] MEDS: CINNAMON BARK 1000 MG PO SCH ×2 (09:00→09:46)
[2018-03-12] MEDS: BUSPIRONE HCL 5 MG TAB PO SCH ×2 (09:45→18:04)
[2018-03-12] MEDS: FUROSEMIDE INJ 10 MG/ML 4 ML VIAL IV SCH ×2 (09:45→18:05)
[2018-03-12] MEDS: DIGOXIN 0.125 MG TAB PO SCH (09:46)
[2018-03-12] MEDS: LACTOBACILLUS ACIDOPHILUS CAPSULE PO SCH (09:46)
[2018-03-12] MEDS: GABAPENTIN 300 MG CAP PO SCH ×3 (09:46→18:04)
[2018-03-12] MEDS: PENTOXIFYLLINE 400 MG TAB CR PO SCH ×3 (09:46→18:04)
[2018-03-12] MEDS: DILTIAZEM HCL 180 MG CAP ER PO SCH ×2 (09:46→18:12)
[2018-03-12] MEDS: NIACIN 500 MG TABSR PO SCH ×2 (09:46→18:04)
[2018-03-12] MEDS: OMEGA 3 POLYUNSAT FATTY ACIDS 1000 MG SOFTGEL PO SCH (09:46)
--- NOTE | 2018-03-12 13:21 | Progress Note ---
DATE: March 12, 2018 PULMONARY MEDICINE PROGRESS NOTE SUBJECTIVE: Mrs. Arzola was seen and examined at bedside. She continues with slow progress. She did walk in the room to the restroom. She did use up a lot of her energy to do this, and she had low functional endurance. Patient continues at this time on 5 liters per minute of oxygen per nasal cannula. She did have a bowel movement today. She is starting to eat better. REVIEW OF SYSTEMS: No headaches, no rash. OBJECTIVE VITAL SIGNS: Afebrile. Vital signs noted per electronic record. GENERALLY: No acute distress, alert and calm. HEENT: Normocephalic, atraumatic. NECK: Supple. Throat midline. LUNGS: Bilateral air entry, a few rhonchi at bases. CARDIOVASCULAR: S1 and S2. No murmurs, rubs or gallops. ABDOMINAL: Soft, nontender. EXTREMITIES: No clubbing, no cyanosis. There is no edema. INTEGUMENT: No rash. No purpura. LABS: Potassium 4.2, BUN 38, creatinine 1.2. White count 11, hematocrit 30, platelets 670. IMPRESSION AND PLAN 1. Bilateral large pneumonia. 2. Chronic obstructive pulmonary disease with exacerbation. 3. Additional atrial fibrillation, now better controlled. 4. Low functional endurance. 5. Chronic respiratory failure including hypoxemia. Continue oxygen supplement. Patient needs aggressive therapy. Continue to maintain diet. Continue to ensure bowel movements. Patient is off the standing steroids given the very high infection risk, but we will intermittently give her steroids if she needs. Continue bronchodilators. Job#: [id number] EV
--- NOTE | 2018-03-12 15:00 | NUR ---
was called and notified of patient transferring to [facility] today.
--- NOTE | 2018-03-12 15:24 | NUR ---
paged (cardiology) to notify of patient transferring to [facility] today.
--- NOTE | 2018-03-12 16:35 | NUR ---
PATIENT BEING DISCHARGED TO [facility]: [facility] Address: [address], [place] [address] PENDING MOT
--- NOTE | 2018-03-12 17:06 | NUR ---
received call from Nancy with [facility] for [facility]. patient will be admitted to room 306 after 7pm today, admitting physician . [facility] REGISTERED NURSE RENAL Juancho Coffey accepting patient. call report to [phone]
[2018-03-12] MEDS: VANCOMYCIN 750MG/NS 150ML IVPB 150 ML IV SCH (18:04)
--- NOTE | 2018-03-12 19:00 | NUR ---
Received pt lying in bed watching tv. Denies pain at this time. No resp distress at this time. Call light within reach and instructed to call for assistance. Bed alarm on.
--- NOTE | 2018-03-12 19:57 | NUR ---
CALLED REPORT TO PEDRO ENGLAND AT [facility] [place], PER RN PATIENT WILL BE GOING TO ROOM 321 INSTEAD. WILL RELAY THIS INFO TO MARY ENGLAND, ONCOMING NURSE.
--- NOTE | 2018-03-12 23:40 | NUR ---
EMS here to transfer pt to [facility]. Pt is stable and all belongings are with pt.
--- NOTE | 2018-03-13 00:11 | Progress Note ---
DATE: March 12, 2018 CARDIOLOGY PROGRESS NOTE SUBJECTIVE: Patient denies chest pain or shortness of breath. OBJECTIVE VITAL SIGNS: Temperature 96.8 degrees, pulse 62, respiratory rate 20, blood pressure 127/58, and oxygen saturation 100% on 8 L nasal cannula. GENERAL: Elderly woman, no acute distress. Awake and alert. LUNGS: Diminished breath sounds. No wheezes or crackles. CARDIOVASCULAR: Normal rate. Regular rhythm. No murmur. Normal S1, S2. ABDOMEN: Soft, nontender. EXTREMITIES: No edema. CARDIAC MEDICATIONS 1. Furosemide 20 mg IV b.i.d. 2. Digoxin 0.125 mg p.o. daily. 3. Fish oil 1000 mg p.o. daily. 4. Diltiazem 180 mg p.o. b.i.d. LABS: WBC 10.74, hemoglobin 10.1, hematocrit 30.3, and platelets 670,000. Sodium 136, potassium 4.2, chloride 102, CO2 of 26, BUN 38, and creatinine 1.2. TELEMETRY: Atrial fibrillation. IMPRESSIONS 1. Atrial fibrillation with rapid ventricular response, currently rate controlled. 2. Multifocal pneumonia. 3. Chronic obstructive pulmonary disease exacerbation. 4. Acute respiratory failure. 5. Acute kidney injury, improving. 6. Hypertension. 7. History of tobacco use. 8. Apical pneumothorax. RECOMMENDATIONS: As appears, patient's pneumothorax has resolved, we will resume patient on Xarelto. Continue current cardiac medications otherwise. Continue diuretics. Antibiotics per primary service. Thank you for this consult. We will continue to follow. Job#: [id number] CF MTDD
[2018-03-13] MEDS ORDERED: RIVAROXABAN 15 MG TABLET PO SCH (09:00)
[2018-03-13] MEDS ORDERED: RIVAROXABAN 20 MG TABLET PO SCH (17:00)
== END 2018-03-12 23:37 | DRG 871 ==
LOC: ER 09:20 → ERHOLD 12:25 → ICU 14:06 → MED/SURG 03-04 21:10 → ICU 03-04 21:16 → MED/SURG2 03-05 13:21
PROC: 0W993ZX Drainage of Right Pleural Cavity, Percutaneous Approach, Diagnostic (ICD-10-PCS; principal; 2018-03-01)
DX: A41.9 Sepsis, unspecified organism (principal); J18.9 Pneumonia, unspecified organism; J96.21 Acute and chronic respiratory failure with hypoxia; E43 Unspecified severe protein-calorie malnutrition; J44.0 Chronic obstructive pulmonary disease with (acute) lower respiratory infection; N17.9 Acute kidney failure, unspecified; D68.32 Hemorrhagic disorder due to extrinsic circulating anticoagulants; J93.83 Other pneumothorax; J90 Pleural effusion, not elsewhere classified; J44.1 Chronic obstructive pulmonary disease with (acute) exacerbation; I13.0 Hypertensive heart and chronic kidney disease with heart failure and stage 1 through stage 4 chronic kidney disease, or unspecified chronic kidney disease; I48.2 Chronic atrial fibrillation; Z79.01 Long term (current) use of anticoagulants; F17.210 Nicotine dependence, cigarettes, uncomplicated; I25.10 Atherosclerotic heart disease of native coronary artery without angina pectoris; T45.525A Adverse effect of antithrombotic drugs, initial encounter; Z91.19 Patient's noncompliance with other medical treatment and regimen; R53.81 Other malaise; Z68.23 Body mass index [BMI] 23.0-23.9, adult; E78.5 Hyperlipidemia, unspecified; G62.9 Polyneuropathy, unspecified; I73.9 Peripheral vascular disease, unspecified; I50.814 Right heart failure due to left heart failure; N18.3 Chronic kidney disease, stage 3 (moderate); E87.5 Hyperkalemia; Z66 Do not resuscitate
CPT/HCPCS: 32555; 36415; 36600; 71045; 71046; 74470; 76604; 76770; 80048; 80053; 80162; 80202; 81001; 82550; 82553; 82805; 82945; 82948; 83605; 83615; 83735; 83880; 84100; 84157; 84484; 85025; 85610; 85730; 87040; 87070; 87086; 87205; 87400; 88112; 88305; 89051; 93005; 93306; 94640; 94660; 94667; 94668; 96367; 97139; 99284; J0456; J1160; J1940; J2060; J2920; J3370; J7030; J7040; J7050

== ENCOUNTER 2018-04-05 08:39 | Inpatient (IN) | payer MEDICARE ==
[~2018-04-05] VITALS: Ht 157.5 cm; Wt 52.3 kg
[2018-04-05] VITALS (8 sets, daily range): BP systolic 96–118; BP diastolic 40–57
[~2018-04-05 08:39] MED LIST changes: +CENTRUM SILVER1 EAC3; +FUROSEMIDE40 MG PO
[2018-04-05] MEDS ORDERED: VANCOMYCIN 1GM/NS 250 ML 250 ML IV STA (08:58)
[2018-04-05] MEDS ORDERED: IPRATROPIUM BROMIDE 0.02% 2.5 ML NEB NEB STA (08:58)
[2018-04-05] MEDS ORDERED: ALBUTEROL SULF 0.083% NEB SOLN 3 ML NEB NEB STA (08:58)
[2018-04-05 09:19] LABS: BASOPHILS % 0.2 % (0.0-1.0); EOSINOPHILS % 0.2 % (0.0-6.0); HEMATOCRIT 33.5 % (34.2-44.1); HEMOGLOBIN 10.6 g/dL (12.0-16.0); LYMPHOCYTES # (AUTO) 0.6 (1.0-3.2); LYMPHOCYTES % 2.4 % (18.0-39.1); MEAN CORPUSCULAR HGB CONC 31.6 g/dL (31-35); MONOCYTES # (AUTO) 0.9 (0.2-0.8); MONOCYTES % 3.4 % (4.4-11.3); NEUTROPHILS # (AUTO) 23.2 (2.1-6.9); NEUTROPHILS % 93.3 % (38.7-80.0); PLATELET COUNT 219 x10e3/uL (140-360); RED BLOOD COUNT 3.42 x10e6/uL (3.6-5.1); RED CELL DISTRIBUTION WIDTH 21.8 % (11.7-14.4)
--- NOTE | 2018-04-05 09:19 | NUR ---
BIPAP 10/5, RATE14, 50 FI02. TOLERATED WELL.
[2018-04-05] MEDS ORDERED: ALBUTEROL SULF 0.083% NEB SOLN 3 ML NEB ONE (09:22)
[2018-04-05 09:26] LABS: CLARITY,URINE SL CLOUDY (CLEAR); COLOR,URINE AMBER (YELLOW); KETONES,URINE NEGATIVE (NEGATIVE); LEUKOCYTE ESTERASE ,URINE 1+ (NEGATIVE); NITRITE,URINE NEGATIVE (NEGATIVE); PROTEIN,URINE DIPSTICK NEGATIVE (NEGATIVE); URINE UROBILINOGEN 1 mg/dL (0.2 - 1)
[2018-04-05 09:27] LABS: BILIRUBIN,URINE 1+ (NEGATIVE)
[2018-04-05 09:35] LABS: BACTERIA,URINE FEW /HPF; EPITHELIAL CELLS,URINE RARE /LPF; RBC,URINE 21-50 /HPF (0-5); TRANSITIONAL EPI CELLS,URINE FEW
[2018-04-05 09:41] LABS: ALANINE AMINOTRANSFERASE 36 IU/L (0-55); ALBUMIN 3.1 g/dL (3.5-5.0); ALBUMIN/GLOBULIN RATIO 1.2 (0.8-2.0); ALKALINE PHOSPHATASE 102 IU/L (40-150); ANION GAP 18.3 mmol/L (8-16); BLOOD UREA NITROGEN 57 mg/dL (7-26); BUN/CREATININE RATIO 20 (6-25); CALCIUM 8.5 mg/dL (8.4-10.2); CARBON DIOXIDE 22 mmol/L (22-29); CHLORIDE 101 mmol/L (98-107); CREATINE KINASE 41 IU/L (29-168); CREATININE, SERUM 2.92 mg/dL (0.57-1.11); EST GLOMERULAR FILTRATION RATE 16 ML/MIN (60-); GLUCOSE 151 mg/dL (74-118); LIPASE 41 U/L (8-78); POTASSIUM 4.3 mmol/L (3.5-5.1); SODIUM 137 mmol/L (136-145)
[2018-04-05] MEDS ORDERED: VANCOMYCIN 1GM/NS 250 ML 250 ML ONE (09:44)
[2018-04-05 10:39] LABS: ABG PH 7.36 (7.31-7.41)
[2018-04-05 10:40] LABS: ABG HCO3 23 mmol/L (23-28); ABG PCO2 42 mmHg (41-51); ABG PO2 86 mmHg (80-105)
--- NOTE | 2018-04-05 10:42 | NUR ---
ABG'S TO MD; ORDERS GIVE LASIX AND RE EVAL. FAM AND PT UPDATED PLAN OF CARE.
[2018-04-05] MEDS ORDERED: FUROSEMIDE INJ 10 MG/ML 2 ML VIAL IV ONE (10:45)
[2018-04-05] MEDS ORDERED: FUROSEMIDE INJ 10 MG/ML 4 ML VIAL ONE (10:48)
[2018-04-05] MEDS ORDERED: VECURONIUM BROMIDE FOR INJ 20 MG VIAL ONE (11:03)
--- NOTE | 2018-04-05 11:12 | NUR ---
DR Andre ZAMUDIO WALKED INTO ROOM AND STATES HE DOES NOT WANT PT INTUBATED, ER MD STOVER DOCTOR OF RECORD BROUGHT TO ROOM TO TAKE WITH DR ZAMUDIO. CHG AND MANGER OF ER NOTIFIED OF CONCERNS.
--- NOTE | 2018-04-05 13:08 | Diagnostic Imaging Report ---
TECHNIQUE: CT of the chest, abdomen and pelvis WITH intravenous contrast. COMPARISON: CT chest 02/24/[address] Abdomen/Pelvis 01/27/2018. TECHNIQUE: Spiral CT images of the chest, abdomen and pelvis were performed from the lower neck to the upper thighs. No IV contrast was administered per request. Coronal and sagittal reformatted images were obtained. Radiation Measurements: CT DLP 727.3 mGycm CTDIvol has been reviewed. It is below the limits set by the Radiation Protocol Committee (RPC). Dose modulation, iterative reconstruction, and/or weight based adjustment of the mA/kV was utilized to reduce the radiation dose to as low as reasonably achievable. FINDINGS: ABSENCE OF INTRAVENOUS CONTRAST DECREASES SENSITIVITY FOR DETECTION OF FOCAL LESIONS AND VASCULAR PATHOLOGY. LINES AND TUBES: None LUNGS AND AIRWAYS/PLEURA: There is adherent mucus within the posterior trachea and proximal bronchi. There are severe centrilobular and paraseptal emphysematous changes. There is biapical pleural parenchymal scarring, right greater than left. Somewhat nodular scarring with focal bronchiectasis at the right lung apex appears similar to CT on 02/24/2017. There is a moderate right and small left layering pleural effusion. There is patchy consolidation within the right greater than left lung base. There are scattered peripheral groundglass opacities, for example in the right middle lobe on series 4, image 62, lingula on image 63 and the left upper lobe on image 40. Motion artifact somewhat limits evaluation for lung nodule. HEART AND MEDIASTINUM: The thyroid gland is normal. No significant mediastinal, hilar or axillary lymphadenopathy is seen. No cardiomegaly or pericardial effusion. Moderate atherosclerotic changes within the thoracic aorta and branch vessels. Scattered coronary atherosclerosis. HEPATOBILIARY: A right hepatic lobe hypodensity (15 HU)is unchanged and likely represents a cyst. No biliary ductal dilatation. The gallbladder appears distended with no surrounding inflammatory changes. SPLEEN: No splenomegaly. PANCREAS: No focal masses or ductal dilatation. ADRENALS: No adrenal nodules. KIDNEYS/URETERS: No hydronephrosis, stones, or solid mass lesions. PELVIC ORGANS/BLADDER: Arredondo catheter is present within a decompressed bladder. PERITONEUM / RETROPERITONEUM: No free air or fluid. LYMPH NODES: No lymphadenopathy. VESSELS: Extensive atherosclerotic calcification of the abdominal aorta and branch vessels. GI TRACT: There is scattered colonic diverticulosis without CT evidence of diverticulitis. No evidence of bowel obstruction. Suboptimal evaluation of the bowel in the absence of contrast. BONES AND SOFT TISSUES: No acute osseous abdomen. Diffuse anasarca. IMPRESSION: Severe symptoms changes of the lungs with moderate right and small left layering pleural effusions. Patchy consolidation at the lung bases, could represent atelectasis or pneumonia in the appropriate clinical setting. Scattered peripheral groundglass opacities could reflect infectious or inflammatory etiologies. Follow-up chest CT may be considered in 6-8 weeks to assess for resolution. No evidence of acute CT abnormality in the abdomen and pelvis. Incomplete evaluation of the bowel in the absence of oral contrast. Note is made per dictation for CT on 01/27/2018 which had positive oral contrast and suggested direct visualization of the sigmoid colon and stomach via colonoscopy/endoscopy due to potential wall thickening. Signed by: Dr. Zaida Coker MD on 04/05/2018 1:05 PM
[2018-04-05] MEDS ORDERED: ASPIRIN 81 MG CHEW TAB PO ONE (13:15)
--- NOTE | 2018-04-05 14:04 | NUR ---
UPDATED ESAU RN IN ICU UPDATED CENTRAL OK TO USE PER DR STOVER AND CONSULTS PUT IN COMPUTER.
--- NOTE | 2018-04-05 14:13 | Diagnostic Imaging Report ---
EXAMINATION: CHEST SINGLE (PORTABLE) INDICATION: Central line placement. COMPARISON: CT Chest 04/05/2018. FINDINGS: TUBES and LINES: Right IJ non-tunneled central venous catheter terminates in the expected location of the mid SVC. LUNGS/PLEURA: Emphysematous changes of the lungs. Moderate right and small left pleural effusion. Patchy and hazy opacities over the right mid and lower lung zones and left lower lung zone. HEART AND MEDIASTINUM: The cardiomediastinal silhouette is unchanged. Atherosclerotic calcification of the aortic arch. BONES AND SOFT TISSUES: No acute osseous abnormality. UPPER ABDOMEN: No free air under the diaphragm. IMPRESSION: Right IJ non-tunneled central venous catheter terminates in the expected location of the mid SVC. No evidence of pneumothorax. Emphysematous changes of the lungs. Moderate right and small left pleural effusion with opacities in the right mid and bilateral lower lung zones, which could reflect atelectasis or pneumonia in the appropriate clinical setting. Please refer to chest CT on same day for further details. Signed by: Dr. Zaida Coker MD on 04/05/2018 2:10 PM
--- NOTE | 2018-04-05 14:30 | NUR ---
PATIENT RECEIVED FROM ER VIA STRETCHER ON BIPAP-12/08; FIO2-40% AND TOLERATING WELL WITH 02 SATS AT 100%. RESPIRATIONS ARE SLIGHTLY FAST AT 24 BREATHS PER MINUTE. TELEMETRY SHOWS NSR AND VITAL SIGNS ARE NORMAL. PATIENT IS AWAKE, AND OX2 TO PERSON AND PLACE. DENIES ANY PAIN AT THIS TIME. FAMILY AT BEDSIDE.
--- NOTE | 2018-04-05 16:00 | NUR ---
PATIENT TAKEN OFF BIPAP AND PLACED ON 02 AT 3 LITERS PER NASAL CANNULA AND TOLERATING WELL WITH O2 SATS AT 100%. RESPIRATIONS ARE EVEN AND UNLABORED.
--- NOTE | 2018-04-05 17:05 | NUR ---
DR. SABA (RENAL) NOTIFIED OF PATIENT CONSULT. DR. JAVIER ALSO CALLED AND RETURNED CALL AND NOTIFIED OF PATIENT CONSULT. DR. GRAJEDA ALSO CALLED AND I SPOKE TO ANSWERING SERVICE (I SPOKE TO [facility]) AND AWAITING CALL BACK.
[2018-04-05] MEDS ORDERED: INFLUENZA VIRUS VAC SPLIT INJ 0.5 ML SYR IM SCH (17:41)
--- NOTE | 2018-04-05 18:00 | NUR ---
DR. Melonie ZAMUDIO HERE TO SEE PATIENT
--- NOTE | 2018-04-05 18:10 | NUR ---
DR. Mo WHEELER(CARDIO) CALLED AND NOTIFIED OF PATIENT CONSULT
[2018-04-05 18:24] LABS: CREATINE KINASE MB 1.3 ng/mL (0-5.0)
[2018-04-05] MEDS ORDERED: FUROSEMIDE INJ 10 MG/ML 4 ML VIAL IV ONE (19:45)
--- NOTE | 2018-04-05 20:35 | Consultation ---
DATE OF CONSULTATION: ATTENDING PHYSICIAN: Dr. Hauser REASON FOR CONSULTATION: Acute kidney injury. HISTORY OF PRESENT ILLNESS: Patient is a 78-year-old female with past medical history of atrial fibrillation, hypertension, hyperlipidemia, COPD, who was recently admitted in February of 2018 with bilateral pneumonia and was transferred to [facility], finished antibiotic, and was [facility], was re-ad[facility] from [facility] for shortness of breath. In the hospital, patient was found to be in acute kidney injury with creatinine being 2.92 where baseline creatinine is 1.2. Patient had bilateral lower extremity edema and BNP was found to be at 1210. Chest x-ray showed emphysematous changes, moderate right and small left pleural effusion with opacities in the right mid and bilateral lower lung zones. A CT chest was done showing moderate right and small left layering pleural effusion, patchy consolidation in the lung bases, scattered peripheral ground-glass opacities, infectious versus inflammatory changes. Patient denies having any fever. Sodium is at 137 and white count was 24.85. Patient was given 60 mg of IV Lasix in the emergency room and had 1100 mL of urine output. Patient is currently breathing better on 3 liters nasal cannula. Family is at bedside. PAST MEDICAL HISTORY: As above. PAST SURGICAL HISTORY: None. ALLERGIES: AMOXICILLIN, CEFUROXIME, CLAVULANIC ACID, LEVOFLOXACIN, RISEDRONATE SODIUM. FAMILY HISTORY: No history of any kidney disease. SOCIAL HISTORY: Currently coming from [facility]. No history of alcohol or drugs. Smokes one-half pack per day, started at age 16. REVIEW OF SYSTEMS: GENERAL: No fatigue, no fever, no chills. HEENT: No headache, no blurry vision. NECK: No dysphagia. CARDIOVASCULAR: No chest pain, PND, or orthopnea. RESPIRATORY: Positive shortness of breath. Positive whitish cough with sputum. MUSCULOSKELETAL: Positive ankle swelling. GENITOURINARY: No urgency, frequency, hesitancy. GI: No nausea, vomiting, diarrhea, constipation, abdominal pain, hematemesis, or melena. NEUROLOGICAL: No numbness, weakness, or tingling. PHYSICAL EXAMINATION: VITAL SIGNS: Blood pressure 101/57, pulse of 72, respiration 20, 98% on 3 liters nasal cannula. GENERAL: Awake and alert, oriented x3, not in apparent distress. HEENT: PERRLA. Extraocular muscles intact. NECK: JVD cannot be appreciated. Has a central line and internal jugular vein. LUNGS: Decreased breath sounds bilaterally with bilateral crackles. ABDOMEN: Soft. Bowel sounds positive. EXTREMITIES: 2 mm bilateral lower extremity swelling. NEUROLOGICAL: No focal deficits. LABS: The pH 7.36, pCO2 42, pO2 86, bicarb 23. INR 1.36. Sodium 137, potassium 4.3, chloride 101, CO2 22, BUN 57, creatinine 2.9, glucose 151. Lactic acid 14.7. BNP 1210. LFTs within normal range. Lipase 41, albumin 3.1. UA, positive RBC, positive WBC, positive leukocyte esterase. Blood culture pending. CT of the chest and chest x-ray as per HPI. ASSESSMENT AND PLAN: 1. Acute kidney injury, likely has acute cardiorenal syndrome. No echocardiogram could be found in the computer. Cardiology has been on the case. Will check urine eosinophil to rule out any acute interstitial nephritis as patient has been on antibiotic recently. Give another dose of 40 mg of intravenous Lasix tonight and continue with the 40 mg of intravenous Lasix q.12h. Will get renal ultrasound. Repeat the laboratories in the morning. Monitor urine output closely. Avoid all nephrotoxic medications. 2. Acute respiratory failure, likely pulmonary edema. Continue with Lasix. 3. Atrial fibrillation. Heart rate is controlled. 4. Chronic obstructive pulmonary disease. Currently looks compensated. 5. Hypertension. Currently blood pressures on the lower side. Hold off on all blood pressure medicines for now. Discussed with the family at bedside. I want to thank Dr. Hauser for the consult. Job#: [id number]
[2018-04-05] MEDS ORDERED: HYDRALAZINE HCL 20 MG/ML VIAL IV PRN (22:15)
--- NOTE | 2018-04-05 23:52 | Consultation ---
DATE OF CONSULTATION: April 05, 2018 PULMONARY MEDICINE CONSULT REFERRING PHYSICIAN: Dr. Randy Hauser REASON FOR REFERRAL: Acute respiratory failure. HISTORY: Ms. Arzola is a pleasant 78-year-old female with acute respiratory failure. Patient with recent bilateral large pneumonia. She is subtly improving from this pneumonia. Patient went to rehabilitation. It has been noted she has had some pleural effusions that need intermittent drainage. Echocardiogram performed on March 01, 2018 demonstrated LVEF of 60% to 65% with diastolic impaired relaxation, otherwise mostly unremarkable, although there were suboptimal views. Patient was getting intermittent thoracentesis. She was on diuretics. She became more short of breath, so she was transferred to [facility]. She was rescued with BiPAP salvage avoiding intubation. CT chest shows small remnant elements of pneumonia, mild ground-glass opacities consistent with possible superimposed fluid overload as well as moderate to large right-sided pleural effusion and small to moderate left-sided pleural effusion. PAST MEDICAL HISTORY: Atrial fibrillation, hypertension, hyperlipidemia, COPD. ALLERGIES: REVIEWED PER ELECTRONIC RECORD. SOCIAL HISTORY: She smokes one-half pack per day, from age 16 to active. No alcohol, no drugs. OBJECTIVE: VITAL SIGNS: Afebrile, vital signs now better per electronic record. GENERAL: No acute distress, alert and calm. HEENT: Normocephalic, atraumatic. NECK: Supple. Throat midline. LUNGS: Bilateral air entry is decreased, decreased breath sounds at the bases. CARDIOVASCULAR: S1, S2. No murmurs, rubs, or gallops. ABDOMEN: Soft, nontender. EXTREMITIES: No clubbing, no cyanosis, there is 2+ leg edema. INTEGUMENT: No rash, no purpura. LABS: BUN 57, creatinine 2.9. 4.3 potassium, 25 white count, 33 hematocrit, 219,000 platelets. IMPRESSION AND PLAN: 1. Acute respiratory failure. Status post bilevel positive airway pressure salvage. 2. Fluid overload, diastolic dysfunction and heart failure. 3. Ccmuo-ys-effjrws kidney failure. 4. Chronic obstructive pulmonary disease. 5. Recent pneumonia. 6. Recurring pleural effusions, transudative. Continue weaning off the bilevel positive airway pressure. Oxygen per protocol. Renal has seen the patient and given some Lasix. Will follow up closely to make sure that the kidney function improves. Continue supportive care for her lung condition. Will follow along closely. Job#: [id number]
[2018-04-06] VITALS (19 sets, daily range): BP systolic 95–127; BP diastolic 36–73
[2018-04-06 05:28] LABS: CREATINE KINASE MB 0.8 ng/mL (0-5.0)
[2018-04-06 06:04] LABS: ANION GAP 15.1 mmol/L (8-16); CALCIUM 7.7 mg/dL (8.4-10.2); CREATININE, SERUM 2.25 mg/dL (0.57-1.11); MAGNESIUM 1.7 MG/DL (1.3-2.1); POTASSIUM 4.1 mmol/L (3.5-5.1)
--- NOTE | 2018-04-06 06:53 | Diagnostic Imaging Report ---
CHEST SINGLE (PORTABLE), 04/06/2018 7:00 AM Technique: CHEST SINGLE (PORTABLE) Comparison: Previous day Clinical history: Reevaluate, low oxygen saturation Findings: See Impression. Stable cardiac silhouette, bones, soft tissues. Impression: 1. Lines/Tubes: Stable right IJ central venous catheter over the expected SVC. 2. Moderate right and small left pleural effusions with associated atelectasis/consolidation. Emphysema with possible superimposed edema. Signed by: Dr Amelie Hubbard MD on 04/06/2018 6:49 AM
[2018-04-06] MEDS ORDERED: PRAVASTATIN 20 MG TAB PO SCH (09:00)
[2018-04-06] MEDS: PENTOXIFYLLINE 400 MG TAB CR PO SCH ×4 (11:11→20:31)
[2018-04-06] MEDS: PANTOPRAZOLE SOD 40 MG TABEC PO SCH (11:11)
[2018-04-06] MEDS: FUROSEMIDE INJ 10 MG/ML 4 ML VIAL IV SCH ×2 (11:11→17:46)
[2018-04-06] MEDS: FLECAINIDE ACETATE 100 MG TAB PO SCH ×2 (11:11→20:31)
[2018-04-06] MEDS: METOPROLOL TARTRATE 50 MG TAB PO SCH ×4 (11:13→20:30)
--- NOTE | 2018-04-06 12:20 | Diagnostic Imaging Report ---
EXAMINATION: Renal ultrasound. CLINICAL HISTORY :Acute kidney insufficiency COMPARISON: <None available.> TECHNIQUE: Grayscale and color Doppler evaluation of the kidneys and bladder was performed in transverse and longitudinal planes. DISCUSSION: RIGHT KIDNEY: The right kidney measures 9.6 cm in length and shows normal echogenicity. No hydronephrosis, shadowing calculi or solid mass lesions. 1.4 cm anechoic cyst inferior pole. LEFT KIDNEY: The left kidney measures 10.6 cm in length and shows normal echogenicity. No hydronephrosis, shadowing calculi or solid mass lesions. BLADDER: Unremarkable. IMPRESSION: 1. Normal renal echogenicity. No obstruction. Signed by: Dr. Avery Carrion M.D. on 04/06/2018 12:17 PM
[2018-04-06] MEDS: VANCOMYCIN 250MG/5ML ORAL SOLN PO SCH ×2 (13:27→17:47)
--- NOTE | 2018-04-06 14:17 | Consultation ---
DATE OF CONSULTATION: INFECTIOUS DISEASE CONSULTATION REASON FOR CONSULTATION: Pneumonia. Recommendation for antibiotic. HISTORY OF PRESENT ILLNESS: This is a patient who is a 78-year-old white female. According to the family and the patient, her problem started in early February when she was getting easily fatigued. When she was going to the restroom, she had to stop. Then she comes in March 01 with shortness of breath where she came to [facility]. She was diagnosed with pneumonia. The patient was started on antibiotic. She was here for almost a week, and then she transferred to [place] and from [place] went to [facility]. Apparently she was getting better in [place], and then in [facility] she was noted to get weak again with swelling. Came here, shortness of breath. She was admitted. She is currently in the intensive care here at [facility]. She is alert, oriented, has no complaint except she is weak. The patient stated that before all this started her bathroom was being painted, and that is the only thing she can think of. Back in February 2018 the patient comes in with shortness of breath. She was on BiPAP. She had white count 28,000. She was seen by Pulmonary. The patient was admitted with acute respiratory failure, bilateral pneumonia community-acquired, COPD, atrial fibrillation, hyperlipidemia, hypertension. Patient does have underlying history of smoking. Patient was given Azactam and azithromycin on admission back on March 02. Her blood cultures have been negative from March 01 and April 05. LABORATORY DATA: Her white count on admission is today 24.85, on March the and 6th was 10. Hemoglobin 10.6, hematocrit 33, her platelet 219. Her sodium 136, potassium 4.1. Creatinine 2.25. Back in January it was 1.49. MEDICATION: She is currently on Trental, Protonix, Lasix. CHEST X-RAY: Showing she has a central line, moderate right and small left pleural effusion. There is emphysema with probably edema. REVIEW OF SYSTEMS: She is just weak. She does have diarrhea, but she took some laxative when she was in [facility] because she had constipation. Her other symptoms otherwise are unremarkable. HEENT: Negative. PULMONARY: Negative. : Negative. GENERAL: At the present time she is just weak, a little bit short of breath, and diarrhea. PAST MEDICAL HISTORY: As mentioned above. She has underlying chronic kidney disease, atrial fibrillation, hypertension, hyperlipidemia, COPD and smoking. PAST SURGICAL HISTORY: Denies. ALLERGIES: AMOXICILLIN, CEFUROXIME, LEVOFLOXACIN CAUSED SKIN RASH. SOCIAL HISTORY: There is smoking active until recently. PHYSICAL EXAMINATION GENERAL: She is currently alert, oriented, does not seem to be in acute distress. VITAL SIGNS: Stable. Currently afebrile. HEENT: She does not appear icteric. NECK: Supple. CHEST: Clear bilaterally anteriorly. HEART: S1 and S2. ABDOMEN: Soft. Bowel sounds present. No tenderness. EXTREMITIES: Trace edema. IMPRESSION 1. Shortness of breath. I think probably sepsis with component of fluid overload. Concerned about sepsis from Clostridium difficile colitis with the presence of diarrhea. Would recommend to obtain stools for C. diff. Will put her on vancomycin p.o. q.6 h. Recheck CBC, recheck chem panel. Agree with supportive care. 2. History of chronic obstructive pulmonary disease, chronic kidney disease with acute kidney injury. Will follow. Job#: [id number] TREVIN
--- NOTE | 2018-04-06 14:21 | NUR ---
CASE MANAGEMENT INITIAL ASSESSMENT Archival Records Clerk to bedside to discuss plan of care with patient/family. CM/SW role and care transitions discussed. Anticipated discharge plan discussed along with duration of care. CM/SW discussed patients right to make decisions in care. CM/SW work hours given. Patient lives: LIVED ALONE PRIOR TO ADMISSION TO HOSPITAL IN FEBRUARY 2018 Admit/Transfer: ER FROM [facility] Hospital/ER visits since last admit:1 POA/Emergency contact: ROGELIO LUCAS DTR [phone] Current/Previous Home Health: NONE PCP/Follow-up Care: DR GENARO HESS Current/Previous DME: NONE Medications (referring to index hospitalization or the first time you were in the hospital) a. Were changes made in your medications when you were in the hospital on [date of index hospitalization]? Yes No Not sure Explain: PT WAS AT [facility] IN FEBRUARY, TRANSFERED TO [facility] THEN TRANSFERED TO [facility] THIS MONDAY THEN CAME BACK TO THE [facility] ER FOR CHF Note: If no or not sure, please skip to question d b. Did you understand the changes? Yes No Explain: c. Were you able to obtain your new medications right away? Yes No n/a SNF only Explain: d. Were you able to take your medications like the doctor wanted you to? Yes No Explain: e. Did the hospital give you an accurate, easy to understand list of medications when you left? Yes No n/a SNF only Explain: Scale of 1-10 how comfortable does patient feel with disease management in outpatient settin Other Services: NONE Employment Status: RETIRED Areas of Concerns: DC PLANS AFTER THIS HOSPITALIZATIOIN Referral Needs: WILL NEED HOME HEALTH; PT'S DTR ROGELIO IS LOOKING INTO PROVIDERS AT HOME AND WILL HAVE PT MOVE IN WITH HER AND HER IN [place] Education Needs:CHF IMM/GAITAN given and signed (if applicable): UPON ADMIT Goal for discharge:TO BE ABLE TO WALK AND DC HOME WITH DAUGHTER CM/SW left business card at the bedside with contact information. Name and number was also written on the patients whiteboard. Patient verbalized understanding of discussion. CM will follow-up with ongoing discharge and transition of care needs.
--- NOTE | 2018-04-06 14:32 | Consultation ---
DATE OF CONSULTATION: April 06, 2018 CARDIOLOGY CONSULTATION REQUESTING PHYSICIAN: Dr. Randy Hauser REASON FOR CONSULTATION: Congestive heart failure. HISTORY OF PRESENT ILLNESS: This is a 78-year-old woman with a history of chronic diastolic heart failure with preserved LVEF of 60% to 65% as well as impaired LV relaxation, hypertension, hyperlipidemia, and atrial fibrillation on anticoagulation, who presents with shortness of breath. The patient was recently discharged from [facility] to [facility] after an admission for multifocal pneumonia as well as COPD exacerbation. After transfer to [facility], the patient's family noted worsening swelling with increased shortness of breath. On , she was, therefore, sent to [facility] for further evaluation. The patient required BiPAP salvage to avoid intubation but has now been weaned to nasal cannula. CT chest revealed moderate right and small left layering of pleural effusions with patchy consolidation at the lung bases as well as scattered peripheral ground-glass opacities. Labs revealed leukocytosis at 24.85 as well as acute kidney injury with creatinine of 2.92 for which nephrology was consulted. The patient was started on diuretics per nephrology with mild improvement in her renal function. Cardiology is consulted for management of the patient's congestive heart failure. The patient currently denies chest pain, palpitations, orthopnea, PND or lightheadedness. REVIEW OF SYSTEMS: Negative, except as per HPI. PAST MEDICAL HISTORY 1. Chronic diastolic heart failure with preserved LVEF. 2. Atrial fibrillation. 3. Hypertension. 4. Hyperlipidemia. 5. COPD. ALLERGIES: PLEASE SEE EMR. MEDICATIONS: Please see medication list. SOCIAL HISTORY: Positive for tobacco. No alcohol or drugs. FAMILY HISTORY: Noncontributory. PHYSICAL EXAMINATION VITALS: Temperature 97.7 degrees, pulse 69, respiratory rate 17, blood pressure 106/61, oxygen saturation 100% on nasal cannula. GENERAL: Elderly, chronically ill-appearing woman in no acute distress, awake and alert. HEENT: Normocephalic and atraumatic. Pupils are equal. No scleral icterus. NECK: Supple. No thyromegaly or cervical lymphadenopathy. No carotid bruit. LUNGS: Diminished breath sounds. No wheezes or crackles. CARDIOVASCULAR: Normal rate, regular rhythm. Systolic murmur. Normal S1 and S2. ABDOMEN: Soft. Nontender. EXTREMITIES: 2+ pitting edema. NEURO: Nonfocal exam. LABS: Sodium 136, potassium 4.1, chloride 101, CO2 24, BUN 51, creatinine 2.25. BNP 1210. WBC 24.85, hemoglobin 10.6, hematocrit 33.5, platelets 219. TELEMETRY: Normal sinus rhythm. IMPRESSION 1. Acute respiratory failure. 2. Gaoec-py-fhkoejq diastolic heart failure. 3. Itukd-jf-vntkrak kidney disease. 4. Chronic obstructive pulmonary disease. 5. Recurrent pleural effusions. 6. Hypertension. 7. Hyperlipidemia. 8. Atrial fibrillation. RECOMMENDATIONS: Volume management per nephrology given acute kidney injury. Will defer decision regarding thoracentesis to pulmonary. Will hold Xarelto for now for possible procedures. Resume metoprolol. The patient was also on diltiazem at [facility]. We will resume if the patient demonstrates AFib with RVR that cannot be rate controlled with metoprolol. In the meantime, resume flecainide and pravastatin. Continue monitoring the patient on telemetry. Strict I's and O's and daily weights. Antibiotics per primary service. Thank you for this consult. We will continue to follow. Job#: [id number]
--- NOTE | 2018-04-06 14:33 | Progress Note ---
DATE: April 06, 2018 PULMONARY MEDICINE PROGRESS NOTE SUBJECTIVE: Ms. Arzola was seen and examined at bedside. She remains in bed. She is on supplemental oxygen. There is some dyspnea at rest. She has not really gotten up yet. She is eating some amounts. REVIEW OF SYSTEMS: No headaches, no bleeding. OBJECTIVE VITAL SIGNS: Afebrile. Vital signs noted per electronic record. GENERALLY: No acute distress, alert and calm. HEENT: Normocephalic, atraumatic. NECK: Supple. Throat midline. LUNGS: Bilateral air entry is decreased, decreased especially at the right base. A few rhonchi,. CARDIOVASCULAR: S1 and S2. No murmurs, rubs or gallops. ABDOMINAL: Soft, nontender. EXTREMITIES: No clubbing, no cyanosis. There is slightly less 2+ edema. INTEGUMENT: No rash. No purpura. LABS: BUN 51, creatinine 2.3. Potassium 4.1. White count 25, hematocrit 34. IMPRESSION AND PLAN 1. Acute respiratory failure, improved. 2. Chronic respiratory failure. 3. Fluid overload. 4. Moderate to large right-sided pleural effusion. 5. Acute and chronic kidney failure. Continue to treat the primary acute/chronic kidney failure. Eventually thoracentesis will likely be indicated, but we wish to see the evolution of the kidneys and the patient's endurance first. As the fluid is likely to keep reaccumulating, we wish to postpone drainage as long as the patient can tolerate the fluid. Continue maximizing treatment per client analyst. If anticoagulation is warranted, Lovenox may be a better choice as the patient is anticipated for invasive procedure soon. Job#: [id number] EV
--- NOTE | 2018-04-06 14:50 | NUR ---
patient transferred to room 188 gave report to Humaira ENGLAND
--- NOTE | 2018-04-06 15:07 | NUR ---
Nutrition Screen Note RD Recommendation for Physician: -Rec advancing to cardiac diet as medically appropriate -Rec fluids restriction -If PO < 50%, consider Ensure Compact BID Plan of Care: RD following, monitoring for tolerance and adequacy Nutrition reason for involvement: Diagnosis CHF, kidney failure Primary Diagnose(s): 1. Acute respiratory failure, improved. 2. Chronic respiratory failure. 3. Fluid overload. 4. Moderate to large right-sided pleural effusion. 5. Acute and chronic kidney failure. PMH: atrial fibrillation, hypertension, hyperlipidemia, COPD Ht: 62in Wt: 133.13lb BMI: 24.3kg/m2 IBW: 110lb RD Assessment: (04/06) Chart reviewed. Labs and meds reviewed. 78yo F, who is admitted for fluid overload. Pt was discussed during AM rounds. Per RN, pt is currently on diuretics and Lovenox. Visited pt in the room. 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 Unable to determine if pt has lost weight due to fluids retention. At this time, pt denied any nausea and vomiting. Tolerating full liquid diet well. No chewing or swallowing issue. LBM 04/06, stool culture pending. Will continue to monitor and follow. Current Diet: full liquid diet Malnutrition Evaluation (04/06/2018) The patient does not meet criteria for a specified degree of malnutrition at this time. Will re-evaluate at follow-up as appropriate. Diet Education Needs Assessment: Diet education not indicated. Nutrition Care Level: low Signed: Laverne Hassan, , RD, LD
--- NOTE | 2018-04-06 15:09 | NUR ---
patient tearful this morning, wanting to go home. Family at bedside with patient. per dr. Chavez, plan to continue to utilize Lasix iv and monitor patient. no thoracentesis planned as of now. I paged Dr. Pinedo to inquire initiating anticoagulant therapy per our morning conversation.
[2018-04-06 15:48] LABS: CREATINE KINASE MB 0.8 ng/mL (0-5.0)
[2018-04-06] MEDS: ENOXAPARIN 30 MG/0.3 ML SYR SC SCH (17:47)
--- NOTE | 2018-04-06 19:15 | NUR ---
Received report from Humaira Michelle RN. pt AAOX3 watching TV, denies pain and discomforts at this time. Granddaughter at bedside along with pt's significant other/or family friend. o2 on at 3liters per n/c. Spoke with daughter and son in law regarding pt being on bipap at [facility], and how pt doesn't like it, explained the importance of the bipap, both verbalized understanding.
[2018-04-06] MEDS: PRAVASTATIN 20 MG TAB PO SCH (20:30)
[2018-04-06] MEDS ORDERED: FLECAINIDE ACETATE 100 MG TAB PO SCH (21:00)
--- NOTE | 2018-04-06 22:14 | NUR ---
Pt repositioned for comfort measures, on o2 per N/C, HOB elevated. Pt sleeping o2 sats at 100%.
[2018-04-07] VITALS (9 sets, daily range): BP systolic 118–154; BP diastolic 43–91
--- NOTE | 2018-04-07 00:15 | NUR ---
Medicated with Vancomycin, pt tolerated well, Complete bed bath given, Informed charge nurse. pt repositioned and made comfortable. Pt stated she only wants to ly on right side and bk due to left side of her neck hurts. will inform day shift nurse as well.
[2018-04-07 05:25] LABS: BASOPHILS % 0.1 % (0.0-1.0); EOSINOPHILS # (AUTO) 1.4 (0.0-0.4); EOSINOPHILS % 10.6 % (0.0-6.0); HEMOGLOBIN 9.3 g/dL (12.0-16.0); LYMPHOCYTES % 7.3 % (18.0-39.1); MEAN CORPUSCULAR HEMOGLOBIN 30.3 pg (28-32); MEAN CORPUSCULAR HGB CONC 32.1 g/dL (31-35); MONOCYTES # (AUTO) 0.8 (0.2-0.8); MONOCYTES % 6.1 % (4.4-11.3); NEUTROPHILS % 75.5 % (38.7-80.0); PLATELET COUNT 123 x10e3/uL (140-360); RED BLOOD COUNT 3.07 x10e6/uL (3.6-5.1); RED CELL DISTRIBUTION WIDTH 20.8 % (11.7-14.4)
[2018-04-07 05:28] LABS: MEAN CORPUSCULAR VOLUME 94.5 fL (81-99)
[2018-04-07 05:45] LABS: ANION GAP 14.7 mmol/L (8-16); CALCIUM 8.2 mg/dL (8.4-10.2); CREATININE, SERUM 1.44 mg/dL (0.57-1.11); MAGNESIUM 1.6 MG/DL (1.3-2.1); POTASSIUM 3.7 mmol/L (3.5-5.1)
--- NOTE | 2018-04-07 06:15 | NUR ---
NOTICED A RED RASH IN BETWEEN PT'S THIGHS, INFORMED THE CHARGE NURSE MARC RN, HOWEVER SHE WAS BUSY SO YULISSA RN CAME TO ASSESS THE RASH WITH THIS NURSE. PT STABLE DENIES PAIN AND DISCOMFORTS.
[2018-04-07] MEDS: VANCOMYCIN 250MG/5ML ORAL SOLN PO SCH ×4 (06:32→17:53)
--- NOTE | 2018-04-07 06:35 | Diagnostic Imaging Report ---
CHEST SINGLE (PORTABLE), 04/07/2018 5:00 AM Technique: CHEST SINGLE (PORTABLE) Comparison: Previous day Clinical history: Effusion Findings: See Impression. Stable cardiac silhouette, bones, soft tissues. Impression: 1. Lines/Tubes: Stable right IJ central venous catheter. 2. Unchanged right greater than left effusions with associated/consolidation. Underlying emphysema with or without edema. Signed by: Dr Amelie Hubbard MD on 04/07/2018 6:32 AM
--- NOTE | 2018-04-07 07:02 | NUR ---
REPORTED OFF TO EVI ENGLAND. NO CHANGE IN PT'S STATUS,
[2018-04-07] MEDS: PANTOPRAZOLE SOD 40 MG TABEC PO SCH (08:57)
[2018-04-07] MEDS: FLECAINIDE ACETATE 100 MG TAB PO SCH ×2 (08:57→21:30)
[2018-04-07] MEDS: PENTOXIFYLLINE 400 MG TAB CR PO SCH ×4 (08:57→21:30)
[2018-04-07] MEDS: METOPROLOL TARTRATE 50 MG TAB PO SCH ×2 (08:57→21:30)
[2018-04-07] MEDS: FUROSEMIDE INJ 10 MG/ML 4 ML VIAL IV SCH ×2 (08:57→16:28)
[2018-04-07] MEDS ORDERED: CEFEPIME HCL 1 GM VIAL IV SCH (12:30)
[2018-04-07] MEDS: ALBUTEROL/IPRATROPIUM 3 ML NEB NEB SCH ×2 (13:00→18:38)
[2018-04-07] MEDS ORDERED: CEFEPIME 1GM/NS 0.9% 50 ML 50 ML IV SCH (13:00)
--- NOTE | 2018-04-07 13:37 | NUR ---
URINE CULTURE COLLECTED AND TAKEN TO LAB
--- NOTE | 2018-04-07 14:55 | Progress Note ---
DATE: INFECTIOUS DISEASE PROGRESS NOTE SUBJECTIVE: Ms. Arzola is doing much better today. She is more alert. She is still having diarrhea. REVIEW OF SYSTEMS: Otherwise she is still fatigued. LABS: When she first came, her white count was 24.8, came down to 13.18. Also creatinine was 2.55 came down to 1.44. Blood cultures still pending. Urine culture is still pending. PHYSICAL EXAMINATION GENERAL: She is currently alert and oriented, does not seem to be in acute distress. VITAL SIGNS: Stable, currently afebrile. HEENT: Normocephalic, not appear icteric. NECK: Supple. No JVD. No or thyromegaly. CHEST: Clear bilateral. CARDIAC: S1, S2. No S3, S4 or murmur. ABDOMEN: Soft. Bowel sounds presents. No tenderness. EXTREMITIES: No edema. IMPRESSION AND PLAN: Sepsis secondary to Clostridium difficile colitis. Continue with oral vancomycin 250 mg p.o. q. 6 hours. Probably this is a compound of dehydration and debility. Would need PT/OT and supportive care. Discussed with the family. Job#: [id number] LATOYA
--- NOTE | 2018-04-07 15:08 | Progress Note ---
DATE: April 07, 2018 CARDIOLOGY PROGRESS NOTE SUBJECTIVE: No major events overnight. No chest pain or shortness of breath. OBJECTIVE VITAL SIGNS: Temperature 97.6, pulse 71, respiratory rate 20, blood pressure 126/51, satting 95% on 3 liters nasal cannula. GENERAL: Elderly white female in no acute distress. CARDIOVASCULAR: Regular rate and rhythm. No murmurs, rubs, or gallops. LUNGS: Clear to auscultation bilaterally. ABDOMEN: Soft, nontender, and nondistended. NEURO AND PSYCH: Alert and oriented to person, place, and time. Normal affect. INPATIENT MEDICATIONS: Reviewed. LABORATORY DATA: Reviewed. TELEMETRY: Reviewed. Normal sinus rhythm. ASSESSMENT 1. Acute respiratory failure. 2. Aainf-zx-iaxjmgj diastolic heart failure. 3. Zyhhu-vy-wwtlskd kidney disease. 4. Chronic obstructive pulmonary disease. 5. Recurrent pleural effusions. 6. Hypertension. 7. Hyperlipidemia. 8. Atrial fibrillation. RECOMMENDATION: Stable from a cardiovascular standpoint. Continue current cardiovascular medications. If no procedures are planned, please resume Xarelto for atrial fibrillation. She remains in sinus rhythm on current medications of flecainide and metoprolol. Thank you for this consult. We will continue to follow. Job#: [id number] KIMBERLY
[2018-04-07] MEDS: ENOXAPARIN 30 MG/0.3 ML SYR SC SCH (16:28)
--- NOTE | 2018-04-07 19:00 | NUR ---
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
[2018-04-07] MEDS: PRAVASTATIN 20 MG TAB PO SCH (21:30)
--- NOTE | 2018-04-07 23:00 | NUR ---
PT REQUIRES REPOSITIONING EVERY 2 HR, INCONTIENT OF STOOL, PERIANAL CARE PROVIDED, DENIES PAIN AND DISCOMFORTS AT THIS TIME, O2 AT 3.0 LITERS PER N/C.
[2018-04-08] VITALS (8 sets, daily range): BP systolic 108–149; BP diastolic 37–69
--- NOTE | 2018-04-08 00:07 | Progress Note ---
DATE: April 07, 2018 PULMONARY MEDICINE PROGRESS NOTE SUBJECTIVE: Ms. Arzola was seen and examined at bedside. She walks today. She was having reasonable endurance, although she did get short of breath. It was not far from where she was a week ago. Three liters per minute via nasal cannula. Her creatinine continues to get much better. Her white count continues to get much better. REVIEW OF SYSTEMS: No headaches, no rash. OBJECTIVE VITAL SIGNS: Afebrile. Vital signs noted per electronic record. GENERAL: In no acute distress, alert and calm. HEENT: Normocephalic and atraumatic. Throat midline. NECK: Supple. LUNGS: Bilateral air entry, decreased breath sounds at the bases, rare rhonchi. CARDIOVASCULAR: S1, S2. No murmurs, rubs, or gallops. ABDOMEN: Soft and nontender. EXTREMITIES: No clubbing. No cyanosis. There is 2+ edema. INTEGUMENT: No rash. No purpura. LABS: BUN 36, creatinine 1.44, potassium 3.7. White count 13, hemoglobin 9, and platelets 123. IMPRESSION 1. Acute respiratory failure, salvage on BiPAP. 2. Fluid overload. 3. Acute kidney failure on chronic kidney disease. 4. Chronic obstructive pulmonary disease. 5. Pleural effusions, right much greater than left. PLAN: Continue to ambulate the patient. We will see how the fluid status ends up tomorrow as well as creatinine. We will decide based on patient's progress when is the best time for thoracentesis which will be reasonably indicated knowing the patient's history. Continue current treatment and patient is being treated for pneumonia. We will follow up closely. Job#: [id number] RTY
[2018-04-08] MEDS: VANCOMYCIN 250MG/5ML ORAL SOLN PO SCH ×5 (00:20→23:44)
[2018-04-08] MEDS: ALBUTEROL/IPRATROPIUM 3 ML NEB NEB SCH ×4 (01:50→18:18)
--- NOTE | 2018-04-08 04:00 | NUR ---
PT RESTING QUIETLY WITH EYES CLOSED, REPOSITIONED FOR COMFORT MEASURES. SR ON MONITOR, O2 SATS IN HIGH90'S
[2018-04-08 05:35] LABS: BASOPHILS % 0.2 % (0.0-1.0); EOSINOPHILS # (AUTO) 2.2 (0.0-0.4); EOSINOPHILS % 20.9 % (0.0-6.0); HEMOGLOBIN 9.9 g/dL (12.0-16.0); LYMPHOCYTES # (AUTO) 0.9 (1.0-3.2); LYMPHOCYTES % 8.7 % (18.0-39.1); MEAN CORPUSCULAR HEMOGLOBIN 30.7 pg (28-32); MEAN CORPUSCULAR VOLUME 93.2 fL (81-99); MONOCYTES # (AUTO) 0.8 (0.2-0.8); NEUTROPHILS # (AUTO) 6.7 (2.1-6.9); NEUTROPHILS % 62.6 % (38.7-80.0); PLATELET COUNT 108 x10e3/uL (140-360); RED BLOOD COUNT 3.22 x10e6/uL (3.6-5.1); RED CELL DISTRIBUTION WIDTH 20.3 % (11.7-14.4)
--- NOTE | 2018-04-08 06:00 | NUR ---
NO CHANGE IN PT'S STATUS, REFUSED TO GET ON BIPAP AT NIGHT, STATES SHE DOESNT LIKE IT. ENCOURAGED PT TO GET UP OOB TO CHAIR TODAY.
[2018-04-08 06:11] LABS: ALBUMIN 2.2 g/dL (3.5-5.0); ANION GAP 15.5 mmol/L (8-16); CALCIUM 8.4 mg/dL (8.4-10.2); CREATININE, SERUM 1.06 mg/dL (0.57-1.11); POTASSIUM 3.5 mmol/L (3.5-5.1)
[2018-04-08] MEDS: METOPROLOL TARTRATE 50 MG TAB PO SCH ×2 (09:55→20:58)
[2018-04-08] MEDS: PANTOPRAZOLE SOD 40 MG TABEC PO SCH (09:55)
[2018-04-08] MEDS: FLECAINIDE ACETATE 100 MG TAB PO SCH ×2 (09:55→20:58)
[2018-04-08] MEDS: PENTOXIFYLLINE 400 MG TAB CR PO SCH (09:55)
[2018-04-08] MEDS: FUROSEMIDE INJ 10 MG/ML 4 ML VIAL IV SCH ×2 (10:19→17:30)
[2018-04-08 10:42] LABS: BAND NEUTROPHILS % (MANUAL) 1 %; EOSINOPHILS % (MANUAL) 27 % (0-7); LYMPHOCYTES % (MANUAL) 9 % (19-48); MONOCYTES % (MANUAL) 4 % (3.4-9.0); NEUTROPHILS % (MANUAL) 59 % (40-74)
[2018-04-08 10:43] LABS: PLATELET ESTIMATE ADEQUATE; PLATELET MORPHOLOGY COMMENT NORMAL; RBC MORPHOLOGY COMMENT NORMAL
[2018-04-08] MEDS ORDERED: POTASSIUM CHLORIDE 10MEQ EA PO ONE (11:30)
--- NOTE | 2018-04-08 14:04 | Progress Note ---
DATE: INFECTIOUS DISEASE PROGRESS NOTE SUBJECTIVE: The patient is seen and examined today. She is doing better. There is no new complaint. REVIEW OF SYSTEMS: Otherwise, unremarkable. PHYSICAL EXAMINATION GENERAL: She is currently alert and oriented, does not seem to be in acute distress. VITAL SIGNS: Stable, afebrile. HEENT: Normocephalic, not icteric. NECK: Supple. CHEST: Clear. CARDIAC: S1, S2, no S3, S4 or murmur. ABDOMEN: Soft. Bowel sounds present. No tenderness. EXTREMITIES: No edema. SKIN: There is no rash. IMPRESSION AND PLAN: Sepsis on admission resolved. Acute respiratory failure on BiPAP. Fluid overload, acute on kidney injury/chronic kidney disease. Chronic obstructive pulmonary disease. Pleural effusion secondary to the above. Sepsis secondary to presumptive C diff colitis, getting better. Her white count is coming down to normal and the plan is to continue with oral vancomycin 250 mg p.o. q.8 hours for 3 weeks. PT/OT. Job#: [id number] KIMBERLY
--- NOTE | 2018-04-08 16:21 | Progress Note ---
DATE: April 08, 2018 PULMONARY MEDICINE PROGRESS NOTE SUBJECTIVE: Ms. Arzola was seen and examined at bedside. Patient continues to have unclear progress. Patient was assisted with nurse today, but got dizzy and felt like she was to drop. Low functional endurance. Patient at this time remains on oxygen via nasal cannula at 2 liters per minute, 100% oxygen saturation. REVIEW OF SYSTEMS: No headaches, no chest pain. OBJECTIVE VITAL SIGNS: Afebrile. Vital signs noted per electronic record. GENERAL: In no acute distress, alert and calm. HEENT: Normocephalic, atraumatic. Throat midline. NECK: Supple. LUNGS: Bilateral air entry decreased, rare rhonchi. CARDIOVASCULAR: S1, S2. No murmurs, rubs, or gallops. ABDOMEN: Soft and nontender. EXTREMITIES: No clubbing. No cyanosis. There is 2+ edema. INTEGUMENT: No rash. No purpura. LABS: Potassium 3.5, BUN 18, creatinine 1.1. White count 11, hematocrit 30, and platelets 108. IMPRESSION AND PLAN 1. Symptomatic pleural effusions, right greater than left. 2. Fluid overload. 3. Tsmgf-hl-uskemhs kidney failure. 4. Gastroenteritis/colitis, not otherwise specified. 5. Chronic obstructive pulmonary disease. 6. Diastolic heart dysfunction. Continue diuresis per renal specialist. Add chest x-ray. It will take time to significantly resolve this effusion and as the patient is symptomatic, we will recommend thoracentesis at this point. We will follow along closely. Hold blood thinners. Of note, there are decreasing platelets here. Because of this, we will send off a HIT assay and consider early resumption of either fondaparinux or anticoagulant, but not vitamin K type. We will follow along closely. Job#: [id number] SUNNY
[2018-04-08] MEDS: CHOLESTYRAMINE 4 GM PACKET PO SCH (17:30)
--- NOTE | 2018-04-08 19:46 | NUR ---
CALLED AND SPOKE WITH DR JAVIER, PER MD THE PATIENT STILL NEED TO BE CONSULTED TO IR DOCTOR FOR THORACENTESIS IN THE MORNING, AND NO NEED TO BE NPO.
[2018-04-08] MEDS: PRAVASTATIN 20 MG TAB PO SCH (20:58)
[2018-04-09] VITALS (9 sets, daily range): BP systolic 123–158; BP diastolic 50–72
[2018-04-09] MEDS: ALBUTEROL/IPRATROPIUM 3 ML NEB NEB SCH ×4 (01:00→19:39)
[2018-04-09 05:17] LABS: BASOPHILS % 0.1 % (0.0-1.0); EOSINOPHILS # (AUTO) 2.4 (0.0-0.4); EOSINOPHILS % 28.7 % (0.0-6.0); HEMATOCRIT 28.4 % (34.2-44.1); HEMOGLOBIN 9.2 g/dL (12.0-16.0); LYMPHOCYTES % 12.2 % (18.0-39.1); MEAN CORPUSCULAR HEMOGLOBIN 30.2 pg (28-32); MEAN CORPUSCULAR HGB CONC 32.4 g/dL (31-35); MEAN CORPUSCULAR VOLUME 93.1 fL (81-99); MONOCYTES # (AUTO) 0.9 (0.2-0.8); MONOCYTES % 10.7 % (4.4-11.3); NEUTROPHILS % 47.8 % (38.7-80.0); PLATELET COUNT 102 x10e3/uL (140-360); RED BLOOD COUNT 3.05 x10e6/uL (3.6-5.1); RED CELL DISTRIBUTION WIDTH 20.3 % (11.7-14.4)
[2018-04-09 05:33] LABS: INR 0.87; PROTHROMBIN TIME 12.7 seconds (11.9-14.5)
[2018-04-09 05:34] LABS: PARTIAL THROMBOPLASTIN TIME 28.3 seconds (23.8-35.5)
[2018-04-09] MEDS: VANCOMYCIN 250MG/5ML ORAL SOLN PO SCH ×4 (05:35→23:57)
[2018-04-09 05:43] LABS: ALBUMIN 2.4 g/dL (3.5-5.0); ALBUMIN/GLOBULIN RATIO 1.1 (0.8-2.0); ANION GAP 14.9 mmol/L (8-16); CALCIUM 8.5 mg/dL (8.4-10.2); CREATININE, SERUM 1.03 mg/dL (0.57-1.11); POTASSIUM 3.9 mmol/L (3.5-5.1)
[2018-04-09 06:03] LABS: BILIRUBIN,DIRECT 0.3 mg/dL (0.0-0.5)
[2018-04-09] MEDS ORDERED: RIVAROXABAN 15 MG TABLET PO SCH (09:00)
[2018-04-09] MEDS: FUROSEMIDE INJ 10 MG/ML 4 ML VIAL IV SCH ×3 (09:00→22:35)
[2018-04-09] MEDS: CHOLESTYRAMINE 4 GM PACKET PO SCH ×2 (09:00→16:37)
[2018-04-09] MEDS: METOPROLOL TARTRATE 50 MG TAB PO SCH ×3 (09:00→22:35)
[2018-04-09] MEDS ORDERED: SODIUM CHLORIDE 0.9% 250ML 0 ML ONE (09:06)
--- NOTE | 2018-04-09 12:56 | Diagnostic Imaging Report ---
Procedure: Ultrasound-guided right therapeutic thoracentesis. supervisor transcribing operators: Zaida Coker MD Pre-operative diagnosis: Moderate right pleural effusion Post-operative diagnosis: Trace to small right pleural effusion. Conscious Sedation: None Additional Medications: Lidocaine 1% for local anesthesia Contrast used: None Estimated blood loss: <5 cc Blood proximal administered: None Specimens: 400 cc maikel-colored serous fluid Implants: None Condition at completion: Stable Disposition: Returned to floor DISCUSSION: Informed consent was obtained and documented in the medical record. The patient was placed in the sitting position on the sonographic table. The right posterolateral chest wall was prepped and draped in the standard sterile fashion. A suitable percutaneous intercostal approach to the right pleural space was identified and the overlying skin was infiltrated with 1% lidocaine for local anesthesia. Moderate right pleural effusion was identified on ultrasound. Then under continuous sonographic guidance, a 5 Sami Yueh needle catheter was advanced into the pleural space. The catheter was advanced off the needle and connected to vacuum bottle with subsequent evacuation of 400 cc of maikel colored serous fluid. The catheter was removed and a sterile, occlusive dressing was applied. Postprocedure sonographic image showed residual trace to small right pleural effusion. The patient tolerated the procedure well without immediate complication. IMPRESSION: Successful ultrasound-guided therapeutic right thoracentesis with evacuation of 400 cc of serous fluid. Signed by: Dr. Zaida Coker MD on 04/09/2018 12:52 PM
--- NOTE | 2018-04-09 13:11 | Progress Note ---
DATE: April 09, 2018 PULMONARY MEDICINE PROGRESS NOTE SUBJECTIVE: Ms. Arzola was seen and examined at bedside. She continues to have steady progress. Today, she went for thoracentesis, and 400 mL of straw colored fluid output was noted. Patient was seen doing fair after the procedure, but she is not yet walking. Kidney function range better. REVIEW OF SYSTEMS: No headaches. No rash. OBJECTIVE VITALS: Afebrile. Vital signs noted per electronic record. GENERAL: In no acute distress. Alert and calm. HEENT: Normocephalic and atraumatic. NECK: Supple. Throat midline. LUNGS: Bilateral air entry. Decreased breath sounds. Rare rhonchi. CARDIOVASCULAR: S1 and S2. No murmurs, rubs or gallops. ABDOMEN: Soft and nontender. EXTREMITIES: No clubbing. No cyanosis. There is 2+ leg edema. INTEGUMENT: No rash. No purpura. LABS: BUN 13, creatinine 1, potassium 3.9. White count 8.4. Platelets 102,000. IMPRESSION AND PLAN 1. Pleural effusion, symptomatic: Status post thoracentesis. 2. Fluid overload. 3. Qxagj-ju-obitoja kidney failure. 4. Emerging thrombocytopenia. Check pleural fluid analysis today and follow up on the pleural fluid studies. Continue diuretics as per nephrology expert. HIT antibody assay was sent. If the patient does not have any complications from thoracentesis, she can be reasonably restarted on a blood thinner tonight. Job#: [id number] JOSEPH
--- NOTE | 2018-04-09 13:15 | Diagnostic Imaging Report ---
EXAMINATION: CHEST XRAY POST PROCEDURE INDICATION: Status post right thoracentesis, query pneumothorax. COMPARISON: Right thoracentesis with ultrasound guidance 04/09/2018; chest radiograph 04/07/2018. FINDINGS: TUBES and LINES: Right IJ central venous catheter with tip in the expected location of the SVC. LUNGS/PLEURA: Emphysematous changes of the lungs. Resolution of right-sided pleural effusion with improved aeration within the right lower lung. No evidence of pneumothorax. No evidence of new consolidation or pulmonary edema. Improving patchy opacity at the left lung base. PLEURA: No pleural effusion or pneumothorax. HEART AND MEDIASTINUM: The cardiomediastinal silhouette is unremarkable. BONES AND SOFT TISSUES: No acute osseous abnormality. UPPER ABDOMEN: No free air under the diaphragm. IMPRESSION: Near resolution of right-sided pleural effusion with improved aeration of the right lower lung status post thoracentesis. No evidence of pneumothorax. Signed by: Dr. Zaida Coker MD on 04/09/2018 1:11 PM
[2018-04-09] MEDS: FLECAINIDE ACETATE 100 MG TAB PO SCH ×2 (13:39→22:35)
[2018-04-09] MEDS: PANTOPRAZOLE SOD 40 MG TABEC PO SCH (13:39)
[2018-04-09 15:09] LABS: BODY FLUID APPEARANCE CLOUDY; BODY FLUID COLOR YELLOW; BODY FLUID TYPE PLEURAL
[2018-04-09 15:18] LABS: RBC,BODY FLUID 609 cells/uL; WBC,BODY FLUID 84 cells/uL
[2018-04-09 15:26] LABS: LYMPHOCYTES,BODY FLUID 9 %; MONO/MACROPHG,BODY FLUID 44 %; NEUTROPHILS,BODY FLUID 17 %; OTHER CELLS,BODY FLUID 30 %
--- NOTE | 2018-04-09 15:36 | Progress Note ---
DATE: CARDIOLOGY PROGRESS NOTE SUBJECTIVE: Patient underwent thoracentesis on the right pleural effusion today. Shortness of breath has improved. No chest pain. OBJECTIVE VITAL SIGNS: Temperature is 98.0. Heart rate is 88. Respirations are 20. Blood pressure is 126/59. Oxygen saturation is 97% on 2 liters nasal cannula. GENERAL: Well-appearing, no apparent distress. LUNGS: Diminished breath sounds at bilateral bases. ABDOMEN: Soft, nontender. CARDIOVASCULAR: Regular rate and rhythm. LABORATORY DATA: Reviewed. TELEMETRY MONITORING: Normal sinus rhythm. IMAGING: Chest x-ray shows near resolution of right-sided pleural effusion with improved aeration of the right lower lung. No evidence of hemithorax. IMPRESSION 1. Acute respiratory failure with hypoxia. 2. Jmkoa-fa-vzpphlz diastolic heart failure. 3. Qjiok-qc-zjszswp kidney disease. 4. Chronic obstructive pulmonary disease. 5. Pleural effusions. 6. Paroxysmal atrial fibrillation. 7. Hypertension. 8. Hyperlipidemia. RECOMMENDATIONS: Currently, respiratory status has improved status post right thoracentesis. Continue all current cardiovascular medications. Resume Xarelto when no procedures are planned. She remains in normal sinus rhythm on current medications consisting of flecainide and metoprolol. Continue Lasix 40 mg IV b.i.d. for adequate diuresis. Will continue to follow along with you. Job#: [id number]
[2018-04-09] MEDS: SIMVASTATIN 20 MG TAB PO SCH (22:35)
[2018-04-10] VITALS (8 sets, daily range): BP systolic 119–128; BP diastolic 47–61
[2018-04-10] MEDS: ALBUTEROL/IPRATROPIUM 3 ML NEB NEB SCH ×4 (01:05→19:54)
[2018-04-10 05:32] LABS: ANION GAP 15.2 mmol/L (8-16); CALCIUM 8.4 mg/dL (8.4-10.2); CREATININE, SERUM 0.91 mg/dL (0.57-1.11); POTASSIUM 3.2 mmol/L (3.5-5.1)
--- NOTE | 2018-04-10 05:36 | Diagnostic Imaging Report ---
EXAM: XR CHEST 1 VIEW DATE: 04/10/2018 5:00 AM INDICATION: CHF COMPARISON: 04/09/2018, no report available FINDINGS: Lines and Tubes: Right IJ catheter tip overlying SVC. Heart and Mediastinum: Heart not enlarged. Aortic vascular calcifications. Lungs and Pleura: Mild prominence of the interstitium mid/lower lungs. Trace effusions. Advanced emphysematous changes are seen 04/05/2018 CT. Bones and Soft Tissues: No acute findings. IMPRESSION: 1. Questionable mild edema/trace effusions. Signed by: Dr. Marcos House MD on 04/10/2018 5:33 AM
[2018-04-10 05:46] LABS: BASOPHILS % 0.1 % (0.0-1.0); EOSINOPHILS # (AUTO) 2.3 (0.0-0.4); EOSINOPHILS % 27.5 % (0.0-6.0); HEMATOCRIT 28.5 % (34.2-44.1); HEMOGLOBIN 9.4 g/dL (12.0-16.0); LYMPHOCYTES # (AUTO) 1.4 (1.0-3.2); LYMPHOCYTES % 16.3 % (18.0-39.1); MEAN CORPUSCULAR HEMOGLOBIN 30.6 pg (28-32); MEAN CORPUSCULAR VOLUME 92.8 fL (81-99); MONOCYTES # (AUTO) 0.8 (0.2-0.8); MONOCYTES % 10.1 % (4.4-11.3); NEUTROPHILS # (AUTO) 3.8 (2.1-6.9); NEUTROPHILS % 45.4 % (38.7-80.0); PLATELET COUNT 109 x10e3/uL (140-360); RED BLOOD COUNT 3.07 x10e6/uL (3.6-5.1)
[2018-04-10] MEDS: VANCOMYCIN 250MG/5ML ORAL SOLN PO SCH ×3 (06:05→18:06)
[2018-04-10] MEDS: FLECAINIDE ACETATE 100 MG TAB PO SCH ×2 (09:30→21:54)
[2018-04-10] MEDS: FUROSEMIDE INJ 10 MG/ML 4 ML VIAL IV SCH ×2 (09:30→18:06)
[2018-04-10] MEDS: PANTOPRAZOLE SOD 40 MG TABEC PO SCH (09:30)
[2018-04-10] MEDS: CHOLESTYRAMINE 4 GM PACKET PO SCH ×2 (09:30→18:06)
[2018-04-10] MEDS: METOPROLOL TARTRATE 50 MG TAB PO SCH ×2 (09:30→21:54)
--- NOTE | 2018-04-10 11:35 | NUR ---
CALL PLACED TO DAVID MARTINO REGARDING ANTIBIOTICS, PER DR. Melonie ZAMUDIO'S REQUEST.
--- NOTE | 2018-04-10 14:14 | Progress Note ---
DATE: April 10, 2018 PULMONARY MEDICINE PROGRESS NOTE SUBJECTIVE: Ms. Arzola was seen and examined at bedside. She continues to have slow progress. Yesterday's chest x-ray showed clearance of the fluid. Today's chest x-ray showed very small pleural effusion reaccumulated. Patient with low function and endurance still. Swelling continues to go down in her legs. REVIEW OF SYSTEMS: No headaches, no bleeding. OBJECTIVE VITAL SIGNS: Afebrile. Vital signs noted per electronic record. GENERALLY: No acute distress, alert and calm. HEENT: Normocephalic, atraumatic. NECK: Supple. Throat midline. LUNGS: Bilateral air entry, decreased breath sounds throughout, a few rhonchi. CARDIOVASCULAR: S1 and S2. No murmurs, rubs or gallops. ABDOMINAL: Soft, nontender. EXTREMITIES: No clubbing, no cyanosis. There is decreasing edema to the legs. INTEGUMENT: No rash. No purpura. LABS: Potassium 3.2, creatinine 0.9. Platelets 109. IMPRESSION AND PLAN 1. Recurrent pleural effusion. 2. Chronic obstructive pulmonary disease. 3. Congestive heart failure with exacerbation. 4. Mcylj-bd-sjeqfho kidney failure. 5. Cardiorenal syndrome. Replete potassium. Continue more diuretics as per renal expert. Follow up kidney function. Continue with antibiotics as needed. Treatment for colitis ongoing. Will follow up closely. Job#: [id number] TREVIN
[2018-04-10] MEDS: POTASSIUM CHLORIDE 10MEQ EA PO SCH (14:37)
--- NOTE | 2018-04-10 16:30 | NUR ---
ORDER RECEIVED FOR [facility]. MET W THE PT AT THE BEDSIDE. EXPLAINED LTAC. PT STATES SHE WOULD LIKE HER DTR TO BE INVOLVED WHEN [facility] COMES, BUT WANTS TO BE COMPLIANT W THE DOCTOR. PT HAD DC'D FROM [facility] LAST MONDAY AND WOULD LIKE TO HAVE THEM EVAL HER AGAIN. CHOICE LETTER WAS PROVIDED AND SIGNED. COPY TO CHART AND COPY GIVEN TO THE PT. CALL MADE TO SYLVIE BARLOW AT THE BEDSIDE. JOHNNY WAS ALREADY FAMILIAR W THE PT AND WILL COORDINATE THEIR DISCUSSION WITH THE PT'S DTR.
--- NOTE | 2018-04-10 18:05 | NUR ---
Told the patient's daughter that the plan is for the patient to be evaluated for [facility]. If patient is denied [facility], the patient agreed to going [facility]. Per patient's daughter, the patient will not be going back to the [facility]. If the patient is denied [facility], she will be happy with the patient going home with her with home health/PT than going to the [facility].
--- NOTE | 2018-04-10 19:40 | Progress Note ---
DATE: April 10, 2018 CARDIOLOGY PROGRESS NOTE SUBJECTIVE: No major events overnight. OBJECTIVE: VITAL SIGNS: Temperature 98.0, pulse 68, respiratory rate 20, blood pressure 123/48, satting 98% on 2 liters nasal cannula. GENERAL: Elderly female, in no acute distress. CARDIOVASCULAR: Regular rate and rhythm. No murmurs, rubs, or gallops. LUNGS: Diminished breath sounds, bilateral bases. ABDOMEN: Soft, nontender. NEURO AND PSYCH: Alert and oriented to person, place, and time. Normal affect. LABORATORY DATA: Reviewed. TELEMETRY DATA: Reviewed. IMAGING DATA: Reviewed. ASSESSMENT: 1. Acute respiratory failure. 2. Fdnpx-by-jgdssql diastolic heart failure. 3. Bfwkx-la-adigfnj kidney disease. 4. Chronic obstructive pulmonary disease. 5. Recurrent pleural effusions. 6. Hypertension. 7. Hyperlipidemia. 8. Atrial fibrillation. RECOMMENDATIONS: Doing well from cardiovascular standpoint. Please resume Xarelto once all procedures are completed. Lovenox was held due to thrombocytopenia. Thank you for this consult. Will continue to follow. Job#: [id number]
--- NOTE | 2018-04-10 21:10 | NUR ---
PATIENT ASSISTED TO THE BEDSIDE COMMODE TO VOID, SKIN PROTECTANT APPLIED TO THE SACRUM. SHE DENIES PAIN, BED ALARM ON AND CALL LIGHT WITHIN EASY REACH.
[2018-04-10] MEDS: SIMVASTATIN 20 MG TAB PO SCH (21:54)
[2018-04-11] MEDS: VANCOMYCIN 250MG/5ML ORAL SOLN PO SCH ×5 (00:16→23:59)
--- NOTE | 2018-04-11 00:17 | NUR ---
PATIENT ASSISTED WITH ADLS, NO RESPIRATORY DISTRESS OBSERVED AND SHE DENIES PAIN. CALL LIGHT WITHIN EASY REACH, BED ALARM ON, PATIENT INSTRUCTED TO CALL FOR ASSISTANCE NEEDED.
[2018-04-11] MEDS: ALBUTEROL/IPRATROPIUM 3 ML NEB NEB SCH ×4 (01:10→23:30)
[2018-04-11 03:40] VITALS: BP 127/58
--- NOTE | 2018-04-11 03:44 | NUR ---
ASSISTED PATIENT TO THE BEDSIDE COMMODE, SHE'S KEPT CLEAN AND DRY. NO PAIN VOICED, ORAL FLUID GIVEN. CALL LIGHT WITHIN EASY REACH, BED ALARM ON AND NO RESPIRATORY DISTRESS OBSERVED.
[2018-04-11 05:24] LABS: BASOPHILS % 0.2 % (0.0-1.0); EOSINOPHILS # (AUTO) 1.9 (0.0-0.4); EOSINOPHILS % 20.3 % (0.0-6.0); HEMATOCRIT 28.4 % (34.2-44.1); HEMOGLOBIN 9.2 g/dL (12.0-16.0); LYMPHOCYTES # (AUTO) 1.4 (1.0-3.2); LYMPHOCYTES % 14.6 % (18.0-39.1); MEAN CORPUSCULAR HEMOGLOBIN 30.3 pg (28-32); MEAN CORPUSCULAR HGB CONC 32.4 g/dL (31-35); MEAN CORPUSCULAR VOLUME 93.4 fL (81-99); MONOCYTES % 10.5 % (4.4-11.3); NEUTROPHILS % 53.6 % (38.7-80.0); PLATELET COUNT 95 x10e3/uL (140-360); RED BLOOD COUNT 3.04 x10e6/uL (3.6-5.1); RED CELL DISTRIBUTION WIDTH 19.9 % (11.7-14.4)
[2018-04-11 05:36] LABS: INR 0.91; PROTHROMBIN TIME 13.1 seconds (11.9-14.5)
[2018-04-11 05:48] LABS: ANION GAP 17.5 mmol/L (8-16); CALCIUM 8.2 mg/dL (8.4-10.2); CREATININE, SERUM 0.97 mg/dL (0.57-1.11); POTASSIUM 3.5 mmol/L (3.5-5.1)
[2018-04-11 06:59] LABS: EOSINOPHILS % (MANUAL) 21 % (0-7); HYPOCHROMASIA MODERATE; LYMPHOCYTES % (MANUAL) 13 % (19-48); MONOCYTES % (MANUAL) 7 % (3.4-9.0); NEUTROPHILS % (MANUAL) 59 % (40-74)
[2018-04-11 07:00] LABS: ANISOCYTOSIS SLIGHT; PLATELET ESTIMATE SLIGHTLY DECREASED; PLATELET MORPHOLOGY COMMENT FEW LARGE; RBC MORPHOLOGY COMMENT NORMAL
[2018-04-11 08:00] VITALS: BP 118/61
[2018-04-11 09:00] VITALS: BP 118/61
[2018-04-11] MEDS: POTASSIUM CHLORIDE 10MEQ EA PO SCH (09:43)
[2018-04-11] MEDS: METOPROLOL TARTRATE 50 MG TAB PO SCH ×2 (09:43→21:00)
[2018-04-11] MEDS: FUROSEMIDE INJ 10 MG/ML 4 ML VIAL IV SCH ×2 (09:43→17:00)
[2018-04-11] MEDS: PANTOPRAZOLE SOD 40 MG TABEC PO SCH (09:44)
[2018-04-11] MEDS: FLECAINIDE ACETATE 100 MG TAB PO SCH ×2 (09:44→21:00)
--- NOTE | 2018-04-11 11:12 | NUR ---
Report given to Yany
--- NOTE | 2018-04-11 11:15 | NUR ---
RECD PT FROM [facility] VIA W/C AAOX3,O2 2L NC IN PLACE,DENIES [PAIN,RT IJ IN PLACE,
[2018-04-11 12:40] VITALS: BP 137/59
[2018-04-11 16:02] VITALS: BP 127/58
[2018-04-11] MEDS: CHOLESTYRAMINE 4 GM PACKET PO SCH (17:00)
--- NOTE | 2018-04-11 17:51 | NUR ---
PT IN BED ,DENIES PAIN,O2 2L NC IN PLACE,
--- NOTE | 2018-04-11 19:10 | NUR ---
Patient visited in room during nursing rounds. Patient alert and oriented x3. On 2L NC. Patient ambulates prn with assistance. No distress or discomfort observed. Family at bedside visiting. Call deal within reach.
[2018-04-11 20:00] VITALS: BP 111/52
[2018-04-11] MEDS: SIMVASTATIN 20 MG TAB PO SCH (21:00)
--- NOTE | 2018-04-11 23:05 | Progress Note ---
DATE: April 11, 2018 PULMONARY MEDICINE PROGRESS NOTE SUBJECTIVE: Ms. Arzola was seen and examined at bedside. She continues to have poor progress. Legs however continue to have decreasing edema. Patient remains at this time on 2 L per minute by nasal cannula oxygen. She walked twice, although it is not necessarily easier. 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 She is starting to eat more. REVIEW OF SYSTEMS: No headaches, no GI bleed. OBJECTIVE VITAL SIGNS: Afebrile. Vital signs noted per the chart record. GENERAL: No acute distress, alert and calm. HEENT: Normocephalic, atraumatic. NECK: Supple. Throat midline. LUNGS: Bilateral air entry, decreased breath sounds, few rhonchi. CARDIOVASCULAR: S1 and S2. No murmurs, rubs, or gallops. ABDOMINAL: Soft, nontender. EXTREMITIES: No clubbing, no cyanosis. There is 1+ edema. INTEGUMENT: No rash. No purpura. LABS: Potassium 3.5, creatinine 0.97. White count 9.4, platelets 95,000. IMPRESSIONS 1. Recurrent pleural effusions, transudative. 2. Acute renal failure, likely cardiorenal, likely better. 3. Peripheral edema, much better. 4. Recent pneumonia significant. PLAN: Continue to follow up on Lasix. Ensure that patient's renal function continues to improve. Hopefully this is good prognosis for the pleural effusion. As the legs have come down, we hope the lungs will have less fluid extravasating. Continue to mobilize her with physical therapy. Patient is best for intermediate facility given her very slow response. Continue oxygen. Job#: [id number]
[2018-04-12] VITALS: BP 110/55
[2018-04-12 04:00] VITALS: BP 123/56
--- NOTE | 2018-04-12 06:07 | Diagnostic Imaging Report ---
EXAM: XR CHEST 1 VIEW DATE: 04/12/2018 5:00 AM INDICATION: CHF COMPARISON: 04/10/2018, no report available FINDINGS: Lines and Tubes: Right IJ catheter tip overlying SVC. Heart and Mediastinum: No acute cardiomediastinal findings. Lungs and Pleura: Minimal opacities left mid/lower lung. Bones and Soft Tissues: No acute findings. IMPRESSION: 1. Minimal opacities left mid and lower lung could represent asymmetric edema or pneumonia. Signed by: Dr. Marcos House MD on 04/12/2018 6:04 AM
[2018-04-12] MEDS: VANCOMYCIN 250MG/5ML ORAL SOLN PO SCH (06:09)
[2018-04-12] MEDS: ALBUTEROL/IPRATROPIUM 3 ML NEB NEB SCH ×2 (07:00→13:00)
[2018-04-12 07:25] VITALS: BP 145/66
--- NOTE | 2018-04-12 07:35 | NUR ---
RECD PT UP IN BED DENIES PAIN NO DISTRESS NOTED,O2 2L NC IN PLACE
[2018-04-12 07:41] VITALS: BP 145/66
--- NOTE | 2018-04-12 08:30 | NUR ---
PT ASSISTED UP TO CHAIR,NO DISTRESS NTOED
[2018-04-12] MEDS: FUROSEMIDE INJ 10 MG/ML 4 ML VIAL IV SCH (08:46)
[2018-04-12] MEDS: POTASSIUM CHLORIDE 10MEQ EA PO SCH (08:47)
[2018-04-12] MEDS: METOPROLOL TARTRATE 50 MG TAB PO SCH (08:48)
[2018-04-12] MEDS: CHOLESTYRAMINE 4 GM PACKET PO SCH (08:48)
[2018-04-12] MEDS: PANTOPRAZOLE SOD 40 MG TABEC PO SCH (08:48)
[2018-04-12] MEDS: FLECAINIDE ACETATE 100 MG TAB PO SCH (08:50)
[2018-04-12 11:33] VITALS: BP 131/58
--- NOTE | 2018-04-12 11:54 | NUR ---
SPOKE WITH PT REGARDING FLU SHOT ORDERD 04/05.PT STATED SHE HAD FLU SHOT AT [facility] ALREADY,REFUSED TO HAVE ANOTHER ONE
--- NOTE | 2018-04-12 13:52 | Progress Note ---
DATE: April 12, 2018 PULMONARY MEDICINE PROGRESS NOTE SUBJECTIVE: Ms. Arzola was seen and examined at bedside. Patient continues to have slow progress. The leg edema continues to come down. She has a right IJ central line in place. Two liters per minute by nasal cannula. She walked with some early dyspnea. REVIEW OF SYSTEMS: No bleeding, no headaches. OBJECTIVE VITAL SIGNS: Afebrile. Vital signs noted per electronic record. GENERALLY: No acute distress, alert and calm. HEENT: Normocephalic, atraumatic. NECK: Supple. Throat midline. LUNGS: Bilateral air entry, a few rhonchi, rare wheeze. CARDIOVASCULAR: S1 and S2. No murmurs, rubs or gallops. ABDOMINAL: Soft, nontender. EXTREMITIES: No clubbing, no cyanosis. There is 1+ edema to the legs. INTEGUMENT: No rash. No purpura. LABS: No new updates. IMPRESSION AND PLAN 1. Pneumonia. 2. Fluid overload. 3. Colitis suggested. 4. Aapap-cn-ujoihbv kidney failure. 5. Cardiorenal syndrome. 6. Recurrent pleural effusions. Fluid is decreasing in the legs, and we are hopeful that it continues to decrease because the legs are decreasing. At this time will wish to continue Lasix diuretics. Intermittent blood work will continue to be checked. Will follow along closely. Continue to mobilize the patient. Job#: [id number] TREVIN
--- NOTE | 2018-04-12 14:59 | NUR ---
[facility] DENIED CLINICALS [facility]ENT [facility] PER PT REQUEST TO RETURN BACK TO FACILITY SHE CAME FROM. ACCEPTED TO ROOM [address] ZAMUDIO CALL REPORT TO [phone]. RTF COMPLETED, IMM SIGNED AND FILED ON CHART WITH RTF GIVEN TO NURSE TO COMPLETE TRANSFER
[2018-04-12 15:59] VITALS: BP 111/55
--- NOTE | 2018-04-12 16:13 | NUR ---
Discontinuing skilled PT services since patient is Mod I in functional mobility with RW. Thank you. Addendum: 04/12/18 at 1618 by Omar montalvo PT Amended: Links added.
--- NOTE | 2018-04-12 17:20 | NUR ---
[facility] ,STABLE CONDITION.O2 2L NC IN PLACE.
--- NOTE | 2018-04-13 15:01 | NUR ---
[facility] SIGNED IMM, FILED IN CHART AND COMPLETED RTF AND GAVE TO NURSE TO COMPLETE.
== END 2018-04-12 17:19 | DRG 871 ==
LOC: ER 08:43 → ERHOLD 14:20 → ICU 14:33 → IMCU 04-06 15:04 → MED/SURG3 04-11 11:44
PROC: 02HV33Z Insertion of Infusion Device into Superior Vena Cava, Percutaneous Approach (ICD-10-PCS; principal; 2018-04-05)
PROC: B548ZZA Ultrasonography of Superior Vena Cava, Guidance (ICD-10-PCS; 2018-04-05)
PROC: 0W993ZZ Drainage of Right Pleural Cavity, Percutaneous Approach (ICD-10-PCS; 2018-04-09)
DX: A41.9 Sepsis, unspecified organism (principal); J96.01 Acute respiratory failure with hypoxia; I50.33 Acute on chronic diastolic (congestive) heart failure; J96.21 Acute and chronic respiratory failure with hypoxia; J44.1 Chronic obstructive pulmonary disease with (acute) exacerbation; J90 Pleural effusion, not elsewhere classified; N17.9 Acute kidney failure, unspecified; I13.0 Hypertensive heart and chronic kidney disease with heart failure and stage 1 through stage 4 chronic kidney disease, or unspecified chronic kidney disease; A04.72 Enterocolitis due to Clostridium difficile, not specified as recurrent; Z87.891 Personal history of nicotine dependence; Z88.1 Allergy status to other antibiotic agents; Z88.8 Allergy status to other drugs, medicaments and biological substances; I48.91 Unspecified atrial fibrillation; I25.10 Atherosclerotic heart disease of native coronary artery without angina pectoris; N18.9 Chronic kidney disease, unspecified; E78.5 Hyperlipidemia, unspecified; E86.0 Dehydration; D69.6 Thrombocytopenia, unspecified; I48.0 Paroxysmal atrial fibrillation
CPT/HCPCS: 32555; 36415; 36555; 36600; 51700; 71045; 71250; 74176; 74470; 76770; 80048; 80053; 81001; 81015; 82248; 82550; 82553; 82805; 83605; 83615; 83690; 83735; 83880; 84157; 84484; 85025; 85610; 85730; 86022; 87040; 87086; 87493; 89051; 93005; 94640; 94660; 97139; 99285; J0692; J1650; J1940; J3370; J7050

== ENCOUNTER 2018-12-07 01:31 | Emergency (ER) | payer MEDICARE ==
[~2018-12-07] VITALS: Ht 157.5 cm; Wt 52.2 kg
[2018-12-07] MEDS ORDERED: ALBUTEROL/IPRATROPIUM 3 ML NEB NEB ONE (01:45)
[2018-12-07 02:30] LABS: BASOPHILS # (AUTO) 0.1 (0.0-0.1); BASOPHILS % 0.6 % (0.0-1.0); EOSINOPHILS # (AUTO) 0.3 (0.0-0.4); EOSINOPHILS % 2.5 % (0.0-6.0); HEMATOCRIT 36.1 % (34.2-44.1); HEMOGLOBIN 11.9 g/dL (12.0-16.0); LYMPHOCYTES # (AUTO) 3.6 (1.0-3.2); LYMPHOCYTES % 33.7 % (18.0-39.1); MEAN CORPUSCULAR HEMOGLOBIN 30.8 pg (28-32); MEAN CORPUSCULAR VOLUME 93.5 fL (81-99); MONOCYTES % 9.3 % (4.4-11.3); NEUTROPHILS # (AUTO) 5.7 (2.1-6.9); NEUTROPHILS % 53.6 % (38.7-80.0); PLATELET COUNT 417 x10e3/uL (140-360); RED BLOOD COUNT 3.86 x10e6/uL (3.6-5.1); RED CELL DISTRIBUTION WIDTH 15.1 % (11.7-14.4)
[2018-12-07 02:50] LABS: ALBUMIN/GLOBULIN RATIO 1.3 (0.8-2.0); CREATININE, SERUM 1.57 mg/dL (0.57-1.11); POTASSIUM 3.6 mmol/L (3.5-5.1)
[2018-12-07 02:56] LABS: CALCIUM 10.3 mg/dL (8.4-10.2)
[2018-12-07 02:58] LABS: CREATINE KINASE MB 1.3 ng/mL (0-5.0)
[2018-12-07 03:35] LABS: ANION GAP 19.7 mmol/L (8-16)
--- NOTE | 2018-12-07 03:36 | Diagnostic Imaging Report ---
EXAMINATION: CHEST SINGLE (PORTABLE) INDICATION: Short of breath COMPARISON: Chest radiograph 04/12/2018, chest CT 04/05/2018 FINDINGS: AP view TUBES and LINES: None. LUNGS: Hyperinflated lungs with flat hemidiaphragms. Chronic mild interstitial opacities. Focal nodular opacity in the left lung base, more prominent compared to chest radiograph on 04/12/2018. There is no evidence of pneumonia or pulmonary edema. PLEURA: No pleural effusion or pneumothorax. HEART AND MEDIASTINUM: The cardiomediastinal silhouette is unremarkable. There are atherosclerotic calcifications within the aorta. BONES AND SOFT TISSUES: No acute osseous lesion. Soft tissues are unremarkable. UPPER ABDOMEN: No free air under the diaphragm. IMPRESSION: No acute thoracic radiographic abnormality. Chronic findings of pulmonary emphysema and scattered areas of scarring. Nodular opacity in the left lung base, new since 04/12/2018. Recommend nonemergent chest CT for further evaluation. Findings discussed with Dr. Plascencia at 3:32 AM on 12/07/[address] Ricks via telephone. Signed by: Jorge Ricks DO on 12/07/2018 3:32 AM
== END 2018-12-07 04:00 | disposition home or self-care (01) ==
LOC: ER 01:31
DX: J44.9 Chronic obstructive pulmonary disease, unspecified (principal); I11.0 Hypertensive heart disease with heart failure; I50.9 Heart failure, unspecified; F17.210 Nicotine dependence, cigarettes, uncomplicated; Z99.81 Dependence on supplemental oxygen; F41.9 Anxiety disorder, unspecified
CPT/HCPCS: 36415; 71045; 80053; 82550; 82553; 83880; 84484; 85025; 93005; 99284

== ENCOUNTER 2019-02-02 18:11 | Emergency (ER) | payer MEDICARE ==
[~2019-02-02] VITALS: Ht 157.5 cm; Wt 52.2 kg
[2019-02-02] MEDS ORDERED: IPRATROPIUM BROMIDE 0.02% 2.5 ML NEB NEB STA (18:13)
[2019-02-02] MEDS ORDERED: ALBUTEROL SULF 0.083% NEB SOLN 3 ML NEB NEB STA (18:13)
[2019-02-02] MEDS ORDERED: METHYLPREDNISOLONE SOD SUCC 125 MG/2ML VIAL IV STA (18:13)
--- NOTE | 2019-02-02 18:25 | NUR ---
R.T. CALLED FOR BREATHING TX
--- NOTE | 2019-02-02 18:54 | Diagnostic Imaging Report ---
EXAMINATION: CHEST SINGLE (PORTABLE) COMPARISON: Chest x-rays 12/07/2018, 04/12/2018 INDICATION: Cough ^ERMD ORDER ^[id number] ^1835 ^Y DISCUSSION: Frontal view of the chest obtained at 1838 hours. HEART AND MEDIASTINUM: The cardiomediastinal silhouette is unremarkable. LINES: None. LUNGS: Diffuse hyperinflation consistent with COPD. Mild peribronchial thickening is stable. No pneumonia or pulmonary edema. PLEURA: No pleural effusion or pneumothorax. BONES AND SOFT TISSUES: No focal osseous lesion. The soft tissues are normal. IMPRESSION: Stable hyperinflation and diffuse bronchial thickening suggestive of chronic bronchitis. No infiltrates. Signed by: Dr. Hamilton Franklin MD on 02/02/2019 6:50 PM
[2019-02-02] MEDS ORDERED: METOPROLOL TART50 MG PO (18:59)
[2019-02-02] MEDS ORDERED: QUESTRAN PACKET4 GM PO (18:59)
[2019-02-02 19:00] LABS: BASOPHILS % 0.4 % (0.0-1.0); EOSINOPHILS # (AUTO) 0.2 (0.0-0.4); EOSINOPHILS % 2.1 % (0.0-6.0); HEMATOCRIT 34.9 % (34.2-44.1); HEMOGLOBIN 11.5 g/dL (12.0-16.0); LYMPHOCYTES # (AUTO) 1.1 (1.0-3.2); MEAN CORPUSCULAR HEMOGLOBIN 31.3 pg (28-32); MEAN CORPUSCULAR VOLUME 94.8 fL (81-99); MONOCYTES # (AUTO) 1.1 (0.2-0.8); MONOCYTES % 10.3 % (4.4-11.3); NEUTROPHILS # (AUTO) 8.5 (2.1-6.9); NEUTROPHILS % 76.8 % (38.7-80.0); PLATELET COUNT 412 x10e3/uL (140-360); RED BLOOD COUNT 3.68 x10e6/uL (3.6-5.1); RED CELL DISTRIBUTION WIDTH 15.2 % (11.7-14.4)
[2019-02-02] MEDS ORDERED: HYDRALAZINE HCL10 MG PO (19:03)
[2019-02-02] MEDS ORDERED: IPRATROPIUM/ALB NEB (19:03)
[2019-02-02 19:12] LABS: INR 1.13; PROTHROMBIN TIME 15.1 seconds (11.9-14.5)
[2019-02-02 19:13] LABS: PARTIAL THROMBOPLASTIN TIME 31.6 seconds (23.8-35.5)
[2019-02-02 19:19] LABS: ALBUMIN 3.9 g/dL (3.5-5.0); ALBUMIN/GLOBULIN RATIO 1.2 (0.8-2.0); ANION GAP 16.6 mmol/L (8-16); CALCIUM 9.8 mg/dL (8.4-10.2); CREATININE, SERUM 1.49 mg/dL (0.57-1.11); POTASSIUM 3.6 mmol/L (3.5-5.1)
[2019-02-02 19:26] LABS: CREATINE KINASE MB 0.9 ng/mL (0-5.0)
[2019-02-02 20:37] VITALS: BP 133/63
== END 2019-02-02 20:45 | disposition home or self-care (01) ==
LOC: ER 18:11
DX: R06.00 Dyspnea, unspecified (principal); R05 Cough; J20.9 Acute bronchitis, unspecified
CPT/HCPCS: 36415; 71045; 80053; 82550; 82553; 83880; 84484; 85025; 85610; 85730; 93005; 94640; 99284; J2930

== ENCOUNTER 2019-02-05 09:27 | Inpatient (IN) | payer MEDICARE ==
[~2019-02-05] VITALS: Ht 157.5 cm; Wt 53.5 kg
[~2019-02-05 09:27] MED LIST changes: +HYDRALAZINE HCL10 MG PO; +IPRATROPIUM/ALB NEB; +METOPROLOL TART50 MG PO; +QUESTRAN PACKET4 GM PO
[2019-02-05] MEDS ORDERED: ALBUTEROL SULF 0.083% NEB SOLN 3 ML NEB NEB STA (09:51)
[2019-02-05] MEDS ORDERED: METHYLPREDNISOLONE SOD SUCC 125 MG/2ML VIAL IV STA (09:51)
[2019-02-05] MEDS ORDERED: IPRATROPIUM BROMIDE 0.02% 2.5 ML NEB NEB ONE (10:00)
[2019-02-05 10:55] LABS: BASOPHILS % 0.1 % (0.0-1.0); HEMATOCRIT 38.9 % (34.2-44.1); HEMOGLOBIN 12.9 g/dL (12.0-16.0); LYMPHOCYTES # (AUTO) 0.6 (1.0-3.2); LYMPHOCYTES % 4.6 % (18.0-39.1); MEAN CORPUSCULAR HEMOGLOBIN 31.5 pg (28-32); MEAN CORPUSCULAR HGB CONC 33.2 g/dL (31-35); MEAN CORPUSCULAR VOLUME 95.1 fL (81-99); MONOCYTES # (AUTO) 0.8 (0.2-0.8); MONOCYTES % 5.8 % (4.4-11.3); NEUTROPHILS # (AUTO) 12.1 (2.1-6.9); NEUTROPHILS % 88.8 % (38.7-80.0); PLATELET COUNT 489 x10e3/uL (140-360); RED BLOOD COUNT 4.09 x10e6/uL (3.6-5.1); RED CELL DISTRIBUTION WIDTH 15.1 % (11.7-14.4)
--- NOTE | 2019-02-05 11:00 | Diagnostic Imaging Report ---
EXAM: CHEST 2 VIEWS DATE: 02/05/2019 9:51 AM INDICATION: Shortness of breath, cough COMPARISON: 02/02/2019 FINDINGS: The trachea is midline. The lungs are hyperinflated which can be seen in the setting of COPD/emphysema, unchanged from the prior examination. There is grossly stable appearing mild peribronchial thickening. There is no evidence for new large focal consolidation, pneumothorax, or significant pleural effusion. The cardiomediastinal silhouette is stable in appearance. No acute osseous abnormality is identified. IMPRESSION: No significant interval change from 02/02/2019. Signed by: Dr. Devin Yang MD on 02/05/2019 10:56 AM
[2019-02-05 11:05] LABS: CLARITY,URINE CLEAR (CLEAR); COLOR,URINE COLORLESS (YELLOW)
[2019-02-05 11:07] LABS: INR 1.66; LEUKOCYTE ESTERASE ,URINE NEGATIVE (NEGATIVE); NITRITE,URINE NEGATIVE (NEGATIVE); PROTHROMBIN TIME 20.2 seconds (11.9-14.5)
[2019-02-05 11:08] LABS: PARTIAL THROMBOPLASTIN TIME 33.6 seconds (23.8-35.5); PROTEIN,URINE DIPSTICK TRACE (NEGATIVE)
[2019-02-05 11:09] LABS: BILIRUBIN,URINE NEGATIVE (NEGATIVE); KETONES,URINE TRACE (NEGATIVE); URINE UROBILINOGEN 1 mg/dL (0.2 - 1)
[2019-02-05 11:10] LABS: BACTERIA,URINE RARE /HPF; EPITHELIAL CELLS,URINE FEW /LPF; RBC,URINE 0-5 /HPF (0-5); WBC,URINE (MAN) 0-5 /HPF (0-5)
[2019-02-05 11:16] LABS: ALBUMIN 4.2 g/dL (3.5-5.0); ALBUMIN/GLOBULIN RATIO 1.1 (0.8-2.0); CALCIUM 10.5 mg/dL (8.4-10.2); CREATININE, SERUM 1.87 mg/dL (0.57-1.11); MAGNESIUM 2.5 MG/DL (1.3-2.1)
[2019-02-05 11:25] LABS: CREATINE KINASE MB 4.1 ng/mL (0-5.0)
[2019-02-05] MEDS ORDERED: LEVOFLOXACIN 500MG/D5W 100ML 100 ML IV ONE (11:30)
[2019-02-05] MEDS ORDERED: ONDANSETRON HCL INJ 2MG/ML 2ML 2 MG/ML VIAL IV PRN (11:45)
[2019-02-05] MEDS: FAMOTIDINE 20 MG/2 ML VIAL IV SCH ×2 (12:11→21:26)
--- NOTE | 2019-02-05 12:11 | NUR ---
dr saavedra in room with pt
[2019-02-05] MEDS ORDERED: ALB NEB PRN (12:30)
[2019-02-05] MEDS ORDERED: HYDRALAZINE HCL 10 MG TAB PO PRN (12:30)
[2019-02-05] MEDS ORDERED: IPRATROPIUM NEB PRN (12:30)
[2019-02-05 13:15] LABS: CREATINE KINASE MB 4.6 ng/mL (0-5.0)
[2019-02-05] MEDS: FLECAINIDE ACETATE 100 MG TAB PO SCH ×2 (14:03→21:26)
[2019-02-05] MEDS: IPRATROPIUM BROMIDE 0.02% 2.5 ML NEB NEB SCH ×3 (14:28→23:45)
[2019-02-05] MEDS: ALBUTEROL SULF 0.083% NEB SOLN 3 ML NEB NEB SCH ×3 (14:28→23:45)
[2019-02-05] MEDS: BUSPIRONE HCL 5 MG TAB PO SCH ×2 (14:55→21:26)
--- NOTE | 2019-02-05 16:15 | NUR ---
dr oquendo at pt bedside
[2019-02-05] MEDS ORDERED: NON-FORMULARY MEDICATION (Flecainide Acetate 100 MG) PO SCH (17:00)
[2019-02-05] MEDS: FUROSEMIDE 40 MG TAB PO SCH (17:08)
[2019-02-05] MEDS: METOPROLOL TARTRATE 50 MG TAB PO SCH (17:08)
[2019-02-05] MEDS ORDERED: METHYLPREDNISOLONE SOD SUCC 125 MG/2ML VIAL IV SCH (18:00)
--- NOTE | 2019-02-05 19:05 | NUR ---
Patient visited in room during nursing rounds. Patient alert and oriented x3. Pt on 3L NC and gets up to use bedside commode prn. Daughter at bedside. Wheezing noted on both lung garcia per auscultation. Pt on breathing treatments as scheduled. Call deal within reach.
[2019-02-05 19:59] VITALS: BP 174/76
[2019-02-05] MEDS ORDERED: RIVAROXABAN 20 MG TABLET PO SCH (21:00)
--- NOTE | 2019-02-05 21:20 | NUR ---
Dr. Clay came and talked to patient and daughter in room. MD aware of pt condition and explained plan of care.
[2019-02-05] MEDS: RIVAROXABAN 15 MG TABLET PO SCH (21:26)
[2019-02-05] MEDS: PRAVASTATIN 20 MG TAB PO SCH (21:26)
[2019-02-05] MEDS: METHYLPREDNISOLONE SOD SUCC 40 MG/ML VIAL 1ML IV SCH (21:26)
[2019-02-05 21:40] VITALS: BP 174/76
[2019-02-05 21:57] LABS: CREATINE KINASE MB 5.3 ng/mL (0-5.0)
--- NOTE | 2019-02-05 23:54 | Consultation ---
DATE OF CONSULTATION: Renal Consult HISTORY OF PRESENT ILLNESS: This is a 78-year-old female, who was admitted with cough and shortness of breath. The patient has been having this for the last 6 months. She also have a history of COPD. On Monday, she had same issues, she has received steroids and antibiotics, but she did not improve, so came in to the emergency room. ALLERGIES: PENICILLIN, AMOXICILLIN, CEFUROXIME AND LEVOFLOXACIN. PAST MEDICAL HISTORY: Includes: 1. Fatigue. 2. Pneumonia. 3. COPD. 4. Chronic kidney disease, the patient did not go and want to see Dr. Martin. 5. Atrial fibrillation. 6. Hypertension. 7. Hyperlipidemia. 8. Nicotine use. PAST SURGICAL HISTORY: Negative. FAMILY HISTORY: Noncontributory. REVIEW OF SYSTEMS: Positive for shortness of breath. No chest pain. No blood in the stool. No blood in the urine. Positive PND. Positive WEST. No edema. No change in vision. No changes in hearing. No enlarged lymph nodes. No chest pain. No sore throat. No diarrhea. No dysuria. No hematuria. Basically, all review of system was negative, pertinent is as above. PHYSICAL EXAMINATION: GENERAL: Alert, following commands. VITAL SIGNS: Blood pressure 108/42. HEENT: Pupils are equal and reactive to light and accommodation. NECK: No JVD. No bruit. LUNGS: Rhonchi and decreased air entry. HEART: Regular rate and rhythm. No S3. No S4. ABDOMEN: Tender, nondistended. No hepatomegaly or splenomegaly. EXTREMITIES: No clubbing, no cyanosis, no edema. LABORATORY DATA: White count 13, hemoglobin 10.9, hematocrit 38 and platelets 489. Sodium 137, potassium 4, chloride 97, creatinine 1.8, BUN 57. Previous creatinine was 1.49. Chest x-ray, no significant interval changes. Cardiomediastinal silhouette, stable. ASSESSMENT AND PLAN: 1. Acute on chronic kidney disease. The patient might have an acute component, but her creatinine is up to 1.8 from 1.54 and that can be secondary to current infection and chronic obstructive pulmonary disease exacerbation, but this also can be secondary to chronic deterioration of renal function. It is most likely secondary to hypertension. 2. Hypertension, currently improved. The patient most likely has hypertensive nephropathy. 3. Chronic obstructive pulmonary disease exacerbation, currently on treatment. 4. We will continue current medication, BuSpar, Atrovent, albuterol, flecainide, Pepcid, fish oil, Xarelto, Protonix, metoprolol, and hydralazine. 5. We will monitor the patient's renal function and her urine output. Terrance Alexander MD MA/AVIS /[id number]
[2019-02-06] VITALS (9 sets, daily range): BP systolic 164–188; BP diastolic 74–85
--- NOTE | 2019-02-06 02:55 | Consultation ---
DATE OF CONSULTATION: 02/05/2019 Pulmonary Medicine Consult HISTORY OF PRESENT ILLNESS: Ms. Arzola is a pleasant 78-year-old female with shortness of breath. The patient is well known to me from multiple past encounters including in the hospital for COPD/pneumonia exacerbations. The patient was last hospitalized for COPD and pneumonia in March of 2017. The patient was critically ill at that point, but she managed to improve. She was able to improve to start ambulating again. She was not using assistive devices. She started to drive again. She gets out almost daily. Her exercise tolerance allows her to go around a department store if she hangs onto a basket. She uses home oxygen 2 L/minute at home. She uses nebulized albuterol for rescue. At this time, she had up to a week of symptoms. She had chest congestion with secretions. She had increasing shortness of breath. As she was not able to get better on her own, she came to the emergency room. She is noted to be in respiratory difficulty. Therefore, she was admitted. She received aggressive treatment in the emergency room. PAST MEDICAL HISTORY: Atrial fibrillation, hypertension, hyperlipidemia, COPD, chronic hypoxemic respiratory failure. MEDICATIONS: Medication list reviewed per the chart record. ALLERGIES: RISEDRONATE, LEVOFLOXACIN ON PREVIOUS REPORT WAS CITED, BUT SEEMS LIKE SHE IS NOT ALLERGIC TO IT, AMOXICILLIN, CEFUROXIME, CLAVULANIC ACID. SOCIAL HISTORY: No alcohol. No drugs. The patient lives 7 minutes from her daughter. She was smoking from age 16 to this year, 1/2 pack per day, but possibly may be quitting. FAMILY HISTORY: Noncontributory. REVIEW OF SYSTEMS: GENERAL: No weight change. OPHTHALMOLOGIC: No double vision. ENT: No mouth ulcers. ENDOCRINE: No thyroid hyperactivity recently. PULMONARY: No hemoptysis. CARDIOVASCULAR: No [place] recent. GI: No constipation. : No blood in urine. DERMATOLOGIC: No rash. NEUROLOGIC: No seizures. PSYCHIATRIC: No depression. OBJECTIVE: VITAL SIGNS: Afebrile, vital signs noted and reviewed per the chart record. GENERAL: In no acute distress, already feeling better, less short of breath now. HEENT: Normocephalic, atraumatic. NECK: Supple. Throat midline. LUNGS: Bilateral air entry is moderate, mild wheezes throughout, few crackles. CARDIOVASCULAR: S1 and S2. No murmurs, rubs, or gallops. ABDOMEN: Soft and nontender. EXTREMITIES: No clubbing, no cyanosis, there is no edema. INTEGUMENT: No rash. No purpura. LABORATORY DATA: Labs reviewed per the chart record. Chest x-ray, hyperinflated lungs, but mostly clear lung garcia. IMPRESSION AND PLAN: 1. Chronic obstructive pulmonary disease with exacerbation. 2. Acute bronchitis, possibly infectious recently. 3. Debility/weakness. 4. History of atrial fibrillation. 5. Hypertension. 6. Hyperlipidemia. 7. Chronic long-term smoker. 8. Chronic hypoxemic respiratory failure. Antibiotics. Bronchodilators. Light steroids. PT evaluation and mobilize her. Keep her slightly dry with diuretics and avoid excess alkalosis. We will follow along closely. Thank you very much, Dr. Haywood and Dr. Hauser for allowing me to participate in the care of Mrs. Arzola. Please call us for questions. MD KENA Pascal/AVIS /[id number]
[2019-02-06] MEDS: IPRATROPIUM BROMIDE 0.02% 2.5 ML NEB NEB SCH ×6 (03:15→23:35)
[2019-02-06] MEDS: ALBUTEROL SULF 0.083% NEB SOLN 3 ML NEB NEB SCH ×6 (03:15→23:35)
[2019-02-06 05:22] LABS: BASOPHILS % 0.2 % (0.0-1.0); HEMATOCRIT 39.4 % (34.2-44.1); HEMOGLOBIN 12.9 g/dL (12.0-16.0); LYMPHOCYTES # (AUTO) 0.7 (1.0-3.2); LYMPHOCYTES % 6.1 % (18.0-39.1); MEAN CORPUSCULAR HGB CONC 32.7 g/dL (31-35); MEAN CORPUSCULAR VOLUME 94.7 fL (81-99); MONOCYTES # (AUTO) 0.9 (0.2-0.8); MONOCYTES % 8.2 % (4.4-11.3); NEUTROPHILS # (AUTO) 9.3 (2.1-6.9); NEUTROPHILS % 84.9 % (38.7-80.0); PLATELET COUNT 464 x10e3/uL (140-360); RED BLOOD COUNT 4.16 x10e6/uL (3.6-5.1); RED CELL DISTRIBUTION WIDTH 14.9 % (11.7-14.4)
[2019-02-06 05:45] LABS: ALBUMIN 4.1 g/dL (3.5-5.0); ALBUMIN/GLOBULIN RATIO 1.1 (0.8-2.0); ANION GAP 17.7 mmol/L (8-16); CALCIUM 10.6 mg/dL (8.4-10.2); CHOL/HDL RATIO 3.2 (3.0-3.6); CREATININE, SERUM 1.93 mg/dL (0.57-1.11); POTASSIUM 3.7 mmol/L (3.5-5.1)
[2019-02-06 06:09] LABS: CREATINE KINASE MB 5.9 ng/mL (0-5.0)
[2019-02-06] MEDS: PANTOPRAZOLE SOD 40 MG TABEC PO SCH (06:36)
[2019-02-06] MEDS: OMEGA 3 POLYUNSAT FATTY ACIDS 1000 MG SOFTGEL PO SCH (08:32)
[2019-02-06] MEDS: BUSPIRONE HCL 5 MG TAB PO SCH ×3 (08:32→20:42)
[2019-02-06] MEDS: FAMOTIDINE 20 MG/2 ML VIAL IV SCH ×2 (08:32→20:42)
[2019-02-06] MEDS: METOPROLOL TARTRATE 50 MG TAB PO SCH ×2 (08:32→16:23)
[2019-02-06] MEDS: FUROSEMIDE 40 MG TAB PO SCH (08:32)
[2019-02-06] MEDS: METHYLPREDNISOLONE SOD SUCC 40 MG/ML VIAL 1ML IV SCH ×2 (08:32→20:42)
[2019-02-06] MEDS: (Cinnamon Bark (Cinnamon) 1,000 MG) PO SCH (08:32)
[2019-02-06] MEDS: CRANBERRY EXTRACT PO SCH (08:32)
[2019-02-06] MEDS: FLECAINIDE ACETATE 100 MG TAB PO SCH ×2 (08:32→20:43)
[2019-02-06] MEDS ORDERED: OMEGA PO SCH (09:00)
[2019-02-06] MEDS ORDERED: FATTY ACIDS PO SCH (09:00)
[2019-02-06] MEDS: AZITHROMYCIN 500MG/NS 250 ML 250 ML IV SCH (11:25)
[2019-02-06] MEDS: CHOLESTYRAMINE 4 GM PACKET PO SCH (11:25)
[2019-02-06] MEDS ORDERED: FUROSEMIDE INJ 10 MG/ML 4 ML VIAL IV ONE (11:30)
[2019-02-06] MEDS ORDERED: ONDANSETRON HCL 4 MG ORAL DISINTEGRATING TAB PO PRN (17:15)
[2019-02-06 17:36] LABS: BASOPHILS % 0.2 % (0.0-1.0); HEMATOCRIT 41.5 % (34.2-44.1); HEMOGLOBIN 13.4 g/dL (12.0-16.0); LYMPHOCYTES % 8.1 % (18.0-39.1); MEAN CORPUSCULAR HEMOGLOBIN 30.8 pg (28-32); MEAN CORPUSCULAR HGB CONC 32.3 g/dL (31-35); MEAN CORPUSCULAR VOLUME 95.4 fL (81-99); MONOCYTES # (AUTO) 1.2 (0.2-0.8); MONOCYTES % 9.9 % (4.4-11.3); NEUTROPHILS # (AUTO) 9.5 (2.1-6.9); NEUTROPHILS % 81.1 % (38.7-80.0); PLATELET COUNT 460 x10e3/uL (140-360); RED BLOOD COUNT 4.35 x10e6/uL (3.6-5.1)
[2019-02-06 17:55] LABS: ANION GAP 23.2 mmol/L (8-16); CALCIUM 10.1 mg/dL (8.4-10.2); CREATININE, SERUM 1.91 mg/dL (0.57-1.11); POTASSIUM 4.2 mmol/L (3.5-5.1)
[2019-02-06] MEDS: ACETYLCYSTEINE 200 MG/ML 4ML VIAL INH SCH (19:26)
[2019-02-06] MEDS: PRAVASTATIN 20 MG TAB PO SCH (20:42)
[2019-02-06] MEDS: RIVAROXABAN 15 MG TABLET PO SCH (20:43)
[2019-02-06 21:10] LABS: BILIRUBIN,URINE NEGATIVE (NEGATIVE); CLARITY,URINE SL CLOUDY (CLEAR); COLOR,URINE YELLOW (YELLOW); KETONES,URINE NEGATIVE (NEGATIVE); LEUKOCYTE ESTERASE ,URINE TRACE (NEGATIVE); NITRITE,URINE NEGATIVE (NEGATIVE); PROTEIN,URINE DIPSTICK NEGATIVE (NEGATIVE); URINE UROBILINOGEN 0.2 mg/dL (0.2 - 1)
--- NOTE | 2019-02-06 21:11 | Consultation ---
DATE OF CONSULTATION: Cardiology Consultation REASON FOR CONSULTATION: Shortness of breath. HISTORY OF PRESENT ILLNESS: This is a 78-year-old woman with a history of diastolic heart failure, chronic obstructive pulmonary disease, atrial fibrillation, hypertension, hyperlipidemia, and chronic respiratory failure with hypoxia, who presented to the emergency department with progressively worsening shortness of breath. Her symptoms started approximately a few days prior to admission and developed a cough with increased congestion and sputum production. She has been compliant with her cardiac medications. She has been on 1-2 L nasal cannula at home. REVIEW OF SYSTEMS: A 12-point review of system was conducted, is negative except as stated above in the HPI. PAST MEDICAL HISTORY: As stated above. PAST SURGICAL HISTORY: None recent. PAST FAMILY HISTORY: Noncontributory. ALLERGIES: MULTIPLE. SEE CHART. SOCIAL HISTORY: No illicit drug, alcohol, or tobacco use. MEDICATIONS: See medications reconciliation form. PHYSICAL EXAMINATION: VITAL SIGNS: Temperature is 96.8, heart rate is 84, respirations are 17, blood pressure is 168/70, oxygen saturation is 98% on 4 L nasal cannula. GENERAL: Well appearing, no apparent distress. Alert and oriented x3. HEENT: Head is normocephalic and atraumatic. Eyes, extraocular muscles are intact. Conjunctivae clear. NECK: No JVD. No bruits. CARDIOVASCULAR: Regular rate and rhythm. LUNGS: Scattered wheezes. ABDOMEN: Soft, nontender, nondistended. EXTREMITIES: No clubbing, cyanosis, edema. NEUROLOGIC: No focal deficits noted. LABORATORY DATA: Reviewed. White blood cell count 11.7. Creatinine is 0.9. Troponin negative x2. IMPRESSION: 1. Ihsbe-lr-zjlkmtr diastolic heart failure. 2. Chronic obstructive pulmonary disease with exacerbation. 3. Hypertension. 4. Hyperlipidemia. 5. Drpmq-wr-stntxjt hypoxemic respiratory failure. RECOMMENDATIONS: Continue bronchodilators and steroids per Pulmonology. We will continue low-dose diuresis for her diastolic heart failure. An echocardiogram has been ordered and we will review this once this has been uploaded into the system. Otherwise, continue all current cardiovascular medications. Cesar Haywood DO BM/MODL /[id number]
[2019-02-06 21:23] LABS: BACTERIA,URINE FEW /HPF; EPITHELIAL CELLS,URINE MODERATE /LPF; HYALINE CASTS 0-1 (0-1); RBC,URINE 0-5 /HPF (0-5); WBC,URINE (MAN) 0-5 /HPF (0-5)
[2019-02-06 21:39] LABS: SODIUM,URINE 27 mmol/L; TOTAL PROTEIN, URINE 8.8 mg/dL (1-14)
--- NOTE | 2019-02-06 22:40 | NUR ---
Pulmonary Medicine DATE 02/06/2019 SUBJECTIVE retained secretions still lots of wheezing on oxygen by NC eats some, not a lot REVIEW OF SYSTEMS: no bleeding, no rash OBJECTIVE: VITAL SIGNS: vital signs noted and reviewed per the chart record. GENERAL: no acute distress, mild secondary accessory respiratory muscle recruitment HEENT: Normocephalic, atraumatic. NECK: Supple. Throat midline. LUNGS: Bilateral air entry moderate, mild wheezes throughout CARDIOVASCULAR: S1 and S2. No murmurs, rubs, or gallops. ABDOMEN: Soft and nontender. EXTREMITIES: No clubbing, no cyanosis, no edema. INTEGUMENT: No rash. No purpura. LABORATORY DATA: 3.7 k, 1.93 cr. 11 wbc, 39 hct, plt 464 IMPRESSION AND PLAN: 1. Chronic obstructive pulmonary disease with exacerbation. 2. Acute bronchitis, possibly infectious 3. Debility/weakness. 4. History of atrial fibrillation. 5. Hypertension. 6. Hyperlipidemia. 7. Chronic long-term smoker. 8. Chronic hypoxemic respiratory failure. Antibiotics. Bronchodilators. Add mucomyst Cough medicine with codeine Light steroids. PT evaluation and mobilize her. Thank you very much, Dr. Haywood and Dr. Hauser for allowing me to participate in the care of Mrs. Arzola. Please call us for questions.
[2019-02-07] VITALS (8 sets, daily range): BP systolic 138–185; BP diastolic 62–78
[2019-02-07] MEDS: IPRATROPIUM BROMIDE 0.02% 2.5 ML NEB NEB SCH ×6 (03:00→23:10)
[2019-02-07] MEDS: ALBUTEROL SULF 0.083% NEB SOLN 3 ML NEB NEB SCH ×6 (03:00→23:10)
[2019-02-07 05:32] LABS: BASOPHILS % 0.1 % (0.0-1.0); HEMATOCRIT 37.4 % (34.2-44.1); HEMOGLOBIN 12.4 g/dL (12.0-16.0); LYMPHOCYTES # (AUTO) 1.1 (1.0-3.2); LYMPHOCYTES % 10.9 % (18.0-39.1); MEAN CORPUSCULAR HEMOGLOBIN 31.2 pg (28-32); MEAN CORPUSCULAR HGB CONC 33.2 g/dL (31-35); MONOCYTES # (AUTO) 1.1 (0.2-0.8); MONOCYTES % 10.8 % (4.4-11.3); NEUTROPHILS % 77.1 % (38.7-80.0); PLATELET COUNT 437 x10e3/uL (140-360); RED BLOOD COUNT 3.98 x10e6/uL (3.6-5.1); RED CELL DISTRIBUTION WIDTH 14.8 % (11.7-14.4)
[2019-02-07 06:03] LABS: ALBUMIN 3.9 g/dL (3.5-5.0); ALBUMIN/GLOBULIN RATIO 1.3 (0.8-2.0); ANION GAP 17.9 mmol/L (8-16); CREATININE, SERUM 1.93 mg/dL (0.57-1.11); POTASSIUM 3.9 mmol/L (3.5-5.1)
--- NOTE | 2019-02-07 07:12 | NUR ---
pt alert resp even and unlabored at this time no distress noted, no c/o pain when asked, pt able to make needs known, call light in reach , pt family member at bedside.
[2019-02-07] MEDS: ALBUTEROL/IPRATROPIUM 3 ML NEB INH PRN ×4 (07:28→23:10)
[2019-02-07] MEDS: ACETYLCYSTEINE 200 MG/ML 4ML VIAL INH SCH ×2 (07:28→19:43)
--- NOTE | 2019-02-07 08:21 | Diagnostic Imaging Report ---
Chest, portable AP view History: COPD Comparison: 02/05/2019, 02/02/2019 IMPRESSION: The heart is within normal limits of size. The lungs are hyperinflated. There is no new consolidation. There is no sizable pleural effusion. There is no pneumothorax. There is been no significant interval change Signed by: Joshua Corral MD on 02/07/2019 8:18 AM
[2019-02-07] MEDS: METOPROLOL TARTRATE 50 MG TAB PO SCH ×2 (09:00→17:00)
[2019-02-07] MEDS: FLECAINIDE ACETATE 100 MG TAB PO SCH ×2 (09:00→20:59)
[2019-02-07] MEDS: OMEGA 3 POLYUNSAT FATTY ACIDS 1000 MG SOFTGEL PO SCH (09:44)
[2019-02-07] MEDS: BUSPIRONE HCL 5 MG TAB PO SCH ×3 (09:44→20:59)
[2019-02-07] MEDS: PANTOPRAZOLE SOD 40 MG TABEC PO SCH (09:45)
[2019-02-07] MEDS: METHYLPREDNISOLONE SOD SUCC 40 MG/ML VIAL 1ML IV SCH (09:45)
[2019-02-07] MEDS: FAMOTIDINE 20 MG/2 ML VIAL IV SCH ×2 (09:45→20:59)
[2019-02-07] MEDS: (Cinnamon Bark (Cinnamon) 1,000 MG) PO SCH (10:28)
[2019-02-07] MEDS: CHOLESTYRAMINE 4 GM PACKET PO SCH (10:28)
[2019-02-07] MEDS: CRANBERRY EXTRACT PO SCH (10:28)
[2019-02-07] MEDS: GUAIFENESIN/CODEINE 10 ML CUP PO PRN (10:32)
[2019-02-07] MEDS: AZITHROMYCIN 500MG/NS 250 ML 250 ML IV SCH (10:33)
--- NOTE | 2019-02-07 12:19 | NUR ---
Pulmonary Medicine DATE 02/07/2019 SUBJECTIVE 2 L/min oxygen by nasal cannula eating 1/2 of meals walked to restroom, poor endurance coughing intermittently overall weak REVIEW OF SYSTEMS: no bleeding, no rash OBJECTIVE: VITAL SIGNS: vital signs noted and reviewed per the chart record. GENERAL: no acute distress, mild secondary accessory respiratory muscle recruitment HEENT: Normocephalic, atraumatic. NECK: Supple. Throat midline. LUNGS: Bilateral air entry moderate, mild wheezes throughout CARDIOVASCULAR: S1 and S2. No murmurs, rubs, or gallops. ABDOMEN: Soft and nontender. EXTREMITIES: No clubbing, no cyanosis, no edema. INTEGUMENT: No rash. No purpura. LABORATORY DATA: 3.9 k , cr 1.93, hco3 26 wbc 10, hct 37, plt 437 IMPRESSION AND PLAN: 1. Chronic obstructive pulmonary disease with exacerbation. 2. Acute bronchitis, possibly infectious 3. Debility/weakness. 4. History of atrial fibrillation. 5. Hypertension. 6. Hyperlipidemia. 7. Chronic long-term smoker. 8. Chronic hypoxemic respiratory failure. Antibiotics. Bronchodilators. continue mucomyst Cough medicine with codeine Light steroids. Wean PT evaluation and mobilize her. Thank you very much, Dr. Haywood and Dr. Hauser for allowing me to participate in the care of Mrs. Arzola. Please call us for questions.
--- NOTE | 2019-02-07 19:04 | NUR ---
Report given to oncoming nurse pt stable at this time.
[2019-02-07] MEDS: PRAVASTATIN 20 MG TAB PO SCH (20:59)
[2019-02-07] MEDS: RIVAROXABAN 15 MG TABLET PO SCH (20:59)
[2019-02-08] VITALS (8 sets, daily range): BP systolic 127–179; BP diastolic 58–77
[2019-02-08] MEDS: ALBUTEROL SULF 0.083% NEB SOLN 3 ML NEB NEB SCH ×6 (03:05→23:50)
[2019-02-08] MEDS: IPRATROPIUM BROMIDE 0.02% 2.5 ML NEB NEB SCH ×6 (03:05→23:50)
[2019-02-08 05:46] LABS: BASOPHILS % 0.2 % (0.0-1.0); EOSINOPHILS # (AUTO) 0.1 (0.0-0.4); EOSINOPHILS % 0.7 % (0.0-6.0); HEMATOCRIT 37.8 % (34.2-44.1); HEMOGLOBIN 12.7 g/dL (12.0-16.0); LYMPHOCYTES # (AUTO) 2.7 (1.0-3.2); LYMPHOCYTES % 29.9 % (18.0-39.1); MEAN CORPUSCULAR HEMOGLOBIN 31.4 pg (28-32); MEAN CORPUSCULAR HGB CONC 33.6 g/dL (31-35); MEAN CORPUSCULAR VOLUME 93.6 fL (81-99); MONOCYTES # (AUTO) 1.4 (0.2-0.8); MONOCYTES % 15.2 % (4.4-11.3); NEUTROPHILS # (AUTO) 4.8 (2.1-6.9); NEUTROPHILS % 53.1 % (38.7-80.0); PLATELET COUNT 386 x10e3/uL (140-360); RED BLOOD COUNT 4.04 x10e6/uL (3.6-5.1); RED CELL DISTRIBUTION WIDTH 14.8 % (11.7-14.4)
[2019-02-08 06:04] LABS: ALBUMIN 3.4 g/dL (3.5-5.0); ALBUMIN/GLOBULIN RATIO 1.3 (0.8-2.0); ANION GAP 13.6 mmol/L (8-16); CREATININE, SERUM 1.57 mg/dL (0.57-1.11); POTASSIUM 3.6 mmol/L (3.5-5.1)
[2019-02-08] MEDS: ACETYLCYSTEINE 200 MG/ML 4ML VIAL INH SCH ×2 (07:22→19:44)
--- NOTE | 2019-02-08 08:00 | NUR ---
The pt. is awake and alert. Dr. Esquivel rounded ans new orders noted.
[2019-02-08] MEDS ORDERED: METHYLPREDNISOLONE SOD SUCC 40 MG/ML VIAL 1ML IV SCH (09:00)
[2019-02-08] MEDS: BUSPIRONE HCL 5 MG TAB PO SCH ×3 (09:11→20:38)
[2019-02-08] MEDS: FAMOTIDINE 20 MG/2 ML VIAL IV SCH ×2 (09:11→20:37)
[2019-02-08] MEDS: PANTOPRAZOLE SOD 40 MG TABEC PO SCH (09:11)
[2019-02-08] MEDS: CRANBERRY EXTRACT PO SCH (09:12)
[2019-02-08] MEDS: (Cinnamon Bark (Cinnamon) 1,000 MG) PO SCH (09:12)
[2019-02-08] MEDS: OMEGA 3 POLYUNSAT FATTY ACIDS 1000 MG SOFTGEL PO SCH (09:13)
[2019-02-08] MEDS: METOPROLOL TARTRATE 50 MG TAB PO SCH ×2 (09:13→17:00)
[2019-02-08] MEDS: PREDNISONE 20 MG TAB PO SCH (09:13)
[2019-02-08] MEDS: FLECAINIDE ACETATE 100 MG TAB PO SCH ×2 (09:13→20:39)
[2019-02-08] MEDS: AZITHROMYCIN 500MG/NS 250 ML 250 ML IV SCH (09:21)
[2019-02-08] MEDS: CHOLESTYRAMINE 4 GM PACKET PO SCH (09:21)
[2019-02-08] MEDS: GUAIFENESIN/CODEINE 10 ML CUP PO PRN ×2 (09:27→18:19)
[2019-02-08] MEDS: ALBUTEROL/IPRATROPIUM 3 ML NEB INH PRN ×4 (11:34→23:50)
--- NOTE | 2019-02-08 11:34 | NUR ---
The pharmacy called to request be called to verify the pt. can receive cipro as she is allergic to levoflox and Dr. Alvin pichardoed continuance of the med.
[2019-02-08] MEDS: CIPROFLOXACIN 400 MG/D5W 200ML 200 ML IV SCH ×2 (13:00→20:37)
--- NOTE | 2019-02-08 14:04 | NUR ---
EDUCATED ABOUT IMM, SIGNED, FILED IN CHART, WITH COPY LEFT WITH FAMILY AT BEDSIDE.
[2019-02-08] MEDS: FUROSEMIDE 20 MG TAB PO SCH (17:15)
--- NOTE | 2019-02-08 20:09 | Progress Note ---
DATE: Cardiology Progress Note SUBJECTIVE: The patient feels better. Denies any chest pain. Reports improvement in her respiratory status. OBJECTIVE: VITAL SIGNS: Temperature is 96.4, heart rate 74, respirations are 16, blood pressure is 147/67, and oxygen saturation is 100% on 4 L nasal cannula. GENERAL: Well-appearing, no apparent distress. CARDIOVASCULAR: Regular rate and rhythm. LUNGS: Diminished air excursion on expiration. Decreased breath sounds at bases. ABDOMEN: Soft, nontender, and nondistended. EXTREMITIES: No edema. CARDIOVASCULAR MEDICATIONS: Reviewed. LABORATORY DATA: Reviewed. Creatinine is 1.57. White blood cell count is 8. IMPRESSION: 1. Acizi-wq-jgftgxr diastolic heart failure. 2. Chronic obstructive pulmonary disease with exacerbation. 3. Hypertension. 4. Hyperlipidemia. 5. Vcetk-yi-ttszyig hypoxemic respiratory failure. RECOMMENDATIONS: Continue bronchodilators and steroids per Pulmonology. She is started on antibiotics for urinary tract infection and bronchitis. We will restart low-dose diuresis for her diastolic heart failure. Continue to monitor closely. DO JORGE Maldonado/MODL /[id number]
[2019-02-08] MEDS: PRAVASTATIN 20 MG TAB PO SCH (20:38)
[2019-02-08] MEDS: RIVAROXABAN 15 MG TABLET PO SCH (20:38)
[2019-02-08] MEDS ORDERED: SODIUM CHLORIDE 0.9% 250ML 250 ML ONE (21:05)
[2019-02-09 00:04] VITALS: BP 117/57
[2019-02-09] MEDS: IPRATROPIUM BROMIDE 0.02% 2.5 ML NEB NEB SCH ×3 (03:30→10:20)
[2019-02-09] MEDS: ALBUTEROL SULF 0.083% NEB SOLN 3 ML NEB NEB SCH ×3 (03:30→10:20)
[2019-02-09] MEDS: GUAIFENESIN/CODEINE 10 ML CUP PO PRN (03:59)
[2019-02-09 04:00] VITALS: BP 143/67
--- NOTE | 2019-02-09 04:57 | NUR ---
Pulmonary Medicine DATE 02/08/2019 SUBJECTIVE 2 L/min oxygen by nasal cannula still coughing a lot, bothersome to her BM eating fair amounts she sat in chair, not really walking REVIEW OF SYSTEMS: no bleeding, no rash OBJECTIVE: VITAL SIGNS: vital signs noted and reviewed per the chart record. GENERAL: no acute distress, in bed HEENT: Normocephalic, atraumatic. NECK: Supple. Throat midline. LUNGS: Bilateral air entry moderate, mild wheezes throughout CARDIOVASCULAR: S1 and S2. No murmurs, rubs, or gallops. ABDOMEN: Soft and nontender. EXTREMITIES: No clubbing, no cyanosis, no edema. INTEGUMENT: No rash. No purpura. LABORATORY DATA: k 3.6, cr 1.57 IMPRESSION AND PLAN: 1. Chronic obstructive pulmonary disease with exacerbation. 2. Acute bronchitis, possibly infectious 3. Debility/weakness. 4. History of atrial fibrillation. 5. Hypertension. 6. Hyperlipidemia. 7. Chronic long-term smoker. 8. Chronic hypoxemic respiratory failure. Antibiotics. Bronchodilators. continue mucomyst trial Cough medicine with codeine Light steroids. Wean PT / mobilization Thank you very much, Dr. Haywood and Dr. Hauser for allowing me to participate in the care of Mrs. Arzola. Please call us for questions.
[2019-02-09 05:41] LABS: BASOPHILS % 0.2 % (0.0-1.0); EOSINOPHILS # (AUTO) 0.1 (0.0-0.4); EOSINOPHILS % 0.8 % (0.0-6.0); HEMATOCRIT 33.4 % (34.2-44.1); HEMOGLOBIN 11.2 g/dL (12.0-16.0); LYMPHOCYTES # (AUTO) 2.7 (1.0-3.2); LYMPHOCYTES % 24.3 % (18.0-39.1); MEAN CORPUSCULAR HEMOGLOBIN 31.4 pg (28-32); MEAN CORPUSCULAR HGB CONC 33.5 g/dL (31-35); MEAN CORPUSCULAR VOLUME 93.6 fL (81-99); MONOCYTES # (AUTO) 1.2 (0.2-0.8); MONOCYTES % 11.1 % (4.4-11.3); NEUTROPHILS % 62.4 % (38.7-80.0); PLATELET COUNT 399 x10e3/uL (140-360); RED BLOOD COUNT 3.57 x10e6/uL (3.6-5.1); RED CELL DISTRIBUTION WIDTH 14.8 % (11.7-14.4)
[2019-02-09 06:04] LABS: ALBUMIN 3.2 g/dL (3.5-5.0); ALBUMIN/GLOBULIN RATIO 1.3 (0.8-2.0); ANION GAP 14.6 mmol/L (8-16); CALCIUM 9.4 mg/dL (8.4-10.2); CREATININE, SERUM 1.41 mg/dL (0.57-1.11); POTASSIUM 3.6 mmol/L (3.5-5.1)
[2019-02-09] MEDS: ACETYLCYSTEINE 200 MG/ML 4ML VIAL INH SCH (07:12)
[2019-02-09 08:00] VITALS: BP 149/66
[2019-02-09] MEDS: PANTOPRAZOLE SOD 40 MG TABEC PO SCH (08:39)
[2019-02-09] MEDS: (Cinnamon Bark (Cinnamon) 1,000 MG) PO SCH (08:40)
[2019-02-09] MEDS: CIPROFLOXACIN 400 MG/D5W 200ML 200 ML IV SCH (08:40)
[2019-02-09] MEDS: FAMOTIDINE 20 MG/2 ML VIAL IV SCH (08:40)
[2019-02-09] MEDS: BUSPIRONE HCL 5 MG TAB PO SCH (08:40)
[2019-02-09] MEDS: FUROSEMIDE 20 MG TAB PO SCH (08:40)
[2019-02-09] MEDS: METOPROLOL TARTRATE 50 MG TAB PO SCH (08:40)
[2019-02-09] MEDS: CRANBERRY EXTRACT PO SCH (08:40)
[2019-02-09] MEDS: PREDNISONE 20 MG TAB PO SCH (08:41)
[2019-02-09] MEDS: OMEGA 3 POLYUNSAT FATTY ACIDS 1000 MG SOFTGEL PO SCH (08:41)
[2019-02-09] MEDS: FLECAINIDE ACETATE 100 MG TAB PO SCH (08:42)
[2019-02-09] MEDS ORDERED: ALBUTEROL2.5 MG/3 M NEB (10:28)
[2019-02-09] MEDS ORDERED: BROVANA15 MCG/2 M INH (10:28)
[2019-02-09] MEDS ORDERED: Acetylcysteine INH (10:28)
[2019-02-09] MEDS ORDERED: IPRATROPIU0.2 MG/1 M NEB (10:28)
[2019-02-09] MEDS ORDERED: BEVESPI AEROS10.7 GM PO (10:28)
[2019-02-09] MEDS ORDERED: PREDNISONE10 MG PO (10:28)
[2019-02-09] MEDS ORDERED: PROAIR HFA INH8.5 GM PO (10:28)
--- NOTE | 2019-02-09 11:22 | NUR ---
Pulmonary Medicine DATE 02/09/2019 SUBJECTIVE 2 L/min oxygen by nasal cannula she is walking independently, but slow ate ok REVIEW OF SYSTEMS: no bleeding, no rash OBJECTIVE: VITAL SIGNS: vital signs noted and reviewed per the chart record. GENERAL: no acute distress, in bed HEENT: Normocephalic, atraumatic. NECK: Supple. Throat midline. LUNGS: Bilateral air entry moderate, mild wheezes throughout CARDIOVASCULAR: S1 and S2. No murmurs, rubs, or gallops. ABDOMEN: Soft and nontender. EXTREMITIES: No clubbing, no cyanosis, no edema. INTEGUMENT: No rash. No purpura. LABORATORY DATA: k 3.6, cr 1.41. wbc 11 IMPRESSION AND PLAN: 1. Chronic obstructive pulmonary disease with exacerbation. 2. Acute bronchitis, possibly infectious 3. Debility/weakness. 4. History of atrial fibrillation. 5. Hypertension. 6. Hyperlipidemia. 7. Chronic long-term smoker. 8. Chronic hypoxemic respiratory failure. Antibiotics finish Bronchodilators. continue mucomyst trial Cough medicine with codeine Light steroids. Wean PT / mobilization if patient is discharged, i left multiple prescriptions in the chart Thank you very much, Dr. Haywood and Dr. Hauser for allowing me to participate in the care of Mrs. Arzola. Please call us for questions.
[2019-02-09 11:47] VITALS: BP 115/67
[2019-02-09] MEDS: AZITHROMYCIN 500MG/NS 250 ML 250 ML IV SCH (11:52)
[2019-02-09] MEDS: CHOLESTYRAMINE 4 GM PACKET PO SCH (11:52)
[2019-02-09 12:45] VITALS: BP 115/67
--- NOTE | 2019-02-09 13:00 | NUR ---
IV REMOVED WITHOUT COMPLICATION.
--- NOTE | 2019-02-09 13:49 | NUR ---
received order for nebulizer for administration of home breathing treatments. Discussed with patient, she states she has a small nebulizer but she says they want her to have a "stronger one". Sent info to [facility] [phone], fax [phone], construction representative states they will not bring equipment until she says it is ok, d/t patient being concerned with cuellar. left card with cm's number. copies of prescriptions sent to [facility] as well.
--- NOTE | 2019-02-09 14:17 | NUR ---
PATIENT AND PATIENT DAUGHTER EDUCATED ON DISCHARGE INSTRUCTIONS AND FOLLOW UP APPOINTMENTS, PRESCRIPTIONS GIVEN TO PATIENT. COPIES MADE OF PRESCRIPTIONS AND PLACED IN CHART. PATIENT AND DAUGHTER DENIES QUESTIONS.
--- NOTE | 2019-02-09 16:52 | Discharge Summary ---
ADMIT DIAGNOSES: 1. Chronic obstructive pulmonary disease exacerbation. 2. Yyrgp-zc-tfqamnq renal failure. 3. Acute bronchitis. 4. Paroxysmal atrial fibrillation. 5. Supplemental oxygen dependent. DISCHARGE DIAGNOSES: 1. Escherichia coli urinary tract infection, resolving. 2. Acute bronchitis, resolving. 3. Chronic obstructive pulmonary disease exacerbation, resolved. 4. Chronic supplemental oxygen dependence. 5. Hypertensive heart disease. 6. Zbxyg-dl-hksbqsb renal failure, resolved. 7. Stage 3 chronic kidney disease. 8. Paroxysmal atrial fibrillation. 9. Mhbpq-nv-kmritxt diastolic heart failure, resolving. HOSPITAL COURSE: This is a 78-year-old white woman, who is initially admitted to [facility] with diagnosis of COPD exacerbation secondary to acute bronchitis. The patient was also found to have ridbu-no-rktoiif renal failure on admission. On admission, the patient's BUN and creatinine were 57 and 1.87 respectively. On day of discharge, BUN and creatinine were 41 and 1.41 respectively. The patient was also found to have dgvsu-jg-qqcdspv diastolic heart failure during this hospitalization. She was also diagnosed with E coli urinary tract infection during this hospital stay. The patient was seen by her cardiology clinical consultant, namely Dr. Clay during this hospitalization as well as her chronic manager, namely Dr. Cesar Haywood. Her hospitalization was unremarkable. Urine culture did reveal the presence of E coli bacterial species that was found to be pansensitive. CONDITION ON DISCHARGE: Stable. DISCHARGE MEDICATIONS: 1. Azithromycin 250 mg daily for 3 days. 2. Ciprofloxacin 250 mg twice a day for 7 days. 3. Supplemental oxygen at 3 L a minute. 4. Brovana nebulized treatments twice a day. 5. Ipratropium nebulized treatments 3 times a day. 6. Albuterol nebulized treatments every 4 hours as needed pressure for short shortness of breath or wheezing. 7. ProAir inhaler 2 puffs 4 times a day as needed for shortness of breath or wheezing. 8. Bevespi 2 puffs twice a day. 9. Acetylcysteine 400 mg strength inhaler 1 puff twice a day as needed for shortness of breath or wheezing. 10. Prednisone 20 mg for 3 days and then 10 mg for 3 more days. 11. Flecainide 100 mg b.i.d. 12. [place]-3 fish oil 1000 mg daily. 13. Furosemide 20 mg daily. 14. Metoprolol tartrate 50 mg b.i.d. 15. BuSpar 15 mg t.i.d. 16. Pantoprazole 40 mg daily. 17. Guaifenesin with codeine 10 mL every 6 hours p.r.n. cough or congestion. 18. Xarelto 15 mg daily. FOLLOWUP INSTRUCTIONS: The patient instructed to follow up with Dr. Clay, her cardiology clinical consultant in 1 week and with her primary care doctor, Dr. Avery Haywood in 2 weeks. MD SANAM Herbert/AVIS /[id number] cc: DO Benito Gregorio MD
[2019-02-10] MEDS ORDERED: PREDNISONE 10 MG TAB PO SCH (09:00)
== END 2019-02-09 14:21 | disposition home or self-care (01) | DRG 190 ==
LOC: ER 09:27 → ERHOLD 11:32 → MED/SURG2 17:49
DX: J44.0 Chronic obstructive pulmonary disease with (acute) lower respiratory infection (principal); J96.21 Acute and chronic respiratory failure with hypoxia; I13.0 Hypertensive heart and chronic kidney disease with heart failure and stage 1 through stage 4 chronic kidney disease, or unspecified chronic kidney disease; N17.9 Acute kidney failure, unspecified; N39.0 Urinary tract infection, site not specified; J44.1 Chronic obstructive pulmonary disease with (acute) exacerbation; J20.9 Acute bronchitis, unspecified; I12.9 Hypertensive chronic kidney disease with stage 1 through stage 4 chronic kidney disease, or unspecified chronic kidney disease; N18.3 Chronic kidney disease, stage 3 (moderate); I48.0 Paroxysmal atrial fibrillation; Z79.01 Long term (current) use of anticoagulants; Z99.81 Dependence on supplemental oxygen; E78.5 Hyperlipidemia, unspecified; F17.200 Nicotine dependence, unspecified, uncomplicated; B96.20 Unspecified Escherichia coli [E. coli] as the cause of diseases classified elsewhere
CPT/HCPCS: 36415; 71045; 71046; 80048; 80053; 80061; 81001; 82550; 82553; 82570; 83735; 83880; 84156; 84300; 84484; 85025; 85610; 85730; 87040; 87086; 87186; 87400; 93005; 93306; 94640; 99284; J0456; J1940; J1956; J2920; J2930; J7050; J7512

== ENCOUNTER → 2019-04-09 | Outpatient (CLI) | payer MEDICARE ==
[~2019-04-09] MED LIST changes: +ALBUTEROL2.5 MG/3 M NEB; +Acetylcysteine INH; +BEVESPI AEROS10.7 GM PO; +BROVANA15 MCG/2 M INH; +IPRATROPIU0.2 MG/1 M NEB; +PREDNISONE10 MG PO; +PROAIR HFA INH8.5 GM PO
--- NOTE | 2019-04-09 15:47 | Diagnostic Imaging Report ---
EXAM: CT Chest WITHOUT intravenous contrast 04/09/2019 1:42 PM INDICATION: COPD COMPARISON: Chest radiograph of 02/05/2019 TECHNIQUE: Chest was scanned utilizing a multidetector helical scanner from the lung apex through the level of the adrenal glands without administration of IV contrast. Coronal and sagittal reformations were obtained. Routine protocol was performed. IV CONTRAST: None RADIATION DOSE: Total DLP: 278.8 mGy*cm. Dose modulation, iterative reconstruction, and/or weight based adjustment of the mA/kV was utilized to reduce the radiation dose to as low as reasonably achievable. COMPLICATIONS: None FINDINGS: LINES/ TUBES: None. LUNGS AND AIRWAYS: The central airways are patent. Severe bilateral upper lobe predominant centrilobular and paraseptal emphysema. Increased AP diameter of the chest. Right greater than left apical pleural parenchymal thickening/scarring. A more focal partially nodular component measures 1.6 cm (series 2 image 16). PLEURA: The pleural spaces are clear. HEART AND MEDIASTINUM: The thyroid gland is normal. No supraclavicular, mediastinal, or hilar lymphadenopathy. No axillary, subpectoral, or internal mammary lymphadenopathy. The heart is not enlarged. No pericardial effusion. Atherosclerotic calcifications involve the aorta, coronary arteries, and proximal great vessels. The main pulmonary artery is not enlarged. UPPER ABDOMEN: No acute findings. BONES: No acute osseous injury. No suspicious lytic or blastic lesions. SOFT TISSUES: Unremarkable. IMPRESSION: No focal pneumonia or pulmonary edema. Right apical pleural parenchymal thickening/scarring with a more focal partially nodular component measuring 1.6 cm. Recommend short interval follow-up in 6 months to assess for stability. Atherosclerotic arterial calcifications including of the coronary arteries. Signed by: Ifeanyi Jain MD on 04/09/2019 3:44 PM
== END ==
LOC: RESP 13:28
PROVIDERS: ATTEND Internal Medicine Critical Care Medicine
DX: R09.02 Hypoxemia (principal); J90 Pleural effusion, not elsewhere classified; J18.9 Pneumonia, unspecified organism; J44.9 Chronic obstructive pulmonary disease, unspecified; Z72.0 Tobacco use
CPT/HCPCS: 71250; 94060; 94640; 94727; 94729

== ENCOUNTER 2020-07-30 21:11 | Emergency (ER) | payer MEDICARE ==
[~2020-07-30] VITALS: Ht 157.5 cm; Wt 53.5 kg
[2020-07-30] MEDS ORDERED: METHYLPREDNISOLONE SOD SUCC 125 MG/2ML VIAL IV ONE (22:15)
[2020-07-30] MEDS ORDERED: ASPIRIN 81 MG CHEW TAB PO ONE (22:15)
[2020-07-30] MEDS ORDERED: ALBUTEROL/IPRATROPIUM 3 ML NEB NEB ONE (22:15)
[2020-07-30 22:27] LABS: BASOPHILS # (AUTO) 0.1 (0.0-0.1); BASOPHILS % 0.4 % (0.0-1.0); EOSINOPHILS # (AUTO) 0.2 (0.0-0.4); EOSINOPHILS % 1.8 % (0.0-6.0); HEMATOCRIT 35.8 % (34.2-44.1); HEMOGLOBIN 11.7 g/dL (12.0-16.0); LYMPHOCYTES # (AUTO) 3.2 (1.0-3.2); LYMPHOCYTES % 28.2 % (18.0-39.1); MEAN CORPUSCULAR HEMOGLOBIN 30.5 pg (28-32); MEAN CORPUSCULAR HGB CONC 32.7 g/dL (31-35); MEAN CORPUSCULAR VOLUME 93.5 fL (81-99); NEUTROPHILS # (AUTO) 6.9 (2.1-6.9); NEUTROPHILS % 60.3 % (38.7-80.0); PLATELET COUNT 392 x10e3/uL (140-360); RED BLOOD COUNT 3.83 x10e6/uL (3.6-5.1)
[2020-07-30 22:47] LABS: ALBUMIN 4.2 g/dL (3.5-5.0); ALBUMIN/GLOBULIN RATIO 1.4 (0.8-2.0); ANION GAP 19.4 mmol/L (8-16); CALCIUM 9.5 mg/dL (8.4-10.2); CREATININE, SERUM 1.76 mg/dL (0.57-1.11); POTASSIUM 4.4 mmol/L (3.5-5.1)
[2020-07-30 22:54] LABS: CREATINE KINASE MB 0.7 ng/mL (0-5.0)
[2020-07-31] MEDS ORDERED: PREDNISONE20 MG PO (01:14)
== END 2020-07-31 02:00 | disposition home or self-care (01) ==
LOC: ER 22:26
DX: J44.1 Chronic obstructive pulmonary disease with (acute) exacerbation (principal); R42 Dizziness and giddiness; R06.02 Shortness of breath; I48.91 Unspecified atrial fibrillation; F41.9 Anxiety disorder, unspecified; Z99.81 Dependence on supplemental oxygen; R94.31 Abnormal electrocardiogram [ECG] [EKG]; Z20.822 Contact with and (suspected) exposure to COVID-19
CPT/HCPCS: 36415; 71045; 80053; 82550; 82553; 84484; 85025; 93005; 94640; 99284; J2930; U0002; 96374

== ENCOUNTER 2020-12-18 07:11 | Emergency (ER) | payer MEDICARE ==
[~2020-12-18] VITALS: Ht 157.5 cm; Wt 53.5 kg
[~2020-12-18 07:11] MED LIST changes: +PREDNISONE20 MG PO
[2020-12-18] MEDS ORDERED: AZITHROMYCIN250 MG PO (07:47)
[2020-12-18] MEDS ORDERED: PREDNISONE50 MG PO (07:47)
[2020-12-24] MEDS ORDERED: ALLEGRA-D 24 H1 EACH PO (12:29)
== END 2020-12-18 08:07 | disposition home or self-care (01) ==
LOC: ER 07:21
DX: J44.9 Chronic obstructive pulmonary disease, unspecified (principal); R06.02 Shortness of breath; Z99.81 Dependence on supplemental oxygen; I48.91 Unspecified atrial fibrillation; F41.9 Anxiety disorder, unspecified; F17.210 Nicotine dependence, cigarettes, uncomplicated
CPT/HCPCS: 99282

== ENCOUNTER → 2020-12-24 | Day surgery (SDC) | payer MEDICARE ==
[2020-12-23 14:13] LABS: BASOPHILS % 0.1 % (0.0-1.0); EOSINOPHILS # (AUTO) 0.1 (0.0-0.4); HEMATOCRIT 39.5 % (34.2-44.1); HEMOGLOBIN 12.9 g/dL (12.0-16.0); LYMPHOCYTES # (AUTO) 4.2 (1.0-3.2); MEAN CORPUSCULAR HEMOGLOBIN 30.9 pg (28-32); MEAN CORPUSCULAR HGB CONC 32.7 g/dL (31-35); MEAN CORPUSCULAR VOLUME 94.7 fL (81-99); MONOCYTES # (AUTO) 1.3 (0.2-0.8); MONOCYTES % 9.3 % (4.4-11.3); NEUTROPHILS # (AUTO) 7.8 (2.1-6.9); NEUTROPHILS % 58.2 % (38.7-80.0); PLATELET COUNT 524 x10e3/uL (140-360); RED BLOOD COUNT 4.17 x10e6/uL (3.6-5.1); RED CELL DISTRIBUTION WIDTH 15.9 % (11.7-14.4)
[2020-12-23 14:35] LABS: ALBUMIN 4.5 g/dL (3.5-5.0); ALBUMIN/GLOBULIN RATIO 1.5 (0.8-2.0); CALCIUM 10.1 mg/dL (8.4-10.2); CREATININE, SERUM 2.06 mg/dL (0.57-1.11)
[~2020-12-24] VITALS: Ht 157.5 cm; Wt 54.4 kg
[~2020-12-24] MED LIST changes: +ALLEGRA-D 24 H1 EACH PO; +LIDOCAINE HCL 2% LOCAL INJ 5 ML SDV VIAL INJ ONE; +POVIDONE IODINE 0.05% 0.05 % ML PO ONE; +PREDNISONE50 MG PO; +PROPOFOL IV EMULSION 10 MG/ML 20 ML VIAL ONE
[2020-12-24 11:50] VITALS: BP 130/65
[2020-12-24 13:15] VITALS: BP 95/43
[2020-12-24 13:30] VITALS: BP 107/38
[2020-12-24 13:45] VITALS: BP 115/49
== END | disposition home or self-care (01) ==
LOC: CATH LAB 11:23
PROVIDERS: ATTEND Internal Medicine Interventional Cardiology
DX: I48.0 Paroxysmal atrial fibrillation (principal); I35.8 Other nonrheumatic aortic valve disorders; I34.0 Nonrheumatic mitral (valve) insufficiency; I12.9 Hypertensive chronic kidney disease with stage 1 through stage 4 chronic kidney disease, or unspecified chronic kidney disease; N18.30 Chronic kidney disease, stage 3 unspecified; E78.5 Hyperlipidemia, unspecified; I73.9 Peripheral vascular disease, unspecified; J44.9 Chronic obstructive pulmonary disease, unspecified; K21.9 Gastro-esophageal reflux disease without esophagitis; F41.9 Anxiety disorder, unspecified; F17.210 Nicotine dependence, cigarettes, uncomplicated; Z88.1 Allergy status to other antibiotic agents; Z88.0 Allergy status to penicillin; Z01.812 Encounter for preprocedural laboratory examination; Z20.822 Contact with and (suspected) exposure to COVID-19; Z79.02 Long term (current) use of antithrombotics/antiplatelets; Z82.49 Family history of ischemic heart disease and other diseases of the circulatory system
CPT/HCPCS: 36415; 80053; 85025; 93005; 93312; 93320; 93325; J2001; J2704; U0002; 93307

== ENCOUNTER 2021-01-14 12:12 | Inpatient (IN) | payer MEDICARE ==
[~2021-01-14] VITALS: Ht 157.5 cm; Wt 52.6 kg
[~2021-01-14 12:12] MED LIST changes: -LIDOCAINE HCL 2% LOCAL INJ 5 ML SDV VIAL INJ ONE; -POVIDONE IODINE 0.05% 0.05 % ML PO ONE; -PROPOFOL IV EMULSION 10 MG/ML 20 ML VIAL ONE
[2021-01-14] MEDS ORDERED: ONDANSETRON HCL INJ 2MG/ML 2ML 2 MG/ML VIAL IV STA (12:41)
[2021-01-14] MEDS ORDERED: SODIUM CHLORIDE 0.9% 500ML 500 ML IV ONE (12:45)
[2021-01-14 13:05] LABS: BASOPHILS # (AUTO) 0.1 (0.0-0.1); BASOPHILS % 0.7 % (0.0-1.0); EOSINOPHILS # (AUTO) 0.3 (0.0-0.4); EOSINOPHILS % 3.4 % (0.0-6.0); HEMATOCRIT 35.9 % (34.2-44.1); HEMOGLOBIN 11.2 g/dL (12.0-16.0); LYMPHOCYTES # (AUTO) 1.9 (1.0-3.2); LYMPHOCYTES % 18.9 % (18.0-39.1); MEAN CORPUSCULAR HEMOGLOBIN 30.6 pg (28-32); MEAN CORPUSCULAR HGB CONC 31.2 g/dL (31-35); MEAN CORPUSCULAR VOLUME 98.1 fL (81-99); MONOCYTES # (AUTO) 0.8 (0.2-0.8); NEUTROPHILS # (AUTO) 6.9 (2.1-6.9); NEUTROPHILS % 68.5 % (38.7-80.0); PLATELET COUNT 499 x10e3/uL (140-360); RED BLOOD COUNT 3.66 x10e6/uL (3.6-5.1); RED CELL DISTRIBUTION WIDTH 16.2 % (11.7-14.4)
[2021-01-14 13:23] LABS: MAGNESIUM 2.2 MG/DL (1.3-2.1)
[2021-01-14 13:26] LABS: CLARITY,URINE CLOUDY (CLEAR); COLOR,URINE YELLOW (YELLOW); KETONES,URINE NEGATIVE (NEGATIVE); LEUKOCYTE ESTERASE ,URINE LARGE (NEGATIVE); NITRITE,URINE NEGATIVE (NEGATIVE); PROTEIN,URINE DIPSTICK NEGATIVE (NEGATIVE); URINE UROBILINOGEN 0.2 mg/dL (0.2 - 1)
[2021-01-14 13:26] LABS: ALBUMIN 3.6 g/dL (3.5-5.0); ANION GAP 18.8 mmol/L (8-16); CALCIUM 9.4 mg/dL (8.4-10.2); CREATININE, SERUM 2.43 mg/dL (0.57-1.11); POTASSIUM 4.8 mmol/L (3.5-5.1)
[2021-01-14 13:32] LABS: DIGOXIN 2.67 ng/mL (0.8-2.0)
[2021-01-14 13:32] LABS: BACTERIA,URINE MODERATE /HPF; EPITHELIAL CELLS,URINE MODERATE /LPF; RBC,URINE 0-5 /HPF (0-5); WBC,URINE (MAN) >50 /HPF (0-5)
[2021-01-14 13:51] LABS: CREATINE KINASE MB 1.7 ng/mL (0-5.0)
[2021-01-14] MEDS ORDERED: SODIUM CHLORIDE 0.9% 1000ML 1,000 ML IV SCH (14:15)
[2021-01-14] MEDS: FAMOTIDINE 20 MG/2 ML VIAL IV SCH ×2 (14:45→22:40)
[2021-01-14] MEDS ORDERED: DIGOXIN125 MCG PO (14:48)
[2021-01-14] MEDS ORDERED: VERAPAMIL ER120 MG PO (14:48)
[2021-01-14] MEDS ORDERED: AMIODARONE HCL200 MG PO (14:48)
[2021-01-14 16:00] VITALS: BP 116/80
[2021-01-14 17:15] VITALS: BP 116/80
[2021-01-14 18:12] VITALS: BP 116/80
[2021-01-14] MEDS ORDERED: PNEUMOCOCCAL VACCINE POLYVALENT 23 MCG/0.5 ML VIAL IM SCH (18:33)
[2021-01-14] MEDS ORDERED: INFLUENZA VIRUS VAC SPLIT INJ 0.5 ML SYR IM SCH (18:33)
[2021-01-14] MEDS: MEROPENEM 500 MG in SODIUM CHLORIDE 0.9% 50ML 50 ML IV SCH (18:35)
[2021-01-14] MEDS: ONDANSETRON HCL INJ 2MG/ML 2ML 2 MG/ML VIAL IV PRN ×2 (18:45→19:01)
[2021-01-14 19:48] LABS: CREATINE KINASE MB 1.8 ng/mL (0-5.0)
[2021-01-14 20:17] VITALS: BP 125/47
[2021-01-14 20:30] VITALS: BP 125/47
[2021-01-14] MEDS ORDERED: VERAPAMIL HCL 180 MG TBER PO SCH (21:00)
[2021-01-14] MEDS: AMIODARONE HCL 200 MG TAB PO SCH (21:00)
[2021-01-14] MEDS: METOPROLOL TARTRATE 50 MG TAB PO SCH (21:00)
[2021-01-14] MEDS ORDERED: bevespi INH (21:08)
[2021-01-14] MEDS: PRAVASTATIN 20 MG TAB PO SCH (22:41)
[2021-01-14] MEDS: BEVESPI AEROSPHERE INH SCH (22:41)
[2021-01-14] MEDS: BUSPIRONE HCL 5 MG TAB PO SCH (22:41)
[2021-01-15] VITALS (7 sets, daily range): BP systolic 116–146; BP diastolic 41–57
[2021-01-15 02:30] LABS: CREATINE KINASE MB 1.3 ng/mL (0-5.0)
[2021-01-15] MEDS: MEROPENEM 500 MG in SODIUM CHLORIDE 0.9% 50ML 50 ML IV SCH ×2 (05:29→17:30)
[2021-01-15 05:58] LABS: BASOPHILS # (AUTO) 0.1 (0.0-0.1); BASOPHILS % 0.7 % (0.0-1.0); EOSINOPHILS # (AUTO) 0.5 (0.0-0.4); EOSINOPHILS % 4.9 % (0.0-6.0); HEMATOCRIT 32.3 % (34.2-44.1); HEMOGLOBIN 10.1 g/dL (12.0-16.0); LYMPHOCYTES # (AUTO) 1.6 (1.0-3.2); LYMPHOCYTES % 16.6 % (18.0-39.1); MEAN CORPUSCULAR HEMOGLOBIN 30.7 pg (28-32); MEAN CORPUSCULAR HGB CONC 31.3 g/dL (31-35); MEAN CORPUSCULAR VOLUME 98.2 fL (81-99); MONOCYTES # (AUTO) 1.1 (0.2-0.8); MONOCYTES % 11.6 % (4.4-11.3); NEUTROPHILS # (AUTO) 6.4 (2.1-6.9); NEUTROPHILS % 65.9 % (38.7-80.0); PLATELET COUNT 440 x10e3/uL (140-360); RED BLOOD COUNT 3.29 x10e6/uL (3.6-5.1); RED CELL DISTRIBUTION WIDTH 16.1 % (11.7-14.4)
[2021-01-15 06:27] LABS: ALBUMIN/GLOBULIN RATIO 1.1 (0.8-2.0); ANION GAP 16.9 mmol/L (8-16); CALCIUM 8.4 mg/dL (8.4-10.2); CREATININE, SERUM 2.12 mg/dL (0.57-1.11); POTASSIUM 3.9 mmol/L (3.5-5.1)
[2021-01-15] MEDS: ALBUTEROL SULF 0.083% NEB SOLN 3 ML NEB NEB PRN ×2 (07:30→19:00)
[2021-01-15] MEDS ORDERED: VERAPAMIL HCL 240 MG TABSR PO SCH (09:00)
[2021-01-15 10:13] LABS: CREATINE KINASE MB 1.8 ng/mL (0-5.0)
[2021-01-15] MEDS: FAMOTIDINE 20 MG/2 ML VIAL IV SCH ×2 (13:16→21:13)
[2021-01-15] MEDS: BEVESPI AEROSPHERE INH SCH ×2 (13:16→16:56)
[2021-01-15] MEDS: BUSPIRONE HCL 5 MG TAB PO SCH ×3 (13:16→21:00)
[2021-01-15] MEDS: AMIODARONE HCL 200 MG TAB PO SCH ×2 (13:17→17:00)
[2021-01-15] MEDS: FUROSEMIDE 40 MG TAB PO SCH ×2 (13:17→17:31)
[2021-01-15] MEDS: METOPROLOL TARTRATE 50 MG TAB PO SCH ×2 (13:18→17:00)
[2021-01-15] MEDS: ONDANSETRON HCL INJ 2MG/ML 2ML 2 MG/ML VIAL IV PRN (15:08)
[2021-01-15] MEDS: PRAVASTATIN 20 MG TAB PO SCH (21:14)
[2021-01-15] MEDS: RIVAROXABAN 15 MG TABLET PO SCH (21:14)
[2021-01-16] VITALS (7 sets, daily range): BP systolic 106–134; BP diastolic 41–94
[2021-01-16] MEDS: MEROPENEM 500 MG in SODIUM CHLORIDE 0.9% 50ML 50 ML IV SCH ×2 (06:17→21:35)
[2021-01-16 06:33] LABS: BASOPHILS # (AUTO) 0.1 (0.0-0.1); BASOPHILS % 0.4 % (0.0-1.0); EOSINOPHILS % 7.7 % (0.0-6.0); HEMATOCRIT 32.9 % (34.2-44.1); HEMOGLOBIN 10.5 g/dL (12.0-16.0); LYMPHOCYTES # (AUTO) 0.6 (1.0-3.2); LYMPHOCYTES % 4.4 % (18.0-39.1); MEAN CORPUSCULAR HEMOGLOBIN 30.7 pg (28-32); MEAN CORPUSCULAR HGB CONC 31.9 g/dL (31-35); MEAN CORPUSCULAR VOLUME 96.2 fL (81-99); MONOCYTES # (AUTO) 1.2 (0.2-0.8); MONOCYTES % 8.9 % (4.4-11.3); NEUTROPHILS # (AUTO) 10.5 (2.1-6.9); NEUTROPHILS % 78.2 % (38.7-80.0); PLATELET COUNT 414 x10e3/uL (140-360); RED BLOOD COUNT 3.42 x10e6/uL (3.6-5.1); RED CELL DISTRIBUTION WIDTH 16.1 % (11.7-14.4)
[2021-01-16] MEDS: ALBUTEROL SULF 0.083% NEB SOLN 3 ML NEB NEB PRN ×3 (07:04→18:06)
[2021-01-16 07:14] LABS: ANION GAP 17.2 mmol/L (8-16); CALCIUM 8.7 mg/dL (8.4-10.2); CREATININE, SERUM 2.63 mg/dL (0.57-1.11); POTASSIUM 4.2 mmol/L (3.5-5.1)
[2021-01-16] MEDS: FAMOTIDINE 20 MG/2 ML VIAL IV SCH ×2 (09:00→21:33)
[2021-01-16] MEDS: BEVESPI AEROSPHERE INH SCH ×2 (09:00→17:00)
[2021-01-16] MEDS: BUSPIRONE HCL 5 MG TAB PO SCH ×3 (09:41→21:00)
[2021-01-16] MEDS: FUROSEMIDE 40 MG TAB PO SCH ×2 (09:41→17:52)
[2021-01-16] MEDS: AMIODARONE HCL 200 MG TAB PO SCH ×2 (09:42→17:52)
[2021-01-16] MEDS: METOPROLOL TARTRATE 50 MG TAB PO SCH ×2 (09:43→17:52)
[2021-01-16] MEDS: PRAVASTATIN 20 MG TAB PO SCH (21:34)
[2021-01-16] MEDS: RIVAROXABAN 15 MG TABLET PO SCH (21:34)
[2021-01-17] VITALS (8 sets, daily range): BP systolic 113–132; BP diastolic 42–63
[2021-01-17] MEDS: ALBUTEROL SULF 0.083% NEB SOLN 3 ML NEB NEB PRN ×2 (06:55→18:10)
[2021-01-17] MEDS: BEVESPI AEROSPHERE INH SCH ×2 (09:00→16:31)
[2021-01-17] MEDS: MEROPENEM 500 MG in SODIUM CHLORIDE 0.9% 50ML 50 ML IV SCH ×2 (11:22→21:45)
[2021-01-17] MEDS: FAMOTIDINE 20 MG/2 ML VIAL IV SCH ×2 (11:23→21:45)
[2021-01-17] MEDS: GUAIFENESIN/DEXTROMETHORPHAN LIQD 5 ML UDC NG PRN ×2 (11:25→17:00)
[2021-01-17] MEDS: FUROSEMIDE 40 MG TAB PO SCH ×2 (11:25→16:47)
[2021-01-17] MEDS: AMIODARONE HCL 200 MG TAB PO SCH ×2 (11:25→16:47)
[2021-01-17] MEDS: BUSPIRONE HCL 5 MG TAB PO SCH ×3 (11:25→21:45)
[2021-01-17] MEDS: METOPROLOL TARTRATE 50 MG TAB PO SCH ×2 (11:26→16:48)
[2021-01-17] MEDS: RIVAROXABAN 15 MG TABLET PO SCH (21:45)
[2021-01-17] MEDS: PRAVASTATIN 20 MG TAB PO SCH (21:45)
[2021-01-18] VITALS: BP 108/55
[2021-01-18] MEDS: ONDANSETRON HCL INJ 2MG/ML 2ML 2 MG/ML VIAL IV PRN (01:41)
[2021-01-18 04:00] VITALS: BP 118/48
[2021-01-18 06:04] LABS: BASOPHILS # (AUTO) 0.1 (0.0-0.1); BASOPHILS % 0.5 % (0.0-1.0); EOSINOPHILS # (AUTO) 1.6 (0.0-0.4); EOSINOPHILS % 12.2 % (0.0-6.0); HEMATOCRIT 32.5 % (34.2-44.1); HEMOGLOBIN 10.4 g/dL (12.0-16.0); LYMPHOCYTES # (AUTO) 0.6 (1.0-3.2); LYMPHOCYTES % 4.6 % (18.0-39.1); MEAN CORPUSCULAR HEMOGLOBIN 30.7 pg (28-32); MEAN CORPUSCULAR VOLUME 95.9 fL (81-99); MONOCYTES # (AUTO) 1.3 (0.2-0.8); MONOCYTES % 9.8 % (4.4-11.3); NEUTROPHILS # (AUTO) 9.2 (2.1-6.9); NEUTROPHILS % 72.3 % (38.7-80.0); PLATELET COUNT 356 x10e3/uL (140-360); RED BLOOD COUNT 3.39 x10e6/uL (3.6-5.1); RED CELL DISTRIBUTION WIDTH 15.9 % (11.7-14.4)
[2021-01-18 06:27] LABS: ANION GAP 16.1 mmol/L (8-16); CALCIUM 8.4 mg/dL (8.4-10.2); CREATININE, SERUM 2.76 mg/dL (0.57-1.11); POTASSIUM 4.1 mmol/L (3.5-5.1)
[2021-01-18] MEDS: ALBUTEROL SULF 0.083% NEB SOLN 3 ML NEB NEB PRN ×2 (07:14→11:00)
[2021-01-18 08:00] VITALS: BP 114/84
[2021-01-18] MEDS: MEROPENEM 500 MG in SODIUM CHLORIDE 0.9% 50ML 50 ML IV SCH (08:13)
[2021-01-18] MEDS: FAMOTIDINE 20 MG/2 ML VIAL IV SCH (08:13)
[2021-01-18] MEDS: AMIODARONE HCL 200 MG TAB PO SCH ×2 (08:20→17:00)
[2021-01-18] MEDS: BUSPIRONE HCL 5 MG TAB PO SCH ×2 (08:20→15:00)
[2021-01-18] MEDS: FUROSEMIDE 40 MG TAB PO SCH ×2 (08:20→17:00)
[2021-01-18] MEDS: METOPROLOL TARTRATE 50 MG TAB PO SCH ×2 (08:21→17:00)
[2021-01-18 08:22] VITALS: BP 114/84
[2021-01-18 12:00] VITALS: BP 105/38
[2021-01-18] MEDS ORDERED: ONDANSETRON HCL 4 MG ORAL DISINTEGRATING TAB PO PRN (13:15)
[2021-01-18] MEDS ORDERED: CIPRO250 MG PO (15:02)
[2021-01-18 16:00] VITALS: BP 105/37
[2021-01-18] MEDS ORDERED: FAMOTIDINE 20 MG TAB PO SCH (21:00)
== END 2021-01-18 17:10 | disposition home or self-care (01) | DRG 309 ==
LOC: ER 12:19 → ERHOLD 14:14 → MED/SURG3 17:07
DX: I48.0 Paroxysmal atrial fibrillation (principal); N39.0 Urinary tract infection, site not specified; N17.9 Acute kidney failure, unspecified; I50.32 Chronic diastolic (congestive) heart failure; I13.0 Hypertensive heart and chronic kidney disease with heart failure and stage 1 through stage 4 chronic kidney disease, or unspecified chronic kidney disease; T46.0X5A Adverse effect of cardiac-stimulant glycosides and drugs of similar action, initial encounter; Z79.01 Long term (current) use of anticoagulants; I25.10 Atherosclerotic heart disease of native coronary artery without angina pectoris; J44.9 Chronic obstructive pulmonary disease, unspecified; E78.5 Hyperlipidemia, unspecified; N18.30 Chronic kidney disease, stage 3 unspecified; Z20.822 Contact with and (suspected) exposure to COVID-19
CPT/HCPCS: 36415; 71045; 71046; 80048; 80053; 80162; 81001; 82550; 82553; 83735; 83880; 84484; 85025; 87086; 93005; 94799; 96360; 99284; J2185; J2405; J7030; J7040; U0002

== ENCOUNTER → 2021-06-01 | Outpatient (CLI) | payer MEDICARE ==
[~2021-06-01] MED LIST changes: +AMIODARONE HCL200 MG PO; +CIPRO250 MG PO; +DIGOXIN125 MCG PO; +VERAPAMIL ER120 MG PO; +bevespi INH
== END ==
LOC: RESP 13:25
PROVIDERS: ATTEND Internal Medicine Critical Care Medicine
DX: R09.02 Hypoxemia (principal); J18.9 Pneumonia, unspecified organism; J90 Pleural effusion, not elsewhere classified; J43.9 Emphysema, unspecified; Z72.0 Tobacco use
CPT/HCPCS: 94060; 94640; 94727; 94729; 94799

== ENCOUNTER 2022-01-16 18:34 | Emergency (ER) | payer MEDICARE ==
[~2022-01-16] VITALS: Ht 157.5 cm; Wt 52.6 kg
[2022-01-16 20:09] LABS: BASOPHILS % 0.1 % (0.0-1.0); EOSINOPHILS % 0.1 % (0.0-6.0); HEMOGLOBIN 12.9 g/dL (12.0-16.0); LYMPHOCYTES # (AUTO) 0.9 (1.0-3.2); LYMPHOCYTES % 9.7 % (18.0-39.1); MEAN CORPUSCULAR HEMOGLOBIN 31.2 pg (28-32); MEAN CORPUSCULAR HGB CONC 31.5 g/dL (31-35); MONOCYTES # (AUTO) 0.7 (0.2-0.8); MONOCYTES % 7.6 % (4.4-11.3); NEUTROPHILS # (AUTO) 7.7 (2.1-6.9); NEUTROPHILS % 82.1 % (38.7-80.0); PLATELET COUNT 414 x10e3/uL (140-360); RED BLOOD COUNT 4.14 x10e6/uL (3.6-5.1); RED CELL DISTRIBUTION WIDTH 15.5 % (11.7-14.4)
[2022-01-16 20:32] LABS: ALBUMIN 3.9 g/dL (3.5-5.0); ALBUMIN/GLOBULIN RATIO 1.1 (0.8-2.0); ANION GAP 17.5 mmol/L (8-16); CALCIUM 10.2 mg/dL (8.4-10.2); CREATININE, SERUM 1.74 mg/dL (0.57-1.11); POTASSIUM 4.5 mmol/L (3.5-5.1)
[2022-01-16] MEDS ORDERED: ALBUTEROL/IPRATROPIUM 3 ML NEB NEB ONE (21:45)
[2022-01-16 22:37] VITALS: BP 151/61
[2022-01-16] MEDS ORDERED: PREDNISONE50 MG PO (22:39)
== END 2022-01-16 22:50 | disposition home or self-care (01) ==
LOC: ER 18:57
DX: R06.02 Shortness of breath (principal); J44.1 Chronic obstructive pulmonary disease with (acute) exacerbation; I10 Essential (primary) hypertension; I50.9 Heart failure, unspecified; I48.91 Unspecified atrial fibrillation; F41.9 Anxiety disorder, unspecified; Z99.81 Dependence on supplemental oxygen; Z95.810 Presence of automatic (implantable) cardiac defibrillator; Z20.822 Contact with and (suspected) exposure to COVID-19
CPT/HCPCS: 36415; 71046; 80053; 84484; 85025; 87400; 93005; 94640; 94799; 99284; U0002

== ENCOUNTER → 2022-02-04 | Outpatient (CLI) | payer MEDICARE | LOC: CT 09:59 | PROVIDERS: ATTEND Internal Medicine Critical Care Medicine | DX: R09.02 Hypoxemia (principal); J44.9 Chronic obstructive pulmonary disease, unspecified; J18.9 Pneumonia, unspecified organism; J90 Pleural effusion, not elsewhere classified; R91.1 Solitary pulmonary nodule; Z72.0 Tobacco use | CPT/HCPCS: 71250 ==

== ENCOUNTER 2022-03-22 10:48 | Emergency (ER) | payer MEDICARE ==
[~2022-03-22] VITALS: Ht 157.5 cm; Wt 52.6 kg
[~2022-03-22 10:48] MED LIST changes: +BREZTRI IH; +LEVOFLOXACIN750 MG PO
[2022-03-22 11:45] LABS: BASOPHILS % 0.2 % (0.0-1.0); EOSINOPHILS # (AUTO) 0.3 (0.0-0.4); HEMATOCRIT 35.5 % (34.2-44.1); HEMOGLOBIN 11.4 g/dL (12.0-16.0); LYMPHOCYTES # (AUTO) 1.9 (1.0-3.2); LYMPHOCYTES % 15.2 % (18.0-39.1); MEAN CORPUSCULAR HEMOGLOBIN 31.7 pg (28-32); MEAN CORPUSCULAR HGB CONC 32.1 g/dL (31-35); MEAN CORPUSCULAR VOLUME 98.6 fL (81-99); MONOCYTES # (AUTO) 0.8 (0.2-0.8); MONOCYTES % 6.3 % (4.4-11.3); NEUTROPHILS # (AUTO) 9.4 (2.1-6.9); NEUTROPHILS % 75.3 % (38.7-80.0); PLATELET COUNT 405 x10e3/uL (140-360); RED CELL DISTRIBUTION WIDTH 18.6 % (11.7-14.4)
[2022-03-22 11:46] LABS: CLARITY,URINE CLEAR (CLEAR); COLOR,URINE YELLOW (YELLOW); KETONES,URINE NEGATIVE (NEGATIVE); LEUKOCYTE ESTERASE ,URINE NEGATIVE (NEGATIVE); NITRITE,URINE NEGATIVE (NEGATIVE); PROTEIN,URINE DIPSTICK NEGATIVE (NEGATIVE)
[2022-03-22 11:47] LABS: URINE UROBILINOGEN 0.2 mg/dL (0.2 - 1)
[2022-03-22 11:56] LABS: INR 1.27; PROTHROMBIN TIME 16.1 seconds (11.9-14.5)
[2022-03-22 12:06] LABS: ALBUMIN 3.4 g/dL (3.5-5.0); CALCIUM 9.7 mg/dL (8.4-10.2); CREATININE, SERUM 1.46 mg/dL (0.57-1.11)
[2022-03-22 12:24] LABS: BACTERIA,URINE RARE /HPF; EPITHELIAL CELLS,URINE RARE /LPF; RBC,URINE >50 /HPF (0-5)
[2022-03-22] MEDS ORDERED: MIRALAX17 GM PO (12:52)
[2022-03-22] MEDS ORDERED: CEPHALEXIN500 MG PO (12:52)
== END 2022-03-22 13:21 | disposition home or self-care (01) ==
LOC: ER 11:02
DX: R31.9 Hematuria, unspecified (principal); K59.00 Constipation, unspecified; I10 Essential (primary) hypertension; I50.9 Heart failure, unspecified; I48.91 Unspecified atrial fibrillation; J44.9 Chronic obstructive pulmonary disease, unspecified; F41.9 Anxiety disorder, unspecified; Z95.810 Presence of automatic (implantable) cardiac defibrillator
CPT/HCPCS: 36415; 74018; 80053; 81001; 85025; 85610; 87086; 99284

== ENCOUNTER 2022-03-24 16:38 | Emergency (ER) | payer MEDICARE, OTHER ==
[~2022-03-24] VITALS: Ht 157.5 cm; Wt 52.6 kg
[~2022-03-24 16:38] MED LIST changes: +CEPHALEXIN500 MG PO; +MIRALAX17 GM PO
[2022-03-24] MEDS ORDERED: TETANUS/DIPHTHERIA TOX ADULT 0.5 ML SYR IM ONE (17:30)
[2022-03-24] MEDS ORDERED: CEFTRIAXONE 1 GM VIAL IM ONE (17:45)
[2022-03-24] MEDS ORDERED: ULTRAM 50MG50 MG PO (18:00)
== END 2022-03-24 18:24 | disposition home or self-care (01) ==
LOC: ER 16:52
DX: S81.812A Laceration without foreign body, left lower leg, initial encounter (principal); W22.09XA Striking against other stationary object, initial encounter; Y92.89 Other specified places as the place of occurrence of the external cause; I10 Essential (primary) hypertension; J44.9 Chronic obstructive pulmonary disease, unspecified; I50.9 Heart failure, unspecified; I48.91 Unspecified atrial fibrillation; F41.9 Anxiety disorder, unspecified; Z95.810 Presence of automatic (implantable) cardiac defibrillator
CPT/HCPCS: 12002; 90471; 90714; 99283; J0696

== ENCOUNTER 2022-04-13 05:25 | Inpatient (IN) | payer MEDICARE ==
[~2022-04-13] VITALS: Ht 157.5 cm; Wt 52.6 kg
[~2022-04-13 05:25] MED LIST changes: +ULTRAM 50MG50 MG PO
[2022-04-13] MEDS ORDERED: METHYLPREDNISOLONE SOD SUCC 125 MG/2ML VIAL IV STA (05:28)
[2022-04-13] MEDS ORDERED: ALBUTEROL/IPRATROPIUM 3 ML NEB NEB STA (05:28)
[2022-04-13] MEDS ORDERED: MAGNESIUM SULF 1GRAM/DEXTROSE 100 ML IV ONE (05:30)
[2022-04-13 06:07] LABS: BASOPHILS # (AUTO) 0.1 (0.0-0.1); BASOPHILS % 0.5 % (0.0-1.0); EOSINOPHILS # (AUTO) 0.3 (0.0-0.4); EOSINOPHILS % 1.7 % (0.0-6.0); HEMATOCRIT 35.7 % (34.2-44.1); HEMOGLOBIN 10.5 g/dL (12.0-16.0); LYMPHOCYTES # (AUTO) 4.7 (1.0-3.2); MEAN CORPUSCULAR HEMOGLOBIN 30.9 pg (28-32); MEAN CORPUSCULAR HGB CONC 29.4 g/dL (31-35); MONOCYTES # (AUTO) 0.9 (0.2-0.8); MONOCYTES % 5.7 % (4.4-11.3); NEUTROPHILS # (AUTO) 9.9 (2.1-6.9); PLATELET COUNT 635 x10e3/uL (140-360); RED CELL DISTRIBUTION WIDTH 16.7 % (11.7-14.4)
[2022-04-13 06:39] LABS: ALBUMIN 2.9 g/dL (3.5-5.0); ALBUMIN/GLOBULIN RATIO 0.7 (0.8-2.0); ANION GAP 18.4 mmol/L (8-16); CALCIUM 9.9 mg/dL (8.4-10.2); CREATININE, SERUM 1.41 mg/dL (0.57-1.11); POTASSIUM 4.4 mmol/L (3.5-5.1)
[2022-04-13 07:01] LABS: CREATINE KINASE MB 3.4 ng/mL (0-5.0)
[2022-04-13] MEDS ORDERED: LACTATED RINGER'S 500 ML IV ONE (07:45)
[2022-04-13] MEDS ORDERED: LORAZEPAM INJ 2 MG/ML VIAL IV ONE (11:00)
[2022-04-13] MEDS ORDERED: ONDANSETRON HCL INJ 2MG/ML 2ML 2 MG/ML VIAL IV PRN (16:30)
[2022-04-13 16:44] VITALS: BP 135/51
[2022-04-13] MEDS: TRAMADOL HCL 50 MG TAB PO SCH (17:00)
[2022-04-13 17:28] VITALS: BP 135/51
[2022-04-13] MEDS: METOPROLOL TARTRATE 50 MG TAB PO SCH (17:33)
[2022-04-13] MEDS: METHYLPREDNISOLONE SOD SUCC 40 MG/ML VIAL 1ML IV SCH ×2 (17:33→21:16)
[2022-04-13] MEDS ORDERED: SODIUM CHLORIDE 0.9% 250ML 250 ML ONE (17:42)
[2022-04-13 17:54] VITALS: BP 135/51
[2022-04-13] MEDS: ALBUTEROL/IPRATROPIUM 3 ML NEB NEB SCH ×2 (19:15→23:05)
[2022-04-13 20:00] VITALS: BP 131/72
[2022-04-13 21:00] VITALS: BP 135/51
[2022-04-13] MEDS: BUSPIRONE HCL 5 MG TAB PO SCH (21:00)
[2022-04-13] MEDS: LORAZEPAM 0.5 MG TAB PO PRN (21:16)
[2022-04-13] MEDS: RIVAROXABAN 15 MG TABLET PO SCH (21:16)
[2022-04-13] MEDS: ACETAMINOPHEN 325 MG TAB PO PRN (23:34)
[2022-04-14] VITALS: BP 129/59
[2022-04-14] MEDS ORDERED: FUROSEMIDE INJ 10 MG/ML 4 ML VIAL IV SCH (00:15)
[2022-04-14] MEDS ORDERED: HYDRALAZINE HCL 20 MG/ML VIAL IV PRN (00:15)
[2022-04-14] MEDS ORDERED: MELATONIN 3 MG TAB PO PRN (00:15)
[2022-04-14] MEDS ORDERED: GUAIFENESIN/DEXTROMETHORPHAN LIQD 5 ML UDC PO PRN (00:15)
[2022-04-14] MEDS: ALBUTEROL/IPRATROPIUM 3 ML NEB NEB SCH ×6 (02:45→22:45)
[2022-04-14 04:00] VITALS: BP 144/69
[2022-04-14 06:10] LABS: BASOPHILS # (AUTO) 0.1 (0.0-0.1); BASOPHILS % 0.3 % (0.0-1.0); HEMATOCRIT 32.5 % (34.2-44.1); HEMOGLOBIN 10.1 g/dL (12.0-16.0); LYMPHOCYTES # (AUTO) 1.5 (1.0-3.2); MEAN CORPUSCULAR HEMOGLOBIN 31.3 pg (28-32); MEAN CORPUSCULAR HGB CONC 31.1 g/dL (31-35); MEAN CORPUSCULAR VOLUME 100.6 fL (81-99); MONOCYTES % 4.6 % (4.4-11.3); NEUTROPHILS # (AUTO) 18.4 (2.1-6.9); NEUTROPHILS % 86.7 % (38.7-80.0); PLATELET COUNT 529 x10e3/uL (140-360); RED BLOOD COUNT 3.23 x10e6/uL (3.6-5.1)
[2022-04-14 06:40] LABS: ANION GAP 17.4 mmol/L (8-16); CALCIUM 9.2 mg/dL (8.4-10.2); CREATININE, SERUM 1.52 mg/dL (0.57-1.11); POTASSIUM 4.4 mmol/L (3.5-5.1)
[2022-04-14 07:13] LABS: ANISOCYTOSIS SLIGHT; EOSINOPHILS % (MANUAL) 1 % (0-7); HYPOCHROMASIA MODERATE; LYMPHOCYTES % (MANUAL) 11 % (19-48); MONOCYTES % (MANUAL) 3 % (3.4-9.0); NEUTROPHILS % (MANUAL) 85 % (40-74); PLATELET ESTIMATE SLIGHTLY INCREASED; PLATELET MORPHOLOGY COMMENT NORMAL; RBC MORPHOLOGY COMMENT ABNORMAL
[2022-04-14 08:16] VITALS: BP 119/47
[2022-04-14] MEDS: TRAMADOL HCL 50 MG TAB PO SCH ×2 (09:00→17:00)
[2022-04-14] MEDS ORDERED: MAALOX/LIDOCAINE/BENADRYL/NYST 30 ML BTL PO ONE (09:00)
[2022-04-14] MEDS ORDERED: MAALOX/LIDOCAINE/BENADRYL/NYST 30 ML BTL PO PRN (09:00)
[2022-04-14] MEDS: BUSPIRONE HCL 5 MG TAB PO SCH ×3 (09:00→21:04)
[2022-04-14] MEDS ORDERED: DONNATAL/LIDOCAINE/MAALOX 30 ML SUSP PO PRN (09:15)
[2022-04-14] MEDS: PANTOPRAZOLE SOD 40 MG TABEC PO SCH (09:36)
[2022-04-14] MEDS: LORAZEPAM 0.5 MG TAB PO PRN (09:36)
[2022-04-14] MEDS: MULTIVITAMINS/MINERALS TAB PO SCH (09:36)
[2022-04-14] MEDS: METOPROLOL TARTRATE 50 MG TAB PO SCH ×2 (09:37→17:19)
[2022-04-14] MEDS: METHYLPREDNISOLONE SOD SUCC 40 MG/ML VIAL 1ML IV SCH ×2 (09:37→21:04)
[2022-04-14] MEDS: FUROSEMIDE INJ 10 MG/ML 4 ML VIAL IV SCH (09:38)
[2022-04-14] MEDS ORDERED: DONNATAL/LIDOCAINE/MAALOX 30 ML SUSP PO ONE (09:45)
[2022-04-14 11:10] VITALS: BP 119/47
[2022-04-14 12:07] VITALS: BP 123/60
[2022-04-14 21:00] VITALS: BP 123/60
[2022-04-14] MEDS: RIVAROXABAN 15 MG TABLET PO SCH (21:03)
[2022-04-15] VITALS (8 sets, daily range): BP systolic 107–128; BP diastolic 46–57
[2022-04-15] MEDS: ALBUTEROL/IPRATROPIUM 3 ML NEB NEB SCH ×6 (03:10→23:25)
[2022-04-15 05:40] LABS: BASOPHILS % 0.1 % (0.0-1.0); HEMATOCRIT 32.3 % (34.2-44.1); HEMOGLOBIN 9.9 g/dL (12.0-16.0); LYMPHOCYTES # (AUTO) 1.1 (1.0-3.2); LYMPHOCYTES % 5.6 % (18.0-39.1); MEAN CORPUSCULAR HGB CONC 30.7 g/dL (31-35); MEAN CORPUSCULAR VOLUME 101.3 fL (81-99); MONOCYTES # (AUTO) 1.1 (0.2-0.8); MONOCYTES % 5.4 % (4.4-11.3); NEUTROPHILS # (AUTO) 17.1 (2.1-6.9); NEUTROPHILS % 87.1 % (38.7-80.0); PLATELET COUNT 550 x10e3/uL (140-360); RED BLOOD COUNT 3.19 x10e6/uL (3.6-5.1); RED CELL DISTRIBUTION WIDTH 16.7 % (11.7-14.4)
[2022-04-15 06:07] LABS: ALBUMIN 2.6 g/dL (3.5-5.0); ALBUMIN/GLOBULIN RATIO 0.8 (0.8-2.0); ANION GAP 16.8 mmol/L (8-16); CALCIUM 9.6 mg/dL (8.4-10.2); CREATININE, SERUM 1.76 mg/dL (0.57-1.11); MAGNESIUM 2.5 MG/DL (1.3-2.1); PHOSPHORUS 5.1 MG/DL (2.3-4.7); POTASSIUM 4.8 mmol/L (3.5-5.1)
[2022-04-15] MEDS: METOPROLOL TARTRATE 50 MG TAB PO SCH ×2 (09:00→16:44)
[2022-04-15] MEDS: TRAMADOL HCL 50 MG TAB PO SCH ×2 (09:00→16:45)
[2022-04-15] MEDS ORDERED: COLLAGENASE 5 GM TUBE TOP SCH (09:00)
[2022-04-15] MEDS: PANTOPRAZOLE SOD 40 MG TABEC PO SCH (09:36)
[2022-04-15] MEDS: COLLAGENASE 5 GM TUBE TP SCH (09:36)
[2022-04-15] MEDS: MULTIVITAMINS/MINERALS TAB PO SCH (09:36)
[2022-04-15] MEDS: METHYLPREDNISOLONE SOD SUCC 40 MG/ML VIAL 1ML IV SCH ×2 (09:36→20:41)
[2022-04-15] MEDS: FUROSEMIDE INJ 10 MG/ML 4 ML VIAL IV SCH (09:37)
[2022-04-15] MEDS: BUSPIRONE HCL 5 MG TAB PO SCH ×3 (09:48→20:43)
[2022-04-15] MEDS: LORAZEPAM 0.5 MG TAB PO PRN (20:41)
[2022-04-15] MEDS: RIVAROXABAN 15 MG TABLET PO SCH (20:41)
[2022-04-16] VITALS: BP 124/56
[2022-04-16] MEDS: ALBUTEROL/IPRATROPIUM 3 ML NEB NEB SCH ×6 (02:55→22:40)
[2022-04-16 04:00] VITALS: BP 121/52
[2022-04-16 08:21] VITALS: BP 124/50
[2022-04-16] MEDS: TRAMADOL HCL 50 MG TAB PO SCH ×2 (09:19→17:01)
[2022-04-16] MEDS: PANTOPRAZOLE SOD 40 MG TABEC PO SCH (09:19)
[2022-04-16] MEDS: BUSPIRONE HCL 5 MG TAB PO SCH ×3 (09:19→20:32)
[2022-04-16] MEDS: METHYLPREDNISOLONE SOD SUCC 40 MG/ML VIAL 1ML IV SCH ×2 (09:20→20:32)
[2022-04-16] MEDS: FUROSEMIDE INJ 10 MG/ML 4 ML VIAL IV SCH (09:20)
[2022-04-16] MEDS: MULTIVITAMINS/MINERALS TAB PO SCH (09:20)
[2022-04-16] MEDS: METOPROLOL TARTRATE 50 MG TAB PO SCH ×2 (09:21→17:00)
[2022-04-16] MEDS: COLLAGENASE 5 GM TUBE TP SCH (09:30)
[2022-04-16 12:22] VITALS: BP 130/57
[2022-04-16 15:49] VITALS: BP 119/50
[2022-04-16 20:00] VITALS: BP 118/47
[2022-04-16] MEDS: RIVAROXABAN 15 MG TABLET PO SCH (20:32)
[2022-04-17] VITALS (7 sets, daily range): BP systolic 109–146; BP diastolic 51–59
[2022-04-17] MEDS: ALBUTEROL/IPRATROPIUM 3 ML NEB NEB SCH ×6 (03:05→23:20)
[2022-04-17 07:01] LABS: BASOPHILS % 0.2 % (0.0-1.0); HEMOGLOBIN 9.8 g/dL (12.0-16.0); LYMPHOCYTES # (AUTO) 0.9 (1.0-3.2); LYMPHOCYTES % 6.2 % (18.0-39.1); MEAN CORPUSCULAR HEMOGLOBIN 30.9 pg (28-32); MEAN CORPUSCULAR HGB CONC 28.8 g/dL (31-35); MEAN CORPUSCULAR VOLUME 107.3 fL (81-99); MONOCYTES # (AUTO) 0.7 (0.2-0.8); MONOCYTES % 4.8 % (4.4-11.3); NEUTROPHILS # (AUTO) 12.3 (2.1-6.9); PLATELET COUNT 531 x10e3/uL (140-360); RED BLOOD COUNT 3.17 x10e6/uL (3.6-5.1); RED CELL DISTRIBUTION WIDTH 17.2 % (11.7-14.4)
[2022-04-17 07:38] LABS: ALBUMIN 2.6 g/dL (3.5-5.0); ALBUMIN/GLOBULIN RATIO 0.7 (0.8-2.0); CALCIUM 9.8 mg/dL (8.4-10.2); CREATININE, SERUM 1.99 mg/dL (0.57-1.11)
[2022-04-17 07:52] LABS: ANION GAP 14.1 mmol/L (8-16)
[2022-04-17 08:05] LABS: POTASSIUM 6.1 mmol/L (3.5-5.1)
[2022-04-17] MEDS: PANTOPRAZOLE SOD 40 MG TABEC PO SCH (09:55)
[2022-04-17] MEDS: METOPROLOL TARTRATE 50 MG TAB PO SCH ×2 (09:55→17:30)
[2022-04-17] MEDS: MULTIVITAMINS/MINERALS TAB PO SCH (09:55)
[2022-04-17] MEDS: BUSPIRONE HCL 5 MG TAB PO SCH ×3 (09:55→21:24)
[2022-04-17] MEDS: COLLAGENASE 5 GM TUBE TP SCH (09:56)
[2022-04-17] MEDS: TRAMADOL HCL 50 MG TAB PO SCH ×2 (09:56→17:29)
[2022-04-17] MEDS: SODIUM CHLORIDE 0.9% 1000ML 1,000 ML IV SCH (10:12)
[2022-04-17] MEDS: LORAZEPAM 0.5 MG TAB PO PRN (19:14)
[2022-04-17] MEDS: RIVAROXABAN 15 MG TABLET PO SCH (21:25)
[2022-04-18] VITALS (7 sets, daily range): BP systolic 104–150; BP diastolic 51–78
[2022-04-18] MEDS: ALBUTEROL/IPRATROPIUM 3 ML NEB NEB SCH ×6 (03:50→23:15)
[2022-04-18] MEDS: SODIUM CHLORIDE 0.9% 1000ML 1,000 ML IV SCH ×3 (05:59→16:00)
[2022-04-18 06:03] LABS: BASOPHILS # (AUTO) 0.1 (0.0-0.1); BASOPHILS % 0.6 % (0.0-1.0); HEMATOCRIT 32.5 % (34.2-44.1); HEMOGLOBIN 9.9 g/dL (12.0-16.0); LYMPHOCYTES # (AUTO) 1.1 (1.0-3.2); LYMPHOCYTES % 7.2 % (18.0-39.1); MEAN CORPUSCULAR HEMOGLOBIN 31.3 pg (28-32); MEAN CORPUSCULAR HGB CONC 30.5 g/dL (31-35); MEAN CORPUSCULAR VOLUME 102.8 fL (81-99); MONOCYTES # (AUTO) 1.3 (0.2-0.8); NEUTROPHILS # (AUTO) 12.5 (2.1-6.9); PLATELET COUNT 389 x10e3/uL (140-360); RED BLOOD COUNT 3.16 x10e6/uL (3.6-5.1); RED CELL DISTRIBUTION WIDTH 17.7 % (11.7-14.4)
[2022-04-18 06:31] LABS: ALBUMIN 2.6 g/dL (3.5-5.0); ALBUMIN/GLOBULIN RATIO 0.7 (0.8-2.0); ANION GAP 18.7 mmol/L (8-16); CALCIUM 9.2 mg/dL (8.4-10.2); POTASSIUM 5.7 mmol/L (3.5-5.1)
[2022-04-18] MEDS: BUSPIRONE HCL 5 MG TAB PO SCH ×3 (08:42→21:50)
[2022-04-18] MEDS: PANTOPRAZOLE SOD 40 MG TABEC PO SCH (08:42)
[2022-04-18] MEDS: MULTIVITAMINS/MINERALS TAB PO SCH (08:42)
[2022-04-18] MEDS: METOPROLOL TARTRATE 50 MG TAB PO SCH ×2 (08:42→16:15)
[2022-04-18] MEDS: TRAMADOL HCL 50 MG TAB PO SCH ×2 (08:45→16:22)
[2022-04-18] MEDS: COLLAGENASE 5 GM TUBE TP SCH (08:46)
[2022-04-18] MEDS ORDERED: METHYLPREDNISOLONE SOD SUCC 40 MG/ML VIAL 1ML IV SCH (09:00)
[2022-04-18] MEDS ORDERED: ONDANSETRON HCL 4 MG ORAL DISINTEGRATING TAB PO PRN (14:00)
[2022-04-18] MEDS: LORAZEPAM 0.5 MG TAB PO PRN (18:10)
[2022-04-18] MEDS: RIVAROXABAN 15 MG TABLET PO SCH (21:50)
[2022-04-19] VITALS (8 sets, daily range): BP systolic 127–143; BP diastolic 48–63
[2022-04-19] MEDS: SODIUM CHLORIDE 0.9% 1000ML 1,000 ML IV SCH (02:21)
[2022-04-19] MEDS: ALBUTEROL/IPRATROPIUM 3 ML NEB NEB SCH ×6 (03:18→22:55)
[2022-04-19 07:23] LABS: BASOPHILS # (AUTO) 0.1 (0.0-0.1); BASOPHILS % 0.5 % (0.0-1.0); HEMATOCRIT 34.6 % (34.2-44.1); HEMOGLOBIN 10.7 g/dL (12.0-16.0); LYMPHOCYTES # (AUTO) 1.4 (1.0-3.2); LYMPHOCYTES % 8.8 % (18.0-39.1); MEAN CORPUSCULAR HEMOGLOBIN 31.6 pg (28-32); MEAN CORPUSCULAR HGB CONC 30.9 g/dL (31-35); MEAN CORPUSCULAR VOLUME 102.1 fL (81-99); MONOCYTES # (AUTO) 1.4 (0.2-0.8); MONOCYTES % 8.6 % (4.4-11.3); NEUTROPHILS # (AUTO) 12.3 (2.1-6.9); NEUTROPHILS % 77.8 % (38.7-80.0); PLATELET COUNT 481 x10e3/uL (140-360); RED BLOOD COUNT 3.39 x10e6/uL (3.6-5.1); RED CELL DISTRIBUTION WIDTH 17.8 % (11.7-14.4)
[2022-04-19 07:41] LABS: ALBUMIN 2.7 g/dL (3.5-5.0); ALBUMIN/GLOBULIN RATIO 0.8 (0.8-2.0); ANION GAP 15.5 mmol/L (8-16); CALCIUM 8.8 mg/dL (8.4-10.2); CREATININE, SERUM 1.83 mg/dL (0.57-1.11); POTASSIUM 5.5 mmol/L (3.5-5.1)
[2022-04-19] MEDS: TRAMADOL HCL 50 MG TAB PO SCH ×2 (09:00→16:41)
[2022-04-19] MEDS ORDERED: METHYLPREDNISOLONE SOD SUCC 40 MG/ML VIAL 1ML IV SCH (09:00)
[2022-04-19] MEDS: BUSPIRONE HCL 5 MG TAB PO SCH ×3 (09:22→22:25)
[2022-04-19] MEDS: MULTIVITAMINS/MINERALS TAB PO SCH (09:22)
[2022-04-19] MEDS: PANTOPRAZOLE SOD 40 MG TABEC PO SCH (09:22)
[2022-04-19] MEDS: METOPROLOL TARTRATE 50 MG TAB PO SCH ×2 (09:23→16:41)
[2022-04-19] MEDS: COLLAGENASE 5 GM TUBE TP SCH (09:24)
[2022-04-19] MEDS ORDERED: SOD POLYSTYRENE SULFONATE SUSP 15 GM/60 ML BTL PO ONE (10:00)
[2022-04-19] MEDS: ACETAMINOPHEN 325 MG TAB PO PRN (12:12)
[2022-04-19] MEDS: RIVAROXABAN 15 MG TABLET PO SCH (22:25)
[2022-04-20] VITALS (7 sets, daily range): BP systolic 110–140; BP diastolic 44–54
[2022-04-20] MEDS: ALBUTEROL/IPRATROPIUM 3 ML NEB NEB SCH ×6 (02:40→23:35)
[2022-04-20 05:29] LABS: BASOPHILS % 0.2 % (0.0-1.0); EOSINOPHILS % 0.1 % (0.0-6.0); HEMATOCRIT 32.7 % (34.2-44.1); HEMOGLOBIN 10.3 g/dL (12.0-16.0); LYMPHOCYTES # (AUTO) 1.4 (1.0-3.2); LYMPHOCYTES % 8.4 % (18.0-39.1); MEAN CORPUSCULAR HEMOGLOBIN 31.3 pg (28-32); MEAN CORPUSCULAR HGB CONC 31.5 g/dL (31-35); MEAN CORPUSCULAR VOLUME 99.4 fL (81-99); MONOCYTES # (AUTO) 1.4 (0.2-0.8); MONOCYTES % 8.1 % (4.4-11.3); NEUTROPHILS # (AUTO) 13.3 (2.1-6.9); NEUTROPHILS % 79.8 % (38.7-80.0); PLATELET COUNT 463 x10e3/uL (140-360); RED BLOOD COUNT 3.29 x10e6/uL (3.6-5.1)
[2022-04-20 05:52] LABS: CALCIUM 9.1 mg/dL (8.4-10.2); CREATININE, SERUM 1.47 mg/dL (0.57-1.11)
[2022-04-20] MEDS: TRAMADOL HCL 50 MG TAB PO SCH (09:00)
[2022-04-20] MEDS: MULTIVITAMINS/MINERALS TAB PO SCH (09:24)
[2022-04-20] MEDS: PANTOPRAZOLE SOD 40 MG TABEC PO SCH (09:24)
[2022-04-20] MEDS: METOPROLOL TARTRATE 50 MG TAB PO SCH ×2 (09:24→16:40)
[2022-04-20] MEDS: BUSPIRONE HCL 5 MG TAB PO SCH ×3 (09:24→20:28)
[2022-04-20] MEDS: ACETAMINOPHEN 325 MG TAB PO PRN ×2 (09:25→20:28)
[2022-04-20] MEDS: COLLAGENASE 5 GM TUBE TP SCH (13:44)
[2022-04-20] MEDS: RIVAROXABAN 15 MG TABLET PO SCH (20:27)
[2022-04-21] VITALS (8 sets, daily range): BP systolic 121–139; BP diastolic 40–51
[2022-04-21] MEDS: ALBUTEROL/IPRATROPIUM 3 ML NEB NEB SCH ×5 (04:10→20:15)
[2022-04-21 06:09] LABS: BASOPHILS # (AUTO) 0.1 (0.0-0.1); BASOPHILS % 0.4 % (0.0-1.0); EOSINOPHILS # (AUTO) 0.1 (0.0-0.4); EOSINOPHILS % 0.2 % (0.0-6.0); HEMATOCRIT 32.2 % (34.2-44.1); HEMOGLOBIN 10.6 g/dL (12.0-16.0); LYMPHOCYTES # (AUTO) 1.5 (1.0-3.2); LYMPHOCYTES % 4.6 % (18.0-39.1); MEAN CORPUSCULAR HEMOGLOBIN 34.3 pg (28-32); MEAN CORPUSCULAR HGB CONC 32.9 g/dL (31-35); MEAN CORPUSCULAR VOLUME 104.2 fL (81-99); MONOCYTES # (AUTO) 1.5 (0.2-0.8); MONOCYTES % 4.5 % (4.4-11.3); NEUTROPHILS # (AUTO) 29.4 (2.1-6.9); NEUTROPHILS % 87.4 % (38.7-80.0); PLATELET COUNT 505 x10e3/uL (140-360); RED BLOOD COUNT 3.09 x10e6/uL (3.6-5.1); RED CELL DISTRIBUTION WIDTH 19.8 % (11.7-14.4)
[2022-04-21 06:20] LABS: ANION GAP 15.2 mmol/L (8-16); CALCIUM 9.2 mg/dL (8.4-10.2); CREATININE, SERUM 1.25 mg/dL (0.57-1.11); POTASSIUM 4.2 mmol/L (3.5-5.1)
[2022-04-21 08:38] LABS: LYMPHOCYTES % (MANUAL) 7 % (19-48); MONOCYTES % (MANUAL) 2 % (3.4-9.0); MYELOCYTES % (MANUAL) 1 % (0-0); NEUTROPHILS % (MANUAL) 90 % (40-74); NUCLEATED RED BLOOD CELLS 1
[2022-04-21 08:39] LABS: PLATELET ESTIMATE SLIGHTLY INCREASED; PLATELET MORPHOLOGY COMMENT NORMAL; RBC MORPHOLOGY COMMENT NORMAL
[2022-04-21] MEDS ORDERED: LORAZEPAM 0.5 MG TAB PO PRN (09:15)
[2022-04-21] MEDS: PANTOPRAZOLE SOD 40 MG TABEC PO SCH (09:19)
[2022-04-21] MEDS: MULTIVITAMINS/MINERALS TAB PO SCH (09:19)
[2022-04-21] MEDS: METOPROLOL TARTRATE 50 MG TAB PO SCH ×2 (09:20→17:14)
[2022-04-21] MEDS: COLLAGENASE 5 GM TUBE TP SCH (09:20)
[2022-04-21] MEDS: LACTOBACILLUS ACIDOPHILUS CAPSULE PO SCH ×3 (09:27→20:47)
[2022-04-21] MEDS: BUSPIRONE HCL 5 MG TAB PO SCH ×3 (09:27→20:46)
[2022-04-21] MEDS: VANCOMYCIN HCL 125 MG CAPSULE PO SCH ×4 (09:27→23:40)
[2022-04-21] MEDS: CHOLESTYRAMINE 4 GM PACKET PO SCH ×2 (17:15→20:45)
[2022-04-21] MEDS: ACETAMINOPHEN 325 MG TAB PO PRN (20:46)
[2022-04-21] MEDS: RIVAROXABAN 15 MG TABLET PO SCH (20:47)
[2022-04-22] VITALS (8 sets, daily range): BP systolic 129–139; BP diastolic 43–72
[2022-04-22] MEDS: ALBUTEROL/IPRATROPIUM 3 ML NEB NEB SCH ×8 (00:25→22:48)
[2022-04-22] MEDS: VANCOMYCIN HCL 125 MG CAPSULE PO SCH ×3 (06:10→17:23)
[2022-04-22 06:26] LABS: BASOPHILS # (AUTO) 0.1 (0.0-0.1); BASOPHILS % 0.3 % (0.0-1.0); EOSINOPHILS # (AUTO) 0.1 (0.0-0.4); EOSINOPHILS % 0.3 % (0.0-6.0); HEMATOCRIT 33.3 % (34.2-44.1); HEMOGLOBIN 10.9 g/dL (12.0-16.0); LYMPHOCYTES # (AUTO) 1.2 (1.0-3.2); LYMPHOCYTES % 3.8 % (18.0-39.1); MEAN CORPUSCULAR HEMOGLOBIN 31.8 pg (28-32); MEAN CORPUSCULAR HGB CONC 32.7 g/dL (31-35); MEAN CORPUSCULAR VOLUME 97.1 fL (81-99); MONOCYTES # (AUTO) 1.3 (0.2-0.8); NEUTROPHILS # (AUTO) 27.7 (2.1-6.9); NEUTROPHILS % 89.8 % (38.7-80.0); PLATELET COUNT 469 x10e3/uL (140-360); RED BLOOD COUNT 3.43 x10e6/uL (3.6-5.1); RED CELL DISTRIBUTION WIDTH 18.1 % (11.7-14.4)
[2022-04-22 06:44] LABS: ANION GAP 14.8 mmol/L (8-16); CREATININE, SERUM 0.9 mg/dL (0.57-1.11); POTASSIUM 3.8 mmol/L (3.5-5.1)
[2022-04-22] MEDS ORDERED: LACTATED RINGER'S 500 ML INJ ONE (09:00)
[2022-04-22] MEDS: COLLAGENASE 5 GM TUBE TP SCH (09:00)
[2022-04-22] MEDS: LACTOBACILLUS ACIDOPHILUS CAPSULE PO SCH ×3 (09:01→20:58)
[2022-04-22] MEDS: METOPROLOL TARTRATE 50 MG TAB PO SCH ×2 (09:01→17:23)
[2022-04-22] MEDS: PANTOPRAZOLE SOD 40 MG TABEC PO SCH (09:01)
[2022-04-22] MEDS: MULTIVITAMINS/MINERALS TAB PO SCH (09:01)
[2022-04-22] MEDS: CHOLESTYRAMINE 4 GM PACKET PO SCH ×3 (09:02→20:58)
[2022-04-22] MEDS: BUSPIRONE HCL 5 MG TAB PO SCH ×3 (09:05→20:58)
[2022-04-22 09:13] LABS: LYMPHOCYTES % (MANUAL) 2 % (19-48); MONOCYTES % (MANUAL) 2 % (3.4-9.0); NEUTROPHILS % (MANUAL) 93 % (40-74); PLATELET ESTIMATE ADEQUATE; PLATELET MORPHOLOGY COMMENT NORMAL; RBC MORPHOLOGY COMMENT NORMAL
[2022-04-22] MEDS: RIVAROXABAN 15 MG TABLET PO SCH (20:58)
[2022-04-23] VITALS (7 sets, daily range): BP systolic 130–140; BP diastolic 44–62
[2022-04-23] MEDS: VANCOMYCIN HCL 125 MG CAPSULE PO SCH ×5 (00:15→23:20)
[2022-04-23] MEDS: ALBUTEROL/IPRATROPIUM 3 ML NEB NEB SCH ×6 (03:00→23:28)
[2022-04-23 07:02] LABS: BASOPHILS # (AUTO) 0.1 (0.0-0.1); BASOPHILS % 0.3 % (0.0-1.0); EOSINOPHILS # (AUTO) 0.2 (0.0-0.4); EOSINOPHILS % 0.6 % (0.0-6.0); HEMATOCRIT 33.8 % (34.2-44.1); HEMOGLOBIN 10.7 g/dL (12.0-16.0); LYMPHOCYTES # (AUTO) 1.1 (1.0-3.2); LYMPHOCYTES % 4.6 % (18.0-39.1); MEAN CORPUSCULAR HEMOGLOBIN 31.4 pg (28-32); MEAN CORPUSCULAR HGB CONC 31.7 g/dL (31-35); MEAN CORPUSCULAR VOLUME 99.1 fL (81-99); MONOCYTES # (AUTO) 1.2 (0.2-0.8); MONOCYTES % 5.1 % (4.4-11.3); NEUTROPHILS # (AUTO) 20.5 (2.1-6.9); PLATELET COUNT 409 x10e3/uL (140-360); RED BLOOD COUNT 3.41 x10e6/uL (3.6-5.1)
[2022-04-23 07:20] LABS: ALBUMIN 2.1 g/dL (3.5-5.0); ALBUMIN/GLOBULIN RATIO 0.7 (0.8-2.0); ANION GAP 14.8 mmol/L (8-16); CALCIUM 8.8 mg/dL (8.4-10.2); CREATININE, SERUM 0.87 mg/dL (0.57-1.11); POTASSIUM 3.8 mmol/L (3.5-5.1)
[2022-04-23] MEDS: MULTIVITAMINS/MINERALS TAB PO SCH (09:50)
[2022-04-23] MEDS: BUSPIRONE HCL 5 MG TAB PO SCH ×3 (09:50→23:20)
[2022-04-23] MEDS: LACTOBACILLUS ACIDOPHILUS CAPSULE PO SCH ×3 (09:50→23:20)
[2022-04-23] MEDS: PANTOPRAZOLE SOD 40 MG TABEC PO SCH (09:50)
[2022-04-23] MEDS: CHOLESTYRAMINE 4 GM PACKET PO SCH ×3 (09:50→21:00)
[2022-04-23] MEDS: METOPROLOL TARTRATE 50 MG TAB PO SCH ×2 (09:50→17:53)
[2022-04-23 10:36] LABS: BAND NEUTROPHILS % (MANUAL) 2 %; LYMPHOCYTES % (MANUAL) 1 % (19-48); METAMYELOCYTES % (MANUAL) 1 % (0-0); MONOCYTES % (MANUAL) 4 % (3.4-9.0); NEUTROPHILS % (MANUAL) 92 % (40-74)
[2022-04-23 10:38] LABS: PLATELET ESTIMATE SLIGHTLY INCREASED; PLATELET MORPHOLOGY COMMENT NORMAL
[2022-04-23 11:31] LABS: CLARITY,URINE CLEAR (CLEAR); COLOR,URINE YELLOW (YELLOW)
[2022-04-23 11:32] LABS: KETONES,URINE TRACE (NEGATIVE); LEUKOCYTE ESTERASE ,URINE NEGATIVE (NEGATIVE); NITRITE,URINE NEGATIVE (NEGATIVE); PROTEIN,URINE DIPSTICK 2+ (NEGATIVE); URINE UROBILINOGEN 0.2 mg/dL (0.2 - 1)
[2022-04-23 11:40] LABS: BACTERIA,URINE MODERATE /HPF; EPITHELIAL CELLS,URINE RARE /LPF
[2022-04-23] MEDS: COLLAGENASE 5 GM TUBE TP SCH (13:30)
[2022-04-23] MEDS: RIVAROXABAN 15 MG TABLET PO SCH (23:20)
[2022-04-23] MEDS: ACETAMINOPHEN 325 MG TAB PO PRN (23:33)
[2022-04-24] VITALS (9 sets, daily range): BP systolic 120–135; BP diastolic 38–48
[2022-04-24] MEDS: ALBUTEROL/IPRATROPIUM 3 ML NEB NEB SCH ×6 (03:00→23:00)
[2022-04-24] MEDS: VANCOMYCIN HCL 125 MG CAPSULE PO SCH ×3 (06:34→17:17)
[2022-04-24 06:42] LABS: BASOPHILS % 0.2 % (0.0-1.0); EOSINOPHILS # (AUTO) 0.2 (0.0-0.4); EOSINOPHILS % 1.2 % (0.0-6.0); HEMATOCRIT 29.6 % (34.2-44.1); HEMOGLOBIN 9.6 g/dL (12.0-16.0); LYMPHOCYTES % 6.8 % (18.0-39.1); MEAN CORPUSCULAR HEMOGLOBIN 31.5 pg (28-32); MEAN CORPUSCULAR HGB CONC 32.4 g/dL (31-35); MONOCYTES # (AUTO) 1.2 (0.2-0.8); MONOCYTES % 7.5 % (4.4-11.3); NEUTROPHILS # (AUTO) 12.8 (2.1-6.9); NEUTROPHILS % 83.3 % (38.7-80.0); PLATELET COUNT 376 x10e3/uL (140-360); RED BLOOD COUNT 3.05 x10e6/uL (3.6-5.1); RED CELL DISTRIBUTION WIDTH 17.6 % (11.7-14.4)
[2022-04-24 07:02] LABS: ANION GAP 11.7 mmol/L (8-16); CALCIUM 8.7 mg/dL (8.4-10.2); CREATININE, SERUM 0.84 mg/dL (0.57-1.11); POTASSIUM 3.7 mmol/L (3.5-5.1)
[2022-04-24 07:27] LABS: MAGNESIUM 1.7 MG/DL (1.3-2.1); PHOSPHORUS 2.2 MG/DL (2.3-4.7)
[2022-04-24] MEDS ORDERED: GUAIFENESIN/CODEINE 5 ML LIQD PO PRN (08:30)
[2022-04-24] MEDS: MULTIVITAMINS/MINERALS TAB PO SCH (08:53)
[2022-04-24] MEDS: BUSPIRONE HCL 5 MG TAB PO SCH ×3 (08:53→21:03)
[2022-04-24] MEDS: CHOLESTYRAMINE 4 GM PACKET PO SCH ×3 (08:53→21:00)
[2022-04-24] MEDS: PANTOPRAZOLE SOD 40 MG TABEC PO SCH (08:54)
[2022-04-24] MEDS: LACTOBACILLUS ACIDOPHILUS CAPSULE PO SCH ×3 (08:54→21:04)
[2022-04-24] MEDS: METOPROLOL TARTRATE 50 MG TAB PO SCH ×2 (08:54→17:18)
[2022-04-24] MEDS ORDERED: POTASSIUM PHOSPHATE 20 MM in SODIUM CHLORIDE 0.9% 250ML 250 ML IV ONE (09:30)
[2022-04-24] MEDS ORDERED: MAGNESIUM SULFATE 2GM/50ML IV ONE (09:30)
[2022-04-24] MEDS: COLLAGENASE 5 GM TUBE TP SCH (10:21)
[2022-04-24] MEDS ORDERED: SODIUM CHLORIDE 0.9% 250ML 0 ML ONE (10:28)
[2022-04-24] MEDS ORDERED: ALBUTEROL/IPRATROPIUM 3 ML NEB NEB PRN (11:30)
[2022-04-24] MEDS: BREZTRI INH SCH (19:00)
[2022-04-24] MEDS: RIVAROXABAN 15 MG TABLET PO SCH (21:04)
[2022-04-25 01:31] VITALS: BP 131/57
[2022-04-25] MEDS: VANCOMYCIN HCL 125 MG CAPSULE PO SCH ×3 (01:50→12:23)
[2022-04-25] MEDS: ALBUTEROL/IPRATROPIUM 3 ML NEB NEB SCH ×4 (03:00→14:44)
[2022-04-25 06:00] VITALS: BP 135/48
[2022-04-25 06:26] LABS: BASOPHILS % 0.2 % (0.0-1.0); EOSINOPHILS # (AUTO) 0.2 (0.0-0.4); EOSINOPHILS % 1.5 % (0.0-6.0); HEMATOCRIT 30.5 % (34.2-44.1); HEMOGLOBIN 10.2 g/dL (12.0-16.0); LYMPHOCYTES # (AUTO) 1.1 (1.0-3.2); LYMPHOCYTES % 8.1 % (18.0-39.1); MEAN CORPUSCULAR HGB CONC 33.4 g/dL (31-35); MEAN CORPUSCULAR VOLUME 101.7 fL (81-99); MONOCYTES # (AUTO) 1.1 (0.2-0.8); MONOCYTES % 8.1 % (4.4-11.3); NEUTROPHILS # (AUTO) 11.2 (2.1-6.9); NEUTROPHILS % 81.1 % (38.7-80.0); PLATELET COUNT 317 x10e3/uL (140-360); RED CELL DISTRIBUTION WIDTH 19.7 % (11.7-14.4)
[2022-04-25 06:55] LABS: ALBUMIN 1.9 g/dL (3.5-5.0); ALBUMIN/GLOBULIN RATIO 0.6 (0.8-2.0); ANION GAP 11.9 mmol/L (8-16); CALCIUM 8.8 mg/dL (8.4-10.2); CREATININE, SERUM 0.82 mg/dL (0.57-1.11); POTASSIUM 3.9 mmol/L (3.5-5.1)
[2022-04-25] MEDS: BREZTRI INH SCH (07:00)
[2022-04-25 09:00] VITALS: BP 135/48
[2022-04-25] MEDS ORDERED: CEFTRIAXONE 2 GM in SODIUM CHLORIDE 0.9% 100 ML IV SCH (09:00)
[2022-04-25 09:06] VITALS: BP 146/56
[2022-04-25] MEDS: METOPROLOL TARTRATE 50 MG TAB PO SCH (09:34)
[2022-04-25] MEDS: LACTOBACILLUS ACIDOPHILUS CAPSULE PO SCH ×2 (09:34→14:23)
[2022-04-25] MEDS: MULTIVITAMINS/MINERALS TAB PO SCH (09:34)
[2022-04-25] MEDS: BUSPIRONE HCL 5 MG TAB PO SCH ×2 (09:34→14:24)
[2022-04-25] MEDS: CHOLESTYRAMINE 4 GM PACKET PO SCH ×3 (09:34→14:30)
[2022-04-25] MEDS ORDERED: CEFTRIAXONE 2 GM VIAL ONE (09:44)
[2022-04-25] MEDS: PANTOPRAZOLE SOD 40 MG TABEC PO SCH (09:48)
[2022-04-25] MEDS ORDERED: SODIUM CHLORIDE 0.9% 100 ML ONE (09:58)
[2022-04-25] MEDS: COLLAGENASE 5 GM TUBE TP SCH (12:23)
[2022-04-25 13:53] VITALS: BP 126/46
== END 2022-04-25 16:49 | DRG 291 ==
LOC: ER 05:36 → ERHOLD 07:37 → MED/SURG3 16:05 → OBSVTOIN 04-14 08:54
PROVIDERS: ADMIT Internal Medicine; ATTEND Internal Medicine
DX: I13.0 Hypertensive heart and chronic kidney disease with heart failure and stage 1 through stage 4 chronic kidney disease, or unspecified chronic kidney disease (principal); I50.43 Acute on chronic combined systolic (congestive) and diastolic (congestive) heart failure; J18.9 Pneumonia, unspecified organism; J96.21 Acute and chronic respiratory failure with hypoxia; K65.1 Peritoneal abscess; A04.72 Enterocolitis due to Clostridium difficile, not specified as recurrent; N18.4 Chronic kidney disease, stage 4 (severe); I48.20 Chronic atrial fibrillation, unspecified; N39.0 Urinary tract infection, site not specified; N17.9 Acute kidney failure, unspecified; K57.92 Diverticulitis of intestine, part unspecified, without perforation or abscess without bleeding; I42.9 Cardiomyopathy, unspecified; J43.9 Emphysema, unspecified; F41.0 Panic disorder [episodic paroxysmal anxiety]; F41.9 Anxiety disorder, unspecified; Z95.810 Presence of automatic (implantable) cardiac defibrillator; E86.0 Dehydration; F17.210 Nicotine dependence, cigarettes, uncomplicated; E78.5 Hyperlipidemia, unspecified; Y95 Nosocomial condition; Z79.01 Long term (current) use of anticoagulants; R33.9 Retention of urine, unspecified; R31.29 Other microscopic hematuria; I25.10 Atherosclerotic heart disease of native coronary artery without angina pectoris; K76.89 Other specified diseases of liver; Z88.8 Allergy status to other drugs, medicaments and biological substances; Z20.822 Contact with and (suspected) exposure to COVID-19; E87.6 Hypokalemia; E11.22 Type 2 diabetes mellitus with diabetic chronic kidney disease; N18.30 Chronic kidney disease, stage 3 unspecified; E87.5 Hyperkalemia
CPT/HCPCS: 36415; 51700; 71045; 71250; 74177; 80048; 80053; 81001; 82550; 82553; 83605; 83735; 83880; 84100; 84132; 84484; 85025; 87040; 87086; 93005; 94640; 94799; 99252; 99284; G0378; J0456; J0692; J0696; J1940; J2060; J2920; J3475; J7030; J7050; J7121

== ENCOUNTER → 2022-06-08 | Outpatient (CLI) | payer MEDICARE ==
[~2022-06-08] MED LIST changes: +ATORVASTATIN CA40 MG PO; +METOPROLOL SUCC50 MG PO; +SODIUM BICARBO650 MG PO
== END ==
LOC: US 13:15
PROVIDERS: ATTEND Internal Medicine Critical Care Medicine
DX: R09.02 Hypoxemia (principal); J90 Pleural effusion, not elsewhere classified; J44.9 Chronic obstructive pulmonary disease, unspecified; J18.9 Pneumonia, unspecified organism; R53.1 Weakness; R91.1 Solitary pulmonary nodule; Z72.0 Tobacco use
CPT/HCPCS: 76604

== ENCOUNTER 2022-06-11 10:19 | Inpatient (IN) | payer MEDICARE ==
[~2022-06-11] VITALS: Ht 160 cm; Wt 52.6 kg
[~2022-06-11 10:19] MED LIST changes: -ATORVASTATIN CA40 MG PO; -METOPROLOL SUCC50 MG PO; -SODIUM BICARBO650 MG PO
[2022-06-11] MEDS ORDERED: SODIUM CHLORIDE 0.9% 500ML 500 ML IV ONE (10:30)
[2022-06-11] MEDS ORDERED: Morphine 2mg Syringe 2 MG/ML SYR IV STA (11:09)
[2022-06-11] MEDS ORDERED: ONDANSETRON HCL INJ 2MG/ML 2ML 2 MG/ML VIAL IV STA (11:09)
[2022-06-11] MEDS ORDERED: Morphine 4mg INJECTION 4 MG/ML INJ ONE (11:11)
[2022-06-11 11:14] LABS: BASOPHILS % 0.4 % (0.0-1.0); EOSINOPHILS # (AUTO) 0.1 (0.0-0.4); EOSINOPHILS % 1.1 % (0.0-6.0); HEMATOCRIT 32.6 % (34.2-44.1); HEMOGLOBIN 9.9 g/dL (12.0-16.0); LYMPHOCYTES # (AUTO) 1.1 (1.0-3.2); LYMPHOCYTES % 21.1 % (18.0-39.1); MEAN CORPUSCULAR HEMOGLOBIN 29.6 pg (28-32); MEAN CORPUSCULAR HGB CONC 30.4 g/dL (31-35); MEAN CORPUSCULAR VOLUME 97.6 fL (81-99); MONOCYTES # (AUTO) 0.7 (0.2-0.8); MONOCYTES % 12.9 % (4.4-11.3); NEUTROPHILS # (AUTO) 3.4 (2.1-6.9); NEUTROPHILS % 64.3 % (38.7-80.0); PLATELET COUNT 185 x10e3/uL (140-360); RED BLOOD COUNT 3.34 x10e6/uL (3.6-5.1); RED CELL DISTRIBUTION WIDTH 19.3 % (11.7-14.4)
[2022-06-11 11:19] LABS: INR 2.14; PROTHROMBIN TIME 24.4 seconds (11.9-14.5)
[2022-06-11 11:20] LABS: PARTIAL THROMBOPLASTIN TIME 44.6 seconds (23.8-35.5)
[2022-06-11 11:21] LABS: CLARITY,URINE CLEAR (CLEAR); COLOR,URINE YELLOW (YELLOW); KETONES,URINE NEGATIVE (NEGATIVE); LEUKOCYTE ESTERASE ,URINE NEGATIVE (NEGATIVE); NITRITE,URINE NEGATIVE (NEGATIVE); PROTEIN,URINE DIPSTICK TRACE (NEGATIVE); URINE UROBILINOGEN 0.2 mg/dL (0.2 - 1)
[2022-06-11 11:27] LABS: BACTERIA,URINE FEW /HPF; EPITHELIAL CELLS,URINE FEW /LPF; RBC,URINE 21-50 /HPF (0-5); TRANSITIONAL EPI CELLS,URINE RARE
[2022-06-11 11:30] LABS: ALBUMIN 2.9 g/dL (3.5-5.0); ANION GAP 16.7 mmol/L (8-16); CALCIUM 8.9 mg/dL (8.4-10.2); CREATININE, SERUM 1.21 mg/dL (0.57-1.11); MAGNESIUM 1.9 MG/DL (1.3-2.1); POTASSIUM 3.7 mmol/L (3.5-5.1)
[2022-06-11] MEDS ORDERED: PIPERACILLIN/TAZOBACTAM 3.375 GM VIAL ONE (11:34)
[2022-06-11 11:37] LABS: CREATINE KINASE MB 2.5 ng/mL (0-5.0)
[2022-06-11 11:44] LABS: B-TYPE NATRIURETIC PEPTIDE2 719.5 pg/mL (0-100)
[2022-06-11] MEDS ORDERED: IOPAMIDOL 370 MG/ML 100 ML INFUS..BTL INJ ONE (11:57)
[2022-06-11] MEDS: METRONIDAZOLE 500MG/NS 100ML 100 ML IV SCH ×3 (11:58→23:46)
[2022-06-11] MEDS ORDERED: METOPROLOL SUCC50 MG PO (12:29)
[2022-06-11] MEDS ORDERED: SODIUM BICARBO650 MG PO (12:29)
[2022-06-11] MEDS ORDERED: PREDNISONE10 MG PO (12:29)
[2022-06-11] MEDS ORDERED: ATORVASTATIN CA40 MG PO (12:29)
[2022-06-11] MEDS ORDERED: PENTOXIFYLLINE400 MG PO (12:29)
[2022-06-11 12:30] LABS: BAND NEUTROPHILS % (MANUAL) 14 %; LYMPHOCYTES % (MANUAL) 24 % (19-48); METAMYELOCYTES % (MANUAL) 1 % (0-0); MONOCYTES % (MANUAL) 10 % (3.4-9.0); NEUTROPHILS % (MANUAL) 51 % (40-74); PLATELET ESTIMATE ADEQUATE; PLATELET MORPHOLOGY COMMENT NORMAL; RBC MORPHOLOGY COMMENT NORMAL
[2022-06-11] MEDS ORDERED: ONDANSETRON HCL INJ 2MG/ML 2ML 2 MG/ML VIAL IV PRN (12:30)
[2022-06-11] MEDS ORDERED: ALBUTEROL/IPRATROPIUM 3 ML NEB NEB ONE (12:30)
[2022-06-11] MEDS ORDERED: SODIUM CHLORIDE 0.9% 1000ML 1,000 ML IV SCH (12:30)
[2022-06-11] MEDS ORDERED: Morphine 2mg Syringe 2 MG/ML SYR IV PRN (12:30)
[2022-06-11 14:44] VITALS: BP 155/47
[2022-06-11 15:00] VITALS: BP 155/47
[2022-06-11 16:10] VITALS: BP 155/47
[2022-06-11] MEDS: SODIUM CHLORIDE 0.9% 1000ML 1,000 ML IV SCH (17:12)
[2022-06-11 20:00] VITALS: BP_SYST 151; BP_SYST 157; BP_DIAS 47; BP_DIAS 64
[2022-06-11 20:33] VITALS: BP 151/47
[2022-06-11] MEDS: RIVAROXABAN 15 MG TABLET PO SCH (20:46)
[2022-06-11] MEDS: VANCOMYCIN 250MG/5ML ORAL SOLN PO SCH (22:00)
[2022-06-11] MEDS: ALBUTEROL/IPRATROPIUM 3 ML NEB NEB PRN (23:25)
[2022-06-12] VITALS (9 sets, daily range): BP systolic 116–161; BP diastolic 45–57
[2022-06-12] MEDS: SODIUM CHLORIDE 0.9% 1000ML 1,000 ML IV SCH ×3 (04:00→23:45)
[2022-06-12] MEDS: METRONIDAZOLE 500MG/NS 100ML 100 ML IV SCH ×4 (05:12→23:45)
[2022-06-12] MEDS: VANCOMYCIN 250MG/5ML ORAL SOLN PO SCH (05:13)
[2022-06-12 06:23] LABS: BASOPHILS % 0.4 % (0.0-1.0); EOSINOPHILS # (AUTO) 0.1 (0.0-0.4); EOSINOPHILS % 1.1 % (0.0-6.0); HEMATOCRIT 26.4 % (34.2-44.1); HEMOGLOBIN 8.3 g/dL (12.0-16.0); LYMPHOCYTES # (AUTO) 1.2 (1.0-3.2); LYMPHOCYTES % 20.8 % (18.0-39.1); MEAN CORPUSCULAR HGB CONC 31.4 g/dL (31-35); MEAN CORPUSCULAR VOLUME 95.3 fL (81-99); MONOCYTES # (AUTO) 0.7 (0.2-0.8); MONOCYTES % 12.7 % (4.4-11.3); NEUTROPHILS # (AUTO) 3.6 (2.1-6.9); NEUTROPHILS % 64.6 % (38.7-80.0); PLATELET COUNT 167 x10e3/uL (140-360); RED BLOOD COUNT 2.77 x10e6/uL (3.6-5.1)
[2022-06-12 07:07] LABS: ALBUMIN 2.3 g/dL (3.5-5.0); ANION GAP 13.3 mmol/L (8-16); CREATININE, SERUM 1.02 mg/dL (0.57-1.11); POTASSIUM 3.3 mmol/L (3.5-5.1)
[2022-06-12] MEDS: ALBUTEROL/IPRATROPIUM 3 ML NEB NEB PRN (07:08)
[2022-06-12 07:30] LABS: CREATINE KINASE MB 1.2 ng/mL (0-5.0)
[2022-06-12] MEDS: SODIUM BICARBONATE 650 MG TAB PO SCH (09:51)
[2022-06-12] MEDS: BUSPIRONE HCL 5 MG TAB PO SCH ×3 (09:51→20:34)
[2022-06-12] MEDS: PENTOXIFYLLINE 400 MG TAB CR PO SCH ×3 (09:52→20:35)
[2022-06-12] MEDS: LACTOBACILLUS ACIDOPHILUS CAPSULE PO SCH ×3 (09:52→20:35)
[2022-06-12] MEDS: PANTOPRAZOLE SOD 40 MG TABEC PO SCH (09:53)
[2022-06-12] MEDS: METOPROLOL SUCCINATE 50 MG TAB XL PO SCH (09:53)
[2022-06-12] MEDS: PREDNISONE 10 MG TAB PO SCH (09:53)
[2022-06-12] MEDS: HYDROCODONE/APAP 10MG-325MG TAB PO PRN (09:58)
[2022-06-12] MEDS ORDERED: POTASSIUM CHLORIDE 10MEQ EA PO ONE (10:00)
[2022-06-12 11:00] LABS: BAND NEUTROPHILS % (MANUAL) 1 %; LYMPHOCYTES % (MANUAL) 22 % (19-48); MONOCYTES % (MANUAL) 7 % (3.4-9.0); NEUTROPHILS % (MANUAL) 70 % (40-74); PLATELET ESTIMATE ADEQUATE; PLATELET MORPHOLOGY COMMENT NORMAL; RBC MORPHOLOGY COMMENT NORMAL
[2022-06-12] MEDS: ALBUTEROL/IPRATROPIUM 3 ML NEB NEB SCH ×2 (13:03→19:48)
[2022-06-12 13:14] LABS: CREATINE KINASE MB 1.5 ng/mL (0-5.0)
[2022-06-12] MEDS: VANCOMYCIN HCL 125 MG CAPSULE PO SCH ×2 (14:30→22:18)
[2022-06-12] MEDS: ATORVASTATIN 40 MG TAB PO SCH (20:34)
[2022-06-12] MEDS: RIVAROXABAN 15 MG TABLET PO SCH (20:35)
[2022-06-13] VITALS (8 sets, daily range): BP systolic 105–133; BP diastolic 48–61
[2022-06-13] MEDS: ALBUTEROL/IPRATROPIUM 3 ML NEB NEB SCH ×4 (00:55→19:52)
[2022-06-13 06:06] LABS: BASOPHILS % 0.2 % (0.0-1.0); EOSINOPHILS # (AUTO) 0.1 (0.0-0.4); EOSINOPHILS % 0.9 % (0.0-6.0); HEMATOCRIT 29.8 % (34.2-44.1); LYMPHOCYTES # (AUTO) 0.9 (1.0-3.2); LYMPHOCYTES % 15.4 % (18.0-39.1); MEAN CORPUSCULAR HEMOGLOBIN 29.8 pg (28-32); MEAN CORPUSCULAR HGB CONC 30.2 g/dL (31-35); MEAN CORPUSCULAR VOLUME 98.7 fL (81-99); MONOCYTES # (AUTO) 0.6 (0.2-0.8); MONOCYTES % 10.3 % (4.4-11.3); NEUTROPHILS # (AUTO) 4.2 (2.1-6.9); NEUTROPHILS % 72.8 % (38.7-80.0); PLATELET COUNT 153 x10e3/uL (140-360); RED BLOOD COUNT 3.02 x10e6/uL (3.6-5.1)
[2022-06-13] MEDS: VANCOMYCIN HCL 125 MG CAPSULE PO SCH (06:34)
[2022-06-13] MEDS: METRONIDAZOLE 500MG/NS 100ML 100 ML IV SCH ×3 (06:34→17:11)
[2022-06-13 07:21] LABS: ANION GAP 14.5 mmol/L (8-16); CALCIUM 8.1 mg/dL (8.4-10.2); CREATININE, SERUM 0.93 mg/dL (0.57-1.11); POTASSIUM 3.5 mmol/L (3.5-5.1)
[2022-06-13] MEDS: PANTOPRAZOLE SOD 40 MG TABEC PO SCH (08:58)
[2022-06-13] MEDS: SODIUM BICARBONATE 650 MG TAB PO SCH (08:58)
[2022-06-13] MEDS: FIDAXOMICIN 200 MG TABLET PO SCH ×2 (08:58→16:16)
[2022-06-13] MEDS: PENTOXIFYLLINE 400 MG TAB CR PO SCH ×3 (08:58→21:20)
[2022-06-13] MEDS: PREDNISONE 10 MG TAB PO SCH (08:58)
[2022-06-13] MEDS: LACTOBACILLUS ACIDOPHILUS CAPSULE PO SCH ×3 (08:58→21:21)
[2022-06-13] MEDS: BUSPIRONE HCL 5 MG TAB PO SCH ×3 (08:59→21:21)
[2022-06-13] MEDS ORDERED: FIDAXOMICIN 200 MG TABLET PO SCH (09:00)
[2022-06-13] MEDS: METOPROLOL SUCCINATE 50 MG TAB XL PO SCH (09:00)
[2022-06-13] MEDS: HYDROCODONE/APAP 10MG-325MG TAB PO PRN (09:01)
[2022-06-13] MEDS: BUDESONIDE 0.5MG/2 ML NEB INH SCH ×2 (09:15→19:52)
[2022-06-13] MEDS: SODIUM CHLORIDE 0.9% 1000ML 1,000 ML IV SCH (17:12)
[2022-06-13] MEDS: RIVAROXABAN 15 MG TABLET PO SCH (21:21)
[2022-06-13] MEDS: ATORVASTATIN 40 MG TAB PO SCH (21:21)
[2022-06-14] VITALS (7 sets, daily range): BP systolic 118–161; BP diastolic 46–53
[2022-06-14] MEDS: METRONIDAZOLE 500MG/NS 100ML 100 ML IV SCH ×2 (00:36→05:50)
[2022-06-14] MEDS: ALBUTEROL/IPRATROPIUM 3 ML NEB NEB SCH ×4 (01:00→19:35)
[2022-06-14 05:18] LABS: MAGNESIUM 1.7 MG/DL (1.3-2.1); PHOSPHORUS 1.9 MG/DL (2.3-4.7)
[2022-06-14 05:37] LABS: ANION GAP 13.5 mmol/L (8-16); CALCIUM 8.4 mg/dL (8.4-10.2); CREATININE, SERUM 0.82 mg/dL (0.57-1.11); POTASSIUM 3.5 mmol/L (3.5-5.1)
[2022-06-14] MEDS: BUDESONIDE 0.5MG/2 ML NEB INH SCH ×2 (06:45→19:35)
[2022-06-14] MEDS: PANTOPRAZOLE SOD 40 MG TABEC PO SCH (08:46)
[2022-06-14] MEDS: FIDAXOMICIN 200 MG TABLET PO SCH ×2 (08:46→17:49)
[2022-06-14] MEDS: PENTOXIFYLLINE 400 MG TAB CR PO SCH ×3 (08:47→21:29)
[2022-06-14] MEDS: SODIUM BICARBONATE 650 MG TAB PO SCH (08:47)
[2022-06-14] MEDS: LACTOBACILLUS ACIDOPHILUS CAPSULE PO SCH ×3 (08:47→21:29)
[2022-06-14] MEDS: METOPROLOL SUCCINATE 50 MG TAB XL PO SCH (08:47)
[2022-06-14] MEDS: BUSPIRONE HCL 5 MG TAB PO SCH ×3 (08:47→21:30)
[2022-06-14] MEDS: PREDNISONE 10 MG TAB PO SCH (08:47)
[2022-06-14] MEDS: SODIUM CHLORIDE 0.9% 1000ML 1,000 ML IV SCH (08:48)
[2022-06-14] MEDS: HYDROCODONE/APAP 10MG-325MG TAB PO PRN (20:29)
[2022-06-14] MEDS: ATORVASTATIN 40 MG TAB PO SCH (21:29)
[2022-06-14] MEDS: RIVAROXABAN 15 MG TABLET PO SCH (21:29)
[2022-06-15] MEDS: ALBUTEROL/IPRATROPIUM 3 ML NEB NEB SCH ×4 (01:00→19:30)
[2022-06-15] MEDS: HYDROCODONE/APAP 10MG-325MG TAB PO PRN (05:03)
[2022-06-15 05:12] VITALS: BP 135/58
[2022-06-15] MEDS: BUDESONIDE 0.5MG/2 ML NEB INH SCH ×2 (06:30→19:30)
[2022-06-15 08:00] VITALS: BP 146/57
[2022-06-15 08:47] VITALS: BP 146/57
[2022-06-15] MEDS: BUSPIRONE HCL 5 MG TAB PO SCH ×3 (09:15→16:41)
[2022-06-15] MEDS: PREDNISONE 10 MG TAB PO SCH (09:16)
[2022-06-15] MEDS: FIDAXOMICIN 200 MG TABLET PO SCH ×2 (09:16→16:41)
[2022-06-15] MEDS: PENTOXIFYLLINE 400 MG TAB CR PO SCH ×3 (09:16→21:23)
[2022-06-15] MEDS: METOPROLOL SUCCINATE 50 MG TAB XL PO SCH (09:16)
[2022-06-15] MEDS: SODIUM BICARBONATE 650 MG TAB PO SCH (09:16)
[2022-06-15] MEDS: PANTOPRAZOLE SOD 40 MG TABEC PO SCH (09:16)
[2022-06-15] MEDS: LACTOBACILLUS ACIDOPHILUS CAPSULE PO SCH ×3 (09:16→21:23)
[2022-06-15 12:11] VITALS: BP 128/53
[2022-06-15 14:45] VITALS: BP 141/53
[2022-06-15] MEDS: ATORVASTATIN 40 MG TAB PO SCH (21:23)
[2022-06-15] MEDS: RIVAROXABAN 15 MG TABLET PO SCH (21:25)
[2022-06-16] VITALS (9 sets, daily range): BP systolic 114–163; BP diastolic 50–85
[2022-06-16] MEDS: ALBUTEROL/IPRATROPIUM 3 ML NEB NEB SCH ×4 (01:00→19:40)
[2022-06-16] MEDS: ALBUTEROL/IPRATROPIUM 3 ML NEB NEB PRN (04:50)
[2022-06-16 05:35] LABS: BASOPHILS % 0.4 % (0.0-1.0); EOSINOPHILS # (AUTO) 0.1 (0.0-0.4); EOSINOPHILS % 1.6 % (0.0-6.0); HEMATOCRIT 32.4 % (34.2-44.1); HEMOGLOBIN 9.5 g/dL (12.0-16.0); LYMPHOCYTES # (AUTO) 1.8 (1.0-3.2); LYMPHOCYTES % 24.9 % (18.0-39.1); MEAN CORPUSCULAR HEMOGLOBIN 29.7 pg (28-32); MEAN CORPUSCULAR HGB CONC 29.3 g/dL (31-35); MEAN CORPUSCULAR VOLUME 101.3 fL (81-99); MONOCYTES # (AUTO) 0.8 (0.2-0.8); MONOCYTES % 11.1 % (4.4-11.3); NEUTROPHILS # (AUTO) 4.5 (2.1-6.9); NEUTROPHILS % 60.5 % (38.7-80.0); PLATELET COUNT 314 x10e3/uL (140-360); RED CELL DISTRIBUTION WIDTH 19.6 % (11.7-14.4)
[2022-06-16 05:46] LABS: ANION GAP 15.8 mmol/L (8-16); CALCIUM 8.7 mg/dL (8.4-10.2); CREATININE, SERUM 1.04 mg/dL (0.57-1.11); POTASSIUM 3.8 mmol/L (3.5-5.1)
[2022-06-16] MEDS: BUDESONIDE 0.5MG/2 ML NEB INH SCH ×2 (08:05→19:40)
[2022-06-16] MEDS: FIDAXOMICIN 200 MG TABLET PO SCH ×2 (09:24→17:05)
[2022-06-16] MEDS: LACTOBACILLUS ACIDOPHILUS CAPSULE PO SCH ×3 (09:24→20:26)
[2022-06-16] MEDS: BUSPIRONE HCL 5 MG TAB PO SCH ×3 (09:25→20:26)
[2022-06-16] MEDS: SODIUM BICARBONATE 650 MG TAB PO SCH (09:32)
[2022-06-16] MEDS: PANTOPRAZOLE SOD 40 MG TABEC PO SCH (09:32)
[2022-06-16] MEDS: METOPROLOL SUCCINATE 50 MG TAB XL PO SCH (09:33)
[2022-06-16] MEDS: PENTOXIFYLLINE 400 MG TAB CR PO SCH ×3 (09:33→20:27)
[2022-06-16] MEDS: PREDNISONE 10 MG TAB PO SCH (09:33)
[2022-06-16] MEDS ORDERED: LACTATED RINGER'S 1,000 ML INJ ONE (10:00)
[2022-06-16] MEDS ORDERED: METHYLPREDNISOLONE SOD SUCC 40 MG/ML VIAL 1ML IV ONE (10:00)
[2022-06-16] MEDS ORDERED: FUROSEMIDE INJ 10 MG/ML 4 ML VIAL IV ONE ×2 (17:00→20:00)
[2022-06-16] MEDS: RIVAROXABAN 15 MG TABLET PO SCH (20:27)
[2022-06-16] MEDS: ATORVASTATIN 40 MG TAB PO SCH (20:27)
[2022-06-17] VITALS (7 sets, daily range): BP systolic 118–141; BP diastolic 50–80
[2022-06-17] MEDS: ALBUTEROL/IPRATROPIUM 3 ML NEB NEB SCH ×4 (01:30→18:40)
[2022-06-17] MEDS: BUDESONIDE 0.5MG/2 ML NEB INH SCH ×2 (06:15→18:40)
[2022-06-17 06:33] LABS: HEMATOCRIT 29.9 % (34.2-44.1); HEMOGLOBIN 9.4 g/dL (12.0-16.0); LYMPHOCYTES # (AUTO) 0.6 (1.0-3.2); MEAN CORPUSCULAR HEMOGLOBIN 29.8 pg (28-32); MEAN CORPUSCULAR HGB CONC 31.4 g/dL (31-35); MEAN CORPUSCULAR VOLUME 94.9 fL (81-99); MONOCYTES # (AUTO) 0.2 (0.2-0.8); MONOCYTES % 3.9 % (4.4-11.3); NEUTROPHILS # (AUTO) 4.5 (2.1-6.9); NEUTROPHILS % 83.2 % (38.7-80.0); PLATELET COUNT 336 x10e3/uL (140-360); RED BLOOD COUNT 3.15 x10e6/uL (3.6-5.1); RED CELL DISTRIBUTION WIDTH 19.5 % (11.7-14.4)
[2022-06-17 07:18] LABS: ALBUMIN 2.9 g/dL (3.5-5.0); ALBUMIN/GLOBULIN RATIO 1.2 (0.8-2.0); ANION GAP 15.8 mmol/L (8-16); CALCIUM 8.7 mg/dL (8.4-10.2); CREATININE, SERUM 0.93 mg/dL (0.57-1.11); POTASSIUM 3.8 mmol/L (3.5-5.1)
[2022-06-17] MEDS: BUSPIRONE HCL 5 MG TAB PO SCH ×3 (09:55→20:25)
[2022-06-17] MEDS: PENTOXIFYLLINE 400 MG TAB CR PO SCH ×3 (09:55→20:25)
[2022-06-17] MEDS: LACTOBACILLUS ACIDOPHILUS CAPSULE PO SCH ×3 (09:56→20:24)
[2022-06-17] MEDS: FIDAXOMICIN 200 MG TABLET PO SCH ×2 (09:56→17:04)
[2022-06-17] MEDS: PANTOPRAZOLE SOD 40 MG TABEC PO SCH (09:56)
[2022-06-17] MEDS: SODIUM BICARBONATE 650 MG TAB PO SCH (09:56)
[2022-06-17] MEDS: PREDNISONE 10 MG TAB PO SCH (09:56)
[2022-06-17] MEDS: METOPROLOL SUCCINATE 50 MG TAB XL PO SCH (09:56)
[2022-06-17] MEDS: CITALOPRAM HYDROBROMIDE 20 MG TAB PO SCH (12:47)
[2022-06-17] MEDS: HYDROCODONE/APAP 10MG-325MG TAB PO PRN (14:32)
[2022-06-17] MEDS: RIVAROXABAN 15 MG TABLET PO SCH (20:24)
[2022-06-17] MEDS: ATORVASTATIN 40 MG TAB PO SCH (20:25)
[2022-06-18] VITALS (7 sets, daily range): BP systolic 101–130; BP diastolic 52–67
[2022-06-18] MEDS: ALBUTEROL/IPRATROPIUM 3 ML NEB NEB SCH ×4 (01:00→18:35)
[2022-06-18] MEDS: BUDESONIDE 0.5MG/2 ML NEB INH SCH ×2 (06:15→18:50)
[2022-06-18] MEDS: LACTOBACILLUS ACIDOPHILUS CAPSULE PO SCH ×3 (09:13→20:39)
[2022-06-18] MEDS: PENTOXIFYLLINE 400 MG TAB CR PO SCH ×3 (09:13→20:39)
[2022-06-18] MEDS: PANTOPRAZOLE SOD 40 MG TABEC PO SCH (09:13)
[2022-06-18] MEDS: PREDNISONE 10 MG TAB PO SCH (09:13)
[2022-06-18] MEDS: BUSPIRONE HCL 5 MG TAB PO SCH ×3 (09:13→20:39)
[2022-06-18] MEDS: SODIUM BICARBONATE 650 MG TAB PO SCH (09:14)
[2022-06-18] MEDS: CITALOPRAM HYDROBROMIDE 20 MG TAB PO SCH (09:14)
[2022-06-18] MEDS: METOPROLOL SUCCINATE 50 MG TAB XL PO SCH (09:14)
[2022-06-18] MEDS: FIDAXOMICIN 200 MG TABLET PO SCH ×2 (09:14→18:06)
[2022-06-18] MEDS ORDERED: METHYLPREDNISOLONE SOD SUCC 40 MG/ML VIAL 1ML IV ONE ×2 (09:45→12:00)
[2022-06-18] MEDS: ATORVASTATIN 40 MG TAB PO SCH (20:39)
[2022-06-18] MEDS: RIVAROXABAN 15 MG TABLET PO SCH (20:39)
[2022-06-19] VITALS (7 sets, daily range): BP systolic 97–157; BP diastolic 52–98
[2022-06-19] MEDS: ALBUTEROL/IPRATROPIUM 3 ML NEB NEB SCH ×4 (01:00→20:53)
[2022-06-19 06:12] LABS: BASOPHILS % 0.3 % (0.0-1.0); EOSINOPHILS % 0.1 % (0.0-6.0); HEMATOCRIT 28.1 % (34.2-44.1); HEMOGLOBIN 8.5 g/dL (12.0-16.0); LYMPHOCYTES # (AUTO) 0.9 (1.0-3.2); LYMPHOCYTES % 11.7 % (18.0-39.1); MEAN CORPUSCULAR HEMOGLOBIN 29.9 pg (28-32); MEAN CORPUSCULAR HGB CONC 30.2 g/dL (31-35); MEAN CORPUSCULAR VOLUME 98.9 fL (81-99); MONOCYTES # (AUTO) 0.5 (0.2-0.8); MONOCYTES % 6.1 % (4.4-11.3); NEUTROPHILS # (AUTO) 5.9 (2.1-6.9); NEUTROPHILS % 80.4 % (38.7-80.0); PLATELET COUNT 357 x10e3/uL (140-360); RED BLOOD COUNT 2.84 x10e6/uL (3.6-5.1); RED CELL DISTRIBUTION WIDTH 19.7 % (11.7-14.4)
[2022-06-19 06:50] LABS: CALCIUM 8.8 mg/dL (8.4-10.2); CREATININE, SERUM 0.89 mg/dL (0.57-1.11)
[2022-06-19] MEDS: BUDESONIDE 0.5MG/2 ML NEB INH SCH ×2 (07:10→19:35)
[2022-06-19] MEDS: LACTOBACILLUS ACIDOPHILUS CAPSULE PO SCH ×3 (09:52→21:29)
[2022-06-19] MEDS: SODIUM BICARBONATE 650 MG TAB PO SCH (09:52)
[2022-06-19] MEDS: PANTOPRAZOLE SOD 40 MG TABEC PO SCH (09:52)
[2022-06-19] MEDS: BUSPIRONE HCL 5 MG TAB PO SCH ×3 (09:52→21:30)
[2022-06-19] MEDS: PENTOXIFYLLINE 400 MG TAB CR PO SCH ×3 (09:52→21:29)
[2022-06-19] MEDS: METOPROLOL SUCCINATE 50 MG TAB XL PO SCH (09:53)
[2022-06-19] MEDS: FIDAXOMICIN 200 MG TABLET PO SCH ×2 (09:53→17:24)
[2022-06-19] MEDS: CITALOPRAM HYDROBROMIDE 20 MG TAB PO SCH (09:53)
[2022-06-19] MEDS: RIVAROXABAN 15 MG TABLET PO SCH (21:29)
[2022-06-19] MEDS: ATORVASTATIN 40 MG TAB PO SCH (21:30)
[2022-06-19] MEDS: ALBUTEROL/IPRATROPIUM 3 ML NEB NEB PRN (23:00)
[2022-06-20] VITALS: BP 120/53
[2022-06-20] MEDS: ALBUTEROL/IPRATROPIUM 3 ML NEB NEB SCH ×2 (00:50→06:30)
[2022-06-20 04:00] VITALS: BP 122/77
[2022-06-20] MEDS: BUDESONIDE 0.5MG/2 ML NEB INH SCH (06:30)
[2022-06-20 08:05] VITALS: BP 161/51
[2022-06-20 08:45] VITALS: BP 161/51
[2022-06-20] MEDS: SODIUM BICARBONATE 650 MG TAB PO SCH (08:59)
[2022-06-20] MEDS: BUSPIRONE HCL 5 MG TAB PO SCH (09:00)
[2022-06-20] MEDS: FIDAXOMICIN 200 MG TABLET PO SCH (09:00)
[2022-06-20] MEDS: PANTOPRAZOLE SOD 40 MG TABEC PO SCH (09:00)
[2022-06-20] MEDS: LACTOBACILLUS ACIDOPHILUS CAPSULE PO SCH (09:00)
[2022-06-20] MEDS: PENTOXIFYLLINE 400 MG TAB CR PO SCH (09:00)
[2022-06-20] MEDS: METOPROLOL SUCCINATE 50 MG TAB XL PO SCH (09:01)
[2022-06-20] MEDS: CITALOPRAM HYDROBROMIDE 20 MG TAB PO SCH (09:01)
[2022-06-20] MEDS ORDERED: CELEXA10 MG PO (10:35)
[2022-06-20] MEDS ORDERED: PROBIOTIC & AC1 EACH PO (10:35)
[2022-06-20] MEDS ORDERED: ONDANSETRON ODT4 MG PO (10:36)
[2022-06-20] MEDS ORDERED: DIFICID200 MG PO (10:37)
[2022-06-20] MEDS ORDERED: ONDANSETRON HCL 4 MG ORAL DISINTEGRATING TAB PO PRN (12:30)
== END 2022-06-20 12:50 | disposition home health service (06) | DRG 372 ==
LOC: ER 10:28 → ERHOLD 12:25 → MED/SURG2 14:12
PROVIDERS: ADMIT Internal Medicine; ATTEND Internal Medicine
PROC: 02HV33Z Insertion of Infusion Device into Superior Vena Cava, Percutaneous Approach (ICD-10-PCS; principal; 2022-06-11)
DX: A04.71 Enterocolitis due to Clostridium difficile, recurrent (principal); I13.0 Hypertensive heart and chronic kidney disease with heart failure and stage 1 through stage 4 chronic kidney disease, or unspecified chronic kidney disease; N17.9 Acute kidney failure, unspecified; N39.0 Urinary tract infection, site not specified; J43.9 Emphysema, unspecified; D64.9 Anemia, unspecified; Z95.810 Presence of automatic (implantable) cardiac defibrillator; E86.0 Dehydration; I48.91 Unspecified atrial fibrillation; Z79.01 Long term (current) use of anticoagulants; Z86.73 Personal history of transient ischemic attack (TIA), and cerebral infarction without residual deficits; F41.0 Panic disorder [episodic paroxysmal anxiety]; E87.8 Other disorders of electrolyte and fluid balance, not elsewhere classified; D63.1 Anemia in chronic kidney disease; F41.9 Anxiety disorder, unspecified; F32.A Depression, unspecified; I50.9 Heart failure, unspecified; N18.9 Chronic kidney disease, unspecified
CPT/HCPCS: 36415; 51700; 71045; 74177; 80048; 80053; 81001; 82550; 82553; 83605; 83630; 83735; 83880; 84100; 84484; 85025; 85610; 85730; 87040; 87086; 87324; 87449; 93005; 94640; 94799; 96360; 99252; 99285; J1940; J2270; J2405; J2543; J2920; J7030; J7040; J7512; Q9967